=== PATIENT | male | born 1950 | race Caucasian/White ===

== ENCOUNTER → 2017-12-19 00:54 | Outpatient (CLI) | payer MEDICARE, SELFPAY ==
[2017-12-19 12:53] LABS: Anion Gap 7.1 mmol/L (3-11); BUN 22 mg/dL (7-18); CO2 28.9 mmol/L (21.0-32.0); CREATININE 1.04 mg/dL (0.70-1.30); Calcium 8.9 mg/dL (8.5-10.1); Chloride 104 mmol/L (98-107); Glucose 98 mg/dL (70-100); Potassium 3.8 mmol/L (3.5-5.1); Sodium 140 mmol/L (136-145)
== END ==
PROVIDERS: Family Medicine; PCP Family Medicine; Visit Provider Family Medicine
DX: B95.5 Unspecified streptococcus as the cause of diseases classified elsewhere (principal); R78.81 Bacteremia
CPT/HCPCS: 36415; 80048

== ENCOUNTER → 2017-12-23 09:16 | Outpatient (CLI) | payer MEDICARE, SELFPAY ==
[2017-12-23 11:09] LABS: INR 2.5 (1.0-3.5); Prothrombin Time 23.6 sec (9.3-10.8)
== END ==
PROVIDERS: PCP Family Medicine; Visit Provider Family Medicine
DX: I48.91 Unspecified atrial fibrillation (principal); Z79.01 Long term (current) use of anticoagulants
CPT/HCPCS: 36415; 85610

== ENCOUNTER → 2018-01-05 01:53 | Outpatient (CLI) | payer MEDICARE, SELFPAY ==
--- NOTE | 2018-01-05 14:40 | DI.REPORT_ITS ---
SYMPTOM/DIAGNOSIS: BACK PAIN RADIATING DOWN LT LEG, LT LUMBAR RADICULOPATHY, M54.16 LUMBAR SPINE MRI: Comparison is made with plain films dated 01/17/11. T 1, T 2 and STIR sagittal, T 1 and T 2 axial and T 1 coronal sequences were performed. There is a mild levoscoliosis. T 11-12 through L 2-3 are unremarkable. At L 3-4, there are endplate osteophytes and mild disc bulging. There is disc space narrowing greater on the right side. There is no significant central canal stenosis or neural foraminal narrowing. At L 4-5, there is also moderate loss of disc height and concentric disc bulging. There are endplate osteophytes which are slightly more prominent on the right side. There are facet degenerative changes which combine to cause moderate bilateral neural foraminal narrowing. There is minimal central canal stenosis. At L 5-S 1, there are facet degenerative changes with no significant neural foraminal narrowing or central canal stenosis. There are Schmorl's nodes on both sides of the discs and reactive changes in the vertebral endplates. The conus medullaris appears normal. IMPRESSION: Degenerative disc changes and facet degenerative changes greatest at L 4-5 causing moderate bilateral neural foraminal narrowing. There are Schmorl's nodes at L 4 and L 5 with reactive vertebral marrow changes. No disc herniation is seen at any level.
== END ==
PROVIDERS: PCP Family Medicine; Visit Provider Family Medicine
DX: M54.16 Radiculopathy, lumbar region (principal); M51.16 Intervertebral disc disorders with radiculopathy, lumbar region; M47.26 Other spondylosis with radiculopathy, lumbar region
CPT/HCPCS: 72148

== ENCOUNTER → 2018-01-15 02:02 | Outpatient (CLI) | payer MEDICARE, SELFPAY ==
[2018-01-15 11:15] LABS: INR 1.6 (1.0-3.5); Prothrombin Time 15.6 sec (9.3-10.8)
== END ==
PROVIDERS: PCP Family Medicine; Visit Provider Family Medicine
DX: I48.91 Unspecified atrial fibrillation (principal); Z79.01 Long term (current) use of anticoagulants
CPT/HCPCS: 36415; 85610

== ENCOUNTER 2018-01-22 03:09 | Outpatient (CLI) | payer MEDICARE, SELFPAY ==
[2018-01-22 11:24] LABS: INR 3.2 (1.0-3.5); Prothrombin Time 29.9 sec (9.3-10.8)
== END 2018-01-22 03:29 ==
LOC: LBO 03:10 → LOS 10:57
PROVIDERS: PCP Family Medicine; Visit Provider Family Medicine
DX: I48.91 Unspecified atrial fibrillation (principal); Z79.01 Long term (current) use of anticoagulants
CPT/HCPCS: 36415; 85610

== ENCOUNTER 2018-01-29 02:14 | Outpatient (CLI) | payer MEDICARE, SELFPAY ==
[2018-01-29 11:51] LABS: INR 2.6 (1.0-3.5); Prothrombin Time 24.5 sec (9.3-10.8)
== END 2018-01-29 02:34 ==
PROVIDERS: PCP Family Medicine; Visit Provider Family Medicine
DX: I48.91 Unspecified atrial fibrillation (principal); Z79.01 Long term (current) use of anticoagulants
CPT/HCPCS: 36415; 85610

== ENCOUNTER 2018-02-11 02:23 | Outpatient (CLI) | payer MEDICARE, SELFPAY ==
[2018-02-11 11:29] LABS: INR 1.9 (1.0-3.5); Prothrombin Time 17.9 sec (9.3-10.8)
== END 2018-02-11 02:43 ==
PROVIDERS: PCP Family Medicine; Visit Provider Family Medicine
DX: I48.91 Unspecified atrial fibrillation (principal); Z79.01 Long term (current) use of anticoagulants
CPT/HCPCS: 36415; 85610

== ENCOUNTER 2018-02-19 01:48 | Outpatient (CLI) | payer MEDICARE, SELFPAY ==
[2018-02-19 10:57] LABS: INR 1.4 (1.0-3.5); Prothrombin Time 13.6 sec (9.3-10.8)
== END 2018-02-19 02:08 ==
PROVIDERS: PCP Family Medicine; Visit Provider Family Medicine
DX: I48.91 Unspecified atrial fibrillation (principal); Z79.01 Long term (current) use of anticoagulants
CPT/HCPCS: 36415; 85610

== ENCOUNTER 2018-02-26 02:10 | Outpatient (CLI) | payer MEDICARE, SELFPAY ==
[2018-02-26 12:58] LABS: Prothrombin Time 14.9 sec (9.3-10.8)
[2018-02-26 13:04] LABS: INR 1.5 (1.0-3.5)
== END 2018-02-26 02:30 ==
PROVIDERS: PCP Family Medicine; Visit Provider Family Medicine
DX: I48.91 Unspecified atrial fibrillation (principal); Z79.01 Long term (current) use of anticoagulants
CPT/HCPCS: 36415; 85610

== ENCOUNTER 2018-03-05 02:15 | Outpatient (CLI) | payer MEDICARE, SELFPAY ==
[2018-03-05 11:27] LABS: INR 2.5 (1.0-3.5); Prothrombin Time 23.4 sec (9.3-10.8)
== END 2018-03-05 02:35 ==
PROVIDERS: PCP Family Medicine; Visit Provider Family Medicine
DX: I48.91 Unspecified atrial fibrillation (principal); Z79.01 Long term (current) use of anticoagulants
CPT/HCPCS: 36415; 85610

== ENCOUNTER 2018-03-19 01:36 | Outpatient (CLI) | payer MEDICARE, SELFPAY ==
[2018-03-19 13:00] LABS: INR 3.5 (1.0-3.5); Prothrombin Time 32.3 sec (9.3-10.8)
== END 2018-03-19 01:56 ==
PROVIDERS: PCP Family Medicine; Visit Provider Family Medicine
DX: I48.91 Unspecified atrial fibrillation (principal); Z79.01 Long term (current) use of anticoagulants
CPT/HCPCS: 36415; 85610

== ENCOUNTER 2018-03-25 01:41 | Outpatient (CLI) | payer MEDICARE, SELFPAY ==
[2018-03-25 12:59] LABS: Prothrombin Time 29.5 sec (9.3-10.8)
[2018-03-25 13:01] LABS: INR 3.1 (1.0-3.5)
== END 2018-03-25 02:01 ==
PROVIDERS: PCP Family Medicine; Visit Provider Family Medicine
DX: I48.91 Unspecified atrial fibrillation (principal); Z79.01 Long term (current) use of anticoagulants
CPT/HCPCS: 36415; 85610

== ENCOUNTER 2018-04-02 01:44 | Outpatient (CLI) | payer MEDICARE, SELFPAY ==
[2018-04-02 11:39] LABS: INR 3.3 (1.0-3.5); Prothrombin Time 31.1 sec (9.3-10.8)
== END 2018-04-02 02:04 ==
PROVIDERS: PCP Family Medicine; Visit Provider Family Medicine
DX: I48.91 Unspecified atrial fibrillation (principal); Z79.01 Long term (current) use of anticoagulants
CPT/HCPCS: 36415; 85610

== ENCOUNTER 2018-04-08 01:32 | Outpatient (CLI) | payer MEDICARE, SELFPAY ==
[2018-04-08 11:22] LABS: INR 2.7 (1.0-3.5); Prothrombin Time 25.8 sec (9.3-10.8)
== END 2018-04-08 01:52 ==
PROVIDERS: PCP Family Medicine; Visit Provider Family Medicine
DX: I48.91 Unspecified atrial fibrillation (principal); Z79.01 Long term (current) use of anticoagulants
CPT/HCPCS: 36415; 85610

== ENCOUNTER 2018-04-17 01:01 | Outpatient (CLI) | payer MEDICARE, SELFPAY ==
[2018-04-17 13:16] LABS: INR 1.2 (1.0-3.5)
== END 2018-04-17 01:21 ==
PROVIDERS: PCP Family Medicine; Visit Provider Family Medicine
DX: I48.91 Unspecified atrial fibrillation (principal); Z79.01 Long term (current) use of anticoagulants
CPT/HCPCS: 36415; 85610

== ENCOUNTER 2018-04-24 02:30 | Outpatient (CLI) | payer MEDICARE, SELFPAY ==
[2018-04-24 12:09] LABS: Anion Gap 10.5 mmol/L (3-11); BUN 19 mg/dL (7-18); CO2 31.5 mmol/L (21.0-32.0); CREATININE 1.17 mg/dL (0.70-1.30); Calcium 9.4 mg/dL (8.5-10.1); Chloride 99 mmol/L (98-107); Glucose 108 mg/dL (70-100); Potassium 3.3 mmol/L (3.5-5.1); Sodium 141 mmol/L (136-145)
[2018-04-24 12:12] LABS: Prothrombin Time 19.5 sec (9.3-10.8)
== END 2018-04-24 02:50 ==
PROVIDERS: PCP Family Medicine; Visit Provider Family Medicine
DX: I48.91 Unspecified atrial fibrillation (principal); Z79.01 Long term (current) use of anticoagulants; R53.83 Other fatigue
CPT/HCPCS: 36415; 80048; 85610

== ENCOUNTER 2018-05-29 00:54 | Outpatient (CLI) | payer OTHER, SELFPAY ==
[2018-05-29 11:45] LABS: INR 2.9 (0.9-1.1); Prothrombin Time 29.3 sec (9.3-11.0)
== END 2018-05-29 01:14 ==
PROVIDERS: PCP Family Medicine; Visit Provider Family Medicine
DX: I48.91 Unspecified atrial fibrillation (principal); Z79.01 Long term (current) use of anticoagulants
CPT/HCPCS: 36415; 85610

== ENCOUNTER 2018-06-03 10:29 | Outpatient (CLI) | payer OTHER, SELFPAY ==
[2018-06-03 12:59] LABS: INR 2.1 (0.9-1.1); Prothrombin Time 20.8 sec (9.3-11.0)
== END 2018-06-03 10:49 ==
PROVIDERS: PCP Family Medicine; Visit Provider Family Medicine
DX: I48.91 Unspecified atrial fibrillation (principal); Z79.01 Long term (current) use of anticoagulants
CPT/HCPCS: 36415; 85610

== ENCOUNTER 2018-07-02 02:16 | Outpatient (CLI) | payer OTHER, SELFPAY ==
[2018-07-02 13:25] LABS: INR 2.2 (0.9-1.1); Prothrombin Time 22.4 sec (9.3-11.0)
== END 2018-07-02 02:36 ==
PROVIDERS: PCP Family Medicine; Visit Provider Family Medicine
DX: I48.91 Unspecified atrial fibrillation (principal); Z79.01 Long term (current) use of anticoagulants
CPT/HCPCS: 36415; 85610

== ENCOUNTER 2018-08-04 07:00 | Outpatient (CLI) | payer OTHER, SELFPAY ==
[2018-08-04 13:25] LABS: INR 2.4 (0.9-1.1); Prothrombin Time 24.1 sec (9.3-11.0)
== END 2018-08-04 07:20 ==
PROVIDERS: PCP Family Medicine; Visit Provider Family Medicine
DX: I48.91 Unspecified atrial fibrillation (principal); Z79.01 Long term (current) use of anticoagulants
CPT/HCPCS: 36415; 85610

== ENCOUNTER 2018-08-28 01:32 | Outpatient (CLI) | payer OTHER, SELFPAY ==
[2018-08-28 12:37] LABS: INR 1.8 (0.9-1.1); Prothrombin Time 18.4 sec (9.3-11.0)
== END 2018-08-28 01:52 ==
PROVIDERS: PCP Family Medicine; Visit Provider Family Medicine
DX: I48.91 Unspecified atrial fibrillation (principal); Z79.01 Long term (current) use of anticoagulants
CPT/HCPCS: 36415; 85610

== ENCOUNTER 2018-09-30 02:22 | Outpatient (CLI) | payer OTHER, SELFPAY ==
[2018-09-30 14:14] LABS: INR 1.9 (0.9-1.1); Prothrombin Time 18.8 sec (9.3-11.0)
== END 2018-09-30 02:42 ==
PROVIDERS: PCP Family Medicine; Visit Provider Family Medicine
DX: I48.91 Unspecified atrial fibrillation (principal); Z79.01 Long term (current) use of anticoagulants
CPT/HCPCS: 36415; 85610

== ENCOUNTER 2018-10-23 10:21 | Outpatient (CLI) | payer OTHER, SELFPAY ==
[2018-10-23 11:13] LABS: HCT 45.4 % (40.0-50.0); HGB 15.9 g/dL (13.5-17.5); Mean Corpuscular Hemoglobin 34.3 pg (27.0-33.0); Mean Corpuscular Volume 97.8 fL (80-95); Platelet Count 201 x1000/uL (130-400); RBC 4.64 m/cumm (4.50-6.00); RBC Distribution Width 12.6 % (11.8-14.1); White Blood Cell Count 8.39 k/cumm (4.4-10.8)
[2018-10-23 11:32] LABS: INR 1.6 (0.9-1.1); Prothrombin Time 15.6 sec (9.3-11.0)
[2018-10-23 11:59] LABS: Anion Gap 7.3 mmol/L (3-11); BUN 21 mg/dL (7-18); CO2 30.7 mmol/L (21.0-32.0); CREATININE 1.18 mg/dL (0.70-1.30); Calcium 9.3 mg/dL (8.5-10.1); Chloride 102 mmol/L (98-107); Glucose 92 mg/dL (70-100); Sodium 140 mmol/L (136-145); TSH (W/Ref FT4) 0.28 uIU/mL (0.358-3.74)
[2018-10-23 14:04] LABS: FREE T4 1.31 ng/dL (0.76-1.46)
== END 2018-10-23 10:41 ==
PROVIDERS: PCP Family Medicine; Visit Provider Family Medicine
DX: R53.1 Weakness (principal); R51 Headache; I48.91 Unspecified atrial fibrillation; Z79.01 Long term (current) use of anticoagulants
CPT/HCPCS: 36415; 80048; 85027; 84439; 84443; 85610

== ENCOUNTER 2018-10-30 02:40 | Outpatient (CLI) | payer OTHER, SELFPAY ==
[2018-10-30 13:26] LABS: INR 1.6 (0.9-1.1); Prothrombin Time 16.1 sec (9.3-11.0)
== END 2018-10-30 03:00 ==
PROVIDERS: PCP Family Medicine; Visit Provider Family Medicine
DX: I48.91 Unspecified atrial fibrillation (principal); Z79.01 Long term (current) use of anticoagulants
CPT/HCPCS: 36415; 85610

== ENCOUNTER 2018-11-06 02:23 | Outpatient (CLI) | payer OTHER, SELFPAY ==
[2018-11-06 13:00] LABS: INR 2.2 (0.9-1.1); Prothrombin Time 22.1 sec (9.3-11.0)
== END 2018-11-06 02:43 ==
PROVIDERS: PCP Family Medicine; Visit Provider Family Medicine
DX: I48.91 Unspecified atrial fibrillation (principal); Z79.01 Long term (current) use of anticoagulants
CPT/HCPCS: 36415; 85610

== ENCOUNTER 2018-11-20 01:43 | Outpatient (CLI) | payer OTHER, SELFPAY ==
--- NOTE | 2018-11-20 13:51 | DI.MRI_ITS ---
SYMPTOMS/DIAGNOSIS: NEW ONSET HEADACHE, R51 MRI OF THE BRAIN: Comparison is made with a head CT dated June,. T2 sagittal, T1, T2, FLAIR, diffusion and gradient-echo axial, FLAIR sagittal and post gadolinium T1 axial and coronal sequences were performed. There is moderate atrophy. There are multiple prominent perivascular spaces bilaterally. There are scattered foci of high signal in the white matter consistent with small vessel disease. No infarct, hemorrhage or mass is seen. There are a few scattered areas of punctate blooming artifact on the gradient-echo images, suggesting petechial microhemorrhages or amyloid angiopathy. There are no abnormal enhancing lesions. The orbits, sinuses and mastoid air cells appear intact. There is an area of infarction in the right inferior cerebellum and another area of old lacunar infarct in the right cerebellar hemisphere. The vascular flow voids appear intact. IMPRESSION: Atrophy, which appears somewhat disproportionate to the patient's age. Mild white matter changes of small vessel disease. 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
[2018-11-20] MEDS: Normal Saline Flush 10 ML SYR IVP (14:35)
[2018-11-20] MEDS: Gadoterate meglumine 20 ML VIAL 17 ML IVP (14:36)
== END 2018-11-20 02:03 ==
PROVIDERS: PCP Family Medicine; Visit Provider Family Medicine
DX: R51 Headache (principal); R90.82 White matter disease, unspecified; I69.30 Unspecified sequelae of cerebral infarction
CPT/HCPCS: 70553

== ENCOUNTER 2018-12-01 02:42 | Outpatient (CLI) | payer OTHER, SELFPAY ==
[2018-12-01 12:57] LABS: Prothrombin Time 19.6 sec (9.3-11.0)
[2018-12-01 13:01] LABS: INR 1.9 (0.9-1.1)
== END 2018-12-01 03:02 ==
PROVIDERS: PCP Family Medicine; Visit Provider Family Medicine
DX: I48.91 Unspecified atrial fibrillation (principal); Z79.01 Long term (current) use of anticoagulants
CPT/HCPCS: 36415; 85610

== ENCOUNTER 2019-01-08 04:07 | Outpatient (CLI) | payer OTHER, SELFPAY ==
[2019-01-08 13:22] LABS: INR 1.5 (0.9-1.1); Prothrombin Time 15.4 sec (9.3-11.0)
== END 2019-01-08 04:27 ==
PROVIDERS: PCP Family Medicine; Visit Provider Family Medicine
DX: I48.91 Unspecified atrial fibrillation (principal); Z79.01 Long term (current) use of anticoagulants
CPT/HCPCS: 36415; 85610

== ENCOUNTER 2019-01-14 12:15 | Outpatient (CLI) | payer OTHER, SELFPAY ==
[2019-01-14 12:53] LABS: INR 2.1 (0.9-1.1); Prothrombin Time 21.2 sec (9.3-11.0)
== END 2019-01-14 12:35 ==
PROVIDERS: PCP Family Medicine; Visit Provider Family Medicine
DX: I48.91 Unspecified atrial fibrillation (principal); Z79.01 Long term (current) use of anticoagulants
CPT/HCPCS: 36415; 85610

== ENCOUNTER 2019-02-10 01:41 | Outpatient (CLI) | payer OTHER, SELFPAY ==
[2019-02-10 11:48] LABS: Prothrombin Time 19.4 sec (9.3-11.0)
== END 2019-02-10 02:01 ==
PROVIDERS: PCP Family Medicine; Visit Provider Family Medicine
DX: I48.91 Unspecified atrial fibrillation (principal); Z79.01 Long term (current) use of anticoagulants
CPT/HCPCS: 36415; 85610

== ENCOUNTER 2019-03-16 02:45 | Outpatient (CLI) | payer OTHER, SELFPAY ==
[2019-03-16 13:09] LABS: Prothrombin Time 29.3 sec (9.3-11.0)
== END 2019-03-16 03:05 ==
PROVIDERS: PCP Family Medicine; Visit Provider Family Medicine
DX: I48.91 Unspecified atrial fibrillation (principal); Z79.01 Long term (current) use of anticoagulants
CPT/HCPCS: 36415; 85610

== ENCOUNTER → 2019-03-31 10:10 | Outpatient (BNVA) | payer OTHER, SELFPAY | PROVIDERS: PCP Family Medicine; Referring Provider Family Medicine; Visit Provider Nurse Practitioner Adult Health | DX: G56.22 Lesion of ulnar nerve, left upper limb (principal); G56.03 Carpal tunnel syndrome, bilateral upper limbs | CPT/HCPCS: 95911; 99203 ==

== ENCOUNTER → 2019-04-27 10:49 | Outpatient (BNVA) | payer OTHER, SELFPAY | PROVIDERS: PCP Family Medicine; Referring Provider Family Medicine; Visit Provider Orthopaedic Surgery | DX: G56.02 Carpal tunnel syndrome, left upper limb (principal); G56.01 Carpal tunnel syndrome, right upper limb | CPT/HCPCS: 99203; 99213; L3908 ==

== ENCOUNTER 2019-04-29 01:40 | Outpatient (CLI) | payer OTHER, SELFPAY ==
[2019-04-29 12:52] LABS: INR 2.4 (0.9-1.1); Prothrombin Time 23.6 sec (9.3-11.0)
== END 2019-04-29 02:00 ==
PROVIDERS: PCP Family Medicine; Visit Provider Family Medicine
DX: I48.91 Unspecified atrial fibrillation (principal); Z79.01 Long term (current) use of anticoagulants
CPT/HCPCS: 36415; 85610

== ENCOUNTER 2019-06-03 01:43 | Outpatient (CLI) | payer OTHER, SELFPAY ==
[2019-06-03 12:59] LABS: Prothrombin Time 20.1 sec (9.3-11.0)
[2019-06-03 13:25] LABS: ALT 18 U/L (16-63); AST 19 U/L (15-37); Albumin 4.3 g/dL (3.4-5.0); Alkaline Phosphatase 41 U/L (46-116); Anion Gap 8.4 mmol/L (3-11); BUN 22 mg/dL (7-18); Bilirubin, Total 1.6 mg/dL (0.2-1.0); CO2 28.6 mmol/L (21.0-32.0); CREATININE 1.29 mg/dL (0.70-1.30); Calcium 9.4 mg/dL (8.5-10.1); Chloride 108 mmol/L (98-107); Estimated GFR 55.22 (mL/min/1.73m2); Ferritin 128 ng/mL (26-388); Glucose 97 mg/dL (74-106); Potassium 3.8 mmol/L (3.5-5.1); Sodium 145 mmol/L (136-145); TSH 1.68 uIU/mL (0.36-3.74); Total Protein 7.1 g/dL (6.4-8.2)
== END 2019-06-03 02:03 ==
PROVIDERS: Nurse Practitioner; PCP Family Medicine; Visit Provider Family Medicine
DX: I48.91 Unspecified atrial fibrillation (principal); Z79.01 Long term (current) use of anticoagulants; I10 Essential (primary) hypertension; G25.81 Restless legs syndrome; M25.50 Pain in unspecified joint
CPT/HCPCS: 36415; 80053; 82728; 84443; 85610

== ENCOUNTER → 2019-06-22 09:52 | Outpatient (BNVA) | payer OTHER, SELFPAY | PROVIDERS: PCP Family Medicine; Referring Provider Family Medicine; Visit Provider Orthopaedic Surgery | DX: G56.01 Carpal tunnel syndrome, right upper limb (principal); G56.02 Carpal tunnel syndrome, left upper limb | CPT/HCPCS: 99213 ==

== ENCOUNTER 2019-07-23 09:30 | Outpatient (REF) | payer OTHER, SELFPAY ==
[2019-07-23 11:18] LABS: INR 1.6 (0.9-1.1); Prothrombin Time 15.9 sec (9.3-11.0)
== END 2019-07-23 09:50 ==
LOC: LOS 09:30
PROVIDERS: PCP Family Medicine; Visit Provider Family Medicine
DX: I48.91 Unspecified atrial fibrillation (principal); Z79.01 Long term (current) use of anticoagulants
CPT/HCPCS: 36415; 85610

== ENCOUNTER 2019-08-04 02:55 | Outpatient (CLI) | payer OTHER, SELFPAY ==
[2019-08-04 12:39] LABS: INR 1.4 (0.9-1.1); Prothrombin Time 14.3 sec (9.3-11.0)
== END 2019-08-04 03:15 ==
PROVIDERS: PCP Family Medicine; Visit Provider Family Medicine
DX: I48.91 Unspecified atrial fibrillation (principal); Z79.01 Long term (current) use of anticoagulants
CPT/HCPCS: 36415; 85610

== ENCOUNTER 2019-08-09 02:58 | Outpatient (CLI) | payer OTHER, SELFPAY ==
[2019-08-09 13:04] LABS: INR 1.3 (0.9-1.1); Prothrombin Time 13.4 sec (9.3-11.0)
== END 2019-08-09 03:18 ==
PROVIDERS: PCP Family Medicine; Visit Provider Family Medicine
DX: I48.20 Chronic atrial fibrillation, unspecified (principal); Z95.2 Presence of prosthetic heart valve; Z79.01 Long term (current) use of anticoagulants
CPT/HCPCS: 36415; 85610

== ENCOUNTER 2019-08-18 00:26 | Outpatient (CLI) | payer OTHER, SELFPAY ==
[2019-08-18 15:32] LABS: INR 1.6 (0.9-1.1); Prothrombin Time 15.5 sec (9.3-11.0)
== END 2019-08-18 00:46 ==
PROVIDERS: PCP Family Medicine; Visit Provider Family Medicine
DX: I48.91 Unspecified atrial fibrillation (principal); Z79.01 Long term (current) use of anticoagulants
CPT/HCPCS: 36415; 85610

== ENCOUNTER 2019-08-25 01:00 | Outpatient (CLI) | payer OTHER, SELFPAY ==
[2019-08-25 13:56] LABS: Prothrombin Time 19.4 sec (9.3-11.0)
== END 2019-08-25 01:20 ==
PROVIDERS: PCP Family Medicine; Visit Provider Family Medicine
DX: I48.91 Unspecified atrial fibrillation (principal); Z79.01 Long term (current) use of anticoagulants
CPT/HCPCS: 36415; 85610

== ENCOUNTER → 2020-04-11 15:02 | Outpatient (REF) | payer OTHER, SELFPAY ==
[2020-04-11 22:45] LABS: Anion Gap 7.8 mmol/L (3-11); BUN 17 mg/dL (7-18); CO2 27.2 mmol/L (21.0-32.0); CREATININE 1.14 mg/dL (0.70-1.30); Calcium 8.9 mg/dL (8.5-10.1); Chloride 108 mmol/L (98-107); Glucose 97 mg/dL (74-106); Potassium 3.4 mmol/L (3.5-5.1); Sodium 143 mmol/L (136-145)
== END ==
LOC: LBN 15:02
PROVIDERS: PCP Family Medicine; Visit Provider Family Medicine
DX: I10 Essential (primary) hypertension (principal)
CPT/HCPCS: 80048

== ENCOUNTER 2020-04-21 02:23 | Outpatient (CLI) | payer OTHER, SELFPAY ==
[2020-04-22 17:05] LABS: COVID-19 RT-PCR Result NEGATIVE (Negative)
== END 2020-04-21 02:43 ==
PROVIDERS: PCP Family Medicine; Visit Provider Family Medicine
DX: Z20.828 Contact with and (suspected) exposure to other viral communicable diseases (principal)
CPT/HCPCS: U0003

== ENCOUNTER 2020-05-01 03:42 | Outpatient (CLI) | payer OTHER, SELFPAY ==
[2020-05-01 12:36] LABS: Prothrombin Time 13.5 sec (9.3-11.0)
[2020-05-01 12:47] LABS: INR 1.3 (0.9-1.1)
== END 2020-05-01 04:02 ==
PROVIDERS: PCP Family Medicine; Visit Provider Family Medicine
DX: I48.91 Unspecified atrial fibrillation (principal); Z79.01 Long term (current) use of anticoagulants
CPT/HCPCS: 36415; 85610

== ENCOUNTER 2020-05-10 03:11 | Outpatient (CLI) | payer OTHER, SELFPAY ==
[2020-05-10 13:01] LABS: INR 3.1 (0.9-1.1); Prothrombin Time 30.3 sec (9.3-11.0)
== END 2020-05-10 03:31 ==
PROVIDERS: PCP Family Medicine; Visit Provider Family Medicine
DX: I48.91 Unspecified atrial fibrillation (principal); Z79.01 Long term (current) use of anticoagulants
CPT/HCPCS: 36415; 85610

== ENCOUNTER 2020-05-16 03:25 | Outpatient (CLI) | payer OTHER, SELFPAY ==
[2020-05-16 13:26] LABS: INR 3.6 (0.9-1.1); Prothrombin Time 34.9 sec (9.3-11.0)
== END 2020-05-16 03:45 ==
PROVIDERS: PCP Family Medicine; Visit Provider Family Medicine
DX: I48.20 Chronic atrial fibrillation, unspecified (principal); Z79.01 Long term (current) use of anticoagulants
CPT/HCPCS: 36415; 85610

== ENCOUNTER 2020-05-18 10:31 | Outpatient (CLI) | payer OTHER, SELFPAY ==
[2020-05-18 12:15] LABS: INR 3.4 (0.9-1.1)
[2020-05-18 13:03] LABS: Anion Gap 10.1 mmol/L (3-11); BUN 19 mg/dL (7-18); CO2 25.9 mmol/L (21.0-32.0); CREATININE 1.27 mg/dL (0.70-1.30); Calcium 8.9 mg/dL (8.5-10.1); Chloride 107 mmol/L (98-107); Estimated GFR 56.07 (mL/min/1.73m2); Glucose 108 mg/dL (74-106); Potassium 3.6 mmol/L (3.5-5.1); Sodium 143 mmol/L (136-145)
== END 2020-05-18 10:51 ==
PROVIDERS: PCP Family Medicine; Visit Provider Family Medicine
DX: I10 Essential (primary) hypertension (principal); I48.20 Chronic atrial fibrillation, unspecified; Z79.01 Long term (current) use of anticoagulants
CPT/HCPCS: 36415; 80048; 85610

== ENCOUNTER 2020-05-25 02:43 | Outpatient (CLI) | payer OTHER, SELFPAY ==
[2020-05-25 14:50] LABS: INR 3.5 (0.9-1.1); Prothrombin Time 34.1 sec (9.3-11.0)
== END 2020-05-25 03:03 ==
PROVIDERS: PCP Family Medicine; Visit Provider Family Medicine
DX: I48.20 Chronic atrial fibrillation, unspecified (principal); Z79.01 Long term (current) use of anticoagulants
CPT/HCPCS: 36415; 85610

== ENCOUNTER 2020-06-02 01:06 | Outpatient (CLI) | payer OTHER, SELFPAY ==
[2020-06-02 13:19] LABS: INR 1.4 (0.9-1.1); Prothrombin Time 13.6 sec (9.3-11.0)
== END 2020-06-02 01:26 ==
PROVIDERS: PCP Family Medicine; Visit Provider Family Medicine
DX: I48.91 Unspecified atrial fibrillation (principal); Z79.01 Long term (current) use of anticoagulants
CPT/HCPCS: 36415; 85610

== ENCOUNTER 2020-06-09 00:34 | Outpatient (CLI) | payer OTHER, SELFPAY ==
[2020-06-09 13:23] LABS: INR 2.8 (0.9-1.1); Prothrombin Time 27.4 sec (9.3-11.0)
== END 2020-06-09 00:54 ==
PROVIDERS: PCP Family Medicine; Visit Provider Family Medicine
DX: I48.20 Chronic atrial fibrillation, unspecified (principal); Z79.01 Long term (current) use of anticoagulants
CPT/HCPCS: 36415; 85610

== ENCOUNTER 2020-06-19 08:42 | Outpatient (CLI) | payer OTHER, SELFPAY ==
[2020-06-19 14:59] LABS: INR 2.2 (0.9-1.1); Prothrombin Time 22.1 sec (9.3-11.0)
== END 2020-06-19 09:02 ==
PROVIDERS: PCP Family Medicine; Visit Provider Family Medicine
DX: I48.20 Chronic atrial fibrillation, unspecified (principal); Z79.01 Long term (current) use of anticoagulants
CPT/HCPCS: 36415; 85610

== ENCOUNTER 2020-07-10 21:23 | Outpatient (REF) | payer OTHER, SELFPAY ==
[2020-07-10 21:57] LABS: Anion Gap 7.4 mmol/L (3-11); BUN 19 mg/dL (7-18); CO2 28.6 mmol/L (21.0-32.0); CREATININE 1.1 mg/dL (0.70-1.30); Calcium 9.1 mg/dL (8.5-10.1); Chloride 108 mmol/L (98-107); Glucose 115 mg/dL (74-106); Potassium 4.1 mmol/L (3.5-5.1); Sodium 144 mmol/L (136-145)
[2020-07-17 15:24] LABS: 1,25-Dihydroxyvitamin D 20 pg/mL (18-64)
== END 2020-07-10 21:24 | disposition home or self-care (01) ==
LOC: LBN 21:23
PROVIDERS: PCP Family Medicine; Visit Provider Nurse Practitioner Family
DX: I10 Essential (primary) hypertension (principal); F32.9 Major depressive disorder, single episode, unspecified; Z79.899 Other long term (current) drug therapy; Z13.21 Encounter for screening for nutritional disorder
CPT/HCPCS: 80048; 82652

== ENCOUNTER 2020-07-14 01:02 | Outpatient (CLI) | payer OTHER, SELFPAY ==
[2020-07-14 12:40] LABS: INR 2.4 (0.9-1.1); Prothrombin Time 23.3 sec (9.3-11.0)
== END 2020-07-14 01:03 | disposition home or self-care (01) ==
LOC: LOS 01:02
PROVIDERS: PCP Family Medicine; Visit Provider Family Medicine
DX: I48.20 Chronic atrial fibrillation, unspecified (principal); Z79.01 Long term (current) use of anticoagulants
CPT/HCPCS: 36415; 85610

== ENCOUNTER 2020-08-11 01:42 | Outpatient (CLI) | payer OTHER, SELFPAY ==
[2020-08-11 12:40] LABS: INR 2.5 (0.9-1.1); Prothrombin Time 24.9 sec (9.3-11.0)
== END 2020-08-11 01:43 | disposition home or self-care (01) ==
LOC: LOS 01:43
PROVIDERS: PCP Family Medicine; Visit Provider Family Medicine
DX: I48.20 Chronic atrial fibrillation, unspecified (principal); Z79.01 Long term (current) use of anticoagulants
CPT/HCPCS: 36415; 85610

== ENCOUNTER 2020-09-11 04:04 | Outpatient (CLI) | payer OTHER, SELFPAY ==
[2020-09-11 12:54] LABS: INR 2.2 (0.9-1.1); Prothrombin Time 22.1 sec (9.3-11.0)
== END 2020-09-11 04:05 | disposition home or self-care (01) ==
LOC: LOS 04:04
PROVIDERS: PCP Family Medicine; Visit Provider Nurse Practitioner Family
DX: I48.20 Chronic atrial fibrillation, unspecified (principal); Z79.01 Long term (current) use of anticoagulants
CPT/HCPCS: 36415; 85610

== ENCOUNTER 2020-12-18 16:06 | Outpatient (CLI) | payer OTHER, SELFPAY ==
[2020-12-18 09:44] LABS: INR 2.5 (0.9-1.1); Prothrombin Time 24.8 sec (9.3-11.0)
== END 2020-12-18 16:07 | disposition home or self-care (01) ==
LOC: LBO 16:06
PROVIDERS: Visit Provider Internal Medicine
DX: I48.11 Longstanding persistent atrial fibrillation (principal); Z79.01 Long term (current) use of anticoagulants
CPT/HCPCS: 36415; 85610

== ENCOUNTER 2020-12-22 02:40 | Outpatient (CLI) | payer OTHER, SELFPAY ==
[2020-12-22 09:36] LABS: INR 2.5 (0.9-1.1)
== END 2020-12-22 02:41 | disposition home or self-care (01) ==
LOC: LBO 02:40
PROVIDERS: Visit Provider Internal Medicine
DX: I48.11 Longstanding persistent atrial fibrillation (principal); Z79.01 Long term (current) use of anticoagulants
CPT/HCPCS: 36415; 85610

== ENCOUNTER 2021-01-04 02:54 | Outpatient (CLI) | payer OTHER, SELFPAY ==
[2021-01-04 10:03] LABS: INR 2.3 (0.9-1.1); Prothrombin Time 22.9 sec (9.3-11.0)
== END 2021-01-04 02:55 | disposition home or self-care (01) ==
LOC: LBO 02:54
PROVIDERS: Internal Medicine; Visit Provider Internal Medicine
DX: I48.11 Longstanding persistent atrial fibrillation (principal); Z79.01 Long term (current) use of anticoagulants
CPT/HCPCS: 36415; 85610

== ENCOUNTER 2021-02-02 02:29 | Outpatient (CLI) | payer OTHER, SELFPAY ==
[2021-02-02 13:14] LABS: Prothrombin Time 19.9 sec (9.3-11.0)
== END 2021-02-02 02:30 | disposition home or self-care (01) ==
LOC: LBO 02:29
PROVIDERS: Visit Provider Internal Medicine
DX: I48.11 Longstanding persistent atrial fibrillation (principal); Z79.01 Long term (current) use of anticoagulants
CPT/HCPCS: 36415; 85610

== ENCOUNTER 2021-03-01 02:46 | Outpatient (CLI) | payer MEDICARE, SELFPAY ==
[2021-03-01 16:16] LABS: Prothrombin Time 19.7 sec (9.3-11.0)
== END 2021-03-01 02:47 | disposition home or self-care (01) ==
LOC: LBO 02:46
PROVIDERS: Visit Provider Internal Medicine
DX: I48.11 Longstanding persistent atrial fibrillation (principal)
CPT/HCPCS: 36415; 85610

== ENCOUNTER 2021-04-05 02:19 | Outpatient (CLI) | payer MEDICARE, SELFPAY ==
[2021-04-05 12:16] LABS: HCT 46.3 % (40.0-50.0); HGB 15.3 g/dL (13.5-17.5); MCH 33.3 pg (27.0-33.0); MCV 100.9 fL (80-95); MPV 9.3 fL (8.0-11.0); Platelet Count 236 10^3/uL (130-400); RBC 4.59 10^6/uL (4.36-5.78); RDW 12.5 % (11.8-14.1); RDW-SD 46.5 fL; WBC 7.59 10^3/uL (4.4-10.8)
[2021-04-05 12:31] LABS: INR 2.6 (0.9-1.1); Prothrombin Time 25.7 sec (9.3-11.0)
[2021-04-05 13:42] LABS: ALT 28 U/L (16-63); AST 17 U/L (15-37); Alkaline Phosphatase 57 U/L (46-116); Anion Gap 10.1 mmol/L (3-11); BUN 23 mg/dL (7-18); Bilirubin, Total 0.8 mg/dL (0.2-1.0); CO2 27.9 mmol/L (21.0-32.0); CREATININE 1.4 mg/dL (0.70-1.30); Calcium 9.1 mg/dL (8.5-10.1); Chloride 108 mmol/L (98-107); Estimated GFR 49.96 (mL/min/1.73m2); Glucose 125 mg/dL (74-106); Potassium 3.6 mmol/L (3.5-5.1); Sodium 146 mmol/L (136-145); Total Protein 7.1 g/dL (6.4-8.2)
== END 2021-04-05 02:20 | disposition home or self-care (01) ==
LOC: LBO 02:19
PROVIDERS: Visit Provider Internal Medicine
DX: I10 Essential (primary) hypertension (principal); I48.11 Longstanding persistent atrial fibrillation; Z79.01 Long term (current) use of anticoagulants
CPT/HCPCS: 36415; 80053; 85027; 85014; 85018; 85610

== ENCOUNTER 2021-05-08 02:25 | Outpatient (CLI) | payer MEDICARE, SELFPAY ==
[2021-05-08 14:49] LABS: HCT 42.8 % (40.0-50.0); HGB 14.2 g/dL (13.5-17.5); MCH 33.6 pg (27.0-33.0); MCHC 33.2 % (32.0-36.0); MCV 101.2 fL (80-95); MPV 9.3 fL (8.0-11.0); Platelet Count 219 10^3/uL (130-400); RBC 4.23 10^6/uL (4.36-5.78); RDW 12.5 % (11.8-14.1); RDW-SD 46.4 fL; WBC 9.35 10^3/uL (4.4-10.8)
[2021-05-08 15:02] LABS: INR 3.3 (0.9-1.1); Prothrombin Time 32.4 sec (9.3-11.0)
[2021-05-08 16:39] LABS: ALT 23 U/L (16-63); AST 19 U/L (15-37); Albumin 3.6 g/dL (3.4-5.0); Alkaline Phosphatase 49 U/L (46-116); Anion Gap 7.5 mmol/L (3-11); BUN 23 mg/dL (7-18); Bilirubin, Total 0.6 mg/dL (0.2-1.0); CO2 26.5 mmol/L (21.0-32.0); CREATININE 1.2 mg/dL (0.70-1.30); Calcium 8.6 mg/dL (8.5-10.1); Chloride 108 mmol/L (98-107); Estimated GFR 59.68 (mL/min/1.73m2); Glucose 121 mg/dL (74-106); Potassium 3.2 mmol/L (3.5-5.1); Sodium 142 mmol/L (136-145); Total Protein 6.5 g/dL (6.4-8.2)
== END 2021-05-08 02:26 | disposition home or self-care (01) ==
LOC: LBO 02:25
PROVIDERS: Visit Provider Internal Medicine
DX: I48.11 Longstanding persistent atrial fibrillation (principal); I10 Essential (primary) hypertension; Z79.01 Long term (current) use of anticoagulants
CPT/HCPCS: 36415; 80053; 85027; 85610

== ENCOUNTER 2021-05-29 02:18 | Outpatient (CLI) | payer MEDICARE, SELFPAY ==
[2021-05-29 12:27] LABS: INR 2.4 (0.9-1.1); Prothrombin Time 23.3 sec (9.3-11.0)
== END 2021-05-29 02:19 | disposition home or self-care (01) ==
LOC: LBO 02:18
PROVIDERS: Visit Provider Internal Medicine
DX: I48.11 Longstanding persistent atrial fibrillation (principal)
CPT/HCPCS: 36415; 85610

== ENCOUNTER 2021-06-27 01:41 | Outpatient (CLI) | payer MEDICARE, SELFPAY ==
[2021-06-27 14:29] LABS: INR 2.8 (0.9-1.1); Prothrombin Time 27.5 sec (9.3-11.0)
== END 2021-06-27 01:42 | disposition home or self-care (01) ==
PROVIDERS: Visit Provider Internal Medicine
DX: I48.11 Longstanding persistent atrial fibrillation (principal); Z79.01 Long term (current) use of anticoagulants
CPT/HCPCS: 36415; 85610

== ENCOUNTER 2021-07-25 04:29 | Outpatient (CLI) | payer MEDICARE, SELFPAY ==
[2021-07-25 10:39] LABS: INR 2.6 (0.9-1.1); Prothrombin Time 25.3 sec (9.3-11.0)
== END 2021-07-25 04:30 | disposition home or self-care (01) ==
LOC: LBO 04:29
PROVIDERS: Visit Provider Internal Medicine
DX: I48.11 Longstanding persistent atrial fibrillation (principal)
CPT/HCPCS: 36415; 85610

== ENCOUNTER 2021-08-31 02:34 | Outpatient (CLI) | payer MEDICARE, SELFPAY ==
[2021-08-31 11:16] LABS: INR 2.2 (0.9-1.1); Prothrombin Time 21.6 sec (9.3-11.0)
== END 2021-08-31 02:35 | disposition home or self-care (01) ==
PROVIDERS: Visit Provider Internal Medicine
DX: I48.11 Longstanding persistent atrial fibrillation (principal); Z79.01 Long term (current) use of anticoagulants
CPT/HCPCS: 36415; 85610

== ENCOUNTER 2021-10-01 03:23 | Outpatient (CLI) | payer MEDICARE, SELFPAY ==
[2021-10-01 08:21] LABS: INR 2.7 (0.9-1.1); Prothrombin Time 26.3 sec (9.3-11.0)
== END 2021-10-01 03:24 | disposition home or self-care (01) ==
LOC: LBO 03:23
PROVIDERS: Visit Provider Internal Medicine
DX: I48.11 Longstanding persistent atrial fibrillation (principal); Z79.01 Long term (current) use of anticoagulants
CPT/HCPCS: 36415; 85610

== ENCOUNTER 2021-11-05 02:54 | Outpatient (CLI) | payer MEDICARE, SELFPAY ==
[2021-11-05 13:00] LABS: Prothrombin Time 41.7 sec (9.3-11.0)
[2021-11-05 13:10] LABS: INR 4.6 (0.9-1.1)
== END 2021-11-05 02:55 | disposition home or self-care (01) ==
LOC: LOS 02:54
PROVIDERS: Internal Medicine; Visit Provider Internal Medicine
DX: I48.11 Longstanding persistent atrial fibrillation (principal); Z79.01 Long term (current) use of anticoagulants
CPT/HCPCS: 36415; 85610

== ENCOUNTER 2021-11-08 03:16 | Outpatient (CLI) | payer MEDICARE, SELFPAY ==
[2021-11-08 12:52] LABS: INR 2.3 (0.9-1.1); Prothrombin Time 21.6 sec (9.3-11.0)
== END 2021-11-08 03:17 | disposition home or self-care (01) ==
PROVIDERS: Visit Provider Internal Medicine
DX: I48.11 Longstanding persistent atrial fibrillation (principal); Z79.01 Long term (current) use of anticoagulants
CPT/HCPCS: 36415; 85610

== ENCOUNTER 2021-11-15 02:26 | Outpatient (CLI) | payer MEDICARE, SELFPAY ==
[2021-11-15 13:15] LABS: INR 3.1 (0.9-1.1); Prothrombin Time 29.1 sec (9.3-11.0)
== END 2021-11-15 02:27 | disposition home or self-care (01) ==
LOC: LOS 02:26
PROVIDERS: Visit Provider Internal Medicine
DX: I48.11 Longstanding persistent atrial fibrillation (principal); Z79.01 Long term (current) use of anticoagulants
CPT/HCPCS: 36415; 85610

== ENCOUNTER 2021-11-22 04:20 | Outpatient (CLI) | payer MEDICARE, SELFPAY ==
[2021-11-22 11:08] LABS: Prothrombin Time 38.7 sec (9.3-11.0)
[2021-11-22 11:32] LABS: INR 4.2 (0.9-1.1)
== END 2021-11-22 04:21 | disposition home or self-care (01) ==
LOC: LBO 04:20
PROVIDERS: PCP Internal Medicine; Visit Provider Internal Medicine
DX: I48.11 Longstanding persistent atrial fibrillation (principal); Z79.01 Long term (current) use of anticoagulants
CPT/HCPCS: 36415; 85610

== ENCOUNTER 2021-11-26 03:04 | Outpatient (CLI) | payer MEDICARE, SELFPAY ==
[2021-11-26 12:38] LABS: INR 3.3 (0.9-1.1); Prothrombin Time 30.7 sec (9.3-11.0)
== END 2021-11-26 03:05 | disposition home or self-care (01) ==
LOC: LOS 03:04
PROVIDERS: PCP Internal Medicine; Visit Provider Internal Medicine
DX: I48.11 Longstanding persistent atrial fibrillation (principal); Z79.01 Long term (current) use of anticoagulants
CPT/HCPCS: 36415; 85610

== ENCOUNTER 2021-12-13 03:10 | Outpatient (CLI) | payer MEDICARE, SELFPAY ==
[2021-12-13 13:15] LABS: INR 4.1 (0.9-1.1)
== END 2021-12-13 03:11 | disposition home or self-care (01) ==
LOC: LOS 03:11
PROVIDERS: PCP Internal Medicine; Visit Provider Internal Medicine
DX: I48.11 Longstanding persistent atrial fibrillation (principal); Z79.01 Long term (current) use of anticoagulants
CPT/HCPCS: 36415; 85610

== ENCOUNTER 2021-12-20 03:07 | Outpatient (CLI) | payer MEDICARE, SELFPAY ==
[2021-12-20 14:01] LABS: Prothrombin Time 18.9 sec (9.3-11.0)
== END 2021-12-20 03:08 | disposition home or self-care (01) ==
LOC: LBO 03:07
PROVIDERS: PCP Internal Medicine; Visit Provider Internal Medicine
DX: I48.11 Longstanding persistent atrial fibrillation (principal); Z79.01 Long term (current) use of anticoagulants
CPT/HCPCS: 36415; 85610

== ENCOUNTER 2021-12-28 00:58 | Outpatient (CLI) | payer MEDICARE, SELFPAY ==
[2021-12-28 12:26] LABS: Prothrombin Time 19.6 sec (9.3-11.0)
== END 2021-12-28 00:59 | disposition home or self-care (01) ==
LOC: LOS 00:58
PROVIDERS: PCP Internal Medicine; Visit Provider Internal Medicine
DX: I48.11 Longstanding persistent atrial fibrillation (principal); Z79.01 Long term (current) use of anticoagulants
CPT/HCPCS: 36415; 85610

== ENCOUNTER 2022-01-04 01:00 | Outpatient (CLI) | payer MEDICARE, SELFPAY ==
[2022-01-04 13:03] LABS: INR 3.2 (0.9-1.1); Prothrombin Time 30.3 sec (9.3-11.0)
== END 2022-01-04 01:01 | disposition home or self-care (01) ==
LOC: LOS 01:00
PROVIDERS: PCP Internal Medicine; Visit Provider Internal Medicine
DX: I48.11 Longstanding persistent atrial fibrillation (principal)
CPT/HCPCS: 36415; 85610

== ENCOUNTER 2022-01-15 03:27 | Outpatient (CLI) | payer MEDICARE, SELFPAY ==
[2022-01-15 12:54] LABS: INR 2.6 (0.9-1.1); Prothrombin Time 24.6 sec (9.3-11.0)
== END 2022-01-15 03:28 | disposition home or self-care (01) ==
LOC: LOS 03:27
PROVIDERS: PCP Internal Medicine; Visit Provider Internal Medicine
DX: I48.11 Longstanding persistent atrial fibrillation (principal); Z79.01 Long term (current) use of anticoagulants
CPT/HCPCS: 36415; 85610

== ENCOUNTER 2022-01-30 11:20 | Outpatient (CLI) | payer MEDICARE, SELFPAY ==
[2022-01-30 19:07] LABS: INR 1.8 (0.9-1.1); Prothrombin Time 17.6 sec (9.3-11.0)
== END 2022-01-30 11:21 | disposition home or self-care (01) ==
LOC: LBO 11:20
PROVIDERS: PCP Internal Medicine; Visit Provider Internal Medicine
DX: I48.11 Longstanding persistent atrial fibrillation (principal)
CPT/HCPCS: 36415; 85610

== ENCOUNTER 2022-02-21 02:25 | Outpatient (CLI) | payer MEDICARE, SELFPAY ==
[2022-02-21 13:49] LABS: INR 2.8 (0.9-1.1); Prothrombin Time 26.6 sec (9.3-11.0)
== END 2022-02-21 02:26 | disposition home or self-care (01) ==
LOC: LBO 02:25
PROVIDERS: PCP Internal Medicine; Visit Provider Internal Medicine
DX: I48.11 Longstanding persistent atrial fibrillation (principal)
CPT/HCPCS: 36415; 85610

== ENCOUNTER 2022-03-15 13:07 | Outpatient (CLI) | payer MEDICARE, SELFPAY ==
[2022-03-15 15:57] LABS: Prothrombin Time 19.7 sec (9.3-11.0)
== END 2022-03-15 13:08 | disposition home or self-care (01) ==
LOC: LBO 13:08
PROVIDERS: PCP Internal Medicine; Visit Provider Internal Medicine
DX: I48.11 Longstanding persistent atrial fibrillation (principal)
CPT/HCPCS: 36415; 85610

== ENCOUNTER 2022-04-12 01:30 | Outpatient (CLI) | payer MEDICARE, SELFPAY ==
[2022-04-12 12:54] LABS: HCT 48.9 % (40.0-50.0); HGB 16.8 g/dL (13.5-17.5)
[2022-04-12 13:03] LABS: INR 2.9 (0.9-1.1); Prothrombin Time 27.7 sec (9.3-11.0)
[2022-04-12 13:38] LABS: Ferritin 91 ng/mL (26-388)
[2022-04-12 13:51] LABS: Iron 142 ug/dL (65-175); Total Iron Binding Capacity 322 ug/dL (250-450); Transferrin Sat 44 % (20-55)
== END 2022-04-12 01:31 | disposition home or self-care (01) ==
LOC: LBO 01:30
PROVIDERS: PCP Internal Medicine; Visit Provider Internal Medicine
DX: G25.81 Restless legs syndrome (principal); I48.11 Longstanding persistent atrial fibrillation
CPT/HCPCS: 36415; 82728; 83540; 83550; 85014; 85018; 85610

== ENCOUNTER 2022-05-08 02:07 | Outpatient (CLI) | payer MEDICARE, SELFPAY ==
[2022-05-08 14:37] LABS: INR 2.5 (0.9-1.1); Prothrombin Time 24.1 sec (9.3-11.0)
== END 2022-05-08 02:08 | disposition home or self-care (01) ==
LOC: LBO 02:07
PROVIDERS: PCP Internal Medicine; Visit Provider Internal Medicine
DX: I48.11 Longstanding persistent atrial fibrillation (principal); Z79.01 Long term (current) use of anticoagulants
CPT/HCPCS: 36415; 85610

== ENCOUNTER 2022-06-07 01:17 | Outpatient (CLI) | payer MEDICARE, SELFPAY ==
[2022-06-07 12:29] LABS: INR 2.8 (0.9-1.1); Prothrombin Time 26.3 sec (9.3-11.0)
== END 2022-06-07 01:18 | disposition home or self-care (01) ==
LOC: LOS 01:17
PROVIDERS: PCP Internal Medicine; Visit Provider Internal Medicine
DX: I48.11 Longstanding persistent atrial fibrillation (principal)
CPT/HCPCS: 36415; 85610

== ENCOUNTER 2022-07-05 01:01 | Outpatient (CLI) | payer MEDICARE, SELFPAY ==
[2022-07-05 13:28] LABS: INR 2.6 (0.9-1.1); Prothrombin Time 26.6 sec (9.3-11.0)
== END 2022-07-05 01:02 | disposition home or self-care (01) ==
LOC: LBO 01:01
PROVIDERS: PCP Internal Medicine; Visit Provider Internal Medicine
DX: I48.11 Longstanding persistent atrial fibrillation (principal)
CPT/HCPCS: 36415; 85610

== ENCOUNTER 2022-08-16 01:36 | Outpatient (CLI) | payer MEDICARE, SELFPAY ==
[2022-08-16 10:54] LABS: INR 1.9 (0.9-1.1); Prothrombin Time 19.4 sec (9.3-11.0)
== END 2022-08-16 01:37 | disposition home or self-care (01) ==
LOC: LOS 01:36
PROVIDERS: PCP Internal Medicine; Visit Provider Internal Medicine
DX: I48.11 Longstanding persistent atrial fibrillation (principal); Z79.01 Long term (current) use of anticoagulants
CPT/HCPCS: 36415; 85610

== ENCOUNTER 2022-09-06 01:24 | Outpatient (CLI) | payer MEDICARE, SELFPAY ==
[2022-09-06 12:49] LABS: INR 3.2 (0.9-1.1); Prothrombin Time 32.1 sec (9.3-11.0)
== END 2022-09-06 01:25 | disposition home or self-care (01) ==
LOC: LOS 01:24
PROVIDERS: PCP Internal Medicine; Visit Provider Internal Medicine
DX: I48.11 Longstanding persistent atrial fibrillation (principal); Z79.01 Long term (current) use of anticoagulants
CPT/HCPCS: 36415; 85610

== ENCOUNTER 2022-09-27 01:41 | Outpatient (CLI) | payer MEDICARE, SELFPAY ==
[2022-09-27 15:19] LABS: INR 1.8 (0.9-1.1); Prothrombin Time 18.1 sec (9.3-11.0)
== END 2022-09-27 01:42 | disposition home or self-care (01) ==
PROVIDERS: PCP Internal Medicine; Visit Provider Internal Medicine
DX: I48.11 Longstanding persistent atrial fibrillation (principal); Z79.01 Long term (current) use of anticoagulants
CPT/HCPCS: 36415; 85610

== ENCOUNTER 2022-11-15 01:16 | Outpatient (CLI) | payer MEDICARE, SELFPAY ==
[2022-11-15 12:41] LABS: INR 2.4 (0.9-1.1); Prothrombin Time 23.9 sec (9.3-11.0)
== END 2022-11-15 01:17 | disposition home or self-care (01) ==
LOC: LOS 01:16
PROVIDERS: PCP Internal Medicine; Visit Provider Internal Medicine
DX: I48.11 Longstanding persistent atrial fibrillation (principal)
CPT/HCPCS: 36415; 85610

== ENCOUNTER 2022-12-12 04:13 | Outpatient (CLI) | payer MEDICARE, SELFPAY ==
[2022-12-12 16:33] LABS: INR 2.6 (0.9-1.1); Prothrombin Time 26.7 sec (9.3-11.0)
== END 2022-12-12 04:14 | disposition home or self-care (01) ==
LOC: LOS 04:13
PROVIDERS: PCP Internal Medicine; Visit Provider Internal Medicine
DX: I48.11 Longstanding persistent atrial fibrillation (principal)
CPT/HCPCS: 36415; 85610

== ENCOUNTER 2022-12-24 11:52 | Emergency (ER) | payer MEDICARE, SELFPAY ==
--- NOTE | 2022-12-24 11:45 | RT.EKG_ITS ---
APPROVED REPORT Exam: Resting ECG Reason for Exam: afib Patient Location: E HR:91 bpm ECG Measurements Heart Rate 91 AXIS [place] [id number] P [id number] QRSd 93 QRS 2 QT 401 T 50 QTc 493 Conclusion Atrial fibrillation...V-rate 67-107, irreg A-activity Inferior infarct, old...Q >35mS, II III aVF
[2022-12-24 11:54] VITALS: BP 115/72; PULSE 105; RESP 18; O2SAT 99
--- NOTE | 2022-12-24 12:15 | DI.CT_ITS ---
Exam(s) CT THORAX ABDOMEN CTA EXAM: CT THORAX ABDOMEN CTA CLINICAL HISTORY: lightnheaded, hx of Aortic aneurysm repair. TECHNIQUE: Imaging Protocol: Axial CT angiography was performed with multi-slice acquisition and m ulti-planar and/or 3D reconstructions. CONTRAST MATERIAL: Intravenous: Omnipaque 350 contrast volume:125 mL Oral: No COMPARISON: CT scan of the chest dated 10/23/2022 from [facility]. FINDINGS: CHEST: Tracheobronchial tree: Patent where visualized. Pulmonary parenchyma: No consolidation or dominant measurable mass. No architectural distortion. Pulmonary Arteries: Segmental and subsegmental pulmonary arteries are not ideally evaluated due to mo tion artifact. No central embolus is identified. Mediastinum and [place]: No dominant adenopathy or fluid collection. Visualized thyroid: Unremarkable. Pleura: No effusion or pneumothorax. Hear sternal wires are in place. T: Cardiomegaly. Coronary artery calcification. No pericardial effus ion. Aorta: There is again seen a chronic dissection extending from the left subclavian and right innomina te arteries into the thoracic aorta, the abdominal aorta, the right and left common iliac arteries an d the right external iliac artery. The celiac artery, superior mesenteric artery and right renal ester ry are patent and arise from the true lumen. The left renal artery arises from the false lumen and is patent. There is atherosclerosis of the abdominal aorta. Soft Tissues: Unremarkable. Bones: Within normal limits for the patient's age. ABDOMEN AND PELVIS: Abdomen: There is again seen a chronic dissection extending from the left subclavian and right innomi norbert arteries into the thoracic aorta, the abdominal aorta, the right and left common iliac arteries and the right external iliac artery. The celiac artery, superior mesenteric artery and right renal ar andrea are patent and arise from the true lumen. The left renal artery arises from the false lumen and is patent. There is atherosclerosis of the abdominal aorta. ABDOMEN: Liver: Normal density. No measurable mass. Gallbladder and Biliary Tract: Status post cholecystectomy. No significant biliary ductal dilatation. Pancreas: 1 cm cyst in the head of the pancreas. Pancreas is otherwise unremarkable. A follow-up CT s can of the abdomen is recommended in 2 years. (Liz, 2017). Spleen: Normal. Adrenals: No masses seen. Kidneys: Normal size, contour and axis. No radiodense stones or obstructive uropathy. No masses seen. Bowel: Diverticulosis of the colon but no evidence of acute diverticulitis. No bowel wall thickening or obstruction. Appendix is unremarkable. Peritoneal Cavity: No ascites, collection or mesenteric inflammatory response. No free air. Lymph Nodes: Within normal limits. Bones: Within normal limits for the patient's age. Soft Tissues: Unremarkable. PELVIS: Bladder: Symmetric distention, no gross wall thickening. Reproductive Organs: Unremarkable as visualized. Lymph Nodes: Within normal limits. Bones: Within normal limits for the patient's age. IMPRESSION: 1. 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 2. No acute abnormality seen in the chest, abdomen or pelvis. 3. Findings were discussed with the emergency department on the date of the examination. RADIATION DOSE DELIVERED: 894.18mGy.cm Total DLP DATA REPOSITORY: All CT scans at this facility are submitted to the National Radiology Data Registry (NRDR) Dose Index Registry (DIR) with the [employer] (ACR). RADIATION OPTIMIZATION: All CT scans at this facility use at least one of these dose optimization te chniques: automated exposure control; mA and/or kV adjustment per patient size (includes targeted exa ms where dose is matched to clinical indication); or iterative reconstruction.
--- NOTE | 2022-12-24 12:23 | ED.GENADUL_ITS ---
Discharge Plan Disposition Patient Disposition: Home Condition: Stable Discharge Details Clinical Impression: Chronic atrial fibrillation, Dizziness Primary Care Provider: Garfield Montenegro ED Provider: Miley Flores Home Meds and New Rx's Prescriptions: Continued lisinopril 10 mg tablet 20 mg PO DAILY Qty: 90 3RF multivitamin with minerals [Multiple Vitamin-Minerals] 1 EACH tablet 1 tab PO DAILY Patient Comments: 11/05/17 holding. si acetaminophen [Acetaminophen Extra Strength] 500 MG tablet 2 tab PO Q8H PRN tylenol pm 2 tab PO HS amoxicillin 500 mg capsule 2,000 mg PO ONCE Qty: 4 0RF Rx Instructions: Take 1 hour before dental procedures or colonoscopy furosemide 40 mg tablet 40 mg PO DAILY Qty: 90 4RF topiramate 50 mg tablet 50 mg PO BID Qty: 180 4RF warfarin 2.5 mg tablet 2.5 mg PO DAILY Qty: 90 4RF Protocol: Dose Management Condition: Friday Dose/Route: 5 mg Instruction: 2 x 2.5 mg tablets Condition: Friday Dose/Route: 5 mg Instruction: 2 x 2.5 mg tablets Condition: Friday Dose/Route: 5 mg Instruction: 2 x 2.5 mg tablets Condition: Friday Dose/Route: 2.5 mg Instruction: 1 x 2.5 mg tablet Condition: Dose/Route: 5 mg Instruction: 2 x 2.5 mg tablets Condition: Friday Dose/Route: 5 mg Instruction: 2 x 2.5 mg tablets Condition: Friday Dose/Route: 5 mg Instruction: 2 x 2.5 mg tablets Protocol Text: Adjustment Start Date: 11/16/20 INR Value: 2.1 INR Date: 11/16/20 Recheck Date: 12/16/20 metoprolol tartrate 50 mg tablet 50 mg PO BID Qty: 180 4RF sertraline 25 mg tablet 25 mg PO DAILY Qty: 90 4RF simvastatin 10 mg tablet 10 mg PO QPM Qty: 90 3RF methylphenidate HCl 20 mg tablet 20 mg PO BID MDD 40 Qty: 60 0RF zolpidem 10 mg tablet 10 mg PO HS PRN (Reason: insomnia) Qty: 30 3RF aspirin [Aspir-Low] 81 MG tablet,delayed release (DR/EC) 81 mg PO DAILY Discharge Instructions Instructions: A-fib (Atrial Fibrillation) (ED), Dizziness (ED) Additional Instructions: At this time your cardiac work-up is within normal limits. No significant change on the CT of your chest abdomen pelvis. No signs of significant blood loss. Follow up with primary care provider in 3-5 days. Return to ED sooner if any worsening or concerns. Increase oral fluids. Please continue to follow the previous instructions given by your primary care provider. Continue to decrease the furosemide dose. 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 Per report patient saw his PCP Dr. Guzmán in [place] yesterday who reported that he is in atrial fibrillation and his PCP decreased his furosemide dose to 20 mg from 40 mg yesterday.. They report dyspnea on exertion and decreased activity level with ambulation. He denies any chest pain, back pain or abdominal pain at this time. He does note that he had some black stools last week which has since resolved. He is on anticoagulation with warfarin, also takes metoprolol 50 mg twice daily, lisinopril 20 mg daily. EKG was reviewed by Dr. Campbell ER attending, old EKG available for review, please see her official report, atrial fibrillation noted, not in RVR. Cardiac work-up ordered including proBNP due to patient's history of CHF, dizziness lightheadedness shortness of breath, and recent furosemide changes, CT thorax and abdomen with contrast ordered pending labs to eval aneurysm repairs. Orthostatic vital signs ordered. Differential diagnosis includes but not limited to CAD, aneurysm dissection, atrial fibrillation, anemia, dehydration, orthostatic hypotension, CHF 1434: Dr. Kaufman Radiologist here to discuss CT results, questionable aortic aneurysm unknown if this is new or old. Patient reports that he had his aneurysm repaired in 2000. He had revisions to his aortic valve and valve replacement 2016. Orthostatics are being completed at this time. They are negative at this time. Spoke with Dr. Kaufman again he reports nothing new on the CT after comparison with recent CT 2 months ago at [facility] [place]. Patient is not orthostatic here in the department at this time. Hemoglobin is 12.9 hematocrit 38.2 which is at patient's baseline no significant change. Initial troponin within normal limits, proBNP is 1191 which is improved from previous result in 2016. At this time I do feel it is safe for patient to be discharged with close follow-up with PCP. Will give strict return instructions with patient and family. Will encourage patient to continue with the half dose of the Lasix as previously prescribed by PCP. This text was generated using [employer]onde[employer] system, please disregard any oddities of phrase or misspellings. Medical Records Medical records reviewed: Yes I reviewed the patient's medical records. Lab Data Lab results reviewed: Yes I reviewed the patient's lab results. Labs: Laboratory Tests Range/Units 12/24/22 12/24/22 12/24/22 11:58 11:58 11:58 WBC (4.4-10.8) 10^3/uL 7.34 RBC (4.36-5.78) 10^6/uL 3.79 L Hgb (13.5-17.5) g/dL 12.9 L Hct (40.0-50.0) % 38.2 L MCV (80-95) fL 101 H MCH (27.0-33.0) pg 34.0 H MCHC (32.0-36.0) % 33.8 RDW (11.8-14.1) % 13.1 Plt Count (130-400) 10^3/uL 260 MPV (8.0-11.0) fL 9.4 Immature Gran % 0.4 Neutrophils % 74.2 Lymphocytes % 12.4 Monocytes % 9.9 Eosinophils % 2.7 Basophils % 0.4 Nucleated RBC % (0.0-0.3) % 0.0 Absolute Neutrophils (1.2-6.7) 10^3/uL 5.44 Absolute Lymphocytes (1.2-3.4) 10^3/uL 0.91 L Absolute Monocytes (0.1-0.8) 10^3/uL 0.73 Absolute Eosinophils (0.0-0.7) 10^3/uL 0.20 Absolute Basophils (0.0-0.2) 10^3/uL 0.03 PT (9.3-11.0) sec 22.3 H INR (0.9-1.1) 2.2 H APTT (21.5-31.9) sec 31.8 Sodium (136-145) mmol/L 142 Potassium (3.5-5.1) mmol/L 3.5 Chloride (98-107) mmol/L 105 Carbon Dioxide (21.0-32.0) mmol/L 29.3 Anion Gap (3-11) mmol/L 7.7 BUN (7-18) mg/dL 20 H Creatinine (0.70-1.30) mg/dL 1.2 Est GFR (CKD-EPI 2020) (mL/min/1.73m2) 64.25 Glucose (74-106) mg/dL 125 H Calcium (8.5-10.1) mg/dL 8.8 Magnesium (1.8-2.4) mg/dL 1.9 Total Bilirubin (0.2-1.0) mg/dL 1.1 H AST (15-37) U/L 14 L ALT (16-63) U/L 26 Alkaline Phosphatase (46-116) U/L 37 L Troponin I (<or=60) ng/L < 50 NT-Pro-B Natriuret Pep (<300) pg/mL 1191 H Total Protein (6.4-8.2) g/dL 6.8 Albumin (3.4-5.0) g/dL 3.7 HPI General Mode of arrival: ambulatory . Date/Time Provider Initiated Documentation: 12/24/22 11:54 . Limitations to Documentation: no limitations . Information obtained by: patient, family (), RN notes reviewed and old records reviewed . 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 Per report patient saw his PCP Dr. Guzmán in [place] yesterday who reported that he is in atrial fibrillation and his PCP decreased his furosemide dose to 20 mg from 40 mg yesterday.. They report dyspnea on exertion and decreased activity level with ambulation. He denies any chest pain, back pain or abdominal pain at this time. He does note that he had some black stools last week which has since resolved. He is on anticoagulation with warfarin, also takes metoprolol 50 mg twice daily, lisinopril 20 mg daily. Related Data Home Medications Medication Instructions Recorded Confirmed multivitamin with minerals 1 tab PO DAILY 08/27/12 10/16/20 (Multiple Vitamin-Minerals tablet) acetaminophen 500 mg tablet 2 tab PO Q8H PRN 08/15/15 10/16/20 (Acetaminophen Extra Strength) aspirin 81 mg tablet,delayed 81 mg PO DAILY 08/18/15 10/16/20 release (Aspir-Low) Tylenol Pm 2 tab PO HS 11/05/17 10/16/20 amoxicillin 500 mg capsule 2,000 mg PO ONCE #4 caps 09/03/18 07/10/20 furosemide 40 mg tablet 40 mg PO DAILY #90 tabs 02/16/20 10/16/20 lisinopril 10 mg tablet 20 mg PO DAILY #90 tabs 03/29/20 10/16/20 topiramate 50 mg tablet 50 mg PO BID migraine #180 tabs 06/16/20 10/16/20 warfarin 2.5 mg tablet 2.5 mg PO DAILY #90 tabs 06/21/20 10/16/20 metoprolol tartrate 50 mg tablet 50 mg PO BID #180 tabs 07/21/20 10/16/20 sertraline 25 mg tablet 25 mg PO DAILY #90 tabs 08/31/20 10/16/20 simvastatin 10 mg tablet 10 mg PO QPM #90 tabs 08/31/20 10/16/20 methylphenidate HCl 20 mg tablet 20 mg PO BID narcolepsy #60 12/06/20 tab-caps zolpidem 10 mg tablet 10 mg PO HS PRN insomnia #30 tabs 12/06/20 Previous Rx's Medication Instructions Recorded amoxicillin 500 mg capsule 2,000 mg PO ONCE #4 caps 09/03/18 furosemide 40 mg tablet 40 mg PO DAILY #90 tabs 02/16/20 lisinopril 10 mg tablet 20 mg PO DAILY #90 tabs 03/29/20 topiramate 50 mg tablet 50 mg PO BID migraine #180 tabs 06/16/20 warfarin 2.5 mg tablet 2.5 mg PO DAILY #90 tabs 06/21/20 metoprolol tartrate 50 mg tablet 50 mg PO BID #180 tabs 07/21/20 sertraline 25 mg tablet 25 mg PO DAILY #90 tabs 08/31/20 simvastatin 10 mg tablet 10 mg PO QPM #90 tabs 08/31/20 methylphenidate HCl 20 mg tablet 20 mg PO BID narcolepsy #60 12/06/20 tab-caps zolpidem 10 mg tablet 10 mg PO HS PRN insomnia #30 tabs 12/06/20 Allergies Allergy/AdvReac Type Severity Reaction Status Date / Time No Known Allergies Allergy Verified 11/16/20 08:43 General Stated Complaint: Arrhythmia BLANKA: 3 Review of Systems All systems reviewed & are unremarkable except as noted in HPI and below ENT Ears, Nose, Mouth, and Throat: Reports dizziness Cardiovascular Cardiovascular: Reports palpitations and Reports dyspnea on exertion Respiratory Respiratory: Reports dyspnea on exertion Neurologic Neurologic: Reports dizziness Endocrine Endocrine: Reports palpitations PFSH All Active Problems (Updated 12/24/22 @ 15:23 by Miley Flores NP) Dizziness (Acute) Narcolepsy (Acute) Restless leg syndrome (Acute) Obstructive sleep apnea syndrome (Chronic) Carpal tunnel syndrome, right (Acute) Carpal tunnel syndrome of left wrist (Acute) Essential hypertension (Chronic 05/18/13) Depressive disorder (Chronic) Hypercholesterolemia (Chronic) Mitral valve insufficiency (Chronic 06/08/15) Primary insomnia (Chronic 10/20/15) Pulmonary hypertension (Chronic 06/08/15) Aortic aneurysm (Chronic 04/29/01) Dissection of Thoracic Aorta Chronic atrial fibrillation (Chronic 01/01/18) Aortic valve stenosis (Acute) Migraine (Chronic) Headache (Chronic) we discussed imaging with brain MRI--pros and cons He will hold off--see if sertraline wean helps. 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) Bruising (Chronic) Ventricular arrhythmia (Chronic) Tricuspid valve insufficiency (Chronic 06/08/15) Tension headache (Chronic 02/02/15) Obesity (Chronic) Left ventricular enlargement (Chronic 06/08/15) Fatigue (Chronic) Surgical History Cholecystectomy Extraction of cataract History of cataract removal with insertion of prosthetic lens shoulder arthroscopy repair calcium deposit right shoulder Thoracic aortic aneurysm repair Social History Smoking/Tobacco Use Status: Never Smoking risk assessment performed?: Yes Alcohol Intake: never Drug use: Never Housing: house Exam Narrative Exam Narrative: Constitutional: Alert and oriented x3. Appears stated age. Normal body habitus. Head: Normocephalic, no trauma. Eyes: Pupils PERRL, Red reflex noted, EOM's intact. Eyelids symmetrical without lesions, discharge, or swelling. ENT: , External ear normal to inspection, no mastoid TTP, swelling, or erythema, Nasal turbinates WNL, no nasal discharge. Normal dentition, Posterior pharynx WNL, no exudate. Chest: Irregular rate and rhythm at a rate of 90, clicks noted, S1, S2, distal pulses intact. Resp: Lungs clear to auscultation bilaterally, no wheezes, rales, or rhonchi. Abdomen: Soft, non-distended, Normoactive bowel sounds all 4 quads. Nontender to palpation all 4 quadrants, no palpable mass. Musculoskeletal: Normal gait, 5/5 strength to all four extremities. No edema noted to bilateral lower extremities. Skin: No suspicious rashes or lesions. Capillary refill less than 2 sec. Neurologic: Cranial nerves II-XII intact. Alert and oriented x 3. Motor: No deficits noted. Sensory: Intact bilaterally all 4 extremities. Reflexes: DTR's intact bilaterally.. Hematologic/Lymphatic: No ecchymosis, no lymphadenopathy. Cardio Rhythm: abnormal rhythm irregularly irregular Heart Sounds: click, no murmurs and no rubs Pulses: radial pulses present Course Vital Signs Vital signs: Vital Signs Pulse 105 H 12/24/22 11:54 Respiratory Rate 18 12/24/22 11:54 Blood Pressure 115/72 12/24/22 11:54 Pulse Oximetry 99 12/24/22 11:54 Pulse 105 H 12/24/22 11:54 Respiratory Rate 18 12/24/22 11:54 Respiratory Effort Normal, Non-Labored 12/24/22 11:58 Blood Pressure 115/72 12/24/22 11:54 Pulse Oximetry 99 12/24/22 11:54
[2022-12-24 12:32] LABS: Abs Immature Grans 0.03 10^3/uL (0.0-0.06); Absolute Basophil Count 0.03 10^3/uL (0.0-0.2); Absolute Lymphocyte Count 0.91 10^3/uL (1.2-3.4); Absolute Monocyte Count 0.73 10^3/uL (0.1-0.8); Absolute Neutrophil Count 5.44 10^3/uL (1.2-6.7); Basophils % 0.4; Eosinophils % 2.7; HCT 38.2 % (40.0-50.0); HGB 12.9 g/dL (13.5-17.5); Immature Grans % 0.4; Lymphocytes % 12.4; MCHC 33.8 % (32.0-36.0); MCV 101 fL (80-95); MPV 9.4 fL (8.0-11.0); Monocytes % 9.9; Neutrophils % 74.2; Platelet Count 260 10^3/uL (130-400); RBC 3.79 10^6/uL (4.36-5.78); RDW 13.1 % (11.8-14.1); RDW-SD 47.3 fL; WBC 7.34 10^3/uL (4.4-10.8)
[2022-12-24 12:46] LABS: INR 2.2 (0.9-1.1); PTT Activated 31.8 sec (21.5-31.9); Prothrombin Time 22.3 sec (9.3-11.0)
[2022-12-24 12:59] LABS: ALT 26 U/L (16-63); AST 14 U/L (15-37); Albumin 3.7 g/dL (3.4-5.0); Alkaline Phosphatase 37 U/L (46-116); Anion Gap 7.7 mmol/L (3-11); BUN 20 mg/dL (7-18); Bilirubin, Total 1.1 mg/dL (0.2-1.0); CO2 29.3 mmol/L (21.0-32.0); CREATININE 1.2 mg/dL (0.70-1.30); Calcium 8.8 mg/dL (8.5-10.1); Chloride 105 mmol/L (98-107); Estimated GFR 64.25 (mL/min/1.73m2); Glucose 125 mg/dL (74-106); Magnesium 1.9 mg/dL (1.8-2.4); NT-proBNP 1191 pg/mL (<300); Potassium 3.5 mmol/L (3.5-5.1); Sodium 142 mmol/L (136-145); Total Protein 6.8 g/dL (6.4-8.2); Troponin I < 50 ng/L (<or=60)
[2022-12-24] MEDS: Normal Saline - Diluent 50 ML VIAL IJ (14:02)
[2022-12-24] MEDS: Omnipaque 350 MG/ML 100 ML BTL IJ (14:02)
[2022-12-24 14:27] VITALS: BP 103/67; PULSE 93
[2022-12-24 14:29] VITALS: BP 121/71; PULSE 101
[2022-12-24 14:31] VITALS: BP 128/66; PULSE 98
[2022-12-24 16:12] LABS: Troponin I < 50 ng/L (<or=60)
== END 2022-12-24 15:30 | disposition home or self-care (01) ==
PROVIDERS: Emergency Provider Registered Nurse Emergency; PCP Internal Medicine
DX: R42 Dizziness and giddiness (principal); I48.20 Chronic atrial fibrillation, unspecified; I71.019 Dissection of thoracic aorta, unspecified; I71.02 Dissection of abdominal aorta; R06.02 Shortness of breath; I10 Essential (primary) hypertension; Z95.2 Presence of prosthetic heart valve; Z79.82 Long term (current) use of aspirin; Z79.01 Long term (current) use of anticoagulants
CPT/HCPCS: 71275; 74175; 80053; 93005; 99284; 83735; 83880; 84484; 85025; 85610; 85730; 93010; 99283; J3490

== ENCOUNTER 2023-01-13 02:39 | Outpatient (CLI) | payer MEDICARE, SELFPAY ==
[2023-01-13 12:09] LABS: INR 2.3 (0.9-1.1); Prothrombin Time 23.2 sec (9.3-11.0)
== END 2023-01-13 02:40 | disposition home or self-care (01) ==
LOC: LBO 02:39
PROVIDERS: PCP Internal Medicine; Visit Provider Internal Medicine
DX: I48.11 Longstanding persistent atrial fibrillation (principal); Z79.01 Long term (current) use of anticoagulants
CPT/HCPCS: 36415; 85610

== ENCOUNTER 2023-02-10 02:10 | Outpatient (CLI) | payer MEDICARE, SELFPAY ==
[2023-02-10 12:45] LABS: INR 2.8 (0.9-1.1); Prothrombin Time 28.6 sec (9.3-11.0)
== END 2023-02-10 02:11 | disposition home or self-care (01) ==
LOC: LOS 02:10
PROVIDERS: Internal Medicine; PCP Internal Medicine; Visit Provider Internal Medicine
DX: I48.11 Longstanding persistent atrial fibrillation (principal); Z79.01 Long term (current) use of anticoagulants
CPT/HCPCS: 36415; 85610

== ENCOUNTER 2023-03-12 03:45 | Outpatient (CLI) | payer MEDICARE, SELFPAY ==
[2023-03-12 13:28] LABS: Prothrombin Time 36.1 sec (9.1-11.1)
[2023-03-12 13:36] LABS: INR 4.1 (0.9-1.1)
== END 2023-03-12 03:46 | disposition home or self-care (01) ==
PROVIDERS: PCP Internal Medicine; Visit Provider Internal Medicine
DX: I48.11 Longstanding persistent atrial fibrillation (principal)
CPT/HCPCS: 36415; 85610

== ENCOUNTER 2023-05-04 06:58 | Emergency (ER) | payer MEDICARE, SELFPAY ==
[2023-05-04] VITALS (14 sets, daily range): BP systolic 127–159; BP diastolic 83–115; PULSE 81–111; RESP 15–24; TEMP 36.7; O2SAT 95–100
--- NOTE | 2023-05-04 07:00 | RT.EKG_ITS ---
APPROVED REPORT Exam: Resting ECG Reason for Exam: lightheaded Patient Location: E HR:95 bpm ECG Measurements Heart Rate 95 AXIS [place] [id number] P [id number] QRSd 93 QRS -17 QT 402 T 29 QTc 506 Conclusion Atrial fibrillation...? atrial activity Ventricular premature complex...V complex w/ short R-R interval Low voltage, precordial leads...precordial leads <1.0mV Prolonged QT interval...QTc >500mS No ST segment or T wave abnormalities to suggest occlusive MA
--- NOTE | 2023-05-04 07:06 | ED.GENADUL_ITS ---
Discharge Plan Disposition Patient Disposition: Home Condition: Good Discharge Details Clinical Impression: Confusion Primary Care Provider: Garfield Montenegro ED Provider: Bernadine Buckner Home Meds and New Rx's Prescriptions: No Action lisinopril 10 mg tablet 20 mg PO DAILY Qty: 90 3RF Multiple Vitamin-Minerals 1 EACH tablet 1 tab PO DAILY Patient Comments: 11/05/17 holding. si acetaminophen [Acetaminophen Extra Strength] 500 MG tablet 2 tab PO Q8H PRN warfarin 2.5 mg tablet 2.5 mg PO DAILY Qty: 90 4RF Protocol: Dose Management Condition: Friday Dose/Route: 5 mg Instruction: 2 x 2.5 mg tablets Condition: Friday Dose/Route: 5 mg Instruction: 2 x 2.5 mg tablets Condition: Friday Dose/Route: 5 mg Instruction: 2 x 2.5 mg tablets Condition: Friday Dose/Route: 2.5 mg Instruction: 1 x 2.5 mg tablet Condition: Dose/Route: 5 mg Instruction: 2 x 2.5 mg tablets Condition: Friday Dose/Route: 5 mg Instruction: 2 x 2.5 mg tablets Condition: Friday Dose/Route: 5 mg Instruction: 2 x 2.5 mg tablets Protocol Text: Adjustment Start Date: 11/16/20 INR Value: 2.1 INR Date: 11/16/20 Recheck Date: 12/16/20 metoprolol tartrate 50 mg tablet 50 mg PO BID Qty: 180 4RF sertraline 25 mg tablet 25 mg PO DAILY Qty: 90 4RF simvastatin 10 mg tablet 10 mg PO QPM Qty: 90 3RF methylphenidate HCl 20 mg tablet 20 mg PO BID MDD 40 Qty: 60 0RF zolpidem 10 mg tablet 10 mg PO HS PRN (Reason: insomnia) Qty: 30 3RF Patient Comments: 1/2 last night aspirin [Aspir-Low] 81 MG tablet,delayed release (DR/EC) 81 mg PO DAILY Discharge Instructions Instructions: Altered Mental Status (ED) Additional Instructions: Call your primary care doctor tomorrow to schedule an appointment within one week to follow up on your visit here and to discuss your symptoms, labs, CT scan, and EKG. Your INR was high today 3.5. Skip your next dose of warfarin and then resume your regular dose, make sure your primary care doctor is aware and schedules a repeat INR early this week. Mention that you have a minimal right pleural effusion on your CT scan. Also mention that your hemoglobin was a little low and your QT was a little high. Return to the emergency department for new or worsening symptoms including fever, falls, weakness of one part of your body, passing out, blood in your stool, or if you have any other concerns. Referrals: Garfield Montenegro [Primary Care Provider] - Medical Decision Making 73yo M with hx of HTN, HLD, insomnia, afib on warfarin, AVR, chronic aortic dissection, presenting for confusion and abnormal behavior. History from patient and at bedside and [facility] record review. For the past several weeks he has not been acting like his normal self, this week he has felt funny in his head while walking. Unable to characterize this further, unclear if vertigo or lightheadness or something else. has noticed abnormal behavior including flicking lights on and off, wearing only one slipper, and this morning he seemed to be talking to someone who wasn't there. No focal neurologic symptoms. Vital signs reassuring, slightly tachycardiac to 102 on arrival otherwise normal. Normal physical exam with no neurologic deficits. Will initiate broad workup for delerium and given vague symptoms/possible presyncope ACS as well. EKG afib with QT borderline at 503; in 490's on prior EKGS on record review. [place] is normal. Further labs reviewed as below, CBC with no leukocytosis, does have anemia with Hg of 9.8 (12.9 in 12/24/22) with no overt bleeding on history or exam. CMP with slightly elevated Cr of 1.6, normal LFTS lower suspicion for hepatic encephalopathy, no actionable abnormalities. Coags with elevated INR 3.5 (pt instructed to hold next dose of warfarin and then resume and to follow up with PCP). TSH elevated with normal T4. Troponin negative in the setting of days of symptoms, would not further pursue acute coronary syndromes. BNP elevated at 2440. With no respiratory distress and no edema on exam would not further pursue heart failure at this time. UA not infected (does have hematuria after cath, likely traumatic. CT head independently reviewed, no hemmoraghe or mass on my view, agree with radiology read below. CT neck with no significant occlusion. CT chest with no large pulmonary embolus on my view, radiology read below with known chronic dissection, minimal pleural effusion. Orthostatic vital signs normal. Trial ambulation with no lightheadedness, steady independent gait. Overall reassuring workup with no clear provoking factor for his presenting symptoms. Advised to followup with PCP for incidental findings as above. Discharged home; discharge instructions and return precautions were reveiwed with patient and family who verbalized understanding. All questions were answered and they are in full agreement with the plan. Medical Records Medical records reviewed: Yes I reviewed the patient's medical records. Imaging Data Radiologic Study: Imaging: CT Scan Radiologist's impression: IMPRESSION: No significant carotid or vertebral artery stenosis by NASCET criteria. 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 Radiologic Study #2: Imaging: CT Scan Radiologist's impression: IMPRESSION: 1. No pulmonary embolus detected. 2. Stable caliber of thoracic ao rta. Aortic dissection is present but is not well visualized on the current study which was tailored to optimize assessment of pulmonary arteries. 3. Interval development of minimal right pleural effusion that is multiloculated. Subtle multifocal pleural nodularity is also present. Consider pleural carcinomatosis or less likely infection. Further evaluation is recommended to confirm the diagnosis. An obvious primary tumor site is not apparent on this exam. Radiologic Study #3: Imaging: CT Scan Radiologist's impression: IMPRESSION: No acute intracranial abnormality and no large vessel occlusion in the [id number]. Lab Data Lab results reviewed: Yes I reviewed the patient's lab results. Labs: Laboratory Tests Range/Units 05/04/23 05/04/23 07:05 09:29 WBC (4.4-10.8) 10^3/uL 8.08 RBC (4.36-5.78) 10^6/uL 3.98 L Hgb (13.5-17.5) g/dL 9.8 L Hct (40.0-50.0) % 33.0 L MCV (80-95) fL 83 MCH (27.0-33.0) pg 24.6 L MCHC (32.0-36.0) % 29.7 L RDW (11.8-14.1) % 16.6 H Plt Count (130-400) 10^3/uL 396 MPV (8.0-11.0) fL 9.0 Immature Gran % 0.2 Neutrophils % 73.3 Lymphocytes % 14.0 Monocytes % 10.0 Eosinophils % 1.9 Basophils % 0.6 Nucleated RBC % (0.0-0.3) % 0.0 Absolute Neutrophils (1.2-6.7) 10^3/uL 5.92 Absolute Lymphocytes (1.2-3.4) 10^3/uL 1.13 L Absolute Monocytes (0.1-0.8) 10^3/uL 0.81 H Absolute Eosinophils (0.0-0.7) 10^3/uL 0.15 Absolute Basophils (0.0-0.2) 10^3/uL 0.05 PT (9.1-11.1) sec 31.4 H INR (0.9-1.1) 3.5 H APTT (23.6-32.8) sec 37.3 H D-Dimer (<500) ng/mlFEU 1518 H Sodium (136-145) mmol/L 140 Potassium (3.5-5.1) mmol/L 3.5 Chloride (98-107) mmol/L 104 Carbon Dioxide (21.0-32.0) mmol/L 30.2 Anion Gap (3-11) mmol/L 5.8 BUN (7-18) mg/dL 27 H Creatinine (0.70-1.30) mg/dL 1.6 H Est GFR (CKD-EPI 2020) (mL/min/1.73m2) 45.21 Glucose (74-106) mg/dL 111 H Calcium (8.5-10.1) mg/dL 9.1 Magnesium (1.8-2.4) mg/dL 2.0 Total Bilirubin (0.2-1.0) mg/dL 0.6 AST (15-37) U/L 18 ALT (16-63) U/L 18 Alkaline Phosphatase (46-116) U/L 47 Troponin I (<or=60) ng/L < 50 NT-Pro-B Natriuret Pep (<300) pg/mL 2440 H Total Protein (6.4-8.2) g/dL 7.5 Albumin (3.4-5.0) g/dL 3.5 TSH (0.36-3.74) uIU/mL 4.04 H Free T4 (0.76-1.46) ng/dL 1.21 Urine Color (Yellow) Yellow Urine Clarity (Clear) Clear Urine pH (5-8) 7.0 Ur Specific [place] (1.005-1.025) 1.015 Urine Protein (Negative) mg/dL 30 H Urine Ketones (Negative) mg/dL Negative Urine Blood (Negative) Moderate H Urine Nitrite (Negative) Negative Urine Bilirubin (Negative) Negative Urine Urobilinogen (Up to 0.2) mg/dL 0.2 Ur Leukocyte Esterase (Negative) Negative Urine RBC (0-2) HPF 10-20 H Urine WBC (0-5) HPF 0-2 Ur Epithelial Cells (Negative) HPF Rare Urine Crystals (Negative) HPF Negative Urine Bacteria (Negative) HPF Rare Urine Casts (Negative) LPF Negative Urine Mucus (Negative) Trace Ur Culture Indicated? No Urine Glucose (Negative) mg/dL Negative HPI General Mode of arrival: ambulatory . Date/Time Provider Initiated Documentation: 05/04/23 07:00 . Limitations to Documentation: no limitations . Information obtained by: patient and family . HPI Narrative: 73yo M with hx of HTN, HLD, insomnia, afib on warfarin, AVR, chronic aortic dissection, presenting for confusion and abnormal behavior. History from patient and at bedside. For the past several weeks he has not been acting like his normal self. For the past week he has complained of feeling funny while walking. She has noticed abnormal behavior including flicking lights on and off, wearing only one slipper, and this morning he seemed to be talking to someone who wasn't there. She is concerned that he may be have a stroke or a TIA. No focal weakness or numbness. No falls. No vertigo. He is otherwise in his usual state of health with no fevers, chills, rash, shortness of breath, chest pain, abdominal pain, epistaxis, bloody or dark stool, or other concerns. Related Data Home Medications Medication Instructions Recorded Confirmed multivitamin with minerals 1 tab PO DAILY 08/27/12 05/04/23 (Multiple Vitamin-Minerals tablet) acetaminophen 500 mg tablet 2 tab PO Q8H PRN 08/15/15 05/04/23 (Acetaminophen Extra Strength) aspirin 81 mg tablet,delayed 81 mg PO DAILY 08/18/15 05/04/23 release (Aspir-Low) lisinopril 10 mg tablet 20 mg (2 x 10 mg) PO DAILY #90 tabs 03/29/20 05/04/23 warfarin 2.5 mg tablet 2.5 mg PO DAILY #90 tabs 06/21/20 05/04/23 metoprolol tartrate 50 mg tablet 50 mg PO BID #180 tabs 07/21/20 05/04/23 sertraline 25 mg tablet 25 mg PO DAILY #90 tabs 08/31/20 05/04/23 simvastatin 10 mg tablet 10 mg PO QPM #90 tabs 08/31/20 05/04/23 methylphenidate HCl 20 mg tablet 20 mg PO BID narcolepsy #60 12/06/20 05/04/23 tab-caps zolpidem 10 mg tablet 10 mg PO HS PRN insomnia #30 tabs 12/06/20 05/04/23 Previous Rx's Medication Instructions Recorded lisinopril 10 mg tablet 20 mg (2 x 10 mg) PO DAILY #90 tabs 03/29/20 warfarin 2.5 mg tablet 2.5 mg PO DAILY #90 tabs 06/21/20 metoprolol tartrate 50 mg tablet 50 mg PO BID #180 tabs 07/21/20 sertraline 25 mg tablet 25 mg PO DAILY #90 tabs 08/31/20 simvastatin 10 mg tablet 10 mg PO QPM #90 tabs 08/31/20 methylphenidate HCl 20 mg tablet 20 mg PO BID narcolepsy #60 12/06/20 tab-caps zolpidem 10 mg tablet 10 mg PO HS PRN insomnia #30 tabs 12/06/20 Allergies Allergy/AdvReac Type Severity Reaction Status Date / Time No Known Allergies Allergy Verified 05/04/23 07:02 General BLANKA: 3 Review of Systems Narrative: see HPI PFSH All Active Problems (Updated 05/04/23 @ 10:22 by Bernadine Buckner MD) Confusion (Acute) Narcolepsy (Acute) Restless leg syndrome (Acute) Obstructive sleep apnea syndrome (Chronic) Carpal tunnel syndrome, right (Acute) Carpal tunnel syndrome of left wrist (Acute) Essential hypertension (Chronic 05/18/13) Depressive disorder (Chronic) Hypercholesterolemia (Chronic) Mitral valve insufficiency (Chronic 06/08/15) Primary insomnia (Chronic 10/20/15) Pulmonary hypertension (Chronic 06/08/15) Aortic aneurysm (Chronic 04/29/01) Dissection of Thoracic Aorta Chronic atrial fibrillation (Chronic 01/01/18) Aortic valve stenosis (Acute) Migraine (Chronic) Headache (Chronic) we discussed imaging with brain MRI--pros and cons He will hold off--see if sertraline wean helps. 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) Bruising (Chronic) Ventricular arrhythmia (Chronic) Tricuspid valve insufficiency (Chronic 06/08/15) Tension headache (Chronic 02/02/15) Obesity (Chronic) Left ventricular enlargement (Chronic 06/08/15) Fatigue (Chronic) Surgical History History of cataract removal with insertion of prosthetic lens shoulder arthroscopy repair calcium deposit right shoulder Thoracic aortic aneurysm repair Cholecystectomy Extraction of cataract Social History Smoking/Tobacco Use Status: Never Smoking risk assessment performed?: Yes Alcohol Intake: never Drug use: Never Substance use type: does not use Housing: house Do you feel safe at home: Yes Do you feel safe in your relationship?: Yes Exam Narrative Exam Narrative: General: Alert, well appearing, well nourished, in no acute distress. Head: Normocephalic, atraumatic Neck: Trachea midline, ?Neck supple. ENT: ?MMM.? No oropharygeal lesions or exudate. Cardiac: ?Tachycardiac, irregular, no murmurs appreciated Resp: No respiratory distress. CTAB. Abd: ?Soft, non-distended, nontender : ?No suprapubic tenderness. Extremities: ?No deformities.? No peripheral edema. Neuro: ? GCS 15. A&O x 3. ? PERRL.? EOMI.? Fluent speech, no dysarthria. Motor- 5/5 strength symmetric bilateral upper and lower extremities Sensation- ?Intact to light touch and symmetric multiple dermatomes including upper and lower extremities Coordination- No dysmetria on finger to nose Gait/station: ?Normal stance.? No truncal ataxia. Steady gait with equal normal steps CRANIAL NERVES: II: Pupils equal and reactive, III, IV, : EOM intact, no gaze preference or deviation, no nystagmus. V: normal sensation in V1, V2, and V3 segments bilaterally VII: no asymmetry, no nasolabial fold flattening VIII: normal hearing to speech IX, X: normal palatal elevation, no uvular deviation XI: 5/5 head turn and 5/5 shoulder shrug bilaterally XII: midline tongue protrusion
[2023-05-04 07:19] LABS: Abs Immature Grans 0.02 10^3/uL (0.0-0.06); Absolute Basophil Count 0.05 10^3/uL (0.0-0.2); Absolute Eosinophil Count 0.15 10^3/uL (0.0-0.7); Absolute Lymphocyte Count 1.13 10^3/uL (1.2-3.4); Absolute Monocyte Count 0.81 10^3/uL (0.1-0.8); Absolute Neutrophil Count 5.92 10^3/uL (1.2-6.7); Basophils % 0.6; Eosinophils % 1.9; HGB 9.8 g/dL (13.5-17.5); Immature Grans % 0.2; MCH 24.6 pg (27.0-33.0); MCHC 29.7 % (32.0-36.0); MCV 83 fL (80-95); Neutrophils % 73.3; Platelet Count 396 10^3/uL (130-400); RBC 3.98 10^6/uL (4.36-5.78); RDW 16.6 % (11.8-14.1); RDW-SD 50.5 fL; WBC 8.08 10^3/uL (4.4-10.8)
[2023-05-04 07:35] LABS: INR 3.5 (0.9-1.1); PTT Activated 37.3 sec (23.6-32.8); Prothrombin Time 31.4 sec (9.1-11.1)
--- NOTE | 2023-05-04 07:45 | DI.CT_ITS ---
Exam(s) CT CHEST PE CTA EXAM: CT CHEST PE CTA CLINICAL HISTORY: lightheaded, elevated dimer, hx aortic aneurysem. TECHNIQUE: Imaging Protocol: Axial CT angiography was performed with multi-slice acquisition and mu lti-planar and/or 3D reconstructions. CONTRAST MATERIAL: Intravenous: Omnipaque 350 contrast volume:72 mL COMPARISON: CT CHEST WITH CONTRAST from 04/07/[address] ANGIOGRAM CHEST (NON-CORONARY)W CONTRAST from 10/23/[address] THORAX ABDOMEN CTA from 12/24/[address] BRAIN NECK CTA from 05/04/2023 FINDINGS: The examination is limited due to patient motion artifact. Tracheobronchial tree: Patent where visualized. Pulmonary parenchyma: No consolidation or dominant measurable mass. No architectural distortion. Pulmonary Arteries: No evidence of filling defect to suggest pulmonary emboli. Mediastinum and [place]: No dominant adenopathy or fluid collection. The esophagus is unremarkable. Visualized thyroid gland: Unremarkable. Pleura: There is a small right pleural effusion. There does appear to be loculation of the fluid in the upper medial right hemithorax and in the right major fissure. No significant left pleural effusi on is seen no pneumothorax. There is mild nodularity seen associated with the right major and minor fissures. (Series 11, image 257 and 298 through 311). This can be [place] [facility] [place] Heart: Cardiomegaly. Coronary artery calcifications are present. No pericardial effusion. Aorta: The descending thoracic aorta measures 5.2 x 5 cm. Atherosclerosis is present. There is poor opacification of the thoracic aorta due to bolus timing. There also appears to be findings suggesti ve of right heart failure. The patient's known aortic dissection is not well visualized due to the t iming of the contrast bolus. Upper abdomen: Unremarkable. Soft tissues: Unremarkable. Bones: Within normal limits for the patient's age.Sternal wires are in place. IMPRESSION: 1. No evidence of a pulmonary embolism. 2. Interval development of a right pleural effusion which shows some loculation in the upper right he mithorax and in the right major fissure. 3. Pleural nodularity seen which was present on the CT [place]20[place] [facility] [place] Pleural carcino matosis should be considered. Infection should be considered less likely. 4. The patient's known aortic dissection is not well visualized on this examination secondary to the bolus timing which was set for pulmonary artery evaluation. RADIATION DOSE DELIVERED: Total DLP DATA REPOSITORY: All CT scans at this facility are submitted to the National Radiology Data Registry (NRDR) Dose Index Registry (DIR) with the [employer] (ACR). RADIATION OPTIMIZATION: All CT scans at this facility use at least one of these dose optimization te chniques: automated exposure control; mA and/or kV adjustment per patient size (includes targeted exa ms where dose is matched to clinical indication); or iterative reconstruction.
[2023-05-04 07:47] LABS: ALT 18 U/L (16-63); AST 18 U/L (15-37); Albumin 3.5 g/dL (3.4-5.0); Alkaline Phosphatase 47 U/L (46-116); Anion Gap 5.8 mmol/L (3-11); BUN 27 mg/dL (7-18); Bilirubin, Total 0.6 mg/dL (0.2-1.0); CO2 30.2 mmol/L (21.0-32.0); CREATININE 1.6 mg/dL (0.70-1.30); Calcium 9.1 mg/dL (8.5-10.1); Chloride 104 mmol/L (98-107); Estimated GFR 45.21 (mL/min/1.73m2); Glucose 111 mg/dL (74-106); Potassium 3.5 mmol/L (3.5-5.1); Sodium 140 mmol/L (136-145); TSH (W/Ref FT4) 4.04 uIU/mL (0.36-3.74); Total Protein 7.5 g/dL (6.4-8.2); Troponin I < 50 ng/L (<or=60)
[2023-05-04 07:52] LABS: D-Dimer 1518 ng/mlFEU (<500)
--- NOTE | 2023-05-04 07:59 | DI.CT_ITS ---
Exam(s) CT BRAIN NECK CTA EXAM: CT BRAIN NECK CTA CLINICAL HISTORY: lightheaded. TECHNIQUE: Imaging Protocol: Axial CT angiography was performed with multi-slice acquisition and mu lti-planar and/or 3D reconstructions. CONTRAST MATERIAL: Intravenous: Omnipaque 350 contrast volume:75 mL COMPARISON: CT HEAD WITHOUT STROKE PROTOCOL from 06/28/[address] THORAX ABDOMEN CTA from 12/24/[address] CHEST PE CTA from 05/04/2023 FINDINGS: The examination is limited due to patient motion artifact. CT Head W/O and W: Ventricles and Extra axial spaces: Normal in size and morphology for the patient's age. Hemorrhage: None. Cerebral parenchyma: There is an old lacunar infarct in the right cerebellum. There are areas of dec reased attenuation in the white matter consistent with small vessel ischemic disease. Midline shift: None. Brainstem/Cerebellum: Normal. Calvarium: Normal. Visualized Paranasal sinuses/Mastoids: Clear. Soft Tissues: Unremarkable. Enhancement: Unremarkable. CTA Neck W: Common Carotid: Right: No dissection, occlusion or significant stenosis. Left: No dissection, occlusion or significant stenosis. There is mild calcification in the carotid b ulb without significant stenosis. External Carotid: Right: No occlusion or significant stenosis. Left: No occlusion or significant stenosis. Internal Carotid: Right: No dissection, occlusion or significant stenosis. Left: No dissection, occlusion or significant stenosis. Vertebral Artery: Right: No dissection, occlusion or significant stenosis. Left: No dissection, occlusion or significant stenosis. Lung Apices: The patient has a known dissection which is seen in the thoracic aortic arch extending i nto the right innominate artery and left subclavian artery. Bones: Within normal limits for the patient's age. Sternal wires are in place. Soft Tissues: Normal. Thyroid gland: Poorly visualized. No gross abnormality. CTA Brain W: Internal Carotid Arteries: There is atherosclerosis present. There is less than 50 percent stenosis present. No occlusion or aneurysm. Anterior Cerebral Arteries: Right: No aneurysm, occlusion or significant stenosis. Left: No aneurysm, occlusion or significant stenosis. Middle Cerebral Arteries: Right: No aneurysm, occlusion or significant stenosis. Left: No aneurysm, occlusion or significant stenosis. Posterior Cerebral Arteries: Right: No aneurysm, occlusion or significant stenosis. Left: No aneurysm, occlusion or significant stenosis. Vertebral Arteries: Right: No aneurysm, occlusion or significant stenosis. Left: No aneurysm, occlusion or significant stenosis. Basilar Artery: No aneurysm, occlusion or significant stenosis. IMPRESSION: 1. No large vessel occlusion or significant stenosis on the CT angiography of the head. 2. No acute intracranial process. 3. No occlusion or significant stenosis on the CT angiography of the neck. 4. Stable appearance of the dissection involving the thoracic aortic arch, left subclavian vein and r ight innominate vein. RADIATION DOSE DELIVERED: Total DLP DATA REPOSITORY: All CT scans at this facility are submitted to the National Radiology Data Registry (NRDR) Dose Index Registry (DIR) with the [employer] (ACR). RADIATION OPTIMIZATION: All CT scans at this facility use at least one of these dose optimization te chniques: automated exposure control; mA and/or kV adjustment per patient size (includes targeted exa ms where dose is matched to clinical indication); or iterative reconstruction.
[2023-05-04 08:08] LABS: FREE T4 1.21 ng/dL (0.76-1.46); NT-proBNP 2440 pg/mL (<300)
[2023-05-04] MEDS: Normal Saline 1,000 ML 1000 ML IV (08:09)
[2023-05-04] MEDS: Omnipaque 350 MG/ML 100 ML BTL IJ ×2 (08:55→09:15)
[2023-05-04] MEDS: Normal Saline - Diluent 50 ML VIAL 100 ML IJ (09:09)
[2023-05-04 09:42] LABS: Bilirubin Negative (Negative); Blood Moderate (Negative); Clarity Clear (Clear); Glucose Negative (Negative); Ketones Negative (Negative); Leukocyte Esterase Negative (Negative); Nitrite Negative (Negative); Specific Gravity 1.015 (1.005-1.025); Urobilinogen 0.2 mg/dL (Up to 0.2)
[2023-05-04 09:47] LABS: Bacteria Rare HPF (Negative); Casts Negative LPF (Negative); Crystals Negative HPF (Negative); Epithelial Cells Rare HPF (Negative); Mucus Trace (Negative); WBC 0-2 HPF (0-5)
--- NOTE | 2023-05-04 09:47 | DI.VRAD_ITS ---
PROCEDURE INFORMATION: Exam: CTA Chest With Contrast Exam date and time: 05/04/2023 9:06 AM Age: 73 years old Clinical indication: Other: Lightheaded, elevated dimer, HX aortic aneurysm TECHNIQUE: Imaging protocol: Computed tomographic angiography of the chest with contrast. Exam focused on the pulmonary arteries. 3D rendering (Not supervised by radiologist): MIP and/or 3D reconstructed images were created by the technologist. Radiation optimization: All CT scans at this facility use at least one of these dose optimization techniques: automated exposure control; mA and/or kV adjustment per patient size (includes targeted exams where dose is matched to clinical indication); or iterative reconstruction. Contrast material: OMNIPAQUE; Contrast volume: 72 ml; Contrast route: INTRAVENOUS (IV); COMPARISON: CT THORAX ABDOMEN CTA 12/24/2022 1:50 PM FINDINGS: Pulmonary arteries: No pulmonary embolus identified. Aorta: Stable caliber dilated thoracic aorta compared to 12/24/2022 exam. Aortic dissection is again evident but very poorly visualized on this exam that was tailored to assess the pulmonary arteries. Postoperative changes of the ascending aorta are again evident. Lungs: Pulmonary assessment is suboptimal due to respiratory motion artifact on multiple images. No dense consolidation identified. Minimal dependent atelectasis in the posterior lower lung zones. Very subtle nodularity associated with the right interlobar fissures. Pleural spaces: Patient has developed very minimal right pleural effusion since 12/24/2022. Although quite small in volume, it does appear multiloculated and, as stated above, there is very subtle nodularity associated with the right interlobar fissures. Heart: Heart size is stable compared to the prior study. No significant pericardial effusion. Evidence of prior surgery involving aortic valve. Lymph nodes: No new mediastinal adenopathy identified compared to the prior study. Bones/joints: No obvious acute abnormality. Soft tissues: Other than stated elsewhere, no acute abnormality. IMPRESSION: 1. No pulmonary embolus detected. 2. Stable caliber of thoracic aorta. Aortic dissection is present but is not well visualized on the current study which was tailored to optimize assessment of pulmonary arteries. 3. Interval development of minimal right pleural effusion that is multiloculated. Subtle multifocal pleural nodularity is also present. Consider pleural carcinomatosis or less likely infection. Further evaluation is recommended to confirm the diagnosis. An obvious primary tumor site is not apparent on this exam. Dictated and Authenticated by: Urbano Tejeda MD. Ordering:MARS Colindres MD
[2023-05-04 09:48] LABS: C & S Indicated? No
--- NOTE | 2023-05-04 09:55 | DI.VRAD_ITS ---
PROCEDURE INFORMATION: Exam: CTA Head With Contrast, Arteriography Exam date and time: 05/04/2023 8:42 AM Age: 73 years old Clinical indication: Other: Lightheaded TECHNIQUE: Imaging protocol: Computed tomographic angiography of the head with contrast. Exam focused on the arteries. 3D rendering (Not supervised by radiologist): MIP and/or 3D reconstructed images were created by the technologist. Radiation optimization: All CT scans at this facility use at least one of these dose optimization techniques: automated exposure control; mA and/or kV adjustment per patient size (includes targeted exams where dose is matched to clinical indication); or iterative reconstruction. Contrast material: OMNIPAUE; Contrast volume: 75 ml; Contrast route: INTRAVENOUS (IV); COMPARISON: MR HEAD^ROUTINE W WO 11/20/2018 2:08 PM FINDINGS: ANTERIOR CIRCULATION: Right internal carotid artery: Intracranial segment is patent with no significant stenosis. No aneurysm. Right middle cerebral artery: No occlusion or significant stenosis. No aneurysm. Right anterior cerebral artery: No occlusion or significant stenosis. No aneurysm. Left internal carotid artery: Intracranial segment is patent with no significant stenosis. No aneurysm. Left middle cerebral artery: No occlusion or significant stenosis. No aneurysm. Left anterior cerebral artery: No occlusion or significant stenosis. No aneurysm. POSTERIOR CIRCULATION: Right vertebral artery: No occlusion or significant stenosis. No aneurysm. Left vertebral artery: No occlusion or significant stenosis. No aneurysm. Basilar artery: Ectatic basilar artery without significant stenosis. origin of the posterior cerebral artery on the left. Right posterior cerebral artery: No occlusion or significant stenosis. No aneurysm. Left posterior cerebral artery: No occlusion or significant stenosis. No aneurysm. Veins: Venous contamination without venous thrombus. Brain: Diffuse involutional changes and white matter hypodensities consistent with age. These findings are most likely due to atrophy and small vessel disease. No acute hemorrhage or acute terratorial infarct. Vascular calcifications at the upper [place]. Cerebral ventricles: No gross venticulomegaly. Orbital cavities: No acute abnormality. Bilateral lens replacements Mastoid air cells: Mastoids: No significant abnormality. Paranasal sinuses: No significant opacity or air fluid levels. Bones/joints: No acute fracture. Soft tissues: No significant abnormality. Other findings: No enhancing mass in the brain. Mild cavernous carotid vascular calcifications on the right. Mild cavernous carotid vascular calcifications on the left. IMPRESSION: No acute intracranial abnormality and no large vessel occlusion in the [id number]. PROCEDURE INFORMATION: Exam: CTA Neck With Contrast Exam date and time: 05/04/2023 8:42 AM Age: 73 years old Clinical indication: Other: Lightheaded TECHNIQUE: Imaging protocol: Computed tomographic angiography of the neck with contrast. Exam focused on the cervical segments of the vasculature. 3D rendering (Not supervised by radiologist): MIP and/or 3D reconstructed images were created by the technologist. Contrast material: OMNIPAUE; Contrast volume: 75 ml; Contrast route: INTRAVENOUS (IV); COMPARISON: CT THORAX ABDOMEN CTA 12/24/2022 1:50 PM FINDINGS: Right common carotid artery: No stenosis. No dissection or occlusion. Right internal carotid artery: No stenosis of the extracranial segment. No dissection or occlusion. Right external carotid artery: No occlusion or stenosis of the origin. Left common carotid artery: No stenosis. No dissection or occlusion. Left internal carotid artery: Less than 10% narrowing at the origin of the left internal carotid artery. Left external carotid artery: No occlusion or stenosis of the origin. Right vertebral artery: No stenosis. No dissection or occlusion. Left vertebral artery: No stenosis. No dissection or occlusion. Left subclavian artery: Dissection flap of the left subclavian artery is nonocclusive. Aorta: There is a grossly stable appearance to the aneurysm and a section of the thoracic aorta extending into the left subclavian artery and the innominate artery as well as the right subclavian artery. CTA chest is pending. Other arteries: Dissection flap of the innominate artery is nonocclusive. Veins: No venous thrombus. Thyroid: Poorly seen thyroid. Next small neck nodes without confluent lymphadenopathy. Dental: Artifact from dental hardware. Soft tissues: Normal. No significant soft tissue swelling. Bones/joints: Degenerative changes without acute fracture. IMPRESSION: No significant carotid or vertebral artery stenosis by NASCET criteria. 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 REFERENCES: NASCET CRITERIA. The degree of stenosis in the cervical segment of the internal carotid artery is based on NASCET criteria. Normal is no stenosis. Mild is less than 50% stenosis. Moderate is 50-69% stenosis. Severe is 70% to 99% stenosis. Total occlusion is no detectable patent lumen. Dictated and Authenticated by: Chay Castañeda MD. Ordering:MARS Colindres MD
== END 2023-05-04 10:38 | disposition home or self-care (01) ==
PROVIDERS: Emergency Provider Student in an Organized Health Care Education/Training Program; PCP Internal Medicine
DX: R41.0 Disorientation, unspecified (principal)
CPT/HCPCS: 70496; 70498; 71275; 80053; 93005; 96365; 99285; 81003; 81015; 83735; 83880; 84439; 84443; 84484; 85025; 85379; 85610; 85730; 93010; 99284; J3490

== ENCOUNTER 2023-05-05 11:49 | Outpatient (CLI) | payer MEDICARE, SELFPAY ==
[2023-05-05 14:38] LABS: INR 2.8 (0.9-1.1); Prothrombin Time 25.8 sec (9.1-11.1)
== END 2023-05-05 11:50 | disposition home or self-care (01) ==
LOC: LBO 11:49
PROVIDERS: PCP Internal Medicine; Visit Provider Internal Medicine
DX: I48.11 Longstanding persistent atrial fibrillation (principal)
CPT/HCPCS: 36415; 85610

== ENCOUNTER 2023-05-11 10:18 | Emergency (ER) | payer MEDICARE, SELFPAY ==
[2023-05-11] VITALS (69 sets, daily range): BP systolic 114–170; BP diastolic 59–116; PULSE 0–121; RESP 12–29; O2SAT 99
--- NOTE | 2023-05-11 10:15 | RT.EKG_ITS ---
APPROVED REPORT Exam: Resting ECG Reason for Exam: weakness Patient Location: E HR:83 bpm ECG Measurements Heart Rate 83 AXIS NE [id number] P [id number] QRSd 103 QRS 27 QT 480 T 89 QTc 561 Conclusion Atrial flutter with predominant 3:1 AV block...A-rate 245, multiple Ps Ventricular premature complex...V complex w/ short R-R interval Inferior infarct, old...Q >35mS, II III aVF Nonspecific T abnormalities, lateral leads...T <-0.10mV, I aVL V5 V6 Prolonged QT interval...QTc >500mS LAD, afib, Q waves in III and aVF/ No STEMI, no signficant changes from previous.
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
--- NOTE | 2023-05-11 10:30 | DI.CT_ITS ---
Exam(s) CT BRAIN NECK CTA EXAM: CT BRAIN NECK CTA CLINICAL HISTORY: dizziness, weakness. TECHNIQUE: Imaging Protocol: Axial CT angiography was performed with multi-slice acquisition and mu lti-planar and/or 3D reconstructions. CONTRAST MATERIAL: Intravenous: Omnipaque 350 Contrast volume:structured data in ml COMPARISON: CT CT ANGIOGRAM CHEST (NON-CORONARY)W CONTRAST from 10/23/[address] CHEST PE CTA from 05/04/2023 FINDINGS: CTA Neck W: There is sternotomy wires again noted. Aortic arch anatomy: The ascending thoracic aorta is again noted be dilated, with maximum diameter 4. 2 cm on today's study. Diameter of the mid arch is 3.4 cm and diameter of the proximal descending th oracic aorta is again noted be enlarged at 5.4 cm. The previously described dissection of the aortic arch is again noted with intimal flap there again noted to be extending into the left subclavian art ppie and brachiocephalic trunk and origin of the left common carotid artery. Anterior circulation: Both common carotid arteries ascend with normal luminal diameters. At the level the carotid bulbs and proximal internal carotid arteries there is minimal plaque without hemodynamically significant stenosis evident. Both internal carotid arteries are patent in the upper neck. There is a fusiform aneurysm of the lef t internal carotid artery in the upper neck just before it enters the skull base, this exhibiting michael meter of 8 mm. No intimal flap at this level.. Posterior circulation: Both vertebral arteries originate in conventional fashion off of the subclavian arteries and there is no obvious stenosis at the origin of the vertebral arteries. Both vertebral arteries exhibit normal luminal diameters within the foramen transversarium. Both vertebral arteries contribute to the formation of the basilar artery at the skull base. CTA Brain W: Anterior circulation: Both internal carotid arteries are patent in the skull base-carotid canals as well as within the cave rnous sinuses. The supraclinoid aspects of the ICAs are patent. Both A1 segments are patent as are the anterior cer ebral arteries and there is no evidence of aneurysm at the level of the anterior communicating artery . Both middle cerebral arteries are patent with no evidence of significant stenosis nor intraluminal th rombus. There also no aneurysms of these vessels. Posterior circulation: The basilar artery ascends in the midline. Distally it gives off patent bilateral superior cerebella r arteries. Above this level the basilar artery terminates as patent right posterior cerebral artery. The left p osterior cerebral artery is fed by posterior communicating artery on the left side of the [place]. There is no evidence of aneurysm at the tip of the basilar artery nor elsewhere in the [id number]-[id number] is. CT BRAIN: There is no evidence of intracranial hemorrhage, mass effect, or shift of midline structures. There are no extra-axial fluid collections. Ventricles are not enlarged or shifted. There are no ring enh ancing lesions in the brain and no abnormal meningeal enhancement. Area of abnormal hypodensity in the inferior right cerebellar hemispheres consistent with prior infar ct. Another smaller hypodense area is noted higher up in the right cerebellar hemisphere. Left cere bellar hemisphere appears unremarkable. IMPRESSION: 1. Stable appearance of the aortic dissection which extends into the great vessels coming off the aor tic arch but without occlusion 2. No evidence of atherosclerotic plaque/stenosis at the carotid bulbs and proximal internal carotid arteries in the neck. 3. 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 There is no dissection flap at this level. 4. Patent intracranial arteries. 5. 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 Left cerebellar hemisphere unremarkable. RADIATION DOSE DELIVERED: Total DLP DATA REPOSITORY: All CT scans at this facility are submitted to the National Radiology Data Registry (NRDR) Dose Index Registry (DIR) with the [employer] (ACR). RADIATION OPTIMIZATION: All CT scans at this facility use at least one of these dose optimization te chniques: automated exposure control; mA and/or kV adjustment per patient size (includes targeted exa ms where dose is matched to clinical indication); or iterative reconstruction.
[2023-05-11] MEDS: Normal Saline - Diluent 50 ML VIAL IJ ×2 (11:13→11:28)
[2023-05-11] MEDS: Omnipaque 350 MG/ML 100 ML BTL 60 ML IJ (11:15)
[2023-05-11 11:22] LABS: Prothrombin Time 54.7 sec (9.1-11.1)
[2023-05-11 11:23] LABS: INR 6.4 (0.9-1.1)
[2023-05-11 11:26] LABS: Magnesium 2.1 mg/dL (1.8-2.4); Troponin I < 50 ng/L (<or=60)
[2023-05-11] MEDS: Normal Saline Flush 10 ML SYR IVP (11:34)
[2023-05-11] MEDS: Omnipaque 350 MG/ML 50 ML BTL IJ (11:34)
[2023-05-11] MEDS: Normal Saline 500 ML IV (11:40)
[2023-05-11 11:42] LABS: FREE T4 1.34 ng/dL (0.76-1.46)
--- NOTE | 2023-05-11 12:30 | DI.VRAD_ITS ---
PROCEDURE INFORMATION: Exam: CTA Head With Contrast, Arteriography Exam date and time: 05/11/2023 10:57 AM Age: 73 years old Clinical indication: Other: Dizziness, weakness TECHNIQUE: Imaging protocol: Computed tomographic angiography of the head with contrast. Exam focused on the arteries. 3D rendering (Not supervised by radiologist): MIP and/or 3D reconstructed images were created by the technologist. Contrast material: OMNIPAQUE 350; Contrast volume: 60 ml; Contrast route: INTRAVENOUS (IV); COMPARISON: CT BRAIN NECK CTA 05/04/2023 8:42 AM FINDINGS: ANTERIOR CIRCULATION: Right internal carotid artery: Intracranial segment is patent with no significant stenosis. No aneurysm. Right middle cerebral artery: No occlusion or significant stenosis. No aneurysm. Right anterior cerebral artery: No occlusion or significant stenosis. No aneurysm. Left internal carotid artery: Intracranial segment is patent with no significant stenosis. No aneurysm. Left middle cerebral artery: No occlusion or significant stenosis. No aneurysm. Left anterior cerebral artery: No occlusion or significant stenosis. No aneurysm. POSTERIOR CIRCULATION: Right vertebral artery: No occlusion or significant stenosis. No aneurysm. Left vertebral artery: No occlusion or significant stenosis. No aneurysm. Basilar artery: No occlusion or significant stenosis. No aneurysm. Right posterior cerebral artery: No occlusion or significant stenosis. No aneurysm. Left posterior cerebral artery: No occlusion or significant stenosis. No aneurysm. Brain: Peterson-white matter differentiation is within normal limits. No mass effect or midline shift. There are mild nonspecific patchy foci of periventricular white matter hypodensity, probably due to chronic microvascular ischemic changes. Sulci and basilar cisterns are prominent due to mild parenchymal volume loss. No extra-axial fluid collection. There is old infarct in the right cerebellar hemisphere. Cerebral ventricles: No ventriculomegaly. Orbital cavities: Patient is status post cataract extraction bilaterally. Paranasal sinuses: Small retention cyst in the left maxillary sinus. Small retention cyst in the left maxillary sinus. 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 Bones/joints: Unremarkable. No acute fracture. Soft tissues: Unremarkable. IMPRESSION: 1. No large vessel occlusion or significant stenosis in the arteries of the [id number]. 2. No intracranial aneurysm. 3. No acute abnormality on noncontrast CT. PROCEDURE INFORMATION: Exam: CTA Neck With Contrast Exam date and time: 05/11/2023 10:57 AM Age: 73 years old Clinical indication: Other: Dizziness, weakness TECHNIQUE: Imaging protocol: Computed tomographic angiography of the neck with contrast. Exam focused on the cervical segments of the vasculature. 3D rendering (Not supervised by radiologist): MIP and/or 3D reconstructed images were created by the technologist. Contrast material: OMNIPAQUE 350; Contrast volume: 60 ml; Contrast route: INTRAVENOUS (IV); COMPARISON: CT BRAIN NECK CTA 05/04/2023 8:42 AM FINDINGS: Right common carotid artery: No stenosis. No dissection or occlusion. Right internal carotid artery: No stenosis of the extracranial segment. No dissection or occlusion. Right external carotid artery: No occlusion or stenosis of the origin. Left common carotid artery: No stenosis. No dissection or occlusion. Left internal carotid artery: No stenosis of the extracranial segment. No dissection or occlusion. There is a 1.5 cm in length fusiform aneurysm in the internal carotid artery at the base of the skull measuring up to 8 mm in diameter (56 series 18, 75 series 15). Left external carotid artery: No occlusion or stenosis of the origin. Right vertebral artery: No stenosis. No dissection or occlusion. Left vertebral artery: No stenosis. No dissection or occlusion. Aorta: There is a partially visualized 4.7 cm transverse descending thoracic aortic aneurysm with dissection which extends to the left proximal subclavian artery and at the origin of the left internal carotid artery without extending in the proximal segment (124 series 16). There is a flap noted in the brachiocephalic trunk (78 series 18), similar to prior. Arch of aorta is 4.0 cm. Soft tissues: Normal. No significant soft tissue swelling. Bones/joints: There are median sternotomy wires. Pulmonary artery is dilated and may be sequela of pulmonary hypertension. Lungs: There linear bands in the bilateral upper lungs which may represent atelectasis. IMPRESSION: 1. No stenosis or occlusion in the arteries of the neck. 2. Stable aortic dissection which extend to the neck vessels. 3. 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 4. Stable focal fusiform aneurysm or dilatation of the left internal carotid artery at the base of the skull. REFERENCES: NASCET CRITERIA. The degree of stenosis in the cervical segment of the internal carotid artery is based on NASCET criteria. Normal is no stenosis. Mild is less than 50% stenosis. Moderate is 50-69% stenosis. Severe is 70% to 99% stenosis. Total occlusion is no detectable patent lumen. THIS REPORT CONTAINS FINDINGS THAT MAY BE CRITICAL TO PATIENT CARE. The findings were verbally communicated via telephone conference at 12:28 PM EST on 05/11/2023 with Lia Hector. The findings were acknowledged and understood. Dictated and Authenticated by: Jigar Harper MD. Ordering:WYATT Fitzgerald MD
[2023-05-11 12:48] LABS: ALT 31 U/L (16-63); AST 32 U/L (15-37); Albumin 3.6 g/dL (3.4-5.0); Alkaline Phosphatase 44 U/L (46-116); Anion Gap 10.6 mmol/L (3-11); BUN 31 mg/dL (7-18); Bilirubin, Total 1.1 mg/dL (0.2-1.0); CO2 26.4 mmol/L (21.0-32.0); CREATININE 1.7 mg/dL (0.70-1.30); Calcium 9.1 mg/dL (8.5-10.1); Chloride 106 mmol/L (98-107); Estimated GFR 42.04 (mL/min/1.73m2); Glucose 105 mg/dL (74-106); Potassium 4.2 mmol/L (3.5-5.1); Sodium 143 mmol/L (136-145); Total Protein 7.3 g/dL (6.4-8.2)
[2023-05-11 12:50] LABS: Bilirubin Negative (Negative); Blood Small (Negative); Clarity Clear (Clear); Glucose Negative (Negative); Ketones Negative (Negative); Leukocyte Esterase Negative (Negative); Nitrite Negative (Negative); Specific Gravity 1.015 (1.005-1.025); Urobilinogen 0.2 mg/dL (Up to 0.2)
[2023-05-11 12:52] LABS: Bacteria Negative HPF (Negative); C & S Indicated? No; Casts Negative LPF (Negative); Crystals Negative HPF (Negative); Epithelial Cells Rare HPF (Negative); Mucus Negative (Negative); RBC 0-2 HPF (0-2); WBC Negative HPF (0-5)
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
[2023-05-11 14:18] LABS: Troponin I < 50 ng/L (<or=60)
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
[2023-05-11] MEDS: Metoprolol 5 MG/5 ML VIAL 2.5 MG IVP (15:44)
[2023-05-11] MEDS: Normal Saline 1,000 ML 125 ML IV (15:44)
--- NOTE | 2023-05-11 19:08 | W.EDPROG ---
Date of service: 05/11/23 Time of Service: 19:09 Medical Decision Making Saw this patient in sign-out, [place] [facility] [place] No acute events- transferred at 1845. Medical Records Medical records reviewed: Yes I reviewed the patient's medical records. Sign Out Sign Out Data: Sign Out Comment: ams, encephalopathy, r/o cva pending transfer to [facility] [place] Last updated by Lia Hector PA at 05/11/23 15:27 Discharge Plan Disposition Patient Disposition: Transfer-Acute Inpatient Care Discharge Details Clinical Impression: Altered mental status Primary Care Provider: Garfield Montenegro ED Provider: Cam Lamas Home Meds and New Rx's Prescriptions: No Action lisinopril 10 mg tablet 20 mg PO DAILY Qty: 90 3RF Multiple Vitamin-Minerals 1 EACH tablet 1 tab PO DAILY Patient Comments: 11/05/17 holding. si acetaminophen [Acetaminophen Extra Strength] 500 MG tablet 2 tab PO Q8H PRN warfarin 2.5 mg tablet 2.5 mg PO DAILY Qty: 90 4RF Protocol: Dose Management Condition: Friday Dose/Route: 5 mg Instruction: 2 x 2.5 mg tablets Condition: Friday Dose/Route: 5 mg Instruction: 2 x 2.5 mg tablets Condition: Friday Dose/Route: 5 mg Instruction: 2 x 2.5 mg tablets Condition: Friday Dose/Route: 2.5 mg Instruction: 1 x 2.5 mg tablet Condition: Dose/Route: 5 mg Instruction: 2 x 2.5 mg tablets Condition: Friday Dose/Route: 5 mg Instruction: 2 x 2.5 mg tablets Condition: Friday Dose/Route: 5 mg Instruction: 2 x 2.5 mg tablets Protocol Text: Adjustment Start Date: 11/16/20 INR Value: 2.1 INR Date: 11/16/20 Recheck Date: 12/16/20 metoprolol tartrate 50 mg tablet 50 mg PO BID Qty: 180 4RF sertraline 25 mg tablet 25 mg PO DAILY Qty: 90 4RF simvastatin 10 mg tablet 10 mg PO QPM Qty: 90 3RF methylphenidate HCl 20 mg tablet 20 mg PO BID MDD 40 Qty: 60 0RF zolpidem 10 mg tablet 10 mg PO HS PRN (Reason: insomnia) Qty: 30 3RF Patient Comments: 1/2 last night aspirin [Aspir-Low] 81 MG tablet,delayed release (DR/EC) 81 mg PO DAILY amiodarone 200 mg tablet 400 mg PO DAILY Patient Comments: TAKE 2 TABLETS BY MOUTH DAILY
== END 2023-05-11 18:40 | disposition short-term general hospital (02) ==
PROVIDERS: Physician Assistant; Emergency Provider Physician Assistant; PCP Internal Medicine
DX: R41.82 Altered mental status, unspecified (principal); R47.81 Slurred speech; I71.019 Dissection of thoracic aorta, unspecified; I48.20 Chronic atrial fibrillation, unspecified; I10 Essential (primary) hypertension; E78.00 Pure hypercholesterolemia, unspecified; R94.31 Abnormal electrocardiogram [ECG] [EKG]; Z95.2 Presence of prosthetic heart valve; Z79.01 Long term (current) use of anticoagulants; Z79.899 Other long term (current) drug therapy
CPT/HCPCS: 00123; 70496; 70498; 74177; 80053; 80151; 82962; 86850; 86900; 86901; 93005; 96361; 96374; 99285; 71260; 81003; 81015; 83735; 84439; 84443; 84484; 85610; 93010; J3490; Q9967

== ENCOUNTER 2023-05-15 01:01 | Outpatient (CLI) | payer MEDICARE, SELFPAY ==
[2023-05-15 14:49] LABS: INR 1.9 (0.9-1.1); Prothrombin Time 18.2 sec (9.1-11.1)
== END 2023-05-15 01:02 | disposition home or self-care (01) ==
LOC: LBO 01:01
PROVIDERS: PCP Internal Medicine; Visit Provider Internal Medicine
DX: I48.11 Longstanding persistent atrial fibrillation (principal)
CPT/HCPCS: 36415; 85610

== ENCOUNTER 2023-09-19 10:18 | Inpatient (IN) | payer MEDICARE, SELFPAY ==
[2023-09-19] VITALS (34 sets, daily range): BP systolic 128–182; BP diastolic 102–134; PULSE 71–93; RESP 14–35; TEMP 34.8–36.8; O2SAT 91–100
--- NOTE | 2023-09-19 10:00 | RT.EKG_ITS ---
APPROVED REPORT Exam: Resting ECG Reason for Exam: Slurred Speech Patient Location: E HR:82 bpm ECG Measurements Heart Rate 82 AXIS [place] [id number] P [id number] QRSd 100 QRS 54 QT 418 T 73 QTc 488 Conclusion Atrial flutter...A-rate 294 Low voltage, precordial leads...precordial leads <1.0mV Nonspecific T abnormalities, lateral leads...T <-0.10mV, I aVL V5 V6
[2023-09-19 10:43] LABS: Abs Immature Grans 0.02 10^3/uL (0.0-0.06); Absolute Basophil Count 0.07 10^3/uL (0.0-0.2); Absolute Eosinophil Count 0.16 10^3/uL (0.0-0.7); Absolute Lymphocyte Count 1.13 10^3/uL (1.2-3.4); Absolute Monocyte Count 1.06 10^3/uL (0.1-0.8); Absolute Neutrophil Count 6.25 10^3/uL (1.2-6.7); Basophils % 0.8 %; Eosinophils % 1.8 %; HCT 37.1 % (40.0-50.0); HGB 10.8 g/dL (13.5-17.5); Immature Grans % 0.2 %; MCH 22.8 pg (27.0-33.0); MCHC 29.1 % (32.0-36.0); MCV 78 fL (80-95); MPV 9.8 fL (8.0-11.0); Monocytes % 12.2 %; Platelet Count 170 10^3/uL (130-400); RBC 4.74 10^6/uL (4.36-5.78); RDW 20.4 % (11.8-14.1); RDW-SD 57.4 fL; WBC 8.69 10^3/uL (4.4-10.8)
--- NOTE | 2023-09-19 10:48 | ED.GENADUL_ITS ---
Discharge Plan Disposition Patient Disposition: Admit to [facility] Condition: Serious Discharge Details Chief Complaint: AMS/LOC Clinical Impression: Anemia, Ventricular tachyarrhythmia, Acute CVA (cerebrovascular accident), Hypertension Primary Care Provider: Garfield Montenegro ED Provider: Fabiano Wei Home Meds and New Rx's Prescriptions: No Action lisinopril 10 mg tablet 20 mg PO DAILY Qty: 90 3RF acetaminophen [Acetaminophen Extra Strength] 500 MG tablet 2 tab PO Q8H PRN metoprolol tartrate 50 mg tablet 50 mg PO BID Qty: 180 4RF sertraline 25 mg tablet 25 mg PO DAILY Qty: 90 4RF Eliquis 5 mg tablet 5 mg PO BID gabapentin 300 mg capsule 300 mg PO BID trazodone 50 mg tablet 50 mg PO DAILY pravastatin 20 mg tablet 20 mg PO DAILY furosemide 40 mg tablet 40 mg PO QAM Patient Comments: TAKE ONE-HALF TABLET BY MOUTH EVERY DAY ferrous sulfate [FeroSul] 325 mg (65 mg iron) tablet 325 mg PO DAILY HPI General Mode of arrival: EMS . Date/Time Provider Initiated Documentation: 09/19/23 10:30 . Limitations to Documentation: altered mental status . Information obtained by: patient . HPI Narrative: 73-year-old male with multiple medical problems including history of hypertension, pulmonary hypertension, aortic aneurysm, A-fib, aortic valve stenosis, history of aortic valve replacement, carotid artery stenosis, frequent falls, presents with chief complaint of altered mental status. Patient's is here and able to provide some history as history from the patient is limited. Patient is quite slow to respond. Patient apparently was last known normal last night although yesterday he was not feeling well and was fatigued. This morning he called his into his room and she noted that he had abnormal speech and then an episode of diminished responsiveness. EMS was called and a rrived to find the patient with altered mental status, slurred speech, hypoxia and labile blood pressure. Patient has no complaints at this time. He has no pain. Specifically has no headache, abdominal or chest pain. Related Data Home Medications Medication Instructions Recorded Confirmed acetaminophen 500 mg tablet 2 tab PO Q8H PRN 08/15/15 09/19/23 (Acetaminophen Extra Strength) lisinopril 10 mg tablet 20 mg (2 x 10 mg) PO DAILY #90 tabs 03/29/20 09/19/23 metoprolol tartrate 50 mg tablet 50 mg PO BID #180 tabs 07/21/20 09/19/23 sertraline 25 mg tablet 25 mg PO DAILY #90 tabs 08/31/20 09/19/23 apixaban 5 mg tablet (Eliquis) 5 mg PO BID 09/19/23 09/19/23 ferrous sulfate 325 mg (65 mg 325 mg PO DAILY 09/19/23 09/19/23 iron) tablet (FeroSul) furosemide 40 mg tablet 40 mg PO QAM 09/19/23 09/19/23 gabapentin 300 mg capsule 300 mg PO BID 09/19/23 09/19/23 pravastatin 20 mg tablet 20 mg PO DAILY 09/19/23 09/19/23 trazodone 50 mg tablet 50 mg PO DAILY 09/19/23 09/19/23 Previous Rx's Medication Instructions Recorded lisinopril 10 mg tablet 20 mg (2 x 10 mg) PO DAILY #90 tabs 03/29/20 metoprolol tartrate 50 mg tablet 50 mg PO BID #180 tabs 07/21/20 sertraline 25 mg tablet 25 mg PO DAILY #90 tabs 08/31/20 Allergies Allergy/AdvReac Type Severity Reaction Status Date / Time No Known Allergies Allergy Verified 09/19/23 10:17 General Stated Complaint: AMS/LOC BLANKA: 2 Review of Systems All systems reviewed & are unremarkable except as noted in HPI and below Constitutional Constitutional: Denies fever(s) and Denies headache(s) ENT Ears, Nose, Mouth, and Throat: Denies headache(s) Cardiovascular Cardiovascular: Denies chest pain Neurologic Neurologic: Reports as per HPI, Denies headache(s) and Denies convulsions Exam Const General: cooperative Orientation: confused [facility] Head: normocephalic and atraumatic Mouth: oral mucosae normal Eyes Conjunctivae: normal conjunctivae Sclera: normal sclerae Pupils: PERRL EOM: EOM abnormal (Difficulty tracking) Other: Gross visual normal Neck Neck: trachea midline Resp Auscultation: clear to auscultation bilaterally, no rales, no rhonchi and no wheezes Cardio Rate: regular rate and not tachycardic Rhythm: regular rhythm Heart Sounds: murmur GI Palpation: soft, not firm, no guarding, no masses, not rigid and nontender Skin General skin exam: no rashes or lesions noted Neuro General: patient alert, patient awake, oriented Patient Orientation: Person, Place and Confused (September 17) and tone normal Cognition: abnormal cognition Speech: abnormal speech slurred Motor: other (5/5 RT; 4/5 LLE, 4/5 LUE) Sensory Exam: no sensory deficits noted Other: Tongue deviation to the right Extrem General: no edema Psych Affect: blunted Attitude: cooperative Course Vital Signs Vital signs: Vital Signs Temperature 36.8 C 09/19/23 10:12 Pulse 87 09/19/23 10:12 Respiratory Rate 20 09/19/23 10:12 Blood Pressure 172/120 H 09/19/23 10:12 Pulse Oximetry 100 09/19/23 10:12 Temperature 36.8 C 09/19/23 10:12 Temperature Source Tympanic 09/19/23 10:12 Pulse 87 09/19/23 10:12 Respiratory Rate 16 09/19/23 10:39 Respiratory Effort Normal 09/19/23 10:39 Respiratory Depth Normal 09/19/23 10:39 Respiratory Pattern Normal 09/19/23 10:39 Blood Pressure 172/120 H 09/19/23 10:12 Blood Pressure Position Supine 09/19/23 10:12 Pulse Oximetry 100 09/19/23 10:12 Oxygen Delivery Method Nasal Cannula 09/19/23 10:12 Oxygen Flow Rate 4 09/19/23 10:12 Pain Level 0 09/19/23 10:12 Medical Decision Making 1055?- 73-year-old male with multiple medical problems including A[facility] presents with altered mental status, had episode of diminished responsiveness prior to arrival. He has slurred speech, right tongue deviation and subtle weakness of his left upper and lower extremity compared to his right. Last known normal was last night at 7 PM. I am concerned about acute CVA versus intracranial hemorrhage. Plan to obtain stat CT head and CTA of the brain and neck. EKG was reviewed and interpreted by me: No definitive P waves, computer interpreting atrial flutter no STEMI. Heart rate 82 bpm, normal axis. --Labs reviewed: Chronic anemia noted. Improved from prior. Chemistry pending due to hemolysis. Creatinine within normal limits for contrast administration. 1155 --CT of the head with CTA of the head and neck interpreted by radiology: 1. Again noted is aortic dissection which involves the proximal aspects of the brachiocephalic and left common carotid artery and extends into the left subclavian artery to just beyond the origin of the left vertebral artery takeoff. Similar to previous. 2. The carotid arteries are patent in the neck and there is also no significant atherosclerotic stenosis at the carotid bifurcations and proximal ICAs. 3. The bilateral vertebral arteries are also patent, without evidence of significant stenosis at their origins nor extension of intimal flaps into these vessels nor significant stenosis or occlusion of the vertebral arteries. Both vertebral arteries contribute to the formation of the basilar artery at the skull base. 4. Patent intracranial arteries. 5. There is a new small nonhemorrhagic 5 x 4 mm lacunar infarct in the left supra ventricular parietal lobe white matter. There are 2 small areas of infarct in the right cerebellar hemisphere which are unchanged from prior study of 05/11/2023. Blood pressure is currently 165/115. No indication for treatment at this time. Patient is outside therapeutic window for tPA. Plan to hospitalize for continued management of the CVA. -- I spoke with the hospitalist on-call, Dr. Hart, he will admit the patient. 1215 --Per nursing, pt noted to have episode of diminished responsiveness that was brief with associated hypoxia dropping down into the 80s. Nasal cannula oxygen was reapplied. Patient rapidly regained consciousness. supervisor telephone information during the episode shows about a 6-second period of polymorphic ventricular tachycardia. On reassessment patient mentating at baseline. He has no pain. Patient's blood pressure is again elevated now 180/130. I will give his prescribed metoprolol 50mg CR. I called and updated hospitalist. Pacer pads to be placed on the patient. Plan to defer MRI at this time. Quality:SDOH Health Related Social Needs: No Data to Display PFSH All Active Problems (Updated 09/19/23 @ 12:21 by Fabiano Wei MD) Hypertension (Chronic) Acute CVA (cerebrovascular accident) (Acute) Ventricular tachyarrhythmia (Chronic) Anemia (Chronic) Narcolepsy (Acute) Restless leg syndrome (Acute) Obstructive sleep apnea syndrome (Chronic) Carpal tunnel syndrome, right (Acute) Carpal tunnel syndrome of left wrist (Acute) Essential hypertension (Chronic 05/18/13) Depressive disorder (Chronic) Hypercholesterolemia (Chronic) Mitral valve insufficiency (Chronic 06/08/15) Primary insomnia (Chronic 10/20/15) Pulmonary hypertension (Chronic 06/08/15) Aortic aneurysm (Chronic 04/29/01) Dissection of Thoracic Aorta Chronic atrial fibrillation (Chronic 01/01/18) Aortic valve stenosis (Acute) Migraine (Chronic) Headache (Chronic) we discussed imaging with brain MRI--pros and cons He will hold off--see if sertraline wean helps. 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) Bruising (Chronic) Ventricular arrhythmia (Chronic) Tricuspid valve insufficiency (Chronic 06/08/15) Tension headache (Chronic 02/02/15) Obesity (Chronic) Left ventricular enlargement (Chronic 06/08/15) Fatigue (Chronic) Surgical History History of cataract removal with insertion of prosthetic lens shoulder arthroscopy repair calcium deposit right shoulder Thoracic aortic aneurysm repair Cholecystectomy Extraction of cataract Social History Smoking/Tobacco Use Status: Never Smoking risk assessment performed?: Yes Alcohol Intake: never Drug use: Never Substance use type: does not use Housing: house Do you feel safe at home: Yes Do you feel safe in your relationship?: Yes
[2023-09-19 10:55] LABS: Anisocytosis 2+; Diff Comment RBC Morph Reviewed; Hypochromasia 1+; Poikilocytes 1+
[2023-09-19] MEDS: Normal Saline - Diluent 50 ML VIAL IJ (11:12)
[2023-09-19] MEDS: Omnipaque 350 MG/ML 100 ML BTL IJ (11:12)
--- NOTE | 2023-09-19 11:13 | DI.CT_ITS ---
Exam(s) CT BRAIN NECK CTA EXAM: CT BRAIN NECK CTA CLINICAL HISTORY: left sided weakness since yesterday. TECHNIQUE: Imaging Protocol: Axial CT angiography was performed with multi-slice acquisition and mu lti-planar and/or 3D reconstructions. CONTRAST MATERIAL: Intravenous: Omnipaque 350 Contrast volume:structured data in ml COMPARISON: CT CT CHEST/ABD/PEL W from 05/11/[address] BRAIN NECK CTA from 05/11/2023 FINDINGS: CTA Neck W: Aortic arch anatomy: The previously documented aortic dissection is again noted. The dissection is a gain noted to extend into the proximal aspect of great vessels off the aortic arch. There is, howeve r, flow evident in both common carotid arteries and no significant atherosclerotic narrowing of the c ommon carotid arteries nor the carotid bulbs-bifurcations and proximal internal carotid arteries in t he neck.. Both internal carotid arteries appear patent in the upper neck and skull base-carotid lalita ls. Posterior circulation: Both vertebral arteries originate in conventional fashion off of the subclavian arteries and there is no obvious stenosis at the origin of the vertebral arteries. The dissection flap which extends into the left subclavian artery extends to slightly beyond the level of the left vertebral artery takeoff point.. There is no occlusion nor significant stenosis at the origin the left vertebral artery in t he left vertebral artery ascends with normal luminal diameter in the foramen transverse area without dissection flap extending into the left vertebral artery and no evidence of significant focal stenosi s nor intraluminal thrombus. The right vertebral artery originates off of the right subclavian artery, without significant stenosi s at its origin and the right vertebral artery ascends with normal luminal diameter in the foramen tr ansverse area. No evidence of intraluminal thrombus nor dissection flap within the lumen. Both vertebral arteries contribute to the formation of the basilar artery at the skull base. CTA Brain W: Anterior circulation: Both internal carotid arteries are patent in the skull base-carotid canals as well as within the cave rnous sinuses. The supraclinoid aspects of the ICAs are patent. Both A1 segments are patent as are the anterior cer ebral arteries and there is no evidence of aneurysm at the level of the anterior communicating artery . Both middle cerebral arteries are patent with no evidence of significant stenosis nor intraluminal th rombus. There also no aneurysms of these vessels. Posterior circulation: The basilar artery ascends in the midline. Distally it gives off patent bilateral superior cerebella r arteries. Above this level the basilar artery terminates as patent bilateral posterior cerebral arteries. The left P1 segment is thin and there is a posterior communicating artery on the left side of the [place] adding flow to the left posterior cerebral artery. There is no evidence of aneurysm at the tip of the basilar artery nor elsewhere in the [id number] is. CT BRAIN: There is no evidence of intracranial hemorrhage, mass effect, or shift of midline structures. There are no extra-axial fluid collections. Ventricles are not enlarged or shifted. There are no ring enh ancing lesions in the brain and no abnormal meningeal enhancement. Two small areas of infarct in the right cerebellar hemisphere are again noted. Unchanged from 2022. However, on today's study there is a new lacunar infarct (nonhemorrhagic) measuring 5 x 4 mm in the l eft parietal supra ventricular white matter. No new territorial infarct. No ring enhancing lesions in the brain. No abnormal meningeal enhancement. IMPRESSION: 1. Again noted is aortic dissection which involves the proximal aspects of the brachiocephalic and le ft common carotid artery and extends into the left subclavian artery to just beyond the origin of the left vertebral artery takeoff. Similar to previous. 2. The carotid arteries are patent in the neck and there is also no significant atherosclerotic sten osis at the carotid bifurcations and proximal ICAs. 3. The bilateral vertebral arteries are also patent, without evidence of significant stenosis at the ir origins nor extension of intimal flaps into these vessels nor significant stenosis or occlusion of the vertebral arteries. Both vertebral arteries contribute to the formation of the basilar artery a t the skull base. 4. Patent intracranial arteries. 5. There is a new small nonhemorrhagic 5 x 4 mm lacunar infarct in the left supra ventricular parieta l lobe white matter. There are 2 small areas of infarct in the right cerebellar hemisphere which are unchanged from prior study of 05/11/2023. If clinically indicated follow-up MRI with diffusion imaging can be performed. Called by myself to ER physician RADIATION DOSE DELIVERED: 2,851.96mGy.cm Total DLP DATA REPOSITORY: All CT scans at this facility are submitted to the National Radiology Data Registry (NRDR) Dose Index Registry (DIR) with the [employer] (ACR). RADIATION OPTIMIZATION: All CT scans at this facility use at least one of these dose optimization te chniques: automated exposure control; mA and/or kV adjustment per patient size (includes targeted exa ms where dose is matched to clinical indication); or iterative reconstruction.
--- NOTE | 2023-09-19 11:45 | DI.MRI_ITS ---
Exam(s) MR BRAIN WO EXAM: MR BRAIN WO CLINICAL HISTORY: cva, left parietal on CT TECHNIQUE: Multiplanar multisequence MRI of the brain was performed. COMPARISON: CT CT BRAIN NECK CTA from 09/19/2023 FINDINGS: CEREBRAL PARENCHYMA: There is no evidence of intracranial hemorrhage, mass effect, or shift of midline structures. There are no extra-axial fluid collections. Ventricles are not enlarged or shifted. Again noted is evidence of prior infarcts in the right cerebellar hemisphere. There is increased sig nal in both sides of the yovany, not associated hemorrhage nor restricted diffusion. There are multipl e foci of FLAIR bright sub cm signal abnormality in the [place] in supra ventricular white matter consis tent with chronic small vessel disease. These are not associated with hemorrhage nor surrounding ruben ma and no foci of restricted diffusion. The small lacunar infarct described on CT scan earlier today in the left parietal region does not exhibit restricted diffusion. SWI: Are 2 foci of susceptibility artifact in the right frontal lobe on SWI consistent with prior audie rohemorrhages. Another smaller similar findings seen in the left frontal lobe. PITUITARY GLAND: No mass nor parasellar abnormality. No obvious abnormality in the cavernous sinuses. FLOW VOIDS: The expected flow void are noted. No evidence of obvious aneurysm nor obvious vascular ma lformation. PARANASAL SINUSES: Mild mucosal thickening in the left maxillary sinus. No fluid level. Other sinus es are clear. ORBITS: No obvious findings. IMPRESSION: There is abundant periventricular signal abnormality consistent with chronic small vessel disease. N o evidence of restricted diffusion to suggest acute ischemic event. The small nonhemorrhagic lacunar infarct noted on CT scan earlier today in the left parietal lobe does not exhibit restricted diffusi on and is therefore not acute. Susceptibility weighted images reveal 2 possibly 3 small foci of intra-axial microhemorrhages in the right frontal lobe. DATA REPOSITORY:
[2023-09-19 11:51] LABS: Bilirubin Negative (Negative); Blood Trace-lysed (Negative); Clarity Clear (Clear); Glucose Negative (Negative); Ketones Negative (Negative); Leukocyte Esterase Negative (Negative); Nitrite Negative (Negative); pH 6.5 (5-8)
[2023-09-19 11:59] LABS: *AMPHETAMINES SCREEN URINE Negative (Negative); *BARBITURATES SCREEN URINE Negative (Negative); *BENZODIAZEPINES SCREEN URINE Negative (Negative); Cannabinoids THC Negative (Negative); Cocaine Screen,Urine Negative (Negative); METHADONE URINE SCREEN Negative (Negative); OPIATES URINE SCREEN Negative (Negative)
[2023-09-19 12:00] LABS: Tricyclic Antidepressants Negative (Negative)
[2023-09-19 12:02] LABS: Bacteria Negative HPF (Negative); C & S Indicated? No; Casts 3-5 Hyaline LPF (Negative); Crystals Few Calcium Oxalate HPF (Negative); Epithelial Cells Rare HPF (Negative); Mucus Trace (Negative); Other Cells Rare Renal (Negative); RBC 0-2 HPF (0-2); WBC Negative HPF (0-5)
[2023-09-19 12:03] LABS: ALT 48 U/L (16-63); AST 49 U/L (15-37); Albumin 3.4 g/dL (3.4-5.0); Alkaline Phosphatase 57 U/L (46-116); Anion Gap 8.8 mmol/L (3-11); BUN 29 mg/dL (7-18); Bilirubin, Total 2.9 mg/dL (0.2-1.0); CO2 28.2 mmol/L (21.0-32.0); CREATININE 1.3 mg/dL (0.70-1.30); Calcium 8.5 mg/dL (8.5-10.1); Chloride 106 mmol/L (98-107); Estimated GFR 58.01 (mL/min/1.73m2); Glucose 86 mg/dL (74-106); Magnesium 1.8 mg/dL (1.8-2.4); Potassium 3.4 mmol/L (3.5-5.1); Sodium 143 mmol/L (136-145); Total Protein 6.5 g/dL (6.4-8.2); Troponin I < 50 ng/L (< or =60)
[2023-09-19] MEDS: Metoprolol CR 50 MG TABCR (12:15)
--- NOTE | 2023-09-19 12:36 | HPE_ITS ---
Date of service: 09/19/23 Time of Service: 12:36 Assessment and Plan Assessment and plan (1) Stroke: Status: Chronic Assessment and plan: CTA showed infarct as per HPI MRI Echo with bubble high dose statin ASA 81 and already on Eliquis Lipid panel Hgb A1C PT Speech OT (2) Hypertension: Status: Chronic Assessment and plan: Permissive hypertension d/t stroke SBP 160 Holding lasix, lisinopril resume gradually in 48 hours if stable (3) Ventricular tachyarrhythmia: Status: Chronic Assessment and plan: strip labelled as torsade with loss of consciousness by ED provider Oxymetry pleth curve remained regular and constant before, during and after the event, no second lead to correlate Some wide complex QRS observed for about 3 seconds with correlating pleth Patient on tele : A-Fib, HR 79, 5 single PVC's over 2 hours [facility] [place] As per discussion Dr. Teena Garcia [place] [facility] [place] -Read as artifact- - previous study with bio-patch showed in 01/09 that the patient was 100% A-fib and 80% of the time in the 80's and controlled; 1% of PVC's -Recommendations to continue beta-neeraj and focus on stroke treatment protocol -Will confirm with team and call back if other readings differ (4) Essential hypertension: Status: Chronic Assessment and plan: Will do permissive hypertension in the setting of acute CVA Hold lisinopril and lasix for now (5) Contraindication to deep vein thrombosis (DVT) prophylaxis: Status: Acute Assessment and plan: On Eliquis for anticoagulation therapy for atrial fibrillation (6) Discharge planning issues: Status: Acute Assessment and plan: CM to f/u for d/c VS need for rehab PT consult recommendation: Short term SNF rehab VS PT Discussed with Dr. Hart History of Present Illness History of Present Illness Chief Complaint: Altered mental status, abnormal speech Narrative: This 72-year-old male patient with a past medical history of hypertension, pulmonary hypertension, aortic aneurysm, atrial fibrillation, aortic valve stenosis and replacement, carotid artery stenosis, frequent falls, presented to the ED at [facility] via EMS on 09/19/2023 for evaluation of altered mental status, abnormal speech, and an episode of diminished responsiveness. The spouse reported that the patient last well-known date was on 09/18/2023 around 7 PM but the patient had been complaining of malaise and fatigue. Also reported that this morning the patient was displaying altered mental status, slurred speech, hypoxia and labile blood pressure upon arrival of EMS. In the ED the patient had no further complaints; denied pain, headache, abdominal or chest pain. Lab in the ED were unremarkable except for H&H of 10.8 & 37.1 with a MCV of 78 currently on iron supplementation at home, BUN of 29. Head and neck CTA showed a similar to previous aortic dissection involving the proximal aspects of the brachiocephalic and left common carotid artery extending to the left subclavian artery to just beyond the origin of the left vertebral artery takeoff. New small non-hemorrhagic 5 x 4 mm lacunar infarct in the left supra ventricular parietal lobe white matter also noted. There are 2 small areas of infarct in the right cerebellar hemisphere remain unchanged from prior study of 05/11/2023. Report also mentioned patent carotid, intra-cranial and vertebral arteries. The hospitalist was called and the patient was admitted to the medical surgical floor with telemetry for evaluation and management of stroke. MRI was pending. The ED provider indicated that as reported by nursing the patient had an episode of diminished responsiveness associated with oxygen level dropping in the 80s with the application of nasal cannula and then the patient regaining consciousness. The EKG to monitor at the time reportedly showed an episode of 6 seconds of polymorphic ventricular tachycardia with a blood pressure of 180/30; the patient did not receive is morning dose of metoprolol 50 CR . The ED provider later updated the hospitalist regarding episode previously mentioned. On the floor, the patient denied change in vision, headache, paresthesia, dizziness, chest pain, shortness of breath, abdominal pain. The patient also reporting that his mother from brain CA but did not report any history of CVA in his family. Patient denied smoking or drinking and confirmed that he would like CPR and breathing assistance for short time if he was to return to normal thus the patient is a full code. PFSH All Active Problems (Updated 09/19/23 @ 14:52 by Laura Hansen APRN) Discharge planning issues (Acute) Contraindication to deep vein thrombosis (DVT) prophylaxis (Acute) Stroke (Chronic) Hypertension (Chronic) Acute CVA (cerebrovascular accident) (Acute) Ventricular tachyarrhythmia (Chronic) Anemia (Chronic) Narcolepsy (Acute) Restless leg syndrome (Acute) Obstructive sleep apnea syndrome (Chronic) Carpal tunnel syndrome, right (Acute) Carpal tunnel syndrome of left wrist (Acute) Essential hypertension (Chronic 05/18/13) Depressive disorder (Chronic) Hypercholesterolemia (Chronic) Mitral valve insufficiency (Chronic 06/08/15) Primary insomnia (Chronic 10/20/15) Pulmonary hypertension (Chronic 06/08/15) Aortic aneurysm (Chronic 04/29/01) Dissection of Thoracic Aorta Chronic atrial fibrillation (Chronic 01/01/18) Aortic valve stenosis (Acute) Migraine (Chronic) Headache (Chronic) we discussed imaging with brain MRI--pros and cons He will hold off--see if sertraline wean helps. 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) Bruising (Chronic) Ventricular arrhythmia (Chronic) Tricuspid valve insufficiency (Chronic 06/08/15) Tension headache (Chronic 02/02/15) Obesity (Chronic) Left ventricular enlargement (Chronic 06/08/15) Fatigue (Chronic) Surgical History History of cataract removal with insertion of prosthetic lens shoulder arthroscopy repair calcium deposit right shoulder Thoracic aortic aneurysm repair Cholecystectomy Extraction of cataract Family History (Updated 09/19/23 @ 18:04 by Laura Hansen APRN) Mother Cancer Brain CA Father Heart disease Social History Smoking/Tobacco Use Status: Never Smoking risk assessment performed?: Yes Alcohol Intake: never Drug use: Never Substance use type: does not use Housing: house Do you feel safe at home: Yes Do you feel safe in your relationship?: Yes Meds Allergies and Home Medications Allergies Allergy/AdvReac Type Severity Reaction Status Date / Time No Known Allergies Allergy Verified 09/19/23 10:17 Home Medications Medication Instructions Recorded Confirmed Type acetaminophen 500 mg tablet 2 tab PO Q8H PRN 08/15/15 09/19/23 History (Acetaminophen Extra Strength) lisinopril 10 mg tablet 20 mg (2 x 10 mg) PO DAILY #90 tabs 03/29/20 09/19/23 Rx metoprolol tartrate 50 mg tablet 50 mg PO BID #180 tabs 07/21/20 09/19/23 Rx sertraline 25 mg tablet 25 mg PO DAILY #90 tabs 08/31/20 09/19/23 Rx apixaban 5 mg tablet (Eliquis) 5 mg PO BID 09/19/23 09/19/23 History ferrous sulfate 325 mg (65 mg 325 mg PO DAILY 09/19/23 09/19/23 History iron) tablet (FeroSul) furosemide 40 mg tablet 40 mg PO QAM 09/19/23 09/19/23 History gabapentin 300 mg capsule 300 mg PO BID 09/19/23 09/19/23 History pravastatin 20 mg tablet 20 mg PO DAILY 09/19/23 09/19/23 History trazodone 50 mg tablet 50 mg PO QPM 09/19/23 09/19/23 History Exam Narrative Exam Narrative: Constitutional The patient is in bed comfortable and cooperative during the interview, at bedside The patient is without acute distress and has average body habitus/is obese/ is thin. HENMT: Head is atraumatic, normocephalic, no lymphadenopathy. Light right facial droop and minimal tongue deviation, slurred speech resolving better as per spouse Eyes: Well aligned, intact ROM, PEERLA on ambient light Neuro:alert and oriented to self, person, place, time off (by a year but agrees that it was 2023 when reoriented )and situation. right arm drift but minimal weakness on push, pull and baller tender, right lower ext, weakness resoleved on push/ pull Chest:Chest is symmetrical and healed surgical scars noted Resp: Normal respiratory pattern, speaks in full sentences, unlabored breathing, clear lung bilaterally Cardio: irregular rhythm, tele HR 79 atrial fibrillation , S1, S2, pulmonic murmur, positive pulses to all 4 extremities GI: Abdomen is not distended, soft and non tender, bowel sounds are present : Negative Costovertebral angle tenderness, no bladder distension Back/spine/Pelvis: No back tenderness, normal alignment Integumentary: No skin lesions or rash, pale legs with varicose veins Extremities: Psych: RASS 0, congruent mood and normal affect. Results Labs 09/19/23 10:35 09/19/23 11:33 Labs: Laboratory Results - last 24 hr 09/19/23 09/19/23 09/19/23 10:35 11:33 11:39 WBC 8.69 RBC 4.74 Hgb 10.8 L Hct 37.1 L MCV 78 L MCH 22.8 L MCHC 29.1 L RDW 20.4 H Plt Count 170 MPV 9.8 Immature Gran % 0.2 Neutrophils % 72.0 Lymphocytes % 13.0 Monocytes % 12.2 Eosinophils % 1.8 Basophils % 0.8 Nucleated RBC % 0.0 Absolute Neutrophils 6.25 Absolute Lymphocytes 1.13 L Absolute Monocytes 1.06 H Absolute Eosinophils 0.16 Absolute Basophils 0.07 RBC Morphology See Below Hypochromasia 1+ Poikilocytosis 1+ Anisocytosis 2+ Sodium Cancelled 143 Potassium Cancelled 3.4 L Chloride Cancelled 106 Carbon Dioxide Cancelled 28.2 Anion Gap Cancelled 8.8 BUN Cancelled 29 H Creatinine Cancelled 1.3 Est GFR (CKD-EPI 2020) Cancelled 58.01 Glucose Cancelled 86 Calcium Cancelled 8.5 Magnesium Cancelled 1.8 Total Bilirubin Cancelled 2.9 H AST Cancelled 49 H ALT Cancelled 48 Alkaline Phosphatase Cancelled 57 Troponin I Cancelled < 50 Total Protein Cancelled 6.5 Albumin Cancelled 3.4 Urine Color Yellow Urine Clarity Clear Urine pH 6.5 Ur Specific [place] 1.020 Urine Protein 100 H Urine Ketones Negative Urine Blood Trace-lysed H Urine Nitrite Negative Urine Bilirubin Negative Urine Urobilinogen 2.0 H Ur Leukocyte Esterase Negative Urine RBC 0-2 Urine WBC Negative Ur Epithelial Cells Rare Urine Crystals Few Calcium Oxalate Urine Bacteria Negative Urine Casts 3-5 Hyaline Urine Mucus Trace Urine Other Rare Renal Ur Culture Indicated? No Urine Glucose Negative Urine Opiates Screen Negative Urine Methadone Screen Negative Ur Barbiturates Screen Negative Ur Tricyclics Screen Negative Ur Amphetamines Screen Negative U Benzodiazepines Scrn Negative Urine Cocaine Screen Negative Ur THC Screen Negative Last Vital Signs Temp 36.8 C 09/19/23 10:12 Pulse 71 09/19/23 12:16 Resp 16 09/19/23 12:20 BP 161/102 H 09/19/23 12:16 Pulse Ox 100 09/19/23 12:20 Time Spent Time spent with Patient: >75 minutes Time was spent: preparing to see the patient(eg.review tests), obtaining and/or reviewing separately otained hiistory, ordering medications,tests, procedures, referring, communicating with other health child care aide, indepentently interpreting results, counseling the patient and care coordination
[2023-09-19 12:48] LABS: Calculated LDL 48 mg/dL (<100); Cholesterol 96 mg/dL (<200); HDL Cholesterol 39 mg/dL (40-60); Triglyceride 48 mg/dL (<150)
[2023-09-19 12:49] LABS: Hemoglobin A1C 6.2 % (<5.7)
--- NOTE | 2023-09-19 13:30 | DI.US_ITS ---
APPROVED REPORT EXAM: Comprehensive 2D, Doppler, and color-flow Echocardiogram Patient Location: In-Patient Room/Bed: 226 Final Inspector Movement Assembly: Gavin Bautista RDCS (AE) Indications: stroke Echo Enhancing Agent Indication: Rule out Shunt Agent(s) / Amount(s) Used: Agitated Saline 30.0 cc Comments: Contrast study was performed with 3 IV injections of 10ccs of agitated normal saline, at re st, with cough and post valsalva maneuver. Negative contrast study for shunt flow. Conclusion Normal left ventricular wall thickness and chamber size. Ejection fraction is 50 to 55% Right ventricle is dilated. There is diastolic septal flattening consistent with right ventricular p ressure overload. There is paradoxic septal motion suggesting right ventricular volume overload. Both atria are severely enlarged There is a prior bioprosthetic aortic valve replacement. Mean aortic valve gradient is 13 mmHg Mildly thickened mitral leaflets with mild regurgitation Normal tricuspid valve with moderate regurgitation. Estimated right ventricular systolic pressure is 56 mmHg Injection of agitated saline reveals no intracardiac shunt Wall motion Left Ventricle The left ventricle is normal size. The left ventricular systolic function is normal. The left ventric ular ejection fraction is within the normal range. There is normal left ventricular wall thickness. T here is normal LV segmental wall motion. Flattened septum consistent with right ventricular pressure overload. Paradoxic septal motion consistent with right ventricular volume overload. There is no vent ricular septal defect visualized. LVEF is 50-55%. Right Ventricle Right ventricle is moderately dilated. Right ventricle is mildly hypokinetic. Atria Left atrium is severely dilated. Right atrium is severely dilated. Saline bubble contrast intravenous injection does not demonstrate PFO. Aortic Valve Bioprosthetic aortic valve is present. No aortic regurgitation is present. Mitral Valve Mitral valve leaflets are mildly thickened. No evidence of mitral valve stenosis. Mild mitral regurgi tation. Tricuspid Valve The tricuspid valve is normal in structure. There is no tricuspid valve stenosis. Moderate tricuspid regurgitation. The RVSP is 55.6 mmHg. Pulmonic Valve The pulmonary valve is normal in structure. There is no pulmonic valvular stenosis. Trace pulmonic re gurgitation. Great Vessels The aortic root is normal in size. The ascending aorta is normal in size. Aortic arch is normal in ca liber. The IVC collapses <50% with inspiration. Pericardium There is no pericardial effusion. 2D Dimensions IVSD d PLAX 0.77 cm M: 0.6-1.2 Ao Root d 2.43 cm M: 3.1 - 3.7 LVPW d PLAX 0.81 cm M: 0.6 - 1.2 Ao Asc Diam d 2.82 cm M: 2.6 - 3.4 LVID d PLAX 4.65 cm M: 4.2 - 5.8 LVDs 3.37 cm M: 2.5 - 4.0 LV EF Teichholz 53.5 % FS 27.52 % LV EDV (Teich) 99.7 mL LV ESV (Teich) 46.4 mL Stroke Vol Index (Teich) 27.92 M-Mode TAPSE 1.52 cm (M/F) >1.7 Auto EF LV EDV A4C 112.1 mL LV EDV A2C 177.0 mL LV EDV BP 145.9 mL LV ESV A4C 53.4 mL LV ESV A2C 80.1 mL LV ESV BP 65.1 mL LVEF(%) A4C 52.3 % LVEF(%) A2C 54.7 % LVEF(%) BP 55.4 % LV SV A4C 58.7 ml LV SV A2C 96.9 ml LV SV BP 80.8 ml LV CO A4C 4.1 L/min LV CO A2C 8.5 L/min LV CO BP 6.3 L/min HR A4C 69.63 BPM HR A2C 87.81 BPM LV EDV Index (BP) LA Volume LA Length A4C 6.3 cm LA Length A2C 6.0 cm LA Area A4C s 23.26 cm2 LA Area A2C s 24.52 cm2 LA Vol A4C A-L 73.29 mL LA Vol A2C A-L 85.48 mL LA Vol Biplane A-L 81.1 mL LA Vol/BSA A4C A-L LA Vol/BSA A2C A-L LA Vol/BSA BP A-L 42.4 mL/m2 LA Vol A4C MOD 70.4 mL LA Vol A2C MOD 81.5 mL LA Vol BP MOD 76.2 mL LV Diastology MV E' medial 0.073 (>0.07 m/s) MV E' lateral 0.113 (>0.1 m/s) Aortic Valve AoV Vmax 2.29 m/s LVOT Diam s 1.70 cm AoV Peak Grad 20.9 mmHg AoV VTI 0.632 m AoV Mean Alon. 1.68 m/s AoV Mean Grad 12.8 mmHg Tricuspid Valve RA Pressure 15.00 mmHg TR Vmax 3.19 m/s TR Peak Grad 40.6 mmHg RVSP (TR) 55.6 mmHg
[2023-09-19 14:07] LABS: Troponin I < 50 ng/L (< or =60)
[2023-09-19] MEDS: Potassium Chloride 20 MEQ TABCR PO ×2 (15:08→20:03)
[2023-09-19] MEDS: MAGNESIUM SULFATE 2 GM/50 ML BAG IVINF (15:18)
[2023-09-19] MEDS: Normal Saline Flush 10 ML SYR IVP ×2 (15:22→20:03)
--- NOTE | 2023-09-19 16:07 | PT.INIE ---
PT Notes Visit Reasons: Ischemic stroke Physical Therapy Inpatient Initial Evaluation Date: 09/19/2023 Referring Doctor: Laura Hansen NP PT Orders: PT CONSULT: Safety Consult for D/C lives with in a private home with 4 steps to enter with rails on both sides. Precautions: Fall. Standard. Activity as tolerated. Patient Profile/Admitting Diagnosis: Patient is a 73-year-old male who presented to the [facility] 09/19/2023 due to altered mental status, decreased responsiveness, increasing fatigue, and abnormal speech. Patient is admitted for CVA work up, HTN, and ventricular tachyarrythmia. 09/19/2023 Brain MRI IMPRESSION: There is abundant periventricular signal abnormality consistent with chronic small vessel disease. No evidence of restricted diffusion to suggest acute ischemic event. The small nonhemorrhagic lacunar infarct noted on CT scan earlier today in the left parietal lobe does not exhibit restricted diffusion and is therefore not acute. Susceptibility weighted images reveal 2 possibly 3 small foci of intra-axial microhemorrhages in the right frontal lobe. 09/19/[address] IMPRESSION: 1. Again noted is aortic dissection which involves the proximal aspects of the brachiocephalic and left common carotid artery and extends into the left subclavian artery to just beyond the origin of the left vertebral artery takeoff. Similar to previous. 2. The carotid arteries are patent in the neck and there is also no significant atherosclerotic stenosis at the carotid bifurcations and proximal ICAs. 3. The bilateral vertebral arteries are also patent, without evidence of significant stenosis at their origins nor extension of intimal flaps into these vessels nor significant stenosis or occlusion of the vertebral arteries. Both vertebral arteries contribute to the formation of the basilar artery at the skull base. 4. Patent intracranial arteries. 5. There is a new small nonhemorrhagic 5 x 4 mm lacunar infarct in the left supra ventricular parietal lobe white matter. There are 2 small areas of infarct in the right cerebellar hemisphere which are unchanged from prior study of 05/11/2023. PMHX: All Active Problems (Updated 09/19/23 @ 14:52 by Laura Hansen APRN) Discharge planning issues (Acute) Contraindication to deep vein thrombosis (DVT) prophylaxis (Acute) Stroke (Chronic) Hypertension (Chronic) Acute CVA (cerebrovascular accident) (Acute) Ventricular tachyarrhythmia (Chronic) Anemia (Chronic) Narcolepsy (Acute) Restless leg syndrome (Acute) Obstructive sleep apnea syndrome (Chronic) Carpal tunnel syndrome, right (Acute) Carpal tunnel syndrome of left wrist (Acute) Essential hypertension (Chronic 05/18/13) Depressive disorder (Chronic) Hypercholesterolemia (Chronic) Mitral valve insufficiency (Chronic 06/08/15) Primary insomnia (Chronic 10/20/15) Pulmonary hypertension (Chronic 06/08/15) Aortic aneurysm (Chronic 04/29/01) Dissection of Thoracic Aorta Chronic atrial fibrillation (Chronic 01/01/18) Aortic valve stenosis (Acute) Migraine (Chronic) Headache (Chronic) we discussed imaging with brain MRI--pros and cons He will hold off--see if sertraline wean helps. 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) Bruising (Chronic) Ventricular arrhythmia (Chronic) Tricuspid valve insufficiency (Chronic 06/08/15) Tension headache (Chronic 02/02/15) Obesity (Chronic) Left ventricular enlargement (Chronic 06/08/15) Fatigue (Chronic) Surgical History History of cataract removal with insertion of prosthetic lens shoulder arthroscopy repair calcium deposit right shoulder Thoracic aortic aneurysm repair Cholecystectomy Extraction of cataract Social History/Home Situation: Lives with in a private home with 4 steps to enter with rails on both sides. independent with use of front-wheel walker. Equipment Owned/DME: FWW Subjective: Agreeable to getting up and moving out of bed. Denied headache, chest pain, and lightheadedness throughout session. Objective: General Observation: IV through R UE. SCDs in place. present in room throughout session. Mental Status: Alert and oriented as to person and purpose. Able to follow single-step commands. Pain: None reported Vital Signs: Closely monitored by nursing staff ROM: Right Upper Extremity: Shoulder Flexion WFL. Shoulder abduction WFL. Elbow flexion WFL. Wrist flexion WFL. Functional opening and closing of hand WFL. Left Upper Extremity: Shoulder Flexion WFL. Shoulder abduction WFL. Elbow flexion WFL. Wrist flexion WFL. Functional opening and closing of hand WFL. Right Lower Extremity: Hip flexion WFL. Hip abduction WFL. Knee flexion WFL. Ankle dorsiflexion WFL. Ankle plantarflexion WFL. Left Lower Extremity: Hip flexion WFL. Hip abduction WFL. Knee flexion WFL. Ankle dorsiflexion WFL. Ankle plantarflexion WFL. Strength: Right Upper Extremity: Shoulder flexors 4-/5. Shoulder abductors 4-/5. Elbow flexors 4-/5. Elbow extensors 4-/5. Health Companion strong. Left Upper Extremity: Shoulder flexors 4-/5. Shoulder abductors 4-/5. Elbow flexors 4-/5. Elbow extensors 4-/5. Health Companion weaker than R. Right Lower Extremity: Hip flexors 4/5. Hip abductors 4/5. Knee flexors 4/5. Knee extensors 4/5. Ankle dorsiflexors 4/5. Ankle plantarflexors 4/5. Left Lower Extremity: Hip flexors 4-/5. Hip abductors 4-/5. Knee flexors 4-/5. Knee extensors 4-/5. Ankle dorsiflexors 4-/5. Ankle plantarflexors 4-/5. Bed Mobility/Transfers: Minimal cueing provided for use of B hands as needed for support, movement sequence, AD management, and posture to reduce fall risk and minimize pain report Supine to sit minimal assist with HOB at 30 degrees Sit to stand minimal assist using FWW Stand to sit minimal assist using FWW Bed to reclining chair minimal assist using FWW Gait: Guided patient shows safe short distance ambulation 8 steps from bedside forward and backing up onto bedside recliner using front wheel walker with moderate verbal and tactile cueing for safe gait pattern, posture, and AD management. Steps asymmetrical and discontinuous. Balance: Static Sitting: Good Dynamic Sitting: Good Static Standing: Fair Dynamic Standing: Fair Special Tests: Mobility Limitations Standardized Measure [facility] AM-PAC 6 clicks Basic Mobility Inpatient Short Form: Raw Score: 18 CMS Score: 47% deficit Romberg Test: Moderate postural sway side to side, minimal assist to prevent LOB Pronator drift: Mild on L UE Slow alternating movement: Intact Rapid alternating movement: Impaired 4-Stage balance Test: Feet together <10 seconds Semi-tandem <10 seconds Full tandem deferred One-legged stance deferred Informed Consent/Education: Patient was instructed in purpose of PT consult and plan of care. Agreeable to proceed with established PT POC to achieve personal goals. ASSESSMENT: Slight strength difference in UE/LE strength with L side more impaired. Patient able to respond in 1-2 sentences during session. Able to follow simple instructions. At risk for falls. Patient presents with clinical signs and symptoms consistent with current/admitting diagnoses that have resulted to mobility limitations, gait instability, generalized weakness, and overall ADL decline as demonstrated by the following impairment level findings: 1. Decreased strength to B UE/LE major muscle groups with L >>R 2. Impaired standing balance 3. Impaired activity tolerance 4. Shortness of breath 6. Mild swelling in B legs Impairments are contributing to the following functional limitations: 1. Decline in bed mobility skills 2. Decline in transfer skills 3. Difficulty with ambulation without assistive device and physical assistance 4. Increased completion time for mobility ADL performance 5. Increased risk for falls 6. Difficulty with managing steps alone safely Patient is assessed as a 08892 moderate complexity based on the following: History: 73-year-old male with past medical history as indicated above Examination: Demonstrable impairment in strength, balance, and mobility level with underlying impairments and functional limitations as exhibited above as well as deficit score of 47% utilizing the [facility] Mobility Inpatient Short Form Presentation: Evolving Decision Makin moderate complexity Goals: Goals X1 week 1. Supine-Sit independent 2. Sit-Supine independent 3. Sit-Stand independent 4. Stand-Sit independent with FWW 5. Bed-Chair independent with FWW 6. Chair-Bed independent with FWW 7. Independent gait on level surface with use of FWW for at least 300 feet without report of pain nor dyspnea 8. Independent stair negotiation while holding onto B rails for at least 4 steps without report of pain nor dyspnea 9. Independent with home exercise program 10. Good static and dynamic standing balance/tolerance Plan of Care/Treatment Plan: 1-2x/day, 7 days/week x 1 week. Plan of care has been reviewed with the [employer] providing the service under Physical Therapy direction. Initiate Physical Therapy intervention for pain management as needed, strengthening, bed mobility, transfers, gait, stairs, balance training, and use of assistive device. DISCHARGE RECOMMENDATIONS: [] Home with no services [] [] Home with services [specify] [] Home with outpatient PT [] [] SNF for continued rehabilitation [] [] Senior Care Care [] [] SNF versus LTC based on ability to participate and progress [] [X] Short-term rehab stay vs. HH PT base don progress towards goals TREATMENT CODE/TIME: 9716 2 x 20 minutes for 1 unit, 08616 x 27 minutes for 2 units (16:07-16:54). Thank you for the opportunity to participate in the care of this patient. Harini Williamson PT, DPT, CLT [facility] [place], [place]
[2023-09-19] MEDS: Aspirin E.C. 81 MG TABEC PO (17:02)
--- NOTE | 2023-09-19 17:40 | W.SPSTE ---
Date of service: 09/19/23 Time of Service: 17:40 Subjective Clinical (Bedside) Swallow Evaluation - Inpatient Speech Language Pathology Referred by: Laura Hansen Start time: 1700 End time: 173 Total patient contact: 33 min Referral Type: Urgent Swallow Consult Precautions: Standard, Fall, Full Code Reason for Referral/HPI: Mariusz is a 73 y/o M with PMH of HTN, aortic aneurism, afib, ANKIT, aortic valve stenosis and carotic artery stenosis who presented to the ED with slurred speech, AMS, and difficulty ambulating concerning for CVA. Imaging indicated L parietal lacunar infarct. PT/OT/HOTEL OPERATIONS MANAGER and neurology consulted. HOTEL OPERATIONS MANAGER IMPRESSIONS & RECOMMENDATIONS: Cranial nerve exam was significant for mild R lingual deviation and bilateral lingual weakness to resistance. Speech amr/smr's were significant for mild discoordination and imprecision. Mild dysarthria vs baseline speech: Speech was 100% comprehensible but mildly imprecise, likely exacerbated by fatigue. Per patient's , however she feels his speech is back to baseline at time of exam. Regarding swallow function, patient's oral-pharyngeal swallow function appears largely safe at this time, significant primarily for mild diffuse oral residue. Patient tolerated a range of textures including regular solids and thin liquids without s/sx aspiration or pharyngeal residue. In setting of considerable fatigue, recommend soft/bite size solids for energy conservation and to reduce risk of choking during initial recovery period. Anticipate patient will be safe to return to baseline diet upon discharge. HOTEL OPERATIONS MANAGER will re-evaluate patient for consideration of diet texture upgrade and further cognitive/communication assessment on Friday if he is still admitted. If patient is discharged over the weekend, recommend HOTEL OPERATIONS MANAGER evaluation through home health or at SNF to ensure no further cognitive/communication or swallowing concerns. FURTHER INPATIENT HOTEL OPERATIONS MANAGER SERVICES: Re-evaluation by HOTEL OPERATIONS MANAGER as able following initial recovery period. DISCHARGE RECOMMENDATIONS: Pending re-evaluation, if no further inpatient HOTEL OPERATIONS MANAGER services received, recommend HOTEL OPERATIONS MANAGER evaluation either at SNF or Home Health Diet Recommendations: ? SOLIDS: 6-Soft & Bite-Sized Solids LIQUIDS: 0-Thin Liquids MEDICATIONS: Whole 1 at a time With 0-Thin Liquids Alter medications only as advised by MD or Pharmacist RISK MANAGEMENT: Level of Assistance/Supervision: Provide set-up assist with initial verbal reminders for aspiration precautions as below Positioning and environment: PO intake only when awake/alert? Reduce auditory and/or visual distractions when eating Up to chair Oral hygiene Before/after PO intake Using friction with toothbrush on all oral structures as tolerated Strategies/Adaptations/Assistive Equipment: Small sips Small bites Slow rate of intake Alternate intake of liquids and solids Ensure mouth is clear before proceeding Reflux Precautions: Small+frequent meals throughout day Maintain fully upright position at least 30 minutes after meals Avoid meals/snacks 2-3 hours prior to reclining/sleeping Sleep with head of bed elevated to reduce likelihood of nocturnal reflux Education Provided to: Nursing Patient Family Topics Addressed: anatomy/physiology of swallowing mechanism definition and impacts of aspiration impact of current diagnoses on swallow function role of HOTEL OPERATIONS MANAGER in management of swallow disorders overt s/sx to monitor for re: potential aspiration of food / liquids relationship between respiratory function and deglutition rationale and instruction for additional risk management strategies as below SUBJECTIVE: Patient received: alert/awake, lethargic. Agreeable to evaluation. also present and assisting with providing history/subjective. Pain Reported 0 Baseline Swallow Function: Patient denies swallowing difficulty prior to admission and eats a regular diet at baseline. OBJECTIVE Patient positioning: Up to chair/90 degrees Oral care: Reported recently completed Respiratory status: Room air, Tolerates well without s/sx dyspnea Orientation/Mental status: Oriented to self, Oriented to situation, Orented to Day, Oriented to month, Oriented to year, Oriented to location, recall of recent events is impaired (does not remember initial hours after CVA), frequently with delayed but appropriate/accurate verbal responses. Speech: Dysarthric, mildly imprecise Speech AMR/SMR's: Mildly imprecise, regular rate, mildly irregular rhythm. Mild discoordination with SMR. Delayed initiation. Oral Mechanism Examination: Dentition: Natural dentition Oral mucosa: WFL ? Cranial Nerve Assessment: CN V ? Trigeminal Jaw Strength/ROM WNL ?WNL CN VII- Facial Mild reduced resistance to cheek puff mild weakness CN IX ? Glossopharyngeal WNL palatal elevation with phonation. No evidence of nasal emissions WNL CN X ? Vagus WNL Vocal quality and volume. Strong/sharp volitional cough WNL CX XII ? Hypoglossal Deviation to R on lingual protrusion. Weak resistance bilaterally. Weak/asymmetrical PO Intake: Trials Assessed: IDDSI 0 Thin Liquids (Juice via cup edge, water via straw) IDDSI 5 Minced and Moist Solid (cottage cheese) IDDSI 7EC Easy to Chew Solid (saltine) IDDSI 7 Regular Solid (nuts) Medications administered by RN Oral Phase Findings: Mildly prolonged/slow mastication Mild diffuse lingual residue Pharyngeal Phase Findings: WFL ? [place] Swallow Protocol Results: PASS PLAN: Re-evaluate for meal tolerance and considertion of upgrade, re-evaluate speech for residual deficits. Anticipate x1 re-evaluation and no further HOTEL OPERATIONS MANAGER needs. Goals: Associate Financial Analyst Goals: Patient will remain free from aspiration-related illness, malnutrition, and dehydration. Short Term Goals: Patient will participate in ongoing diagnostic treatment addressing areas of communication/cognition. Patient will tolerate Soft/Bite size Diet and Thin liquids without overt s/s aspiration across 2/2 visits. Patient will tolerate PO trials for consideration of diet upgrade without overt s/s aspiration across 2/2 visits.
[2023-09-19] MEDS: Apixaban 5 MG TAB PO (19:59)
[2023-09-19] MEDS: Metoprolol 50 MG TAB PO (19:59)
[2023-09-19] MEDS: Gabapentin 300 MG CAP PO (20:02)
[2023-09-19] MEDS: Atorvastatin 40 MG TAB PO (20:02)
--- NOTE | 2023-09-19 20:17 | RESPIRATORY ---
RT spoke with patient and patient's family member for ANKIT diagnosis. They state pt. had home CPAP but patient has not been using it since 4-3 years due to discomfort and not tolerating with PAP per family member.
[2023-09-20 03:30] VITALS: BP 138/97; PULSE 99; RESP 18; TEMP 36; O2SAT 95
[2023-09-20 07:09] LABS: Abs Immature Grans 0.02 10^3/uL (0.0-0.06); Absolute Basophil Count 0.07 10^3/uL (0.0-0.2); Absolute Eosinophil Count 0.26 10^3/uL (0.0-0.7); Absolute Lymphocyte Count 1.15 10^3/uL (1.2-3.4); Absolute Monocyte Count 1.02 10^3/uL (0.1-0.8); Absolute Neutrophil Count 5.54 10^3/uL (1.2-6.7); Basophils % 0.9 %; Eosinophils % 3.2 %; HCT 35.8 % (40.0-50.0); HGB 10.5 g/dL (13.5-17.5); Immature Grans % 0.2 %; Lymphocytes % 14.3 %; MCH 22.5 pg (27.0-33.0); MCHC 29.3 % (32.0-36.0); MCV 77 fL (80-95); MPV 10.1 fL (8.0-11.0); Monocytes % 12.7 %; Neutrophils % 68.7 %; Platelet Count 170 10^3/uL (130-400); RBC 4.66 10^6/uL (4.36-5.78); RDW-SD 56.9 fL; WBC 8.06 10^3/uL (4.4-10.8)
[2023-09-20 07:16] LABS: RDW 20.6 % (11.8-14.1)
[2023-09-20 07:23] LABS: Anion Gap 9.8 mmol/L (3-11); BUN 28 mg/dL (7-18); CO2 27.2 mmol/L (21.0-32.0); CREATININE 1.3 mg/dL (0.70-1.30); Calcium 8.5 mg/dL (8.5-10.1); Chloride 107 mmol/L (98-107); Estimated GFR 58.01 (mL/min/1.73m2); Glucose 103 mg/dL (74-106); Magnesium 2.1 mg/dL (1.8-2.4); Potassium 3.7 mmol/L (3.5-5.1); Sodium 144 mmol/L (136-145)
[2023-09-20] MEDS: Ferrous Sulfate 325 MG TAB PO (08:28)
[2023-09-20] MEDS: Gabapentin 300 MG CAP PO ×2 (08:28→19:51)
[2023-09-20] MEDS: Metoprolol 50 MG TAB PO ×2 (08:28→19:51)
[2023-09-20] MEDS: Apixaban 5 MG TAB PO ×2 (08:28→19:49)
[2023-09-20] MEDS: Aspirin E.C. 81 MG TABEC PO (08:29)
[2023-09-20] MEDS: Sertraline 25 MG TAB PO (08:29)
[2023-09-20] MEDS: Potassium Chloride 20 MEQ TABCR PO ×3 (08:29→19:52)
[2023-09-20] MEDS: Normal Saline Flush 10 ML SYR IVP ×2 (08:30→20:55)
[2023-09-20 08:40] VITALS: BP 145/98; PULSE 91; RESP 16; TEMP 37.1; O2SAT 97
--- NOTE | 2023-09-20 10:37 | PT.INTREAT ---
PT Notes Visit Reasons: Ischemic stroke Inpatient Physical Therapy Treatment Note [facility] Date: 09/20/23 PRECAUTIONS:Standard SUBJECTIVE: Pt reports weakness in both legs. OBJECTIVE: Therapeutic Activities (38252p[1]): Direct one-on-one instruction in dynamic activities to improve functional performance. ? BED MOBILITY/TRANSFERS? Sit-stand: SBA ? Stand-sit: ARMANI? Provided skilled cues and instruction on performance and technique throughout. ? GAIT? Assistive Device: FWW? Weight bearing: Full Assist: CGA/SBA? Distance:? Small loop ? Therapeutic Exercises (63012t[1]): Direct one-on-one instruction in therapeutic exercises to develop strength, endurance, range of motion and flexibility. ? Exercises ? Seated rowing x 12 Seated shoulder flexion x 12 Seated shoulder circles x 10 LAQ x 12 Seated marching x 15 Hip abd x 12 ASSESSMENT:? Pt was fatigued post session but motivated for PT. PLAN: Cont as per PT POC as per alvin. TREATMENT CODE/TIME: 10:14-10:37 (23) TA TP
[2023-09-20 11:02] VITALS: BP 130/111; PULSE 82; RESP 17; TEMP 36.3; O2SAT 94
--- NOTE | 2023-09-20 12:09 | PDOC.CMIN ---
Date of service: 09/20/23 Time of Service: 12:09 Care Management Initial Assmt Initial Assessment REASON FOR HOSPITALIZATION:: stroke PREVIOUS FUNCTIONAL STATUS/SOCIAL/FAMILY SUPPORTS:: Mariusz lives in [place] in a single family home with his Naa. They have 2 children; their daughter lives in [facility] and their son lives in [place]. They also have 3 grandchildren. 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 He uses a cane for ambulation and does not receive any community services. CURRENT FUNCTIONAL STATUS:: He was sitting up in bed visiting with his Renata when CM met with him. He was alert and oriented and his speech seemed clearer and more focused today. He was able to ambulate with Pt with CGA/SBA using a FWW. Naa informed CM that He's right leg was restless and stated that he takes PRN gabapentin for this at home. CM discussed with the provider and adjustments were made to his Gabapentin order to more closely align with their schedule and practices at home. He and Naa do not have advanced directives completed and requested that they be given copies. CM provided 2 copies of the [employer] AD forms and offered to help with their completion. Naa indicated that she thought they would take them home and complete them after discharge. ADVANCE DIRECTIVES:: none on file Has patient been provided with info about the portal/API?: Yes Did the patient sign up for the portal?: No CODE STATUS:: Full Code INSURANCE COVERAGE / FINANCIAL ISSUES:: [facility] Medicare replacement plan CURRENT HOME/COMMUNITY SERVICES/EQUIPMENT:: cane and walker PRIMARY CARE PHYSICIAN:: Garfield Montenegro POTENTIAL DISCHARGE NEEDS:: follow up with PCP and plan of care PATIENT/FAMILY EDUCATION NEEDS:: Review of discharge instructions, activity, limitations, follow up plan, discuss Ask Me Three TRANSPORTATION:: via private vehicle PLAN:: Anticipate Mariusz will be discharged home with new home health services for nursing, OT and PT. He will follow up with his community providers and plan of care as prescribed and transport with his . CM will follow and continue to assess for discharge needs. PFSH All Active Problems (Updated 09/19/23 @ 14:52 by Laura Hansen APRN) Discharge planning issues (Acute) Contraindication to deep vein thrombosis (DVT) prophylaxis (Acute) Stroke (Chronic) Hypertension (Chronic) Acute CVA (cerebrovascular accident) (Acute) Ventricular tachyarrhythmia (Chronic) Anemia (Chronic) Narcolepsy (Acute) Restless leg syndrome (Acute) Obstructive sleep apnea syndrome (Chronic) Carpal tunnel syndrome, right (Acute) Carpal tunnel syndrome of left wrist (Acute) Essential hypertension (Chronic 05/18/13) Depressive disorder (Chronic) Hypercholesterolemia (Chronic) Mitral valve insufficiency (Chronic 06/08/15) Primary insomnia (Chronic 10/20/15) Pulmonary hypertension (Chronic 06/08/15) Aortic aneurysm (Chronic 04/29/01) Dissection of Thoracic Aorta Chronic atrial fibrillation (Chronic 01/01/18) Aortic valve stenosis (Acute) Migraine (Chronic) Headache (Chronic) we discussed imaging with brain MRI--pros and cons He will hold off--see if sertraline wean helps. 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) Bruising (Chronic) Ventricular arrhythmia (Chronic) Tricuspid valve insufficiency (Chronic 06/08/15) Tension headache (Chronic 02/02/15) Obesity (Chronic) Left ventricular enlargement (Chronic 06/08/15) Fatigue (Chronic) Surgical History History of cataract removal with insertion of prosthetic lens shoulder arthroscopy repair calcium deposit right shoulder Thoracic aortic aneurysm repair Cholecystectomy Extraction of cataract Family History (Updated 09/19/23 @ 18:04 by Laura Hansen APRN) Mother Cancer Brain CA Father Heart disease Social History Smoking/Tobacco Use Status: Never Smoking risk assessment performed?: Yes Alcohol Intake: never Drug use: Never Substance use type: does not use Housing: house Do you feel safe at home: Yes Do you feel safe in your relationship?: Yes SDOH(Care Management) Screening Will the Patient Participate in the Screening?: Declined to provide Do you worry about having a steady place to live?: choose not to answer In the past 12 months, have you had to go without electric, gas, oil or water in your home?: choose not to answer Have you or anyone in your house had to go without enough food to eat?: choose not to answer Has lack of transportation kept you from medical appointments or from doing things needed for daily living?: choose not to answer Has anyone in your support network made you feel unsafe for any reason?: choose not to answer
[2023-09-20 15:24] VITALS: BP 142/109; PULSE 90; RESP 17; TEMP 36.6; O2SAT 98
--- NOTE | 2023-09-20 15:32 | W.PM.PROGNOT ---
Date of Service Date of service: 09/20/23 Time of Service: 15:32 Assessment and Plan Assessment and plan (1) Stroke: Status: Chronic Assessment and plan: CTA showed infarct as per HPI MRI showed events from CTA but with additional findings: -evidence of prior infarcts in the right cerebellar hemisphere. - multiple foci of FLAIR bright sub cm signal abnormality in the Annamarie in supra ventricular white matter consistent with chronic small vessel disease; not associated with hemorrhage nor surrounding edema and no foci of restricted diffusion. -small lacunar infarct described on CT scan earlier today in the left parietal region does not exhibit restricted diffusion. SWI: Are 2 foci of susceptibility artifact in the right frontal lobe on SWI consistent with prior microhemorrhages. Another smaller similar findings seen in the left frontal lobe. Recommendations s/p discussion with Dr Kristopher Burr fro 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 Teena Garcia from [facility] cardiology team and as previously mentioned: -Read as artifact- - previous study with bio-patch showed in 01/09 that the patient was 100% A-fib and 80% of the time in the 80's and controlled; 1% of PVC's -Recommendations to continue beta-neeraj and focus on stroke treatment protocol -Will confirm with team and call back if other readings differ Will continue to monitor Continue metoprolol (4) Essential hypertension: Status: Chronic Assessment and plan: Resume home meds (5) Contraindication to deep vein thrombosis (DVT) prophylaxis: Status: Resolved Assessment and plan: On Eliquis for anticoagulation therapy for atrial fibrillation (6) Discharge planning issues: Status: Resolved Assessment and plan: CM to f/u for d/c VS need for rehab PT consult recommendation: Short term SNF rehab VS PT Tele neuro consult: Please read notes Discussed with Dr. Hart Subjective Subjective Patient reports: no new complaints, feels better, tolerating liquids well and tolerating a regular diet; denies voiding w/o difficulty, diarrhea, blood in stool, nausea, vomiting, shortness of breath or fever Exam Narrative Exam Narrative: Constitutional The patient is in bed comfortable and cooperative during the interview, at bedside The patient is without acute distress and has average body habitus/is obese/ is thin. HENMT: No right facial droop and minimal tongue deviation, no slurred speech Eyes: Well aligned, intact ROM, PEERLA on ambient light Neuro:alert and oriented to self, person, place. No further left arm drift but minimal weakness on push, pull and typing secretary, left lower ext, weakness resolved on push/ pull Chest:Chest is symmetrical and healed surgical scars noted Resp: Normal respiratory pattern, speaks in full sentences, unlabored breathing, clear lung bilaterally Cardio: irregular rhythm, tele HR 96 atrial fibrillation , S1, S2, pulmonic murmur, positive pulses to all 4 extremities GI: Abdomen is not distended, soft and non tender, bowel sounds are present : Negative Costovertebral angle tenderness, no bladder distension Back/spine/Pelvis: No back tenderness, normal alignment Integumentary: No skin lesions or rash, pale legs with varicose veins Extremities: slight edema, right AC reported lipoma by spouse seen Psych: RASS 0, congruent mood and normal affect. Objective Last Vital Signs Temp 36.6 C 09/20/23 15:24 Pulse 90 09/20/23 15:24 Resp 17 09/20/23 15:24 BP 142/109 H 09/20/23 15:24 Pulse Ox 98 09/20/23 15:24 Laboratory Results - last 24 hr 09/20/23 06:35 WBC 8.06 RBC 4.66 Hgb 10.5 L Hct 35.8 L MCV 77 L MCH 22.5 L MCHC 29.3 L RDW 20.6 H Plt Count 170 MPV 10.1 Immature Gran % 0.2 Neutrophils % 68.7 Lymphocytes % 14.3 Monocytes % 12.7 Eosinophils % 3.2 Basophils % 0.9 Nucleated RBC % 0.0 Absolute Neutrophils 5.54 Absolute Lymphocytes 1.15 L Absolute Monocytes 1.02 H Absolute Eosinophils 0.26 Absolute Basophils 0.07 Sodium 144 Potassium 3.7 Chloride 107 Carbon Dioxide 27.2 Anion Gap 9.8 BUN 28 H Creatinine 1.3 Est GFR (CKD-EPI 2020) 58.01 Glucose 103 Calcium 8.5 Magnesium 2.1 Time Spent with Patient Time Spent with Patient: >50 minutes Time was spent: preparing to see the patient(eg.review tests), obtaining and/or reviewing separately otained hiistory, ordering medications,tests, procedures, referring, communicating with other health career technical supervisor, indepentently interpreting results, counseling the patient and care coordination
[2023-09-20] MEDS: Furosemide 40 MG TAB PO (17:02)
[2023-09-20 19:44] VITALS: BP 153/115; PULSE 98; RESP 16; TEMP 36.8; O2SAT 98
[2023-09-20] MEDS: traZODone 50 MG TAB PO (19:48)
[2023-09-20] MEDS: Melatonin 3 MG TAB PO (19:49)
[2023-09-20] MEDS: Pravastatin 20 MG TAB PO (19:49)
[2023-09-20 22:35] VITALS: BP 145/102; PULSE 90; RESP 16; TEMP 35.3; O2SAT 93
[2023-09-21 04:55] VITALS: BP 145/96; PULSE 84; RESP 16; TEMP 35.6; O2SAT 95
[2023-09-21 07:54] VITALS: BP 130/85; PULSE 82; RESP 17; TEMP 36; O2SAT 97
[2023-09-21 08:37] VITALS: BP 130/85; PULSE 82; RESP 17; TEMP 36; O2SAT 97
[2023-09-21] MEDS: Furosemide 40 MG TAB PO (09:01)
[2023-09-21] MEDS: Ferrous Sulfate 325 MG TAB PO (09:01)
[2023-09-21] MEDS: Apixaban 5 MG TAB PO (09:01)
[2023-09-21] MEDS: Potassium Chloride 20 MEQ TABCR PO (09:01)
[2023-09-21] MEDS: Metoprolol 50 MG TAB PO (09:01)
[2023-09-21] MEDS: Lisinopril 10 MG TAB 20 MG PO (09:02)
[2023-09-21] MEDS: Sertraline 25 MG TAB PO (09:02)
[2023-09-21] MEDS: Normal Saline Flush 10 ML SYR IVP (09:03)
--- NOTE | 2023-09-21 10:00 | PT.INTREAT ---
PT Notes Visit Reasons: Ischemic Stroke Inpatient Physical Therapy Treatment Note [facility] Date: 09/21/23 PRECAUTIONS:Standard OBJECTIVE: Therapeutic Activities (87476n[1]): Direct one-on-one instruction in dynamic activities to improve functional performance. ? BED MOBILITY/TRANSFERS? Sit-stand: SBA? Stand-sit: SBA? Provided skilled cues and instruction on performance and technique throughout. ? GAIT? Assistive Device: FWW ? Weight bearing: Full Assist: SBA/CGA ? Distance:? 150ft ? Therapeutic Exercises (44896z[1]): Direct one-on-one instruction in therapeutic exercises to develop strength, endurance, range of motion and flexibility. ? Exercises Seated shoulder flexion x 10 Seated shoulder circles x 10 Seated horz abd x 10 Seated rowing x 10 LAQ x 10 Seated marching x 10 Hip abd x 10 ASSESSMENT:? Pt was willing and motivated for his session today. PLAN: Cont as per PT POC. TREATMENT CODE/TIME: 9:25-10 (35) JULY DORSEY
--- NOTE | 2023-09-21 11:28 | PDOC.HHF2F_ITS ---
Home Health Referral Home Health Orders Clinical synopsis of why skilled professionals are needed: Slight strength difference in UE/LE strength with L side more impaired. Patient presents with clinical signs and symptoms consistent with current/admitting diagnoses that have resulted to mobility limitations, gait instability, generalized weakness, and overall ADL decline as demonstrated by the following impairment level findings: 1. Decreased strength to B UE/LE major muscle groups with L >>R 2. Impaired standing balance 3. Impaired activity tolerance 4. Shortness of breath 6. Mild swelling in B legs Medical diagnosis necessitation home health referral: CVA Physical Therapist: Check all that apply Increase strength & endurance for safe mobility at home: Ordered To design/establish home maintenance program: Ordered Fall reduction therapy program for patient with history of frequent falls: Ordered Home safety evaluation and teaching/gait training including stair management (if applicable): Ordered Occupational Therapist: Evaluate and treat for patient unable to perform ADL/IADL/self-care: Ordered Upper extremity strengthening, range and motion: Ordered Home Bound Status Describe why leaving home would require a considerable and taxing effort: Requires frequent rest periods and Confusion Encounter Date and Reason: I certify that a FTF encounter for this patient was performed on September 21, 2023 and that such encounter was related to the primary reason the patient requires home health services. The encounter was conducted in the following manner: * By me as the certifying physician, CASSANDRA CONSULTANT, PA or * By an inpatient physician, CASSANDRA CONSULTANT or PA during an inpatient stay who communicated findings to me, Certification And Authentication I certify that I composed the above information based on my clinical judgment relating to this patient's medical condition and, if applicable, clinical findings communicated to me by the NPP or inpatient physician who performed the FTF encounter. Name of Provider that will be monitoring home health services: Garfield Montenegro
--- NOTE | 2023-09-21 11:33 | DSE_ITS ---
Date of service: 09/21/23 Time of Service: 11:33 DS: Diagnosis Discharge Diagnosis (1) Stroke: Status: Chronic (2) Hypertension: Status: Chronic (3) Ventricular tachyarrhythmia: Status: Chronic (4) Essential hypertension: Status: Chronic Discharge Plan Disposition Patient Disposition: Home W/Home Health Services Condition: Stable Discharge Details Reason For Visit: Ischemic Stroke Admit Date/Time: 09/19/23 12:15 Admit Provider: Aly Hart Attending Provider: Aly Hart Primary Care Provider: Garfield Montenegro Hospital Course Hospital Course: This is a 72-year-old male patient with a complex past medical history including but not limited to hypertension atrial fibrillation pulmonary hypertension aortic aneurysm aortic valve stenosis status post replacement carotid stenosis f requent falls who presented to the emergency department by EMS for evaluation of altered mental status and abnormal speech. By the time he arrived to the emergency department his symptoms had resolved. His workup in the emergency department included a CTA of the head and neck which did show a new small lacunar infarct. While awaiting transport to the floor for admission he was found to have desatted into the 80s and had a brief alteration in responsiveness. This resolved after applying nasal cannula oxygen. The group sales representative reportedly showed what was thought to be torsades but after cardiology review was thought to be artifact. He was admitted to the medical surgical unit under hospitalist services. He underwent a teleneuro evaluation with recommendation to continue aspirin anticoagulation and statin. He was referred to physical and Occupational Therapy. He remained hemodynamically stable he was eating and drinking and felt at his baseline. He is being discharged to home with home health services. His echocardiogram was completed prior to discharge but final report not available. This should be reviewed by his outpatient team. He will be referred to neurology as an outpatient he also will be scheduled to follow-up with his primary care provider discussed with Dr Hart Home Meds and New Rx's Prescriptions: Continued lisinopril 10 mg tablet 20 mg PO DAILY Qty: 90 3RF acetaminophen [Acetaminophen Extra Strength] 500 MG tablet 2 tab PO Q8H PRN metoprolol tartrate 50 mg tablet 50 mg PO BID Qty: 180 4RF sertraline 25 mg tablet 25 mg PO DAILY Qty: 90 4RF Eliquis 5 mg tablet 5 mg PO BID gabapentin 300 mg capsule 300 mg PO BID trazodone 50 mg tablet 50 mg PO QPM pravastatin 20 mg tablet 20 mg PO DAILY furosemide 40 mg tablet 40 mg PO QAM Patient Comments: TAKE ONE-HALF TABLET BY MOUTH EVERY DAY ferrous sulfate [FeroSul] 325 mg (65 mg iron) tablet 325 mg PO DAILY Discharge Instructions Instructions: Ischemic Stroke (DC) Additional Instructions: continue usual medications. Stand Alone Forms: Nursing Discharge Form Referrals: Garfield Montenegro [Primary Care Provider] - (Please call and make an appointment for 1-2 weeks! ) Activity:: Activity as Tolerated Equipment/Supplies:: No Equipment Needed Diet:: As Tolerated Discharge Orders Discharge Orders: Discharge Order (Routine); Ordered 09/21/23 Ordered By: Gill Balderas Discharge Data Discharge Date/Time-TO BE ENTERED AT DEPARTURE: 09/21/23 12:45 DS: Summary Time Spent with Patient providing and/or coordinating discharge services: Greater than 30 minutes Status at Discharge Functional status at discharge: uses cane/walker Overall status at discharge: patient is progressing back to baseline Mental Status: mental status grossly normal Speech and Movement: speech and movement normal Mood: congruent mood Affect: normal affect Quality:SDOH Health Related Social Needs: No Data to Display Exam Const General: cooperative HENMT Head: normocephalic and atraumatic Mouth: oral mucosae normal Eyes Conjunctivae: normal conjunctivae Sclera: normal sclerae Pupils: PERRL Neck Neck: trachea midline Resp Auscultation: clear to auscultation bilaterally, no rales, no rhonchi and no wheezes Cardio Rate: regular rate Heart Sounds: murmur GI Palpation: soft, not firm, no guarding, no masses, not rigid and nontender Skin General skin exam: no rashes or lesions noted Neuro General: patient alert, patient awake and tone normal Sensory Exam: no sensory deficits noted Extrem General: no edema Psych Mental Status: mental status grossly normal Speech and Movement: speech and movement normal Mood: congruent mood Affect: normal affect Attitude: cooperative DS: Data Vitals/I&O Vitals and I&O: Vital Signs Temperature 36.0 C L 09/21/23 08:37 Temperature Source Tympanic 09/21/23 08:37 Pulse 82 09/21/23 08:37 Pulse Rhythm Irregular 09/21/23 09:05 Pulse 83 09/19/23 12:40 Respiratory Rate 17 09/21/23 08:37 Respiratory Effort Normal 09/21/23 09:05 Respiratory Depth Normal 09/21/23 09:05 Respiratory Pattern Normal 09/21/23 09:05 Blood Pressure 130/85 09/21/23 08:37 Blood Pressure Mean 149 09/19/23 12:31 Blood Pressure Position Supine 09/19/23 10:12 Pulse Oximetry 97 09/21/23 08:37 Oxygen Delivery Method Room Air 09/21/23 08:37 Oxygen Flow Rate 0 09/21/23 08:37 Pain Level 0 09/21/23 08:37 Intake & Output 09/20/23 09/20/23 09/21/23 11:59 23:59 11:59 Intake Total 10 / 140 130 / 140 Output Total 275 / 275 Balance -265 / -135 130 / -135 Intake: IV Oral 120 / 120 Output: Urine 275 / 275 Other: Urine Color Straw Yellow Urine Appearance Cloudy Clear Clear Urine Odor Normal Normal Comment Pt voided in toilet voids independently Stool Size Small Voiding Methods Toilet PFSH All Active Problems (Updated 09/19/23 @ 14:52 by Laura Hansen APRN) Discharge planning issues (Acute) Contraindication to deep vein thrombosis (DVT) prophylaxis (Acute) Stroke (Chronic) Hypertension (Chronic) Acute CVA (cerebrovascular accident) (Acute) Ventricular tachyarrhythmia (Chronic) Anemia (Chronic) Narcolepsy (Acute) Restless leg syndrome (Acute) Obstructive sleep apnea syndrome (Chronic) Carpal tunnel syndrome, right (Acute) Carpal tunnel syndrome of left wrist (Acute) Essential hypertension (Chronic 05/18/13) Depressive disorder (Chronic) Hypercholesterolemia (Chronic) Mitral valve insufficiency (Chronic 06/08/15) Primary insomnia (Chronic 10/20/15) Pulmonary hypertension (Chronic 06/08/15) Aortic aneurysm (Chronic 04/29/01) Dissection of Thoracic Aorta Chronic atrial fibrillation (Chronic 01/01/18) Aortic valve stenosis (Acute) Migraine (Chronic) Headache (Chronic) we discussed imaging with brain MRI--pros and cons He will hold off--see if sertraline wean helps. 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) Bruising (Chronic) Ventricular arrhythmia (Chronic) Tricuspid valve insufficiency (Chronic 06/08/15) Tension headache (Chronic 02/02/15) Obesity (Chronic) Left ventricular enlargement (Chronic 06/08/15) Fatigue (Chronic) Surgical History History of cataract removal with insertion of prosthetic lens shoulder arthroscopy repair calcium deposit right shoulder Thoracic aortic aneurysm repair Cholecystectomy Extraction of cataract Family History (Updated 09/19/23 @ 18:04 by Laura Hansen APRN) Mother Cancer Brain CA Father Heart disease Social History Smoking/Tobacco Use Status: Never Smoking risk assessment performed?: Yes Alcohol Intake: never Drug use: Never Substance use type: does not use Housing: house Do you feel safe at home: Yes Do you feel safe in your relationship?: Yes Time Spent with Patient Time Spent with Patient: 45-69 minutes Time was spent: preparing to see the patient(eg.review tests), obtaining and/or reviewing separately otained hiistory, ordering medications,tests, procedures, referring, communicating with other health weekend caregiver, indepentently interpreting results, counseling the patient and care coordination
[2023-09-21 11:51] VITALS: BP 136/89; PULSE 75; RESP 18; TEMP 37; O2SAT 97
--- NOTE | 2023-09-21 16:14 | PDOC.CMDIS ---
Date of service: 09/21/23 Time of Service: 16:14 LACE Index Scoring Tool Questions: Length of Stay (in days): 2 Was the patient admitted via the E.D.?: Yes Comorbidities: Cerebrovascular Disease and Chronic Pulmonary Disease E.D. Visits: 3 Answers: Total Score: 11 Risk of Readmission: High Risk Care Management Discharge Plan Reason for Hospitalization: stroke Discharge Plan: Mariusz will be discharged home with new home health services for OT and PT. He will follow up with his community providers and plan of care as prescribed and transport with his . Patient/Family Education Needs: Review of discharge instructions, activity, limitations, follow up plan, discuss Ask Me Three Services Needed at Discharge: Home Health Care Services SDOH Health Related Social Needs: No Data to Display
== END 2023-09-21 12:45 | disposition home health service (06) | DRG 64 ==
LOC: ER 12:21 → MS 13:01
PROVIDERS: Nurse Practitioner Acute Care; Admitting Provider Family Medicine; Emergency Provider Student in an Organized Health Care Education/Training Program; PCP Internal Medicine; Visit Provider Family Medicine
DX: I63.81 Other cerebral infarction due to occlusion or stenosis of small artery (principal); I71.011 Dissection of aortic arch; I47.20 Ventricular tachycardia, unspecified; I10 Essential (primary) hypertension; D64.9 Anemia, unspecified; I27.20 Pulmonary hypertension, unspecified; I48.91 Unspecified atrial fibrillation; R29.6 Repeated falls; Z95.4 Presence of other heart-valve replacement; Z79.01 Long term (current) use of anticoagulants; Z79.899 Other long term (current) drug therapy
CPT/HCPCS: 00123; 36415; 36416; 70496; 70498; 80048; 80053; 80061; 80307; 82962; 92610; 93005; 93306; 97110; 97162; 97530; 99285; 70551; 81003; 81015; 83036; 83735; 84484; 85025; 92522; 93010; 99223; 99233; 99239; J3475; J3490

== ENCOUNTER → 2023-09-22 07:35 | Outpatient (BNVA) | payer MEDICARE, SELFPAY | PROVIDERS: PCP Internal Medicine; Referring Provider Internal Medicine; Visit Provider Internal Medicine Cardiovascular Disease ==

== ENCOUNTER 2023-09-24 09:30 | Emergency (ER) | payer MEDICARE, SELFPAY ==
[2023-09-24] VITALS (15 sets, daily range): BP systolic 125–166; BP diastolic 90–123; PULSE 63–154; RESP 14–31; TEMP 36.9; O2SAT 90–99
--- NOTE | 2023-09-24 09:30 | RT.EKG_ITS ---
APPROVED REPORT Exam: Resting ECG Reason for Exam: weakness Patient Location: E HR:96 bpm ECG Measurements Heart Rate 96 AXIS MI [id number] P [id number] QRSd 96 QRS 54 QT 394 T 31 QTc 498 Conclusion Atrial fibrillation...? atrial activity Low voltage, precordial leads...precordial leads <1.0mV Borderline T abnormalities, diffuse leads...T flat/neg
--- NOTE | 2023-09-24 09:45 | DI.CT_ITS ---
Exam(s) CT HEAD CERVICAL SPINE WO EXAM: CT HEAD CERVICAL SPINE WO CLINICAL HISTORY: fall. TECHNIQUE: Imaging Protocol: Axial computed tomography images with coronal and sagittal reformatted images were created and reviewed COMPARISON: CT CT BRAIN NECK CTA from 09/19/2023 FINDINGS: Head CT Ventricles and Extra axial spaces: Normal in size and morphology for the patient's age. Hemorrhage: None. Cerebral parenchyma: No evidence of mass or acute infarct. Mild to moderate atrophy. No change in l acunar infarct left parietal white matter. Midline shift: None. Brainstem/Cerebellum: No change old right cerebellar lacunar infarcts. Calvarium: Normal. Visualized Paranasal sinuses/Mastoids: Clear. Soft tissues: Unremarkable. Cervical Spine CT BONES: Vertebral body heights are maintained. Alignment is normal. There is no evidence of acute frac ture. Degenerative disc changes and facet degenerative changes are seen . SOFT TISSUES: No paraspinal hematoma. The airway appears intact. No pneumothorax is seen at the lung apices. IMPRESSION: Head CT: No acute abnormality. C-spine CT: Degenerative changes, no acute abnormality. RADIATION DOSE DELIVERED: 1,489.9mGy.cm Total DLP DATA REPOSITORY: All CT scans at this facility are submitted to the National Radiology Data Registry (NRDR) Dose Index Registry (DIR) with the [employer] (A[employer]). RADIATION OPTIMIZATION: All CT scans at this facility use at least one of these dose optimization te chniques: automated exposure control; mA and/or kV adjustment per patient size (includes targeted exa ms where dose is matched to clinical indication); or iterative reconstruction.
--- NOTE | 2023-09-24 09:54 | W.ED.GENAD ---
Discharge Plan Disposition Patient Disposition: Home Condition: Stable Discharge Details Clinical Impression: Falls Primary Care Provider: [facility] [place] ED Provider: Kristopher Leos [place] Meds and New Rx's Prescriptions: Continued lisinopril 10 mg tablet 20 mg PO DAILY Qty: 90 3RF acetaminophen [Acetaminophen Extra Strength] 500 MG tablet 2 tab PO Q8H PRN metoprolol tartrate 50 mg tablet 50 mg PO BID Qty: 180 4RF sertraline 25 mg tablet 25 mg PO DAILY Qty: 90 4RF Eliquis 5 mg tablet 5 mg PO BID gabapentin 300 mg capsule 300 mg PO BID trazodone 50 mg tablet 50 mg PO QPM pravastatin 20 mg tablet 20 mg PO DAILY furosemide 40 mg tablet 40 mg PO QAM Patient Comments: TAKE ONE-HALF TABLET BY MOUTH EVERY DAY ferrous sulfate [FeroSul] 325 mg (65 mg iron) tablet 325 mg PO DAILY Discharge Instructions Additional Instructions: Follow-up with his primary care provider as scheduled, he does have findings on his CT of his chest concerning for possible malignancy that will need further outpatient workup with your primary care provider should be made aware of. If you feel more ill, have worsening shortness of breath or new symptoms such as high fevers return to the emergency department for reevaluation HPI General Date/Time Provider Initiated Documentation: 09/24/23 09:38. Related Data Home Medications Medication Instructions Recorded Confirmed acetaminophen 500 mg tablet 2 tab PO Q8H PRN 08/15/15 09/24/23 (Acetaminophen Extra Strength) lisinopril 10 mg tablet 20 mg (2 x 10 mg) PO DAILY #90 tabs 03/29/20 09/24/23 metoprolol tartrate 50 mg tablet 50 mg PO BID #180 tabs 07/21/20 09/24/23 sertraline 25 mg tablet 25 mg PO DAILY #90 tabs 08/31/20 09/24/23 apixaban 5 mg tablet (Eliquis) 5 mg PO BID 09/19/23 09/24/23 ferrous sulfate 325 mg (65 mg 325 mg PO DAILY 09/19/23 09/24/23 iron) tablet (FeroSul) furosemide 40 mg tablet 40 mg PO QAM 09/19/23 09/24/23 gabapentin 300 mg capsule 300 mg PO BID 09/19/23 09/24/23 pravastatin 20 mg tablet 20 mg PO DAILY 09/19/23 09/24/23 trazodone 50 mg tablet 50 mg PO QPM 09/19/23 09/24/23 Previous Rx's Medication Instructions Recorded lisinopril 10 mg tablet 20 mg (2 x 10 mg) PO DAILY #90 tabs 03/29/20 metoprolol tartrate 50 mg tablet 50 mg PO BID #180 tabs 07/21/20 sertraline 25 mg tablet 25 mg PO DAILY #90 tabs 08/31/20 Allergies Allergy/AdvReac Type Severity Reaction Status Date / Time No Known Allergies Allergy Verified 09/24/23 09:40 General Stated Complaint: AMS/LOC BLANKA: 3 Course Vital Signs Vital signs: Vital Signs Temperature 36.9 C 09/24/23 09:32 Pulse 90 09/24/23 09:32 Respiratory Rate 16 09/24/23 09:32 Blood Pressure 149/121 H 09/24/23 09:32 Pulse Oximetry 99 09/24/23 09:32 Temperature 36.9 C 09/24/23 09:32 Pulse 90 09/24/23 09:32 Respiratory Rate 16 09/24/23 09:32 Respiratory Effort Normal 09/24/23 09:39 Blood Pressure 149/121 H 09/24/23 09:32 Pulse Oximetry 99 09/24/23 09:32 Oxygen Delivery Method Room Air 09/24/23 09:32 Oxygen Flow Rate 0 09/24/23 09:32 Pain Level 0 09/24/23 09:32 Medical Decision Making 73 year-old male patient with a past medical history of hypertension, pulmonary hypertension, aortic aneurysm, atrial fibrillation, aortic valve stenosis and replacement, carotid artery stenosis, comes in with EMS after a fall. He was recently admitted for altered mental status and an episode of decreased responsiveness, had labs and an MRI which showed no acute stroke but had evidence of small vessel disease. He was discharged with home health and this morning rolled out of bed and could not get himself up. He denies any headache, chest pain, fevers, difficulty breathing. He is alert and oriented to person place and time, has no focal deficits, NIH of 0. Unclear etiology for his general weakness and fall this morning, will obtain CT head and C-spine, obtain CBC, CMP, UA, and chest x-ray and reassess. Unremarkable, x-ray shows questionable loculated fluid so CT chest ordered. CT head and C-spine negative. Patient stable and feels well currently alert and oriented x [address] chest shows small pleural effusions, had an echo when he was admitted this past week that showed a normal EF. He does have findings suspicious for malignancy, I did discuss this with him and his , they will speak with her primary care provider and decide if they want further workup for this. He is at baseline, feels comfortable bringing him home, he will follow-up with his PCP and return precautions given requested palliative care referral to discuss goals of care and ways to make him comfortable at home. I feel like he would benefit from being seen by palliative care as soon as possible. They will touch base with her primary care as well to help assist with this. Medical Records Medical records reviewed: Yes I reviewed the patient's medical records. Imaging Data Radiologic Study: Attestation: I personally reviewed and interpreted this imaging study as follows: Imaging: X-Ray Radiologist's impression: Questionable loculated fluid collection on chest x-ray Radiologic Study #2: Attestation: I personally reviewed and interpreted this imaging study as follows: Imaging: CT Scan Radiologist's impression: No acute findings on head and C-spine CT Radiologic Study #3: Attestation: I personally reviewed and interpreted this imaging study as follows: Imaging: CT Scan Radiologist's impression: IMPRESSION: Small bilateral pleural effusions. Loculated fluid seen within the right major filled fissure accounting for density on chest x-ray. There is abnormal nodularity seen along the pleura including fissures which is which is more prominent compared with previous exam. There is increased pleural thickening seen along the medial right upper lobe. Findings suspicious for malignancy. Indeterminate right upper lobe densities not well evaluated due to motion. Stable appearance of chronic aortic dissection. No central pulmonary emboli. Lab Data Lab results reviewed: Yes I reviewed the patient's lab results. ECG Data Attestation: I personally reviewed and interpreted this ECG (s) as follows: Prior ECG tracings: available for review Interpretation: A-fib, rate of 96, no STEMI Quality:SDOH Health Related Social Needs: No Data to Display [facility] All Active Problems (Updated 09/24/23 @ 13:08 by Kristopher Leos MD) Falls (Acute) Stroke (Chronic) Hypertension (Chronic) Acute CVA (cerebrovascular accident) (Acute) Ventricular tachyarrhythmia (Chronic) Anemia (Chronic) Narcolepsy (Acute) Restless leg syndrome (Acute) Obstructive sleep apnea syndrome (Chronic) Carpal tunnel syndrome, right (Acute) Carpal tunnel syndrome of left wrist (Acute) Essential hypertension (Chronic 05/18/13) Depressive disorder (Chronic) Hypercholesterolemia (Chronic) Mitral valve insufficiency (Chronic 06/08/15) Primary insomnia (Chronic 10/20/15) Pulmonary hypertension (Chronic 06/08/15) Aortic aneurysm (Chronic 04/29/01) Dissection of Thoracic Aorta Chronic atrial fibrillation (Chronic 01/01/18) Aortic valve stenosis (Acute) Migraine (Chronic) Headache (Chronic) we discussed imaging with brain MRI--pros and cons He will hold off--see if sertraline wean helps. 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) Bruising (Chronic) Ventricular arrhythmia (Chronic) Tricuspid valve insufficiency (Chronic 06/08/15) Tension headache (Chronic 02/02/15) Obesity (Chronic) Left ventricular enlargement (Chronic 06/08/15) Fatigue (Chronic) Surgical History (Updated 09/22/23 @ 00:08 by MILLY RIVAS) History of cataract removal with insertion of prosthetic lens shoulder arthroscopy repair calcium deposit right shoulder Thoracic aortic aneurysm repair Cholecystectomy Extraction of cataract Family History (Updated 09/19/23 @ 18:04 by Laura Hansen APRN) Mother Cancer Brain CA Father Heart disease Social History Smoking/Tobacco Use Status: Never Smoking risk assessment performed?: Yes Alcohol Intake: never Drug use: Never Substance use type: does not use Housing: house Do you feel safe at home: Yes Do you feel safe in your relationship?: Yes
[2023-09-24 10:05] LABS: Source Nasal/Nares
[2023-09-24 10:15] LABS: Abs Immature Grans 0.02 10^3/uL (0.0-0.06); Absolute Basophil Count 0.09 10^3/uL (0.0-0.2); Absolute Eosinophil Count 0.19 10^3/uL (0.0-0.7); Absolute Lymphocyte Count 1.08 10^3/uL (1.2-3.4); Absolute Monocyte Count 1.33 10^3/uL (0.1-0.8); Absolute Neutrophil Count 6.28 10^3/uL (1.2-6.7); Eosinophils % 2.1 %; HCT 37.4 % (40.0-50.0); Immature Grans % 0.2 %; MCH 22.8 pg (27.0-33.0); MCHC 29.4 % (32.0-36.0); MCV 77 fL (80-95); Monocytes % 14.8 %; Neutrophils % 69.9 %; Platelet Count 192 10^3/uL (130-400); RBC 4.83 10^6/uL (4.36-5.78); RDW 20.3 % (11.8-14.1); RDW-SD 56.5 fL; WBC 8.99 10^3/uL (4.4-10.8)
[2023-09-24 10:24] LABS: INR 1.5 (0.9-1.1); PTT Activated 29.6 sec (23.6-32.8); Prothrombin Time 14.6 sec (9.1-11.1)
[2023-09-24 10:30] LABS: ALT 39 U/L (16-63); AST 22 U/L (15-37); Albumin 3.8 g/dL (3.4-5.0); Alkaline Phosphatase 70 U/L (46-116); Anion Gap 9.5 mmol/L (3-11); Anisocytosis 2+; BUN 24 mg/dL (7-18); Bilirubin, Total 2.4 mg/dL (0.2-1.0); CO2 27.5 mmol/L (21.0-32.0); CREATININE 1.4 mg/dL (0.70-1.30); Calcium 8.9 mg/dL (8.5-10.1); Chloride 106 mmol/L (98-107); Creatine Kinase 60 U/L (39-308); Diff Comment RBC Morph Reviewed; Estimated GFR 53.07 (mL/min/1.73m2); Glucose 96 mg/dL (74-106); Hypochromasia 1+; Magnesium 1.9 mg/dL (1.8-2.4); Potassium 4.1 mmol/L (3.5-5.1); Sodium 143 mmol/L (136-145); Total Protein 7.3 g/dL (6.4-8.2); Troponin I < 50 ng/L (< or =60)
[2023-09-24 10:31] LABS: Poikilocytes 2+
--- NOTE | 2023-09-24 10:41 | DI.RAD_ITS ---
Exam(s) XR CHEST 2V PA LATERAL EXAM: XR CHEST 2V PA LATERAL CLINICAL HISTORY: ?pneumonia TECHNIQUE: 2D digital imaging was performed. Two views. COMPARISON: CR PORTABLE CHEST ONE VIEW from 06/29/2015 CR CHEST 2 VIEWS PA,LAT from 08/18/[address] THORAX ABDOMEN CTA from 12/24/[address] CHEST/ABD/PEL W from 05/11/2023 FINDINGS: Exam limited by poor pulmonary inflation on the AP views. HEART: Enlarged.. Aorta: Partially obscured. Mildly dilated. Calcification at arch. Aortic valve prosthesis. PULMONARY VASCULATURE: Prominent LUNGS: Increased densities at the lung bases. Difficult to evaluate due to technique. Somewhat roun ded density seen on lateral view above diaphragm which could represent loculated fluid. PLEURAL SPACE: No pneumothorax. BONE:Sternal wires. Degenerative changes in the spine. Soft tissues: Unremarkable. IMPRESSION: Question loculated fluid collection. DATA REPOSITORY: RADIATION DOSE DELIVERED:
--- NOTE | 2023-09-24 10:45 | DI.CT_ITS ---
Exam(s) CT CHEST W EXAM: CT CHEST W CLINICAL HISTORY: ?loculated fluid collection TECHNIQUE: Imaging Protocol: Axial computed tomography images with coronal and sagittal reformatted images were created and reviewed CONTRAST MATERIAL: Intravenous: Omnipaque 350 Contrast volume:structured data ml. COMPARISON: CT CT ANGIOGRAM CHEST (NON-CORONARY)W CONTRAST from 10/23/[address] CHEST PE CTA from 05/04/[address] CHEST/ABD/PEL W from 05/11/2023 FINDINGS: Exam is limited by respiratory motion. Pulmonary parenchyma: Poorly evaluated due to motion. No consolidation. There is a masslike density in the periphery of the right upper lobe measuring roughly 2.5 x 1.0 cm. Other patchy density seen a t the posterior right upper lobe.. Tracheobronchial tree: No bronchiectasis or mucous plugging. Mediastinum and [place]: There is a right paratracheal lymph node measuring 18 millimeters. A small AP window lymph node is seen. Pleura: Bilateral pleural effusions, left greater than right. Loculated fluid in the major fissure a ccounts for the area of rounded density on plain film. This was present previously but has increased in size. Also multiple abnormal small nodules seen along the pleura within the fissures. There is severe nodularity seen along the in along the pleura of the right upper lobe. No pneumothorax. Heart: The heart is markedly dilated. Coronary artery calcifications are seen. Aorta: Aortic valve prosthesis. No change in chronic aortic dissection. No change in aortic diamete r. Pulmonary arteries: No large pulmonary artery emboli. Small branches obscured by motion. Upper abdomen: Small amount of ascites around the liver. Bones: Degenerative changes in the spine. Sternal wires. Soft tissues: Mild bilateral gynecomastia. IMPRESSION: Small bilateral pleural effusions. Loculated fluid seen within the right major filled fissure accoun ting for density on chest x-ray. There is abnormal nodularity seen along the pleura including fissur es which is which is more prominent compared with previous exam. There is increased pleural thickeni ng seen along the medial right upper lobe. Findings suspicious for malignancy. Indeterminate right upper lobe densities not well evaluated due to motion. Stable appearance of chronic aortic dissection. No central pulmonary emboli. Findings called to Dr. Leos of the emergency department. Unexpected findings RADIATION DOSE DELIVERED: 609.87mGy.cm Total DLP DATA REPOSITORY: All CT scans at this facility are submitted to the National Radiology Data Registry (NRDR) Dose Index Registry (DIR) with the [employer] (A[employer]). RADIATION OPTIMIZATION: All CT scans at this facility use at least one of these dose optimization te chniques: automated exposure control; mA and/or kV adjustment per patient size (includes targeted exa ms where dose is matched to clinical indication); or iterative reconstruction.
[2023-09-24 10:47] LABS: COVID-19 PCR Negative (Negative)
[2023-09-24] MEDS: Normal Saline - Diluent 50 ML VIAL IJ (11:52)
[2023-09-24] MEDS: Omnipaque 350 MG/ML 100 ML BTL 70 ML IJ (11:53)
[2023-09-24] MEDS: Normal Saline Flush 10 ML SYR IVP (11:55)
[2023-09-24 13:25] LABS: Troponin I < 50 ng/L (< or =60)
[2023-09-24 13:30] LABS: Bilirubin Small (Negative); Blood Trace-intact (Negative); Clarity Clear (Clear); Glucose Negative (Negative); Ketones Negative (Negative); Leukocyte Esterase Negative (Negative); Nitrite Negative (Negative)
[2023-09-24 13:37] LABS: Bacteria Negative HPF (Negative); C & S Indicated? No; Casts 0-2 Hyaline LPF (Negative); Crystals Rare Calcium Oxalate HPF (Negative); Epithelial Cells Few HPF (Negative); Mucus Trace (Negative); RBC 0-2 HPF (0-2); WBC Negative HPF (0-5)
== END 2023-09-24 14:40 | disposition home or self-care (01) ==
PROVIDERS: Emergency Provider Emergency Medicine; PCP Internal Medicine
DX: R53.1 Weakness (principal); J90 Pleural effusion, not elsewhere classified; R91.8 Other nonspecific abnormal finding of lung field; I10 Essential (primary) hypertension; I27.20 Pulmonary hypertension, unspecified; Z95.2 Presence of prosthetic heart valve; Z86.73 Personal history of transient ischemic attack (TIA), and cerebral infarction without residual deficits; I48.91 Unspecified atrial fibrillation; Z79.01 Long term (current) use of anticoagulants
CPT/HCPCS: 36415; 80053; 82550; 87635; 93005; 99285; 70450; 71046; 71260; 72125; 81003; 81015; 83735; 84484; 85025; 85610; 85730; 93010; 99284; J3490

== ENCOUNTER 2024-08-26 16:55 | Inpatient (IN) | payer MEDICARE, SELFPAY ==
[2024-08-26] VITALS (172 sets, daily range): BP systolic 153–183; BP diastolic 90–126; PULSE 74–103; RESP 13–28; TEMP 37.1–37.6; O2SAT 89–98
--- NOTE | 2024-08-26 16:30 | RT.EKG_ITS ---
APPROVED REPORT Exam: Resting ECG Reason for Exam: Increase Weakness Patient Location: E HR:87 bpm ECG Measurements Heart Rate 87 AXIS DC [id number] P [id number] QRSd 103 QRS -5 QT 406 T 45 QTc 488 Conclusion Atrial fibrillation...V-rate 64- 91, irreg A-activity Physician: no stemi, unchanged
--- NOTE | 2024-08-26 16:45 | DI.RAD_ITS ---
Exam(s) XR PORTABLE CHEST AP EXAM: XR PORTABLE CHEST AP CLINICAL HISTORY: cough, eval for pneumonia TECHNIQUE: 2D digital imaging was performed of the chest. One image was obtained. An AP view was ob tained. COMPARISON: CR XR CHEST 2V PA LATERAL from 09/24/2023 FINDINGS: MEDIASTINUM: Normal. HEART: Normal. PULMONARY VASCULATURE: Normal. LUNGS: No focal consolidating infiltrates are seen. PLEURAL SPACE: No pleural effusion or pneumothorax. BONE:Within normal limits for the patient's age. Sternal wires are in place. OTHER FINDINGS:Normal. IMPRESSION: No acute pulmonary findings. DATA REPOSITORY: RADIATION DOSE DELIVERED:
--- NOTE | 2024-08-26 16:54 | ED.GENADUL_ITS ---
Discharge Plan Disposition Patient Disposition: Admit to [facility] Condition: Good Discharge Details Chief Complaint: RespSymp Clinical Impression: RSV (respiratory syncytial virus infection), Fever, Weakness Primary Care Provider: Garfield Montenegro ED Provider: Cam Greenwood Home Meds and New Rx's Prescriptions: No Action lisinopril 10 mg tablet 20 mg PO DAILY Qty: 90 3RF acetaminophen [Acetaminophen Extra Strength] 500 MG tablet 2 tab PO Q8H PRN metoprolol tartrate 50 mg tablet 50 mg PO BID Qty: 180 4RF sertraline 25 mg tablet 25 mg PO DAILY Qty: 90 4RF Eliquis 5 mg tablet 5 mg PO BID gabapentin 300 mg capsule 300 mg PO BID trazodone 50 mg tablet 50 mg PO QPM pravastatin 20 mg tablet 20 mg PO DAILY furosemide 40 mg tablet 40 mg PO QAM Patient Comments: TAKE ONE-HALF TABLET BY MOUTH EVERY DAY ferrous sulfate [FeroSul] 325 mg (65 mg iron) tablet 325 mg PO DAILY HPI General Date/Time Provider Initiated Documentation: 08/26/24 17:27 . HPI Narrative: 74-year-old with past medical history of thoracic aortic aneurysm with repair, cholecystectomy, aortic valve stenosis with subsequent repair, high cholesterol, sleep apnea, previous stroke, atrial fibrillation currently on Eliquis, who presents today via EMS for evaluation of illness. Family reports that he has not been feeling well and has been notably weak for the last 2 to 3 days, he had a fever today as well as a cough. He also fell because of his weakness but denies striking his head, and landed on soft carpeted ground. Family was concerned because of these persistent symptoms that EMS was called. Vital signs are stable aside for fever, he was brought in here for further assessment. Currently the patient denies any chest pain headache or neck pain. No other complaints at this time Related Data Home Medications ?Medication ?Instructions ?Recorded ?Confirmed acetaminophen 500 mg tablet 2 tab PO Q8H PRN 08/15/15 08/26/24 (Acetaminophen Extra Strength) lisinopril 10 mg tablet 20 mg (2 x 10 mg) PO DAILY #90 tabs 03/29/20 08/26/24 metoprolol tartrate 50 mg tablet 50 mg PO BID #180 tabs 07/21/20 08/26/24 sertraline 25 mg tablet 25 mg PO DAILY #90 tabs 08/31/20 08/26/24 apixaban 5 mg tablet (Eliquis) 5 mg PO BID 09/19/23 08/26/24 ferrous sulfate 325 mg (65 mg 325 mg PO DAILY 09/19/23 08/26/24 iron) tablet (FeroSul) furosemide 40 mg tablet 40 mg PO QAM 09/19/23 08/26/24 gabapentin 300 mg capsule 300 mg PO BID 09/19/23 08/26/24 pravastatin 20 mg tablet 20 mg PO DAILY 09/19/23 08/26/24 trazodone 50 mg tablet 50 mg PO QPM 09/19/23 08/26/24 Previous Rx's ?Medication ?Instructions ?Recorded lisinopril 10 mg tablet 20 mg (2 x 10 mg) PO DAILY #90 tabs 03/29/20 metoprolol tartrate 50 mg tablet 50 mg PO BID #180 tabs 07/21/20 sertraline 25 mg tablet 25 mg PO DAILY #90 tabs 08/31/20 Allergies Allergy/AdvReac Type Severity Reaction Status Date / Time No Known Allergies Allergy Verified 08/26/24 16:55 General Stated Complaint: RespSymp BLANKA: 3 Exam Narrative Exam Narrative: 1.Const: Well-nourished, Well-developed, appearing stated age 2.Eyes: PERRL, no conjunctival injection, and symmetrical lids. 3.ENT: Atraumatic external nose and ears. Moist MM. Neck: Symmetric, trachea midline, No thyromegaly. No nuchal rigidity or stiffness 4.CVS: +S1/S2, Peripheral pulses 2+ and equal in all extremities. Brisk capillary refill in all extremities. 5.RESP: Rhonchorous breath sounds throughout, with scattered crackles and rales. 6.GI: Soft, Nontender/Nondistended, No hepatosplenomegaly. No guarding or rebound. 7.MSK: Normocephalic/Atraumatic, Extremities w/o deformity or ttp No cyanosis or clubbing, Normal movement of all extremities 8.Skin: Warm, Dry. No rashes or lesions. 9.Neuro: betting clerk II-XII grossly intact. Sensation grossly intact, no focal neurologic deficits. 10.Psych: (AAO) x3. Appropriate mood and affect Course Vital Signs Vital signs: Vital Signs Temperature 37.6 C H 08/26/24 16:48 Pulse 87 08/26/24 16:48 Respiratory Rate 21 08/26/24 16:48 Blood Pressure 180/122 H 08/26/24 16:48 Pulse Oximetry 94 08/26/24 16:48 Temperature 37.6 C H 08/26/24 16:52 Temperature Source Tympanic 08/26/24 16:52 Pulse 87 08/26/24 16:52 Respiratory Rate 21 08/26/24 16:52 Blood Pressure 180/122 H 08/26/24 16:52 Blood Pressure Position Sitting 08/26/24 16:52 Pulse Oximetry 94 08/26/24 16:52 Oxygen Delivery Method Room Air 08/26/24 16:52 Oxygen Flow Rate 0 08/26/24 16:52 Pain Level 0 08/26/24 16:52 Lab/Test Results Lab/Test Results: 08/26/24 16:52 Blood Blood Culture - Pending 08/26/24 16:52 Blood Blood Culture - Pending Medical Decision Making 74-year-old with past medical history of thoracic aortic aneurysm with repair, cholecystectomy, aortic valve stenosis with subsequent repair, high cholesterol, sleep apnea, previous stroke, atrial fibrillation currently on Eliquis, who presents today via EMS for evaluation of illness. Family reports that he has not been feeling well and has been notably weak for the last 2 to 3 days, he had a fever today as well as a cough. He also fell because of his weakness but denies striking his head, and landed on soft carpeted ground. Family was concerned because of these persistent symptoms that EMS was called. Vital signs are stable aside for fever, he was brought in here for further assessment. Currently the patient denies any chest pain headache or neck pain. No other complaints at this time Exam demonstrates rhonchorous breath sounds, scattered crackles and rales, no nuchal rigidity or neck stiffness. No headache or neck pain. No chest or abdominal pain. No signs of significant trauma. Differential includes pneumonia, sepsis, UTI. Low likelihood of intracranial bleed as he did not hit his head with the fall. However because of his risk factors and age we will get CT imaging of the head. Will get a chest x-ray, start with ceftriaxone and doxycycline out of concern for potential pneumonia/community-acquired. Will monitor closely and reassess. 8:52 PM Laboratory workup and imaging has returned. Patient has no white count, however he does have mild lymphopenia. VBG is stable. Electrolytes stable, renal function stable. Bilirubin high at 2.6 however he has been this way for quite some time. Serial troponins are normal. Procalcitonin normal. Still pending UA. Chest x-ray was read as negative, with the rhonchorous breath sounds and his cough there is still high concern for potential pneumonia. CT scan was ordered. CT scan shows a stable appearance of his chronic aortic dissection, no focal consolidation or infiltrates though. There are some interstitial changes in the dependent portions of the lower lobes may represent atelectasis. His pleural effusions have decreased compared to prior imaging. Oxygenation remains borderline and he oscillates between 92 and 94% on room air. COVID flu and RSV testing was performed, and he is positive for respiratory syncytial virus. I suspect this is the cause of his cough and slightly lower than normal oxygenation. Patient remains extremely weak. He is unable to get up or ambulate well. He has fallen multiple times at home over the last 2 days secondary to this weakness. I suspect RSV is the cause of the patient's fever. I suspect this is also component of his weakness. At this stage I do feel that admission is indicated for PT/OT evaluation, pending blood cultures with his fever, and respiratory physiotherapy to help mobilize sputum production. Discussed the case with the hospitalist Dr. Sams, he agrees with the assessment and plan. I have extensively reviewed the treatment plan and discharge instructions with the patient. I have addressed all patient concerns at this time. The patient was made aware of what symptoms to monitor for that would warrant a return to the emergency department. Discussed the plan with the patient, they demonstrate verbal understanding and agreement with our assessment and plan at this time. The documentation in this chart was dictated using [employer] dictation software. Please excuse any dictation errors. FINDINGS: Lungs: Lung volumes are low. No specific consolidation is observed. Pleural spaces: Unremarkable. No pleural effusion. No pneumothorax. Heart/Mediastinum: Moderate cardiomegaly. Bones/joints: Sternotomy wires are noted. IMPRESSION: No acute cardiopulmonary abnormality. Thank you for allowing us to participate in the care of your patient. Dictated and Authenticated by: Kristopher Wade MD 08/26/2024 6:27 PM Eastern Time ([place] & [place]) FINDINGS: Pulmonary Arteries: No evidence of filling defect to suggest pulmonary emboli. Tracheobronchial tree: Patent where visualized. There is no evidence of bronchiectasis. Mediastinum and [place]: No dominant adenopathy or fluid collection. The esophagus is grossly unremarkable. Pulmonary parenchyma: Dependent atelectatic changes are seen in the lung bases. There are interstitial markings seen in the dependent portions of the lower lobes. This may represent atelectasis. The possibility of edema cannot be excluded and interstitial pneumonitis cannot be excluded. No architectural distortion. Pleura: There has been a decrease in the loculated fluid in the right major fissure. There is a tiny residual left pleural effusion. No significant right pleural effusion. No pneumothorax. Heart: Cardiomegaly. Coronary artery calcifications are present. No significant pericardial effusion. Aorta: There is again seen a dissection beginning in the left subclavian artery proximal to the vertebral artery takeoff and extending to involve the aortic arch, descending thoracic aorta and the proximal visualized abdominal aorta. It is unchanged compared to the prior examination. There is unchanged irregularity at the anterior aspect of the ascending thoracic aorta. This is been present dating back to the original CT scan of the chest from [facility] dated 10/23/2022. There is also component of the dissection which involves the right brachiocephalic artery which is also unchanged. There also again appears to be findings of a repair of the ascending thoracic aorta. Reviewing all of the prior examinations dating back to 10/23/2022 the amount of fluid attenuation around the ascending thoracic aorta appears stable.. Upper abdomen: Status post cholecystectomy. Bones: Age-appropriate degenerative changes are seen in the spine. Sternal wires are in place. IMPRESSION: 1. Stable appearance of the patient's chronic aortic dissection. 2. No focal consolidating infiltrates are seen in the lungs. 3. Mild interstitial changes in the dependent portions of the lower lobes which may represent atelectasis. Interstitial edema cannot be entirely excluded nor can pneumonitis. Please correlate clinically. 4. Interval decrease in the pleural effusions since 2023. There is a small loculated collection in the right major fissure. 5. Findings were discussed with Dr. Greenwood at 7:28 p.m. on 08/26/2024. Quality:SDOH Health Related Social Needs: No Data to Display PFSH All Active Problems (Updated 06/08/24 @ 00:01 by MILLY RIVAS) Stroke (Chronic) Hypertension (Chronic) Acute CVA (cerebrovascular accident) (Acute) Ventricular tachyarrhythmia (Chronic) Anemia (Chronic) Narcolepsy (Acute) Restless leg syndrome (Acute) Obstructive sleep apnea syndrome (Chronic) Carpal tunnel syndrome, right (Acute) Carpal tunnel syndrome of left wrist (Acute) Essential hypertension (Chronic 05/18/13) Depressive disorder (Chronic) Hypercholesterolemia (Chronic) Mitral valve insufficiency (Chronic 06/08/15) Primary insomnia (Chronic 10/20/15) Pulmonary hypertension (Chronic 06/08/15) Aortic aneurysm (Chronic 04/29/01) Dissection of Thoracic Aorta Chronic atrial fibrillation (Chronic 01/01/18) Aortic valve stenosis (Acute) Migraine (Chronic) Headache (Chronic) we discussed imaging with brain MRI--pros and cons He will hold off--see if sertraline wean helps. 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) Bruising (Chronic) Ventricular arrhythmia (Chronic) Tricuspid valve insufficiency (Chronic 06/08/15) Tension headache (Chronic 02/02/15) Obesity (Chronic) Left ventricular enlargement (Chronic 06/08/15) Fatigue (Chronic) Surgical History (Updated 09/22/23 @ 00:08 by MILLY RIVAS) History of cataract removal with insertion of prosthetic lens shoulder arthroscopy repair calcium deposit right shoulder Thoracic aortic aneurysm repair Cholecystectomy Extraction of cataract Family History (Updated 09/19/23 @ 18:04 by Laura Hansen APRN) Mother Cancer Brain CA Father Heart disease Social History Smoking/Tobacco Use Status: Never Smoking risk assessment performed?: Yes Alcohol Intake: never Drug use: Never Substance use type: does not use Housing: house Do you feel safe at home: Yes Do you feel safe in your relationship?: Yes
[2024-08-26 17:10] LABS: BE (Venous) 6 mmol/L (-2-3); HCO3 (Venous) 31 mmol/L (23-28); Lactate 1.7 mmol/L (<or=2.0); O2 Sat (Venous) 66 %; TCO2 (Venous) 27 mmol/L (24-29); pCO2 (Venous) 49 mmHg (41-51); pH (Venous) 7.41 (7.31-7.41); pO2 (Venous) 34 mmHg
[2024-08-26 17:15] LABS: Abs Immature Grans 0.03 10^3/uL (0.0-0.06); Absolute Basophil Count 0.04 10^3/uL (0.0-0.2); Absolute Eosinophil Count 0.08 10^3/uL (0.0-0.7); Absolute Lymphocyte Count 0.53 10^3/uL (1.2-3.4); Absolute Monocyte Count 1.06 10^3/uL (0.1-0.8); Absolute Neutrophil Count 6.72 10^3/uL (1.2-6.7); Basophils % 0.5 %; Eosinophils % 0.9 %; HCT 49.7 % (40.0-50.0); HGB 16.4 g/dL (13.5-17.5); Immature Grans % 0.4 %; Lymphocytes % 6.3 %; MCH 33.1 pg (27.0-33.0); MCV 100 fL (80-95); MPV 9.7 fL (8.0-11.0); Monocytes % 12.5 %; Neutrophils % 79.4 %; Platelet Count 151 10^3/uL (130-400); RBC 4.95 10^6/uL (4.36-5.78); RDW 12.1 % (11.8-14.1); RDW-SD 45.1 fL; WBC 8.46 10^3/uL (4.4-10.8)
[2024-08-26] MEDS: Normal Saline 500 ML IV (17:16)
[2024-08-26 17:26] LABS: INR 1.2 (0.9-1.1); PTT Activated 28.3 sec (20.6-30.2); Prothrombin Time 12.2 sec (9.1-11.1)
[2024-08-26] MEDS: cefTRIAXone 2 GM/50 ML BAG IVPB (17:30)
[2024-08-26 17:33] LABS: ALT 18 U/L (16-63); AST 33 U/L (15-37); Albumin 3.5 g/dL (3.4-5.0); Alkaline Phosphatase 56 U/L (46-116); Anion Gap 6.2 mmol/L (3-11); BUN 15 mg/dL (7-18); Bilirubin, Total 2.6 mg/dL (0.2-1.0); CO2 29.8 mmol/L (21.0-32.0); CREATININE 1.1 mg/dL (0.70-1.30); Calcium 9.3 mg/dL (8.5-10.1); Chloride 105 mmol/L (98-107); Estimated GFR 70.44 (mL/min/1.73m2); Glucose 114 mg/dL (74-106); Potassium 3.3 mmol/L (3.5-5.1); Sodium 141 mmol/L (136-145); Total Protein 7.1 g/dL (6.4-8.2); Troponin I 19 ng/L (<or=76)
[2024-08-26 17:41] LABS: Procalcitonin < 0.10 ng/mL
--- NOTE | 2024-08-26 18:12 | DI.CT_ITS ---
Exam(s) CT HEAD WO EXAM: CT HEAD WO CLINICAL HISTORY: fall, hit head, on elequis. TECHNIQUE: Imaging Protocol: Axial computed tomography images with coronal and sagittal reformatted images were created and reviewed COMPARISON: CT CT HEAD CERVICAL SPINE WO from 09/24/2023 FINDINGS: Ventricles and Extra axial spaces: Normal in size and morphology for the patient's age. Hemorrhage: None. Cerebral parenchyma: There are areas of decreased attenuation in the white matter consistent with chr onic microvascular ischemic disease. No evidence of an acute territorial infarct. Midline shift: None. Brainstem/Cerebellum: Normal. Calvarium: Normal. Visualized Paranasal sinuses/Mastoids: There is mild mucosal thickening in the left maxillary sinus. The remaining visualized paranasal sinuses are clear as are the mastoid air cells. Soft Tissues: Unremarkable. IMPRESSION: No acute intracranial process. RADIATION DOSE DELIVERED: 902.13mGy.cm Total DLP DATA REPOSITORY: All CT scans at this facility are submitted to the National Radiology Data Registry (NRDR) Dose Index Registry (DIR) with the [employer] (ACR). RADIATION OPTIMIZATION: All CT scans at this facility use at least one of these dose optimization te chniques: automated exposure control; mA and/or kV adjustment per patient size (includes targeted exa ms where dose is matched to clinical indication); or iterative reconstruction.
[2024-08-26] MEDS: DOXYCYCLINE 100 MG in Normal Saline 100 ML IVPB (18:19)
--- NOTE | 2024-08-26 18:23 | NUR.NOTE ---
Nursing Note: PT had x1wet brief
--- NOTE | 2024-08-26 18:27 | DI.VRAD_ITS ---
PROCEDURE INFORMATION: Exam: XR Chest Exam date and time: 08/26/2024 5:54 PM Age: 74 years old Clinical indication: Other: Cough, eval for pneumonia TECHNIQUE: Imaging protocol: Radiologic exam of the chest. Views: 1 view. COMPARISON: CT CHEST W 09/24/2023 11:58 AM FINDINGS: Lungs: Lung volumes are low. No specific consolidation is observed. Pleural spaces: Unremarkable. No pleural effusion. No pneumothorax. Heart/Mediastinum: Moderate cardiomegaly. Bones/joints: Sternotomy wires are noted. IMPRESSION: No acute cardiopulmonary abnormality. Dictated and Authenticated by: Kristopher Wade MD. Orderin Krystyna Levy MD
--- NOTE | 2024-08-26 18:30 | DI.CT_ITS ---
Exam(s) CT THORAX CTA EXAM: CT THORAX CTA CLINICAL HISTORY: cough, sob, eval for pneumonia, aortic pathology. TECHNIQUE: Imaging Protocol: Axial CT angiography was performed with multi-slice acquisition and mu lti-planar and/or 3D reconstructions. CONTRAST MATERIAL: Intravenous: Omnipaque 350 Contrast volume:structured data in ml COMPARISON: CT CT ANGIOGRAM CHEST (NON-CORONARY)W CONTRAST from 10/23/[address] THORAX ABDOMEN CTA from 12/24/[address] CHEST PE CTA from 05/04/[address] CHEST/ABD/PEL W from 05/11/[address] CHEST W from 09/24/2023 FINDINGS: Pulmonary Arteries: No evidence of filling defect to suggest pulmonary emboli. Tracheobronchial tree: Patent where visualized. There is no evidence of bronchiectasis. Mediastinum and [place]: No dominant adenopathy or fluid collection. The esophagus is grossly unremarkab le. Pulmonary parenchyma: Dependent atelectatic changes are seen in the lung bases. There are interstiti al markings seen in the dependent portions of the lower lobes. This may represent atelectasis. The possibility of edema cannot be excluded and interstitial pneumonitis cannot be excluded. No architec tural distortion. Pleura: There has been a decrease in the loculated fluid in the right major fissure. There is a tiny residual left pleural effusion. No significant right pleural effusion. No pneumothorax. Heart: Cardiomegaly. Coronary artery calcifications are present. No significant pericardial effusio n. Aorta: There is again seen a dissection beginning in the left subclavian artery proximal to the verte bral artery takeoff and extending to involve the aortic arch, descending thoracic aorta and the proxi mal visualized abdominal aorta. It is unchanged compared to the prior examination. There is unchang ed irregularity at the anterior aspect of the ascending thoracic aorta. This is been present dating back to the original CT scan of the chest from [facility] dated 10/23/2022. Th ere is also component of the dissection which involves the right brachiocephalic artery which is also unchanged. There also again appears to be findings of a repair of the ascending thoracic aorta. Re viewing all of the prior examinations dating back to 10/23/2022 the amount of fluid attenuation around the ascending thoracic aorta appears stable.. Upper abdomen: Status post cholecystectomy. Bones: Age-appropriate degenerative changes are seen in the spine. Sternal wires are in place. IMPRESSION: 1. Stable appearance of the patient's chronic aortic dissection. 2. No focal consolidating infiltrates are seen in the lungs. 3. Mild interstitial changes in the dependent portions of the lower lobes which may represent atelect asis. Interstitial edema cannot be entirely excluded nor can pneumonitis. Please correlate clinical ly. 4. Interval decrease in the pleural effusions since 2023. There is a small loculated collection in t he right major fissure. 5. Findings were discussed with Dr. Greenwood at 7:28 p.m. on 08/26/2024. RADIATION DOSE DELIVERED: 380.26mGy.cm Total DLP DATA REPOSITORY: All CT scans at this facility are submitted to the National Radiology Data Registry (NRDR) Dose Index Registry (DIR) with the [employer] (ACR). RADIATION OPTIMIZATION: All CT scans at this facility use at least one of these dose optimization te chniques: automated exposure control; mA and/or kV adjustment per patient size (includes targeted exa ms where dose is matched to clinical indication); or iterative reconstruction.
--- NOTE | 2024-08-26 18:34 | DI.VRAD_ITS ---
PROCEDURE INFORMATION: Exam: CT Head Without Contrast Exam date and time: 08/26/2024 6:01 PM Age: 74 years old Clinical indication: Other: Fall, hit head, on eliquis TECHNIQUE: Imaging protocol: Computed tomography of the head without contrast. COMPARISON: CT HEAD CERVICAL SPINE WO 09/24/2023 10:20 AM FINDINGS: Brain: No intracranial hemorrhage. No subdural collections. No midline shift. Chronic right cerebellar infarct. Moderate cerebral atrophy. Mild white matter hypodense regions. Cerebral ventricles: No ventriculomegaly. Pituitary gland and sella: Mildly flattened pituitary gland. Paranasal sinuses: Negative for layering fluid in the paranasal sinuses. Mastoid air cells: Visualized mastoid air cells are well aerated. Bones: No acute skull fracture. Soft tissues: Unremarkable. Vasculature: Distal carotid and vertebral arterial calcifications noted. IMPRESSION: No intracranial hemorrhage or other acute intracranial abnormality. Dictated and Authenticated by: Kristopher Wade MD. Orderin Krystyna Levy MD
[2024-08-26 18:50] LABS: Troponin I 20 ng/L (<or=76)
[2024-08-26] MEDS: Normal Saline - Diluent 50 ML VIAL IJ (19:04)
[2024-08-26] MEDS: Omnipaque 350 MG/ML 100 ML BTL IJ (19:05)
[2024-08-26 20:39] LABS: COVID-19 PCR Negative (Negative); Influenza A PCR Negative (Negative); Influenza B PCR Negative (Negative)
[2024-08-26 20:41] LABS: RSV PCR Positive (Negative); Source Nasopharynx
[2024-08-26 20:45] LABS: Troponin I 21 ng/L (<or=76)
--- NOTE | 2024-08-26 21:01 | HPE_ITS ---
Date of service: 08/26/24 Time of Service: 21:01 Assessment and Plan Assessment and plan (1) RSV infection: Start date: 08/26/24 Status: Acute Assessment and plan: This is a 74-year-old gentleman with 3-day history of fever presenting with acute RSV respiratory infection mostly bronchitis of bronchiolitic findings on exam and a negative for infiltrates on chest imaging. He was given 1 dose of doxycycline and Rocephin for possible bronchitis or pneumonia with this regimen would not be continued for RSV treatment. He will have supportive care with respiratory nebulizer treatments and O2 if needed. He is hydrating well. He is a full code. (2) Bullous lesion: Start date: 08/26/24 Status: Acute Assessment and plan: Patient had bullous lesion when he was younger and recently with this infection he appeared to have skin lesions that formed liquid build fully and then leaving an erythematous base. Several of these lesions appear erythematous and warm to touch over his extremities with Rocephin to be continued for now. Wound care by nurses. These may be superficial staph infections. Having had similar bullous lesion when he was younger, if these persist he should be seen by dermatology with possible biopsies for possible pemphigus. (3) Chronic atrial fibrillation: Status: Chronic Assessment and plan: Not tachycardic presently and will be continued on these usual dose of metoprolol. (4) Essential hypertension: Status: Chronic Assessment and plan: Monitor on present treatment with metoprolol for rate control with addition furosemide for peripheral edema. (5) Depressive disorder: Status: Chronic Assessment and plan: Continue outpatient medical management. (6) Obstructive sleep apnea syndrome: Status: Chronic Assessment and plan: Patient did try CPAP but is not uses at home finding that it made him worse rather than better. (7) Pulmonary hypertension: Status: Chronic Assessment and plan: Continue furosemide. (8) Hypercholesterolemia: Status: Chronic Assessment and plan: Continue statin therapy. History of Present Illness History of Present Illness Chief Complaint: Week with fever and cough for 3 days. Narrative: This is a 74-year-old male patient who has history of previous stroke with atrial fibrillation on Eliquis, sleep apnea, prosthetic aortic valve replacement about 10 years after thoracic aneurysm with repair in 2000 who presents to the ED with a 3-day history of fever and cough and feeling generally weak. He has not been having some blisters with her large and burst leaving all skin with surrounding redness. He did have a bullous rash as a child but does not carry a diagnosis of pemphigus or chronic rashes. 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 Evaluation in the ED did reveal his chronic problems otherwise stable but he did have positive RSV testing. His urinalysis is pending. He was given a dose of ceftriaxone and doxycycline in the ED prior to discovery of positive RSV and imaging reports.. Imaging did not reveal infiltrate with his RSV and he did not have elevated WBC therefore the patient does not need continued antibiotics for his pulmonary process. Blood cultures were performed and urine culture will be done if appropriate. Patient will be continued on Rocephin because of his bullous rash with erythema and associated fever. The patient will need supportive respiratory care but is not hypoxic on room air. Albuterol and DuoNeb nebulizers will be ordered. He is a full code. Review of Systems Narrative: 13 point review of systems otherwise unrevealing or stable. [facility] All Active Problems (Updated 08/27/24 @ 00:23 by Garfield Sams) Bullous lesion (Acute) RSV infection (Acute) Stroke (Chronic) Hypertension (Chronic) Acute CVA (cerebrovascular accident) (Acute) Ventricular tachyarrhythmia (Chronic) Anemia (Chronic) Narcolepsy (Acute) Restless leg syndrome (Acute) Obstructive sleep apnea syndrome (Chronic) Carpal tunnel syndrome, right (Acute) Carpal tunnel syndrome of left wrist (Acute) Essential hypertension (Chronic 05/18/13) Depressive disorder (Chronic) Hypercholesterolemia (Chronic) Mitral valve insufficiency (Chronic 06/08/15) Primary insomnia (Chronic 10/20/15) Pulmonary hypertension (Chronic 06/08/15) Aortic aneurysm (Chronic 04/29/01) Dissection of Thoracic Aorta Chronic atrial fibrillation (Chronic 01/01/18) Aortic valve stenosis (Acute) Migraine (Chronic) Headache (Chronic) we discussed imaging with brain MRI--pros and cons He will hold off--see if sertraline wean helps. 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) Bruising (Chronic) Ventricular arrhythmia (Chronic) Tricuspid valve insufficiency (Chronic 06/08/15) Tension headache (Chronic 02/02/15) Obesity (Chronic) Left ventricular enlargement (Chronic 06/08/15) Fatigue (Chronic) Surgical History History of cataract removal with insertion of prosthetic lens shoulder arthroscopy repair calcium deposit right shoulder Thoracic aortic aneurysm repair Cholecystectomy Extraction of cataract Family History Mother Cancer Brain CA Father Heart disease Social History Smoking/Tobacco Use Status: Never Smoking risk assessment performed?: Yes Alcohol Intake: never Drug use: Never Substance use type: does not use Housing: house Do you feel safe at home: Yes Do you feel safe in your relationship?: Yes Meds Allergies and Home Medications Allergies Allergy/AdvReac Type Severity Reaction Status Date / Time No Known Allergies Allergy Verified 08/26/24 16:55 Home Medications ?Medication ?Instructions ?Recorded ?Confirmed ?Type acetaminophen 500 mg tablet 2 tab PO Q8H PRN 08/15/15 08/26/24 History (Acetaminophen Extra Strength) lisinopril 10 mg tablet 20 mg (2 x 10 mg) PO DAILY #90 tabs 03/29/20 08/26/24 Rx metoprolol tartrate 50 mg tablet 50 mg PO BID #180 tabs 07/21/20 08/26/24 Rx sertraline 25 mg tablet 25 mg PO DAILY #90 tabs 08/31/20 08/26/24 Rx apixaban 5 mg tablet (Eliquis) 5 mg PO BID 09/19/23 08/26/24 History ferrous sulfate 325 mg (65 mg 325 mg PO DAILY 09/19/23 08/26/24 History iron) tablet (FeroSul) furosemide 40 mg tablet 40 mg PO QAM 09/19/23 08/26/24 History gabapentin 300 mg capsule 300 mg PO BID 09/19/23 08/26/24 History pravastatin 20 mg tablet 20 mg PO DAILY 09/19/23 08/26/24 History trazodone 50 mg tablet 50 mg PO QPM 09/19/23 08/26/24 History Exam Narrative Exam Narrative: General: Patient appears appropriate for age, normal build, flattened affect but good eye contact and slow, monotonous tone to voice during conversation. Is in moderate distress from his weakness and cough. He is alert and oriented to person, place and time. HEENT:, Eyes with pupils equal and reactive light symmetric, extraocular movement intact and sclera anicteric. Oropharynx with dry mucosa and fair dentition. Neck: Supple without JVD. Back: Kyphotic without CVA tenderness. Lungs: Diffuse coarse crackles with rhonchi increased with cough. No focalizing rales. Fair aeration. No expiratory wheeze. No increased expiratory phase. Heart: Irregular irregular rhythm with normal rate. 4/6 systolic murmur over the precordium. No gallop appreciated. Abdomen: Normal contour, soft and nontender to palpation with no palpable hepatosplenomegaly. Bowel sounds audible quadrants. Genitalia/rectal: Exam deferred Extremities: Without clubbing, cyanosis or pitting edema. Patient does have nonpitting edema over both legs. Fair capillary refill. There is swelling over right antecubital area where IV was placed which appears with infiltration. This is nontender and not hot to touch or red. Skin: Areas of recent bulla over both arms with base of slightly moist skin with erythema and increased warmth to touch. Areas are approximately 5 cm diameter. No other lesions noted. Otherwise normal color. Warm and dry. Neuro: Cranial nerves II through XII gross intact, no focalized motor deficits. No tremor. Psych: Flattened affect with depressed mood. No abnormal thought processes. Remote and recent memory grossly intact. Results Imaging Imaging Studies: EXAM: CT THORAX CTA Date of Exam: 08/26/24 CLINICAL HISTORY: cough, sob, eval for pneumonia, aortic pathology. TECHNIQUE: Imaging Protocol: Axial CT angiography was performed with multi- slice acquisition and multi-planar and/or 3D reconstructions. CONTRAST MATERIAL: Intravenous: Omnipaque 350 Contrast volume:structured data in ml COMPARISON: CT CT ANGIOGRAM CHEST (NON-CORONARY)W CONTRAST from 10/23/[address] THORAX ABDOMEN CTA from 12/24/[address] CHEST PE CTA from 05/04/[address] CHEST/ABD/PEL W from 05/11/[address] CHEST W from 09/24/2023 FINDINGS: Pulmonary Arteries: No evidence of filling defect to suggest pulmonary emboli. Tracheobronchial tree: Patent where visualized. There is no evidence of bronchiectasis. Mediastinum and [place]: No dominant adenopathy or fluid collection. The esophagus is grossly unremarkable. Pulmonary parenchyma: Dependent atelectatic changes are seen in the lung bases. There are interstitial markings seen in the dependent portions of the lower lobes. This may represent atelectasis. The possibility of edema cannot be excluded and interstitial pneumonitis cannot be excluded. No architectural distortion. Pleura: There has been a decrease in the loculated fluid in the right major fissure. There is a tiny residual left pleural effusion. No significant right pleural effusion. No pneumothorax. Heart: Cardiomegaly. Coronary artery calcifications are present. No significant pericardial effusion. Aorta: There is again seen a dissection beginning in the left subclavian artery proximal to the vertebral artery takeoff and extending to involve the aortic arch, descending thoracic aorta and the proximal visualized abdominal aorta. It is unchanged compared to the prior examination. There is unchanged irregularity at the anterior aspect of the ascending thoracic aorta. This is been present dating back to the original CT scan of the chest from [facility] dated 10/23/2022. There is also component of the dissection which involves the right brachiocephalic artery which is also unchanged. There also again appears to be findings of a repair of the ascending thoracic aorta. Reviewing all of the prior examinations dating back to 10/23/2022 the amount of fluid attenuation around the ascending thoracic aorta appears stable.. Upper abdomen: Status post cholecystectomy. Bones: Age-appropriate degenerative changes are seen in the spine. Sternal wires are in place. IMPRESSION: 1. Stable appearance of the patient's chronic aortic dissection. 2. No focal consolidating infiltrates are seen in the lungs. 3. Mild interstitial changes in the dependent portions of the lower lobes which may represent atelectasis. Interstitial edema cannot be entirely excluded nor can pneumonitis. Please correlate clinically. 4. Interval decrease in the pleural effusions since 2023. There is a small loculated collection in the right major fissure. Date of Exam: 08/26/24 EXAM: XR PORTABLE CHEST AP CLINICAL HISTORY: cough, eval for pneumonia TECHNIQUE: 2D digital imaging was performed of the chest. One image was obtained. An AP view was obtained. COMPARISON: CR XR CHEST 2V PA LATERAL from 09/24/2023 FINDINGS: MEDIASTINUM: Normal. HEART: Normal. PULMONARY VASCULATURE: Normal. LUNGS: No focal consolidating infiltrates are seen. PLEURAL SPACE: No pleural effusion or pneumothorax. BONE:Within normal limits for the patient's age. Sternal wires are in place. OTHER FINDINGS:Normal. IMPRESSION: No acute pulmonary findings. Date of Exam: 08/26/24 EXAM: CT HEAD WO CLINICAL HISTORY: fall, hit head, on elequis. TECHNIQUE: Imaging Protocol: Axial computed tomography images with coronal and sagittal reformatted images were created and reviewed COMPARISON: CT CT HEAD CERVICAL SPINE WO from 09/24/2023 FINDINGS: Ventricles and Extra axial spaces: Normal in size and morphology for the patient's age. Hemorrhage: None. Cerebral parenchyma: There are areas of decreased attenuation in the white matter consistent with chronic microvascular ischemic disease. No evidence of an acute territorial infarct. Midline shift: None. Brainstem/Cerebellum: Normal. Calvarium: Normal. Visualized Paranasal sinuses/Mastoids: There is mild mucosal thickening in the left maxillary sinus. The remaining visualized paranasal sinuses are clear as are the mastoid air cells. Soft Tissues: Unremarkable. IMPRESSION: No acute intracranial process. Labs 08/26/24 17:03 08/26/24 17:03 Labs: Laboratory Results - last 24 hr 08/26/24 08/26/24 08/26/24 17:03 18:03 20:00 WBC 8.46 RBC 4.95 Hgb 16.4 Hct 49.7 MCV 100 H MCH 33.1 H MCHC 33.0 RDW 12.1 Plt Count 151 MPV 9.7 Immature Gran % 0.4 Neutrophils % 79.4 Lymphocytes % 6.3 Monocytes % 12.5 Eosinophils % 0.9 Basophils % 0.5 Nucleated RBC % 0.0 Absolute Neutrophils 6.72 H Absolute Lymphocytes 0.53 L Absolute Monocytes 1.06 H Absolute Eosinophils 0.08 Absolute Basophils 0.04 PT 12.2 H INR 1.2 H APTT 28.3 VBG pH 7.41 VBG pCO2 49 VBG pO2 34 VBG HCO3 31 H VBG Total CO2 27 VBG O2 Saturation 66 VBG Base Excess 6 H VBG Lactate 1.7 Sodium 141 Potassium 3.3 L Chloride 105 Carbon Dioxide 29.8 Anion Gap 6.2 BUN 15 Creatinine 1.1 Est GFR (CKD-EPI 2020) 70.44 Glucose 114 H Calcium 9.3 Total Bilirubin 2.6 H AST 33 ALT 18 Alkaline Phosphatase 56 Troponin I 19 20 Total Protein 7.1 Albumin 3.5 Procalcitonin < 0.10 COVID-19 Source Nasopharynx SARS-CoV-2 (PCR) Negative Influenza Type A (PCR) Negative Influenza Type B (PCR) Negative RSV (PCR) Positive A* 08/26/24 20:15 WBC RBC Hgb Hct MCV MCH MCHC RDW Plt Count MPV Immature Gran % Neutrophils % Lymphocytes % Monocytes % Eosinophils % Basophils % Nucleated RBC % Absolute Neutrophils Absolute Lymphocytes Absolute Monocytes Absolute Eosinophils Absolute Basophils PT INR APTT VBG pH VBG pCO2 VBG pO2 VBG HCO3 VBG Total CO2 VBG O2 Saturation VBG Base Excess VBG Lactate Sodium Potassium Chloride Carbon Dioxide Anion Gap BUN Creatinine Est GFR (CKD-EPI 2020) Glucose Calcium Total Bilirubin AST ALT Alkaline Phosphatase Troponin I 21 Total Protein Albumin Procalcitonin COVID-19 Source SARS-CoV-2 (PCR) Influenza Type A (PCR) Influenza Type B (PCR) RSV (PCR) Last Vital Signs Temp 37.6 C H 08/26/24 16:52 Pulse 89 08/26/24 20:34 Resp 18 08/26/24 20:34 BP 180/122 H 08/26/24 16:52 Pulse Ox 95 08/26/24 20:34 Time Spent Time spent with Patient: >75 minutes Time was spent: preparing to see the patient(eg.review tests), obtaining and/or reviewing separately otained hiistory, ordering medications,tests, procedures, indepentently interpreting results, counseling the patient and care coordination
--- NOTE | 2024-08-26 22:53 | W.PC.ACHO ---
Registration Status: Primary Language: Preferred Language: ED Information & Data Chief Complaint RespSymp 08/26/24 17:28 Triage Note Family reported to EMS that 08/26/24 16:48 the patient has been sick for 2 days, coughing, increased weakness, had a fall this morning (Last Reviewed 08/26/24 @ 21:01 by Garfield Sams) History of cataract removal with insertion of prosthetic lens shoulder arthroscopy Thoracic aortic aneurysm repair Cholecystectomy Extraction of cataract Most Recent Vital Signs Temperature 37.6 C H 08/26/24 16:52 Temperature Source Tympanic 08/26/24 16:52 Pulse 99 H 08/26/24 22:20 Pulse 92 H 08/26/24 22:12 Respiratory Rate 19 08/26/24 22:20 Respiratory Effort Normal 08/26/24 17:08 Respiratory Depth Normal 08/26/24 17:08 Blood Pressure 153/101 H 08/26/24 22:08 Blood Pressure Mean 114 08/26/24 22:08 Blood Pressure Position Sitting 08/26/24 16:52 Pulse Oximetry 96 08/26/24 22:20 Oxygen Delivery Method Room Air 08/26/24 16:52 Oxygen Flow Rate 0 08/26/24 16:52 Pain Level 0 08/26/24 16:52 Allergies No Known Allergies Allergy (Verified 08/26/24 16:55) Precautions Isolation Standard precaution 08/26/24 16:53 Active Medications Generic Name Dose Route Start Last Admin Trade Name Freq PRN Reason Stop Dose Admin Iohexol 100 ml 08/26/24 19:15 08/26/24 19:05 Omnipaque 350 Mg/Ml 100 Ml Btl IJ 09/25/24 23:59 100 ml DIRECTED CHERI Administration Sodium Chloride 50 ml 08/26/24 19:15 08/26/24 19:04 Normal Saline - Diluent 50 Ml Vial IJ 50 ml .FOR DI USE CHERI Administration IV IV Catheter Type [Right Saline Lock Antecubital] IV Catheter Gauge [Right 20 Antecubital] Diagnostics 08/26/24 08/26/24 08/26/24 Range/Units 20:15 20:00 18:03 WBC (4.4-10.8) 10^3/uL RBC (4.36-5.78) 10^6/uL Hgb (13.5-17.5) g/dL Hct (40.0-50.0) % MCV (80-95) fL MCH (27.0-33.0) pg MCHC (32.0-36.0) % RDW (11.8-14.1) % Plt Count (130-400) 10^3/uL MPV (8.0-11.0) fL Immature Gran % % Neutrophils % % Lymphocytes % % Monocytes % % Eosinophils % % Basophils % % Nucleated RBC % (0.0-0.3) % Absolute Neutrophils (1.2-6.7) 10^3/uL Absolute Lymphocytes (1.2-3.4) 10^3/uL Absolute Monocytes (0.1-0.8) 10^3/uL Absolute Eosinophils (0.0-0.7) 10^3/uL Absolute Basophils (0.0-0.2) 10^3/uL PT (9.1-11.1) sec INR (0.9-1.1) APTT (20.6-30.2) sec VBG pH (7.31-7.41) VBG pCO2 (41-51) mmHg VBG pO2 mmHg VBG HCO3 (23-28) mmol/L VBG Total CO2 (24-29) mmol/L VBG O2 Saturation % VBG Base Excess (-2-3) mmol/L VBG Lactate (<or=2.0) mmol/L Sodium (136-145) mmol/L Potassium (3.5-5.1) mmol/L Chloride (98-107) mmol/L Carbon Dioxide (21.0-32.0) mmol/L Anion Gap (3-11) mmol/L BUN (7-18) mg/dL Creatinine (0.70-1.30) mg/dL Est GFR (CKD-EPI 2020) (mL/min/1.73m2) Glucose (74-106) mg/dL Calcium (8.5-10.1) mg/dL Total Bilirubin (0.2-1.0) mg/dL AST (15-37) U/L ALT (16-63) U/L Alkaline Phosphatase (46-116) U/L Troponin I 21 20 (<or=76) ng/L Total Protein (6.4-8.2) g/dL Albumin (3.4-5.0) g/dL Procalcitonin ng/mL Urine Color Urine Clarity Urine pH Ur Specific [place] Urine Protein Urine Ketones Urine Blood Urine Nitrite Urine Bilirubin Urine Urobilinogen Ur Leukocyte Esterase Urine Glucose COVID-19 Source Nasopharynx SARS-CoV-2 (PCR) Negative (Negative) Influenza Type A (PCR) Negative (Negative) Influenza Type B (PCR) Negative (Negative) RSV (PCR) Positive A* (Negative) 08/26/24 08/26/24 Range/Units 17:35 17:03 WBC 8.46 (4.4-10.8) 10^3/uL RBC 4.95 (4.36-5.78) 10^6/uL Hgb 16.4 (13.5-17.5) g/dL Hct 49.7 (40.0-50.0) % MCV 100 H (80-95) fL MCH 33.1 H (27.0-33.0) pg MCHC 33.0 (32.0-36.0) % RDW 12.1 (11.8-14.1) % Plt Count 151 (130-400) 10^3/uL MPV 9.7 (8.0-11.0) fL Immature Gran % 0.4 % Neutrophils % 79.4 % Lymphocytes % 6.3 % Monocytes % 12.5 % Eosinophils % 0.9 % Basophils % 0.5 % Nucleated RBC % 0.0 (0.0-0.3) % Absolute Neutrophils 6.72 H (1.2-6.7) 10^3/uL Absolute Lymphocytes 0.53 L (1.2-3.4) 10^3/uL Absolute Monocytes 1.06 H (0.1-0.8) 10^3/uL Absolute Eosinophils 0.08 (0.0-0.7) 10^3/uL Absolute Basophils 0.04 (0.0-0.2) 10^3/uL PT 12.2 H (9.1-11.1) sec INR 1.2 H (0.9-1.1) APTT 28.3 (20.6-30.2) sec VBG pH 7.41 (7.31-7.41) VBG pCO2 49 (41-51) mmHg VBG pO2 34 mmHg VBG HCO3 31 H (23-28) mmol/L VBG Total CO2 27 (24-29) mmol/L VBG O2 Saturation 66 % VBG Base Excess 6 H (-2-3) mmol/L VBG Lactate 1.7 (<or=2.0) mmol/L Sodium 141 (136-145) mmol/L Potassium 3.3 L (3.5-5.1) mmol/L Chloride 105 (98-107) mmol/L Carbon Dioxide 29.8 (21.0-32.0) mmol/L Anion Gap 6.2 (3-11) mmol/L BUN 15 (7-18) mg/dL Creatinine 1.1 (0.70-1.30) mg/dL Est GFR (CKD-EPI 2020) 70.44 (mL/min/1.73m2) Glucose 114 H (74-106) mg/dL Calcium 9.3 (8.5-10.1) mg/dL Total Bilirubin 2.6 H (0.2-1.0) mg/dL AST 33 (15-37) U/L ALT 18 (16-63) U/L Alkaline Phosphatase 56 (46-116) U/L Troponin I 19 (<or=76) ng/L Total Protein 7.1 (6.4-8.2) g/dL Albumin 3.5 (3.4-5.0) g/dL Procalcitonin < 0.10 ng/mL Urine Color Pending Urine Clarity Pending Urine pH Pending Ur Specific [place] Pending Urine Protein Pending Urine Ketones Pending Urine Blood Pending Urine Nitrite Pending Urine Bilirubin Pending Urine Urobilinogen Pending Ur Leukocyte Esterase Pending Urine Glucose Pending COVID-19 Source SARS-CoV-2 (PCR) (Negative) Influenza Type A (PCR) (Negative) Influenza Type B (PCR) (Negative) RSV (PCR) (Negative) 08/26/24 17:35 Urine Culture - Pending Urine - Voided 08/26/24 17:29 Blood Culture - Pending Blood 08/26/24 17:03 Blood Culture - Pending Blood Intake and Output - 24 Hour Total 08/26/24 16:33 thru 08/26/24 22:20 Intake Total 660 Output Total 150 Balance 510 Weight 79.6 kg Intake: IV 660 Output: Urine 150 Other: # Voids 1 Falls Risk Assessment History of Falls No History 08/26/24 17:07 Contributing Factors Unstable,Impairments 08/26/24 17:07 Ambulatory Aids Independent 08/26/24 17:07 Tubes/Lines W/no contributing factors 08/26/24 17:07 Gait Evaluation W/no contributing factors 08/26/24 17:07 Cognition No cognitive impairment 08/26/24 17:07 Fall Total Score 26 08/26/24 17:07 Level of Risk Moderate Risk 08/26/24 17:07 Problems (Last Reviewed 08/26/24 @ 21:01 by Garfield Sams) RSV infection (Acute) Obstructive sleep apnea syndrome (Chronic) Essential hypertension (Chronic 05/18/13) Depressive disorder (Chronic) Hypercholesterolemia (Chronic) Pulmonary hypertension (Chronic 06/08/15) Chronic atrial fibrillation (Chronic 01/01/18) Notes 08/26/24 18:23 Nursing Notes by Aneta Vasquez Nursing Note: PT had x1wet brief Initialized on 08/26/24 18:23 - END OF NOTE v v v v v v v v v Sending and/or Receiving Nurses: Please use comment section below to note any information pertinent to the patient hand-off not included above. Information / Comments: A/O x 1. hypertensive in the ER. fell at home, head strike, Head CT negative. patient has multiple areas of concern in regards to skin integrity will address in admission assessment. patient AFIB on tele. anticoagulated on eliquis. condom placed in the ER for patient incontinence. IV site intact. patient bed alarmed for safety. Report received from: received report from Ramona @ [phone] via telephone
[2024-08-26] MEDS: Albuterol/Ipratropium 3 ML UPD VIAL UPD (22:55)
[2024-08-26 23:22] LABS: TSH (W/Ref FT4) 1.12 uIU/mL (0.36-3.74)
[2024-08-26] MEDS: Potassium Chloride 20 MEQ TABCR PO (23:47)
[2024-08-27] VITALS (9 sets, daily range): BP systolic 109–150; BP diastolic 73–99; PULSE 100–125; RESP 2–20; TEMP 36.4–37.1; O2SAT 94–98
[2024-08-27] MEDS: Albuterol/Ipratropium 3 ML UPD VIAL UPD ×3 (05:48→17:43)
[2024-08-27 06:52] LABS: Bilirubin Negative (Negative); Blood Trace-lysed (Negative); Clarity Clear (Clear); Glucose Negative (Negative); Ketones Negative (Negative); Leukocyte Esterase Small (Negative); Nitrite Negative (Negative); Specific Gravity 1.015 (1.005-1.025); Urobilinogen 0.2 mg/dL (Up to 0.2); pH 6.5 (5-8)
[2024-08-27 07:03] LABS: Bacteria Rare HPF (Negative); C & S Indicated? C&S Done As Ordered; Casts Negative LPF (Negative); Crystals Negative HPF (Negative); Epithelial Cells Rare HPF (Negative); Mucus Negative (Negative)
[2024-08-27 07:29] LABS: HCT 48.2 % (40.0-50.0); HGB 16.1 g/dL (13.5-17.5); MCH 33.5 pg (27.0-33.0); MCHC 33.4 % (32.0-36.0); MCV 100 fL (80-95); MPV 9.6 fL (8.0-11.0); Platelet Count 140 10^3/uL (130-400); RBC 4.81 10^6/uL (4.36-5.78); RDW-SD 44.9 fL; WBC 8.94 10^3/uL (4.4-10.8)
[2024-08-27 07:42] LABS: ALT 18 U/L (16-63); AST 30 U/L (15-37); Albumin 3.4 g/dL (3.4-5.0); Alkaline Phosphatase 59 U/L (46-116); Anion Gap 8.7 mmol/L (3-11); BUN 15 mg/dL (7-18); Bilirubin, Total 2.6 mg/dL (0.2-1.0); CO2 27.3 mmol/L (21.0-32.0); Calcium 9.1 mg/dL (8.5-10.1); Chloride 107 mmol/L (98-107); Estimated GFR 78.98 (mL/min/1.73m2); Glucose 98 mg/dL (74-106); Magnesium 1.7 mg/dL (1.8-2.4); Potassium 3.6 mmol/L (3.5-5.1); Sodium 143 mmol/L (136-145); Total Protein 6.9 g/dL (6.4-8.2)
[2024-08-27] MEDS: Lisinopril 10 MG TAB 20 MG PO (07:59)
[2024-08-27] MEDS: Apixaban 5 MG TAB PO ×2 (07:59→19:38)
[2024-08-27] MEDS: Gabapentin 300 MG CAP PO ×2 (07:59→19:37)
[2024-08-27] MEDS: Metoprolol 50 MG TAB PO ×2 (07:59→19:38)
[2024-08-27] MEDS: Ferrous Sulfate 325 MG TAB PO (07:59)
[2024-08-27] MEDS: Furosemide 40 MG TAB PO (07:59)
[2024-08-27] MEDS: Sertraline 25 MG TAB PO (07:59)
[2024-08-27] MEDS: cefTRIAXone 1 GM/50 ML BAG IVPB (08:00)
[2024-08-27] MEDS: Normal Saline Flush 10 ML SYR IVP ×2 (08:00→20:20)
--- NOTE | 2024-08-27 08:50 | W.PM.PROGNOT ---
Date of Service Date of service: 08/27/24 Time of Service: 08:51 Assessment and Plan Assessment and plan (1) RSV infection: Start date: 08/26/24 Status: Acute Assessment and plan: -positive for RSV on admission without signs or symptoms of superimposed PNA -was given doxy in ED but this has been discontinued -RSV also likely cause of worsening weakness and falls -f/u PT recs (2) Bullous lesion: Start date: 08/26/24 Status: Acute Assessment and plan: -history of bullous lesion when he was younger -recent recurrence of lesions, started on CTX and will continue -if lesions continue, will recommend outpatient f/u with Dermatology (3) Chronic atrial fibrillation: Status: Chronic Assessment and plan: -continue home metoprolol and eliquis (4) Essential hypertension: Status: Chronic Assessment and plan: -continue home metoprolol and lasix (5) Depressive disorder: Status: Chronic Assessment and plan: -Continue outpatient medical management. (6) Obstructive sleep apnea syndrome: Status: Chronic Assessment and plan: -Patient did try CPAP but is not uses at home finding that it made him worse rather than better. (7) Pulmonary hypertension: Status: Chronic Assessment and plan: -Continue furosemide. (8) Hypercholesterolemia: Status: Chronic Assessment and plan: -Continue statin therapy. Subjective Subjective Interval history since last seen: Patient states that he feels better today than he has over the last week. He understands he will work with physical therapy and has no complaints or concerns at this time. Exam Narrative Exam Narrative: Well-appearing older gentleman sitting up in the bed in no acute distress, ANO x 4, heart regular rhythm, lungs clear to auscultation bilaterally, abdomen soft, nontender, nondistended, bandage over her supposedly bullous area without surrounding erythema or drainage. Objective Last Vital Signs Temp 97.7 F 08/27/24 07:17 Pulse 120 H 08/27/24 07:17 Resp 16 08/27/24 07:17 BP 133/96 H 08/27/24 07:17 Pulse Ox 98 08/27/24 07:17 Laboratory Results - last 24 hr 08/26/24 08/26/24 08/26/24 17:03 18:03 20:00 WBC 8.46 RBC 4.95 Hgb 16.4 Hct 49.7 MCV 100 H MCH 33.1 H MCHC 33.0 RDW 12.1 Plt Count 151 MPV 9.7 Immature Gran % 0.4 Neutrophils % 79.4 Lymphocytes % 6.3 Monocytes % 12.5 Eosinophils % 0.9 Basophils % 0.5 Nucleated RBC % 0.0 Absolute Neutrophils 6.72 H Absolute Lymphocytes 0.53 L Absolute Monocytes 1.06 H Absolute Eosinophils 0.08 Absolute Basophils 0.04 PT 12.2 H INR 1.2 H APTT 28.3 VBG pH 7.41 VBG pCO2 49 VBG pO2 34 VBG HCO3 31 H VBG Total CO2 27 VBG O2 Saturation 66 VBG Base Excess 6 H VBG Lactate 1.7 Sodium 141 Potassium 3.3 L Chloride 105 Carbon Dioxide 29.8 Anion Gap 6.2 BUN 15 Creatinine 1.1 Est GFR (CKD-EPI 2020) 70.44 Glucose 114 H Calcium 9.3 Magnesium Total Bilirubin 2.6 H AST 33 ALT 18 Alkaline Phosphatase 56 Troponin I 19 20 Total Protein 7.1 Albumin 3.5 Procalcitonin < 0.10 TSH Urine Color Urine Clarity Urine pH Ur Specific [place] Urine Protein Urine Ketones Urine Blood Urine Nitrite Urine Bilirubin Urine Urobilinogen Ur Leukocyte Esterase Urine RBC Urine WBC Ur Epithelial Cells Urine Crystals Urine Bacteria Urine Casts Urine Mucus Ur Culture Indicated? Urine Glucose COVID-19 Source Nasopharynx SARS-CoV-2 (PCR) Negative Influenza Type A (PCR) Negative Influenza Type B (PCR) Negative RSV (PCR) Positive A* 08/26/24 08/27/24 08/27/24 20:15 05:45 07:05 WBC 8.94 RBC 4.81 Hgb 16.1 Hct 48.2 MCV 100 H MCH 33.5 H MCHC 33.4 RDW 12.0 Plt Count 140 MPV 9.6 Immature Gran % Neutrophils % Lymphocytes % Monocytes % Eosinophils % Basophils % Nucleated RBC % Absolute Neutrophils Absolute Lymphocytes Absolute Monocytes Absolute Eosinophils Absolute Basophils PT INR APTT VBG pH VBG pCO2 VBG pO2 VBG HCO3 VBG Total CO2 VBG O2 Saturation VBG Base Excess VBG Lactate Sodium 143 Potassium 3.6 Chloride 107 Carbon Dioxide 27.3 Anion Gap 8.7 BUN 15 Creatinine 1.0 Est GFR (CKD-EPI 2020) 78.98 Glucose 98 Calcium 9.1 Magnesium 1.7 L Total Bilirubin 2.6 H AST 30 ALT 18 Alkaline Phosphatase 59 Troponin I 21 Total Protein 6.9 Albumin 3.4 Procalcitonin TSH 1.12 Urine Color Yellow Urine Clarity Clear Urine pH 6.5 Ur Specific [place] 1.015 Urine Protein Negative Urine Ketones Negative Urine Blood Trace-lysed H Urine Nitrite Negative Urine Bilirubin Negative Urine Urobilinogen 0.2 Ur Leukocyte Esterase Small H Urine RBC 3-5 H Urine WBC 5-10 Ur Epithelial Cells Rare Urine Crystals Negative Urine Bacteria Rare Urine Casts Negative Urine Mucus Negative Ur Culture Indicated? C&S Done As Ordered Urine Glucose Negative COVID-19 Source SARS-CoV-2 (PCR) Influenza Type A (PCR) Influenza Type B (PCR) RSV (PCR) Time Spent with Patient Time Spent with Patient: >50 minutes Time was spent: preparing to see the patient(eg.review tests), obtaining and/or reviewing separately otained hiistory, ordering medications,tests, procedures, referring, communicating with other health insurance healthcare consultant, indepentently interpreting results, counseling the patient and care coordination
--- NOTE | 2024-08-27 08:58 | INITIAL_ITS ---
Date of service: 08/27/24 Time of Service: 08:58 Care Management Initial Assmt Initial Assessment Reason for Hospitalization: RSV Infection Functional Status/Living Situation Patient Presentation: He was sitting up in a chair when CM met with him. He was awake and alert but seemed a bit vague. He was admitted with an RSV infection and is feeling weak. He had a PT evaluation today and SNF vs HH PT was recommended. CM discussed this with He who was not totally opposed to rehab. CM contacted his Naa and discussed the situation with her. She informed CM that she is not supportive of having He go to rehab. She stated she feels she can continue to care for him at home. She did state that he has been declining for about the past year, including his memory, and realizes some changes may need to be made in the near future. She has already gotten a hospital bed for him and an intercom system to monitor him at night. He will likely be discharged home over the weekend with new home health services for PT and OT. Mariusz lives in [place] in a single family home Naa. They have 2 children; their daughter lives in [facility] and their son lives in the [facility]. He is retired from a career as a builder. He uses a walker for ambulation and does not receive any community services. Town of Residence: [place] Resides with: Spouse ( Dedra) Significant Other/Family: [facility] Employment Status: Retired Instrumental Activities of Daily Living (ADLs): Independent Medications Medication Management: No Issues/Barriers identified Physical Functioning/Mobility Assistive Device: cane and walker Advance Directives Advance Directives: Do you have an Advance Directive: N 03/23/19 14:55 AD On File at [facility]: N 03/23/19 14:55 Date Asked 08/26/24 08/26/24 23:14 AD Date Reviewed COLST On File at [facility] COLST Date Scanned Code Status Resuscitation Status Full Code Portal Pt does not currently have a portal and education provided: Yes Insurance Coverage/Financial Issues Insurance: Medicare Self Pay Care Team Visit Care Team Role Provider Type Aly Hart MD MD [facility] STAFF PHYSICIAN Garfield Montenegro Primary Care Provider NON-[facility] STAFF PHYSIC DAVID Chew Other Providers SCHEDULING ADMINISTRATOR Martina Galaviz Other Providers SCHEDULING ADMINISTRATOR Virgie Avalos Other Providers SCHEDULING ADMINISTRATOR InPatient Alejandro Asencio Other Providers OTHER Enedelia Vargas RN Other Providers SCHEDULING ADMINISTRATOR Veronica Sotelo Other Providers SCHEDULING ADMINISTRATOR Cam Greenwood, DO Emergency Provider [facility] STAFF PHYSICIAN Garfield Sams Admit Provider NON-[facility] STAFF PHYSICIAN Attending Provider Discharge Potential Discharge Needs: PCP F/U Appt Anticipated Barriers to Discharge: None Identified Patient/Family Education Needs: Review discharge instructions, discuss Ask Me Three Transportation: Private vehicle Plan: Anticipate Mariusz will be discharged home with new home health services, for PT when medically cleared. He will follow up with his PCP and plan of care and transport with family. CM will follow and continue to assess for discharge needs. Social Determinants of Health Screening Will the Patient Participate in the Screening?: Unable to obtain Do you worry about having a steady place to live?: no In the past 12 months, have you had to go without electric, gas, oil or water in your home?: no Has lack of transportation kept you from medical appointments or from doing things needed for daily living?: no Has anyone in your life made you feel unsafe or unsupported?: no How hard is it for you to pay for the very basics like food, housing, medical care, and heating? Would you say it is:: Not hard at all Do you want help finding or keeping work or a job?: Yes, help finding work If for any reason you need help with day-to-day activities such as bathing, preparing meals, shopping, managing finances, etc., do you get the help you need?: I could use a little more help How often do you feel lonely or isolated from those around you?: Often Do you speak a language other than Pashto at home?: Yes Does the patient want assistance with any of the above?: Yes Health Related Social Needs Health related social needs: problems finding work (Z56.9), problems with daily activities (Z73.9), feeling lonely/isolated (Z60.8) and education (Z55.6) PFSH All Active Problems (Updated 08/27/24 @ 00:23 by Garfield Sams) Bullous lesion (Acute) RSV infection (Acute) Stroke (Chronic) Hypertension (Chronic) Acute CVA (cerebrovascular accident) (Acute) Ventricular tachyarrhythmia (Chronic) Anemia (Chronic) Narcolepsy (Acute) Restless leg syndrome (Acute) Obstructive sleep apnea syndrome (Chronic) Carpal tunnel syndrome, right (Acute) Carpal tunnel syndrome of left wrist (Acute) Essential hypertension (Chronic 05/18/13) Depressive disorder (Chronic) Hypercholesterolemia (Chronic) Mitral valve insufficiency (Chronic 06/08/15) Primary insomnia (Chronic 10/20/15) Pulmonary hypertension (Chronic 06/08/15) Aortic aneurysm (Chronic 04/29/01) Dissection of Thoracic Aorta Chronic atrial fibrillation (Chronic 01/01/18) Aortic valve stenosis (Acute) Migraine (Chronic) Headache (Chronic) we discussed imaging with brain MRI--pros and cons He will hold off--see if sertraline wean helps. 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) Bruising (Chronic) Ventricular arrhythmia (Chronic) Tricuspid valve insufficiency (Chronic 06/08/15) Tension headache (Chronic 02/02/15) Obesity (Chronic) Left ventricular enlargement (Chronic 06/08/15) Fatigue (Chronic) Surgical History History of cataract removal with insertion of prosthetic lens shoulder arthroscopy repair calcium deposit right shoulder Thoracic aortic aneurysm repair Cholecystectomy Extraction of cataract Family History Mother Cancer Brain CA Father Heart disease Social History Smoking/Tobacco Use Status: Never Smoking risk assessment performed?: Yes Alcohol Intake: never Drug use: Never Substance use type: does not use Housing: house Do you feel safe at home: Yes Do you feel safe in your relationship?: Yes
--- NOTE | 2024-08-27 09:37 | RESPIRATORY ---
08/27/2024 Approx 0872 asked pt if he felt he needed a nebulizer at this time; pt states he does not.
--- NOTE | 2024-08-27 10:14 | W.NUTRFU ---
Date of service: 08/27/24 Time of Service: 10:14 Nutrition Note NOTE: 74yo pt being treated for RSV infection with PMH significant for HTN, CVA, anemia, ANKIT. fair intake with 75% of breakfast eaten this morning. Albumin and total protein lab wnl. A1c was 6.2% last year. Weight loss of almost 10kg noted in the last year. No known food allergies, denies concerns with chewing/swallowing. Moving bowels. PT not too conversative today - will continue to check in, monitor intake and labs. Some concern over patient ability to prep healthy meals at home however current protein labs reassuring. Recommend current a1c lab Will monitor for changes and attempt to offer more support via outpatient setting in regards to help coming up meal planning Time Spent in Nutritional Counseling and Treatment: 5 min
--- NOTE | 2024-08-27 10:22 | PT.INIE ---
PT Notes Visit Reasons: RSV Infection Physical Therapy Inpatient Initial Evaluation Date: 08/27/2024 Referring Doctor: Dr Sams PT Orders: PT CONSULT: PT evaluation Precautions: RSV Mask when enter room, Pt must wear a mask to exit room Patient Profile/Admitting Diagnosis: Pt is a 74yo male presented to ED with fever and cough x 3 days, weakness and blisters to his extremities. CxR negative for infiltrate. (+) RSV. Pt started antibiotic for bullous rash. Pt also receiving Nebs. Today pt with Tachy>130 prior to medication. Pt HR reduced after meds taken however remains in chronic Afib. PMHX: Bullous lesion (Acute) RSV infection (Acute) Stroke (Chronic) Hypertension (Chronic) Acute CVA (cerebrovascular accident) (Acute) Ventricular tachyarrhythmia (Chronic) Anemia (Chronic) Narcolepsy (Acute) Restless leg syndrome (Acute) Obstructive sleep apnea syndrome (Chronic) Carpal tunnel syndrome, right (Acute) Carpal tunnel syndrome of left wrist (Acute) Essential hypertension (Chronic 05/18/13) Depressive disorder (Chronic) Hypercholesterolemia (Chronic) Mitral valve insufficiency (Chronic 06/08/15) Primary insomnia (Chronic 10/20/15) Pulmonary hypertension (Chronic 06/08/15) Aortic aneurysm (Chronic 04/29/01) Dissection of Thoracic Aorta Chronic atrial fibrillation (Chronic 01/01/18) Aortic valve stenosis (Acute) Migraine (Chronic) Headache (Chronic) we discussed imaging with brain MRI--pros and cons He will hold off--see if sertraline wean helps.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) Bruising (Chronic) Ventricular arrhythmia (Chronic) Tricuspid valve insufficiency (Chronic 06/08/15) Tension headache (Chronic 02/02/15) Obesity (Chronic) Left ventricular enlargement (Chronic 06/08/15) Fatigue (Chronic) Surgical History History of cataract removal with insertion of prosthetic lens shoulder arthroscopy repair calcium deposit right shoulderThoracic aortic aneurysm repair Cholecystectomy Extraction of cataract Social History/Home Situation: Lives with in a private home with 4 steps to enter with rails on both sides. independent with use of front-wheel walker. Pt independent amb Equipment Owned/DME:FWW, Cane Subjective:Pt reports he is feeling better today as compared to when he was at home Objective: [] General Observation: elderly male semireclined in bed IV infusing RUE. multiple areas of erythema BLE and R elbow. Mental Status:Alert oriented to person and place . He has some repetitive speech telling the same story multiple times. Pain: denies ROM: [] Right Upper Extremity: WFL able to reach behind head Left Upper Extremity: WFL able to reach behind head Right Lower Extremity: WFL except hip extension -5 degrees, DF to neutral hamstring length impaired Left Lower Extremity: hip IR to neutral, hip extension -5 degrees, knee WFL, ankle DF to neutral, Hamstring length impaired Strength: impaired coordination LLE during functional mobility Right Upper Extremity: grossly 3+/5 Left Upper Extremity: shoulder 3-/5 elbow 3/5, wrist 3/5 nuclear officer strong Right Lower Extremity: Hip flexion: 3- /5; hip abduction: 3-/5; hip extension: 3-/5; knee extension: 3+ /5; knee flexion: 3- /5 ankle DF: 3+ /5 ; ankle PF: 3+ /5 Left Lower Extremity: Hip flexion:2+ /5; hip abduction: 2+ /5; hip extension: 3- /5; knee extension: 3- /5; knee flexion: 2+ /5 ankle DF: 3 /5 ; ankle PF:3 /5 Sensation: intact Bed Mobility/Transfers: Supine to sit mod A Sit to stand min A and cues for hand placement Stand to sit min A and cues for hand placement Bed to chair mod A and cues for FWW management as well as safe approach to chair. Pt attempts to sit prior to aligning with the chair. Gait: ambulated 30 feet with FWW mod A for FWW management and stability. to keep FWW closer to pt . Pt demonstrates forward flexed trunk, decreased step length LLE, reduced step height left, toes first at weight acceptance. Stairs : unable Balance: [] Static Sitting: good Dynamic Sitting: Fair Static Standing:Fair with BUE support Dynamic Standing: fair - with BUE support Special Tests: [] Mobility Limitations Standardized Measure [] [facility] 6 clicks Basic Mobility Inpatient Short Form: [] Raw Score: 17 CMS Score: 50.57% Informed Consent/Education: Patient instructed in purpose of PT consult. Treatment: 91733 sit to/from stand x 4 trials various surfaces and heights. Pt Min A and cuesfor hand placement from 19 height CGA and cues for hand placement from 21 Inch height. surface to surface transfers with FWW with min/mod A for FWW management to keep FWW closer to body and cues 100% for safe approach to surfaces. Pt attempts to sit prior to aligning with surface placing him at risk for falls Assessment: Patient presents with clinical signs and symptoms consistent with current/admitting diagnoses that have resulted to mobility limitations, gait instability, generalized weakness, and impairment of motor control as demonstrated by the following impairment level findings: 1. Decreased strength/ motor control to BUE/BLE major muscle groups 2. Impaired sitting/standing balance 3. Limitation of joint range of motion in left knee and left ankle 4. Impaired functional activity tolerance 5. Impaired insight into unsafe situations Impairments are contributing to the following functional limitations: 1. Inability to safely ambulate without assistive device 2. Increase completion time for mobility ADL performance 3. Increased fall risk 4. Increased time to complete ADL/mobility tasks 5. decline in bed mobility 6. decline in transfers 7. Impaired ability to perform stairs safely without assistance Patient is assessed as a moderate complexity based on the following: History: 74-year-old male with impairment level findings, functional limitations, and past medical history as indicated above Examination: Demonstrable impairment in strength, balance, and mobility level with underlying impairments and functional limitations as documented above Presentation: evolving Decision Making: moderate Goals: 1. supervision bed mobility 2. supervision transfers with least restrictive device 3. supervised amb with least restrictive device 150 feet x 2 4. Supervised 4 steps with rail and cane to safely enter exit home Plan of Care/Treatment Plan: 1-2x/day, 7 days/week x 1 week. Plan of care has been reviewed with the EMERGENCY DEPARTMENT AIDE providing the service under Physical Therapy direction. Initiate Physical Therapy intervention for strengthening, bed mobility, transfers, gait, stairs, balance training, use of assistive device. DISCHARGE RECOMMENDATIONS: Short term SNF vs HH PT TREATMENT CODE/TIME: 45189, 35178/ [id number] Thank you for the opportunity to participate in the care of this patient. Kait Mark PT [facility]
--- NOTE | 2024-08-27 11:43 | NUR.NOTE ---
patient AxOx3 this AM with difficulty remembering which hospital he was at. This is baseline per who reports mild confusion intermittently at home. Patient fed self this AM, walked with PT to chair and tolerated well, has walker at home. Bathed and given all AM meds. Denies pain. Assessment fairly benign with exception of afib with HR in 120s and occasional leap into 130s, MD Hart is aware of this. Pt given AM metoprolol with little resolve in HR. Patient resting in chair, pending possible d/c to home depending on PT recs. Updated Naa on the phone. Chair alarm spa concierge parsons in reach. Nursing Note:
--- NOTE | 2024-08-27 15:34 | PT.INTREAT ---
PT Notes Visit Reasons: RSV Infection Physical Therapy Inpatient Treatment Note Date: 08/27/2024 Precautions: Droplet precaution sin place for RSV infection. Fall risk. Activity as tolerated. Subjective: Said that he just called his and told her that he is doing better. Per CM Savannah, patient is planned to go home tomorrow afternoon with HH PT to which patient is agreeable to. Objective: General Observation: Resting on bedside recliner watching TV. Mental Status: Alert oriented to person and place. Pain: None reported Bed Mobility/Transfers: Minimal cueing provided for use of B hands as needed for support, movement sequence, AD management, and posture to reduce fall risk and minimize pain report Sit to stand contact guard assist with FWW Stand to sit stand by assist Gait: Provided verbal and tactile cueing to ensure adequate distance in relation to walker to optimize weight distributiion as patient tends to lag behind the walker. Patient covered a distance of 250 feet with contact guard assist. Directional change slowed and patient with difficulty maneuvering walker along to turn. Step height and length decreased. Balance: Static Sitting: Good Dynamic Sitting: Fair Static Standing: Fair Dynamic Standing: Poor THERA ACT: Facilitated safe execution of seated exercises below in order to promote strengthening to B UE and LE without undue fatigue obeserved: --Chair push ups x 10 --Seated marches x 10 --Seated hip abduction x 10 Plan of Care/Treatment Plan: 1-2x/day, 7 days/week x 1 week. Patient will highly benefit from skilled physical therapy services including functional mobility training, bed mobility/transfer training, gait and balance training, therapeutic exercises, therapeutic activity, caregiver/staff/family education and training 1x/day, 7 days/week x 1 week. Plan of care has been reviewed with the INFANT CAREGIVER providing the service under Physical Therapy direction. Initiate Physical Therapy intervention for strengthening, bed mobility, transfers, gait, stairs, balance training, use of assistive device. DISCHARGE RECOMMENDATIONS: HH PT vs short-term SNF TREATMENT CODE/TIME: 44768 x 34 minutes for 2 units (14:51-15:25).
--- NOTE | 2024-08-27 18:09 | NUR.NOTE ---
patient still Axox3 this shift, pleasantly confused at times. Incontinent of urine throughout the day and unable to use urinal effectively, now connected to condom catheter. Patient resting in bed at this time, worked twice with PT, patient going home with home health PT tomorrow, Naa updated by Savannah JENSEN. Patient denies pain during shift, voiding, no BM today, bed low/locked, call parsons in reach, bed alarm on. Tolerating good PO intake. Nursing Note:
[2024-08-27] MEDS: traZODone 50 MG TAB PO (19:37)
[2024-08-27] MEDS: Pravastatin 20 MG TAB PO (19:38)
[2024-08-28] VITALS (8 sets, daily range): BP systolic 130–134; BP diastolic 58–92; PULSE 87–105; RESP 2–20; TEMP 36.3–36.8; O2SAT 91–96
[2024-08-28] MEDS: Albuterol/Ipratropium 3 ML UPD VIAL UPD ×3 (05:55→13:12)
[2024-08-28 06:39] LABS: HCT 47.3 % (40.0-50.0); HGB 15.9 g/dL (13.5-17.5); MCH 33.3 pg (27.0-33.0); MCHC 33.6 % (32.0-36.0); MCV 99 fL (80-95); MPV 9.8 fL (8.0-11.0); Platelet Count 140 10^3/uL (130-400); RBC 4.77 10^6/uL (4.36-5.78); WBC 8.55 10^3/uL (4.4-10.8)
[2024-08-28 07:00] LABS: ALT 21 U/L (16-63); AST 29 U/L (15-37); Albumin 3.4 g/dL (3.4-5.0); Alkaline Phosphatase 56 U/L (46-116); Anion Gap 7.3 mmol/L (3-11); BUN 17 mg/dL (7-18); Bilirubin, Total 2.2 mg/dL (0.2-1.0); CO2 32.7 mmol/L (21.0-32.0); CREATININE 1.1 mg/dL (0.70-1.30); Chloride 103 mmol/L (98-107); Estimated GFR 70.44 (mL/min/1.73m2); Glucose 94 mg/dL (74-106); Magnesium 1.8 mg/dL (1.8-2.4); Potassium 3.3 mmol/L (3.5-5.1); Sodium 143 mmol/L (136-145)
[2024-08-28] MEDS: Normal Saline Flush 10 ML SYR IVP ×2 (09:05→09:47)
[2024-08-28] MEDS: cefTRIAXone 1 GM/50 ML BAG IVPB (09:05)
[2024-08-28] MEDS: Ferrous Sulfate 325 MG TAB PO (09:12)
[2024-08-28] MEDS: Sertraline 25 MG TAB PO (09:12)
[2024-08-28] MEDS: Gabapentin 300 MG CAP PO (09:12)
[2024-08-28] MEDS: Apixaban 5 MG TAB PO (09:12)
[2024-08-28] MEDS: Lisinopril 10 MG TAB 20 MG PO (09:12)
[2024-08-28] MEDS: Furosemide 40 MG TAB PO (09:12)
[2024-08-28] MEDS: Metoprolol 50 MG TAB PO (09:12)
--- NOTE | 2024-08-28 10:44 | PT.INTREAT ---
PT Notes Visit Reasons: RSV Infection Physical Therapy Inpatient Treatment Note Date: 08/28/2024 Precautions: Droplet precaution sin place for RSV infection. Fall risk. Activity as tolerated. Subjective: Agreeable to working again with PT today. Denied headache, chest pain, and lightheadedness throughout session. Objective: General Observation: FOOD PRODUCTS TESTER student helping out patient get done with morning care. Mental Status: Alert and oriented to person and place. Pain: None reported Bed Mobility/Transfers: Minimal cueing provided for use of B hands as needed for support, movement sequence, AD management, and posture to reduce fall risk and minimize pain report Sit to stand stand by with FWW Stand to sit stand by assist with FWW Gait: Provided verbal and tactile cueing to ensure adequate distance in relation to walker to optimize weight distribution as patient tends to lag behind the walker. Patient covered a distance of 250 feet + 250 feet with stand by assist. Directional change slowed, patient demonstrated with much improved maneuvering skills using the walker. Step height and length decreased. R foot unable to step through L with some mild lean to L that required occasional contact guard but no LOB. Dedra has been updated about this. Stairs: Guided patient with safe negotiation of 9 x 3-inch steps and 6 x 6-inch steps while holding onto B rails for support with moderate cueing needed for safety Balance: Static Sitting: Good Dynamic Sitting: Fair Static Standing: Fair Dynamic Standing: Fair THERA ACT: Facilitated safe execution of seated exercises below in order to promote strengthening to B UE and LE without undue fatigue obeserved: --Chair push ups x 10 --Seated marches x 10 --Seated hip abduction x 10 Plan of Care/Treatment Plan: 1-2x/day, 7 days/week x 1 week. Patient will highly benefit from skilled physical therapy services including functional mobility training, bed mobility/transfer training, gait and balance training, therapeutic exercises, therapeutic activity, caregiver/staff/family education and training 1x/day, 7 days/week x 1 week. Plan of care has been reviewed with the EDGE SANDER providing the service under Physical Therapy direction. Initiate Physical Therapy intervention for strengthening, bed mobility, transfers, gait, stairs, balance training, use of assistive device. DISCHARGE RECOMMENDATIONS: PT for continued balance training TREATMENT CODE/TIME: 23021 x 25 minutes for 2 units, 48656 x 15 minutes for 1 unit (10:44-11:25).
--- NOTE | 2024-08-28 15:02 | PDOC.HHF2F_ITS ---
Home Health Referral Home Health Orders Clinical synopsis of why skilled professionals are needed: RSV infection, generalized weakness, ANKIT, pHTN, chronic a-fib Physical Therapist: Check all that apply Increase strength & endurance for safe mobility at home: Ordered To design/establish home maintenance program: Ordered Fall reduction therapy program for patient with history of frequent falls: Ordered Home safety evaluation and teaching/gait training including stair management (if applicable): Ordered Occupational Therapist: Evaluate and treat for patient unable to perform ADL/IADL/self-care: Ordered Encounter Date and Reason: I certify that a FTF encounter for this patient was performed on August 28, 2024 and that such encounter was related to the primary reason the patient requires home health services. The encounter was conducted in the following manner: * By me as the certifying physician, CARPENTERS SUPERVISOR, PA or * By an inpatient physician, CARPENTERS SUPERVISOR or PA during an inpatient stay who communicated findings to me, Certification And Authentication I certify that I composed the above information based on my clinical judgment relating to this patient's medical condition and, if applicable, clinical findings communicated to me by the NPP or inpatient physician who performed the FTF encounter. Name of Provider that will be monitoring home health services: Garfield Montenegro
--- NOTE | 2024-08-28 15:03 | DSE_ITS ---
Date of service: 08/28/24 Time of Service: 15:03 DS: Diagnosis Discharge Diagnosis (1) RSV infection: Status: Acute (2) Bullous lesion: Status: Acute (3) Chronic atrial fibrillation: Status: Chronic (4) Essential hypertension: Status: Chronic (5) Depressive disorder: Status: Chronic (6) Obstructive sleep apnea syndrome: Status: Chronic (7) Pulmonary hypertension: Status: Chronic (8) Hypercholesterolemia: Status: Chronic Discharge Plan Disposition Patient Disposition: Home W/Home Health Services Condition: Good Discharge Details Reason For Visit: RSV Infection Admit Date/Time: 08/26/24 21:18 Admit Provider: Garfield Sams Attending Provider: Garfield Sams Primary Care Provider: Garfield Montenegro Hospital Course Hospital Course: Patient initially present with generalized weakness that was found to be s econdary to RSV infection. He rapidly improved with supportive care and worked with PT and was determined to be safe for discharge home with home health services. Home Meds and New Rx's Prescriptions: Continued lisinopril 10 mg tablet 20 mg PO DAILY Qty: 90 3RF acetaminophen [Acetaminophen Extra Strength] 500 MG tablet 2 tab PO Q8H PRN metoprolol tartrate 50 mg tablet 50 mg PO BID Qty: 180 4RF sertraline 25 mg tablet 25 mg PO DAILY Qty: 90 4RF Eliquis 5 mg tablet 5 mg PO BID gabapentin 300 mg capsule 300 mg PO BID trazodone 50 mg tablet 50 mg PO QPM pravastatin 20 mg tablet 20 mg PO DAILY furosemide 40 mg tablet 40 mg PO QAM Patient Comments: TAKE ONE-HALF TABLET BY MOUTH EVERY DAY ferrous sulfate [FeroSul] 325 mg (65 mg iron) tablet 325 mg PO DAILY Discharge Instructions Activity:: Activity as Tolerated Equipment/Supplies:: No Equipment Needed Diet:: As Tolerated Discharge Orders Discharge Orders: Discharge Order (Routine); Ordered 08/28/24 Ordered By: Aly Hart DS: Summary Time Spent with Patient providing and/or coordinating discharge services: Greater than 30 minutes Status at Discharge Functional status at discharge: independent ambulation Overall status at discharge: patient is back to baseline Mental Status: mental status grossly normal Speech and Movement: speech and movement normal Mood: congruent mood Affect: normal affect Quality:SDOH Health Related Social Needs: Health related social needs problems finding work (Z56 .9), problems with daily activities (Z73.9), feeling lonely/isolated (Z60.8), education (Z55.6) Exam Narrative Exam Narrative: Well-appearing older gentleman sitting up in the bed in no acute distress, ANO x 4, heart regular rhythm, lungs clear to auscultation bilaterally, abdomen soft, nontender, nondistended, bandage over her supposedly bullous area without surrounding erythema or drainage. Psych Mental Status: mental status grossly normal Speech and Movement: speech and movement normal Mood: congruent mood Affect: normal affect DS: Data Vitals/I&O Vitals and I&O: Vital Signs Temperature 98.2 F 08/28/24 11:49 Temperature Source Temporal Artery Scan 08/28/24 11:49 Pulse 102 H 08/28/24 11:49 Pulse Rhythm Irregular 08/27/24 01:37 Pulse 92 H 08/26/24 22:12 Respiratory Rate 15 08/28/24 11:49 Respiratory Effort Normal, Non-Labored 08/27/24 01:37 Respiratory Depth Normal 08/27/24 01:37 Respiratory Pattern Normal 08/27/24 01:37 Blood Pressure 130/70 08/28/24 11:49 Blood Pressure Mean 114 08/26/24 22:08 Blood Pressure Position Sitting 08/26/24 16:52 Pulse Oximetry 96 08/28/24 13:12 Oxygen Delivery Method Room Air 08/28/24 13:12 Oxygen Flow Rate 0 08/28/24 13:12 Pain Level 0 08/28/24 07:43 Comment RN notified of vitals 08/27/24 07:17 Intake & Output 08/27/24 08/28/24 08/28/24 17:59 05:59 17:59 Intake Total 610 / 610 1190 / 1190 Output Total 700 / 700 900 / 1600 400 / 400 Balance -90 / -90 -900 / -990 790 / 790 Weight 163 lb 2.273 oz Intake: IV 50 / 50 50 / 50 Oral 560 / 560 1140 / 1140 Output: Urine 700 / 700 900 / 1600 400 / 400 Other: Urine Color Yellow Yellow Yellow Urine Appearance Clear Cloudy Clear Urine Odor None Normal None Comment x1 incontinence condom cath fell off and was incontinent in bed, new condom catheter placed Stool Size Large Stool Characteristics Formed Brown Data Completed and Pending Labs on day of discharge: Labs from last 24 hours 08/28/24 05:56 WBC 8.55 RBC 4.77 Hgb 15.9 Hct 47.3 MCV 99 H MCH 33.3 H MCHC 33.6 RDW 12.0 Plt Count 140 MPV 9.8 Sodium 143 Potassium 3.3 L Chloride 103 Carbon Dioxide 32.7 H Anion Gap 7.3 BUN 17 Creatinine 1.1 Est GFR (CKD-EPI 2020) 70.44 Glucose 94 Calcium 9.0 Magnesium 1.8 Total Bilirubin 2.2 H AST 29 ALT 21 Alkaline Phosphatase 56 Total Protein 7.0 Albumin 3.4 Preliminary micro results at discharge 08/27/24 05:45 Urine Culture - Preliminary Urine - Voided Gram positive sue 08/26/24 17:29 Blood Culture - Preliminary Blood NO GROWTH 24 HOURS 08/26/24 17:03 Blood Culture - Preliminary Blood NO GROWTH 24 HOURS PFSH All Active Problems (Updated 08/27/24 @ 00:23 by Garfield Sams) Bullous lesion (Acute) RSV infection (Acute) Stroke (Chronic) Hypertension (Chronic) Acute CVA (cerebrovascular accident) (Acute) Ventricular tachyarrhythmia (Chronic) Anemia (Chronic) Narcolepsy (Acute) Restless leg syndrome (Acute) Obstructive sleep apnea syndrome (Chronic) Carpal tunnel syndrome, right (Acute) Carpal tunnel syndrome of left wrist (Acute) Essential hypertension (Chronic 05/18/13) Depressive disorder (Chronic) Hypercholesterolemia (Chronic) Mitral valve insufficiency (Chronic 06/08/15) Primary insomnia (Chronic 10/20/15) Pulmonary hypertension (Chronic 06/08/15) Aortic aneurysm (Chronic 04/29/01) Dissection of Thoracic Aorta Chronic atrial fibrillation (Chronic 01/01/18) Aortic valve stenosis (Acute) Migraine (Chronic) Headache (Chronic) we discussed imaging with brain MRI--pros and cons He will hold off--see if sertraline wean helps. 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) Bruising (Chronic) Ventricular arrhythmia (Chronic) Tricuspid valve insufficiency (Chronic 06/08/15) Tension headache (Chronic 02/02/15) Obesity (Chronic) Left ventricular enlargement (Chronic 06/08/15) Fatigue (Chronic) Surgical History History of cataract removal with insertion of prosthetic lens shoulder arthroscopy repair calcium deposit right shoulder Thoracic aortic aneurysm repair Cholecystectomy Extraction of cataract Family History Mother Cancer Brain CA Father Heart disease Social History Smoking/Tobacco Use Status: Never Smoking risk assessment performed?: Yes Alcohol Intake: never Drug use: Never Substance use type: does not use Housing: house Do you feel safe at home: Yes Do you feel safe in your relationship?: Yes Time Spent with Patient Time Spent with Patient: <45 minutes Time was spent: preparing to see the patient(eg.review tests), obtaining and/or reviewing separately otained hiistory, ordering medications,tests, procedures, referring, communicating with other health care transition manager, indepentently interpreting results, counseling the patient and care coordination
--- NOTE | 2024-08-28 15:46 | NUR.NOTE ---
charting by Nathaly Coates LPN reivewed and this RN agrees with findings. Patient AxOx3 pleasantly confused, reports baseline confusion and forgetfulness of late. Patient up with FWW and 1 mod assist. Continent at times but has urgency as well and at times goes without using the urinal. Had BM today, tolerating PO and feeds self, did well with PT in the hallway, patient d/cing to home with per her request, she did not want to sent pt to rehab. Patient given d/c instructions, PIV removed, VSS and sats stable on room air, given f/u appointment information, medication and prescription information and had no questions or concerns. Patient is going by wheelchair van [facility] and then getting lift assistance to the house from local fire dept. Nursing Note:
--- NOTE | 2024-08-28 19:28 | PDOC.CMDIS ---
Date of service: 08/28/24 Time of Service: 15:00 LACE Index Scoring Tool Questions: Length of Stay (in days): 2 Was the patient admitted via the E.D.?: Yes Comorbidities: Cerebrovascular Disease E.D. Visits: 1 Answers: Total Score: 7 Risk of Readmission: Low Risk Care Management Discharge Plan Reason for Hospitalization: RSV Discharge Plan: He was discharged home earlier today with new services of HH PT/OT. He will f/u with his PCP and continue per his plan of care. He was transported via [facility] wheelchair van and was met by [employer] lift assist, as coordinated by CM. , Naa, was fully on board with this plan. Patient/Family Education Needs: Review of discharge instructions, activity, limitations, and discuss Ask me 3. Services Needed at Discharge: Home Health Care Services (PT/OT) SDOH Health Related Social Needs: Health related social needs problems finding work (Z56.9), problems with daily activities (Z73.9), feeling lonely/isolated (Z60.8), education (Z55.6)
== END 2024-08-28 15:25 | disposition home health service (06) | DRG 202 ==
LOC: ER 21:09 → MS 23:14
PROVIDERS: Admitting Provider Family Medicine; Emergency Provider Student in an Organized Health Care Education/Training Program; PCP Internal Medicine; Responsible Provider Family Medicine; Visit Provider Family Medicine
DX: J21.0 Acute bronchiolitis due to respiratory syncytial virus (principal); I71.011 Dissection of aortic arch; I48.20 Chronic atrial fibrillation, unspecified; I10 Essential (primary) hypertension; F32.A Depression, unspecified; I27.20 Pulmonary hypertension, unspecified; G47.33 Obstructive sleep apnea (adult) (pediatric); E78.00 Pure hypercholesterolemia, unspecified; Z86.73 Personal history of transient ischemic attack (TIA), and cerebral infarction without residual deficits; Z79.01 Long term (current) use of anticoagulants; Z95.2 Presence of prosthetic heart valve; G25.81 Restless legs syndrome; D64.9 Anemia, unspecified; F51.01 Primary insomnia; G47.419 Narcolepsy without cataplexy; I65.22 Occlusion and stenosis of left carotid artery; I08.1 Rheumatic disorders of both mitral and tricuspid valves; G44.229 Chronic tension-type headache, not intractable; R23.8 Other skin changes; R53.1 Weakness
CPT/HCPCS: 00123; 36415; 71275; 80053; 82805; 84145; 85027; 87040; 87637; 93005; 94761; 96365; 96367; 97110; 97162; 97530; 99285; 70450; 71045; 81003; 81015; 83605; 83735; 84443; 84484; 85025; 85610; 85730; 87086; 93010; 94640; 94760; 99223; 99233; 99239; J0696; J3490; J7620

== ENCOUNTER 2024-11-16 20:08 | Inpatient (IN) | payer MEDICARE, SELFPAY ==
[2024-11-16] VITALS (15 sets, daily range): BP systolic 155–174; BP diastolic 101–134; PULSE 77–119; RESP 14–28; TEMP 37.1; O2SAT 96–99
--- NOTE | 2024-11-16 20:00 | RT.EKG_ITS ---
APPROVED REPORT Exam: Resting ECG Reason for Exam: AMS Patient Location: E HR:100 bpm ECG Measurements Heart Rate 100 AXIS TX [id number] P [id number] QRSd 100 QRS 96 QT 388 T 60 QTc 500 Conclusion Atrial fibrillation 100 Right axis no stemi
--- NOTE | 2024-11-16 20:15 | DI.CT_ITS ---
Exam(s) CT HEAD WO EXAM: CT HEAD WO CLINICAL HISTORY: AMS. TECHNIQUE: Imaging Protocol: Axial computed tomography images with coronal and sagittal reformatted images were created and reviewed COMPARISON: CT CT HEAD WO from 08/26/2024 FINDINGS: Ventricles and Extra axial spaces: Normal in size and morphology for the patient's age. Hemorrhage: None. Cerebral parenchyma: No evidence of acute infarct or mass. Mild atrophy. Moderate white matter changes of small vessel disease. Midline shift: None. Brainstem/Cerebellum: Old right cerebellar infarct. Bones: No skull or facial fractures. Visualized Paranasal sinuses:Clear. Mastoids: Clear. Soft Tissues: Unremarkable. ORBITS: Unremarkable. PITUITARY: Not enlarged. IMPRESSION: No acute intracranial process. The preliminary [facility] report was reviewed. RADIATION DOSE DELIVERED: 861.64mGy.cm Total DLP DATA REPOSITORY: All CT scans at this facility are submitted to the National Radiology Data Registry (NRDR) Dose Index Registry (DIR) with the [employer] (ACR). RADIATION OPTIMIZATION: All CT scans at this facility use at least one of these dose optimization techniques: automated exposure control; mA and/or kV adjustment per patient size (includes targeted exams where dose is matched to clinical indication); or iterative reconstruction.
[2024-11-16 20:27] LABS: Abs Immature Grans 0.03 10^3/uL (0.0-0.06); HCT 48.9 % (40.0-50.0); HGB 16.8 g/dL (13.5-17.5); Immature Grans % 0.3 %; MCH 33.2 pg (27.0-33.0); MCHC 34.4 % (32.0-36.0); MCV 97 fL (80-95); MPV 9.8 fL (8.0-11.0); Platelet Count 162 10^3/uL (130-400); RBC 5.06 10^6/uL (4.36-5.78); RDW 12.7 % (11.8-14.1); RDW-SD 45.0 fL; WBC 9.03 10^3/uL (4.4-10.8)
[2024-11-16 20:38] LABS: INR 1.2 (0.9-1.1); Prothrombin Time 11.9 sec (9.1-11.1)
[2024-11-16 20:41] LABS: Ammonia < 10 umol/L (11-32)
--- NOTE | 2024-11-16 20:45 | DI.CT_ITS ---
Exam(s) CT ABDOMEN PELVIS W EXAM: CT ABDOMEN PELVIS W CLINICAL HISTORY: jaundice, elevated t bili. TECHNIQUE: Imaging Protocol: Axial computed tomography images with coronal and sagittal reformatted images were created and reviewed CONTRAST MATERIAL: Intravenous: Omnipaque 350 Contrast volume:70 ml Oral: yes no COMPARISON: CT CT THORAX ABDOMEN CTA from 12/24/[address] CHEST/ABD/PEL W from 05/11/[address] BRAIN NECK CTA from 09/19/[address] THORAX CTA from 08/26/2024 FINDINGS: ABDOMEN and PELVIS: Exam is limited by motion. There is also streak artifact through the liver and spleen related to patient arm position.. Lung Bases: No acute findings. Liver: Normal density. No suspicious mass. Gallbladder and biliary tract: Cholecystectomy. Stable dilation of the common bile duct.. Pancreas: Normal density. No abnormal calcifications or inflammatory process. Stable 1 centimeter cyst in the head of the pancreas. Spleen: Normal. Kidneys: Normal size, contour and axis. No radiodense stones. No obstructive uropathy. No suspicious masses seen. Adrenal glands: No masses seen. Vasculature: Stable chronic aortic dissection extending to the level of the bifurcation.. Soft tissues: Unremarkable. Bladder: Thickening of the wall of the superior portion of the bladder. This is likely secondary to inflammation from adjacent diverticular abscess. No calculi.No focal mass. Bowel: Descending and sigmoid diverticulosis. There is a localized collection noted between the sigmoid colon and bladder with air-fluid level and enhancing rim, findings are suspicious for a diverticular abscess. It measures 4.2 by 2.7 by 4.0 cm. No obstruction. Appendix normal. Peritoneal cavity: No ascites. No free air. Bones: Unremarkable for age. Reproductive organs: enlarged prostate. Lymph nodes: No pathologically enlarged lymph nodes. IMPRESSION:: Findings consistent with diverticular abscess between the sigmoid colon and urinary bladder. Malignancy is not entirely excluded. Follow-up recommended. There is adjacent wall thickening of the urinary bladder. Stable appearance of chronic aortic dissection. Stable 1 centimeters cyst in the head of the pancreas. The preliminary [facility] report was reviewed. Unexpected findings RADIATION DOSE DELIVERED: 902.08mGy.cm Total DLP DATA REPOSITORY: All CT scans at this facility are submitted to the National Radiology Data Registry (NRDR) Dose Index Registry (DIR) with the [employer] (ACR). RADIATION OPTIMIZATION: All CT scans at this facility use at least one of these dose optimization techniques: automated exposure control; mA and/or kV adjustment per patient size (includes targeted exams where dose is matched to clinical indication); or iterative reconstruction.
[2024-11-16 20:51] LABS: ALT 25 U/L (16-63); AST 24 U/L (15-37); Albumin 4.2 g/dL (3.4-5.0); Alkaline Phosphatase 60 U/L (46-116); Anion Gap 11.4 mmol/L (3-11); BUN 28 mg/dL (7-18); Bilirubin, Total 6.8 mg/dL (0.2-1.0); CO2 27.6 mmol/L (21.0-32.0); Calcium 9.7 mg/dL (8.5-10.1); Chloride 102 mmol/L (98-107); Estimated GFR 78.98 (mL/min/1.73m2); Glucose 96 mg/dL (74-106); Magnesium 1.9 mg/dL (1.8-2.4); Potassium 3.7 mmol/L (3.5-5.1); Sodium 141 mmol/L (136-145); TSH (W/Ref FT4) 2.17 uIU/mL (0.36-3.74); Total Protein 7.9 g/dL (6.4-8.2); Troponin I 16 ng/L (<or=76)
[2024-11-16] MEDS: Normal Saline - Diluent 50 ML VIAL IJ (21:11)
[2024-11-16] MEDS: Omnipaque 350 MG/ML 500 ML BTL-Imaging package IJ (21:12)
[2024-11-16 21:34] LABS: Acetaminophen < 2 ug/mL (10-30)
[2024-11-16] MEDS: dilTIAZem 25 MG/5 ML VIAL 10 MG IVP (21:40)
[2024-11-16 21:52] LABS: Troponin I 15 ng/L (<or=76)
[2024-11-16] MEDS: Lidocaine 2% Jelly 11 ML SYR (22:18)
--- NOTE | 2024-11-16 22:20 | DI.[facility]_ITS ---
PROCEDURE INFORMATION: Exam: CT Abdomen And Pelvis With Contrast Exam date and time: 11/16/2024 9:02 PM Age: 74 years old Clinical indication: Other: Jaundice, elevated t bili; Prior surgery; Surgery date: 6+ months; Surgery type: Cholecystectomy TECHNIQUE: Imaging protocol: Computed tomography of the abdomen and pelvis with contrast. Contrast material: OMNI 350; Contrast volume: 70 ml; Contrast route: INTRAVENOUS (IV); COMPARISON: No relevant prior studies available. FINDINGS: Liver: Faint hypodensities in the liver too small to characterize No mass. Gallbladder and biliary ducts: Prior cholecystectomy. Mild ductal dilation. Pancreas: Normal. No ductal dilation. Spleen: Normal. No splenomegaly. Adrenal glands: Normal. No mass. Kidneys and ureters: Normal. No hydronephrosis. Stomach and bowel: Thickening of the sigmoid colon with mild distension. Narrowing at the rectosigmoid junction image 87. Colonic diverticulosis No obstruction. Appendix: No evidence of appendicitis. Intraperitoneal space: Unremarkable. No free air. No significant fluid collection. Vasculature: Faintly visualized dissection flap image 31 series 12 extending inferiorly to the aortic bifurcation/common iliac arteries No abdominal aortic aneurysm. Lymph nodes: Unremarkable. No enlarged lymph nodes. Urinary bladder: Unremarkable as visualized. Reproductive: Unremarkable as visualized. Bones/joints: Degenerative changes in the spine and pelvis No acute fracture. Soft tissues: Unremarkable. IMPRESSION: Abnormal findings at the distal sigmoid colon. Underlying lesion not excluded. Mild diverticulitis not excluded Mild biliary ductal dilatation in this patient with prior cholecystectomy which may be related to reservoir effect. No calcified stones observed Chronic aortic dissection flap without occlusion as previously noted Dictated and Authenticated by: Leodan Seo MD. Orderin Carmen Ortega MD
--- NOTE | 2024-11-16 22:30 | DI.[facility]_ITS ---
PROCEDURE INFORMATION: Exam: CT Head Without Contrast Exam date and time: 11/16/2024 9:00 PM Age: 74 years old Clinical indication: Altered mental status/memory loss TECHNIQUE: Imaging protocol: Computed tomography of the head without contrast. COMPARISON: CT HEAD WO 08/26/2024 6:01 PM FINDINGS: Brain: There is no acute intracranial hemorrhage, mass effect or midline shift. No large acute territorial infarct identified. There are patchy regions of hypodensity in the periventricular and subcortical white matter, likely on the basis of chronic microvascular ischemic disease. Small regions of hypodensity noted in the right cerebellar hemisphere, likely from remote infarct. There are small hypodensities in the , suggestive of remote lacunar infarcts. Cerebral ventricles: The ventricles and sulci are prominent in size, which is at least in part due to global cerebral volume loss. Paranasal sinuses: Visualized sinuses are unremarkable. No fluid levels. Mastoid air cells: Visualized mastoid air cells are well aerated. Bones: Unremarkable. No acute fracture. Soft tissues: Unremarkable. IMPRESSION: No acute intracranial hemorrhage, mass effect or midline shift. Dictated and Authenticated by: Amber Ward MD. Orderin Carmen Ortega MD
[2024-11-16 22:33] LABS: Glucose Negative (Negative)
[2024-11-16 22:48] LABS: Cannabinoids THC Negative (Negative); METHADONE URINE SCREEN Negative (Negative)
[2024-11-16 22:49] LABS: C & S Indicated? No; WBC Negative HPF (0-5)
--- NOTE | 2024-11-16 23:09 | W.ED.GENAD ---
Discharge Plan Disposition Patient Disposition: Admit to [facility] Condition: Poor Discharge Details Clinical Impression: Altered mental status Primary Care Provider: Anton Gill ED Provider: Sydni Morales Home Meds and New Rx's Prescriptions: No Action lisinopril 10 mg tablet 20 mg PO DAILY Qty: 90 3RF metoprolol tartrate 50 mg tablet 50 mg PO BID Qty: 180 4RF sertraline 25 mg tablet 25 mg PO DAILY Qty: 90 4RF morphine concentrate 100 mg/5 mL (20 mg/mL) solution See Rx Instructions PO Q1H PRN MDD 24 ml Qty: 30 0RF Rx Instructions: 0.25 ml orally every 1 hour, as needed; HOSPICE lorazepam 1 mg tablet 1 mg PO Q4H PRN (Reason: anxiety, dsypnea, nausea) Qty: 20 5RF Rx Instructions: hospice Eliquis 5 mg tablet 5 mg PO BID gabapentin 300 mg capsule 300 mg PO BID trazodone 50 mg tablet 50 mg PO QPM pravastatin 20 mg tablet 20 mg PO DAILY furosemide 40 mg tablet 40 mg PO QAM Patient Comments: TAKE ONE-HALF TABLET BY MOUTH EVERY DAY ferrous sulfate [FeroSul] 325 mg (65 mg iron) tablet 325 mg PO DAILY HPI General Date/Time Provider Initiated Documentation: 11/16/24 20:12. Limitations to Documentation: altered mental status. Information obtained by: patient, EMS and old records reviewed. HPI Narrative: 74-year-old gentleman with multiple medical comorbidities including CVA, hypertension, cardiac disease, valvular disease, A-fib presents for evaluation of altered mental status. Per EMS, the found him on the floor next to his recliner. It was an unwitnessed fall. reports that about 2 hours prior to this fall he had just returned home from the health [facility]hab facility. He had been there for the last 5 days receiving respite care because his , primary programmer analyst consultant, had hurt her back. states that she did not receive any report of any abnormalities or any concerns that they had while he was under the care of help in rehab. The EMS does report that the patient received a dose of either Ativan or alprazolam prior to leaving the health and rehab to facilitate his long car ride home. It is unclear which medication or what dose he may have received. He is not on these medications regularly. reports that he is also under hospice care, but she does not know why he is on hospice, she reports that he does not have any hospice orders and that they have not seen palliative care recently. She states that he does not have comfort measures or any refusal to treatment plan. He is also not DNR. states that normally he is able to ambulate with a walker he holds simple conversations and is able to go to the bathroom by himself. This was prior to health and rehab stay. Related Data Home Medications ?Medication ?Instructions ?Recorded ?Confirmed lisinopril 10 mg tablet 20 mg (2 x 10 mg) PO DAILY #90 tabs 03/29/20 11/16/24 Held on 11/16/24. Instructions: Pt Stopped/Never Started metoprolol tartrate 50 mg tablet 50 mg PO BID #180 tabs 07/21/20 11/16/24 sertraline 25 mg tablet 25 mg PO DAILY #90 tabs 08/31/20 11/16/24 Held on 11/16/24. Instructions: Pt Stopped/Never Started apixaban 5 mg tablet (Eliquis) 5 mg PO BID 09/19/23 11/16/24 Held on 11/16/24. Instructions: Pt Stopped/Never Started ferrous sulfate 325 mg (65 mg 325 mg PO DAILY 09/19/23 11/16/24 iron) tablet (FeroSul) Held on 11/16/24. Instructions: Pt Stopped/Never Started furosemide 40 mg tablet 40 mg PO QAM 09/19/23 11/16/24 gabapentin 300 mg capsule 300 mg PO BID 09/19/23 11/16/24 pravastatin 20 mg tablet 20 mg PO DAILY 09/19/23 11/16/24 trazodone 50 mg tablet 50 mg PO QPM 09/19/23 11/16/24 Held on 11/16/24. Instructions: Pt Stopped/Never Started lorazepam 1 mg tablet 1 mg PO Q4H PRN anxiety, dsypnea, 11/11/24 11/16/24 nausea #20 tabs morphine concentrate 100 mg/5 mL See Rx Instructions PO Q1H PRN 11/11/24 11/16/24 (20 mg/mL) oral solution pain or dyspnea #30 mL Held on 11/16/24. Instructions: Pt Stopped/Never Started Previous Rx's ?Medication ?Instructions ?Recorded lisinopril 10 mg tablet 20 mg (2 x 10 mg) PO DAILY #90 tabs 03/29/20 Held on 11/16/24. Instructions: Pt Stopped/Never Started metoprolol tartrate 50 mg tablet 50 mg PO BID #180 tabs 07/21/20 sertraline 25 mg tablet 25 mg PO DAILY #90 tabs 08/31/20 Held on 11/16/24. Instructions: Pt Stopped/Never Started lorazepam 1 mg tablet 1 mg PO Q4H PRN anxiety, dsypnea, 11/11/24 nausea #20 tabs morphine concentrate 100 mg/5 mL See Rx Instructions PO Q1H PRN 11/11/24 (20 mg/mL) oral solution pain or dyspnea #30 mL Held on 11/16/24. Instructions: Pt Stopped/Never Started Allergies Allergy/AdvReac Type Severity Reaction Status Date / Time No Known Allergies Allergy Verified 11/16/24 21:28 General Stated Complaint: AMS/LOC BLANKA: 3 Exam Narrative Exam Narrative: Review of Systems: All systems reviewed & are unremarkable except as noted in HPI and below Well-developed, no acute distress Afebrile NCAT PERRL, scleral icterus noted, no nystagmus Irregularly irregular, mild increased rate Pacer scar and right upper chest and sternotomy scar noted Unlabored respiratory effort, clear bilaterally no increased work of breathing or hypoxia Nondistended abdomen , soft no tenderness Able to move all 4 extremities equally though with generalized weakness Has difficulty following commands Is able to state his name but on able to say anything else coherently or answer questions No asterixis noted Jaundice up to mid chest noted Course Vital Signs Vital signs: Vital Signs Temperature 37.1 C 11/16/24 20:09 Pulse 108 H 11/16/24 20:09 Respiratory Rate 21 11/16/24 20:09 Blood Pressure 157/118 H 11/16/24 20:09 Pulse Oximetry 97 11/16/24 20:09 Temperature 37.1 C 11/16/24 20:15 Temperature Source Oral 11/16/24 20:15 Pulse 77 11/16/24 21:46 Pulse 91 H 11/16/24 21:50 Respiratory Rate 19 11/16/24 21:50 Respiratory Effort Normal 11/16/24 20:21 Respiratory Depth Normal 11/16/24 20:21 Respiratory Pattern Normal 11/16/24 20:21 Blood Pressure 155/107 H 11/16/24 21:46 Blood Pressure Mean 114 11/16/24 21:46 Blood Pressure Position Sitting 11/16/24 20:15 Pulse Oximetry 97 11/16/24 21:46 Oxygen Delivery Method Room Air 11/16/24 20:15 Oxygen Flow Rate 0 11/16/24 20:09 Lab/Test Results Lab/Test Results: Laboratory Tests Range/Units 11/16/24 11/16/24 11/16/24 20:15 21:27 22:21 WBC (4.4-10.8) 10^3/uL 9.03 RBC (4.36-5.78) 10^6/uL 5.06 Hgb (13.5-17.5) g/dL 16.8 Hct (40.0-50.0) % 48.9 MCV (80-95) fL 97 H MCH (27.0-33.0) pg 33.2 H MCHC (32.0-36.0) % 34.4 RDW (11.8-14.1) % 12.7 Plt Count (130-400) 10^3/uL 162 MPV (8.0-11.0) fL 9.8 Immature Gran % % 0.3 Neutrophils % % 73.3 Lymphocytes % % 12.8 Monocytes % % 11.6 Eosinophils % % 1.4 Basophils % % 0.6 Nucleated RBC % (0.0-0.3) % 0.0 Absolute Neutrophils (1.2-6.7) 10^3/uL 6.61 Absolute Lymphocytes (1.2-3.4) 10^3/uL 1.16 L Absolute Monocytes (0.1-0.8) 10^3/uL 1.05 H Absolute Eosinophils (0.0-0.7) 10^3/uL 0.13 Absolute Basophils (0.0-0.2) 10^3/uL 0.05 PT (9.1-11.1) sec 11.9 H INR (0.9-1.1) 1.2 H Sodium (136-145) mmol/L 141 Potassium (3.5-5.1) mmol/L 3.7 Chloride (98-107) mmol/L 102 Carbon Dioxide (21.0-32.0) mmol/L 27.6 Anion Gap (3-11) mmol/L 11.4 H BUN (7-18) mg/dL 28 H Creatinine (0.70-1.30) mg/dL 1.0 Est GFR (CKD-EPI 2020) (mL/min/1.73m2) 78.98 Glucose (74-106) mg/dL 96 Calcium (8.5-10.1) mg/dL 9.7 Magnesium (1.8-2.4) mg/dL 1.9 Total Bilirubin (0.2-1.0) mg/dL 6.8 H AST (15-37) U/L 24 ALT (16-63) U/L 25 Alkaline Phosphatase (46-116) U/L 60 Ammonia (11-32) umol/L < 10 L Troponin I (<or=76) ng/L 16 15 Total Protein (6.4-8.2) g/dL 7.9 Albumin (3.4-5.0) g/dL 4.2 TSH (0.36-3.74) uIU/mL 2.17 Urine Color (Yellow) Yellow Urine Clarity (Clear) Clear Urine pH (5-8) 6.0 Ur Specific [place] (1.005-1.025) 1.010 Urine Protein (Neg-Trace) mg/dL Negative Urine Ketones (Negative) mg/dL 15 H Urine Blood (Negative) Large H Urine Nitrite (Negative) Negative Urine Bilirubin (Negative) Negative Urine Urobilinogen (Up to 0.2) mg/dL 2.0 H Ur Leukocyte Esterase (Negative) Negative Urine RBC (0-2) HPF 10-20 H Urine WBC (0-5) HPF Negative Ur Epithelial Cells (Negative) HPF Negative Urine Crystals (Negative) HPF Negative Urine Bacteria (Negative) HPF Negative Urine Casts (Negative) LPF Negative Urine Mucus (Negative) Negative Ur Culture Indicated? No Urine Glucose (Negative) mg/dL Negative Urine Opiates Screen (Negative) Negative Urine Methadone Screen (Negative) Negative Acetaminophen (10-30) ug/mL < 2 Ur Barbiturates Screen (Negative) Negative Ur Tricyclics Screen (Negative) Negative Ur Amphetamines Screen (Negative) Negative U Benzodiazepines Scrn (Negative) Negative Urine Cocaine Screen (Negative) Negative Ur THC Screen (Negative) Negative Ethyl Alcohol (<10) mg/dL < 3.0 Medical Decision Making Emergent evaluation of altered mental status. History is very limited from the and EMS. And patient is unable to provide any history. The patient went to health and rehab 5 days ago and at that time was at his reported baseline per the . He returned this afternoon and is not at his baseline. He did have a fall from his recliner chair. And he possibly received a dose of medication that could cause altered mental status and sedation. He is noted to be jaundiced on exam but does not have any signs of trauma or abdominal pain or distention, no hepatomegaly is appreciated. A CT scan of head was obtained due to the altered mental status and reported trauma. This did not reveal any acute etiology. An EKG was reviewed and independently interpreted this demonstrated A-fib with slight RVR. He was rate controlled with a single dose of IV diltiazem the lab work was reviewed, no leukocytosis or anemia is noted, INR is 1.2 he is not currently on any blood thinner. BUN is slightly elevated at 28. his total bilirubin is elevated at 6.98. After review of medical record I have noted that he has had prior elevations in bilirubin without clear etiology this does seem to be his highest value. His LFTs are unremarkable. Hepatitis and Tylenol levels have also been sent. His ammonia is not elevated so I doubt hepatic encephalopathy. The patient had a CT of his abdomen pelvis obtained to evaluate elevated bilirubin as ultrasound is not available at this time. There is mild biliary dilatation, but no signs of obstructive etiology. A lipase was also added to evaluate for possible pancreatitis, urinalysis does not reveal any signs of infection and drug screen is also negative. Thyroid function testing is also normal, so I doubt endocrine emergency causing his symptoms. At the time, patient has not returned to his normal mental status though I do not have a clear etiology. Will admit to the hospital for further management and treatment. Further investigation into the patient's hospice status should also be performed. Quality:SDOH Health Related Social Needs: Health related social needs finding work daily activities lonely/isolated education PFSH All Active Problems (Updated 11/16/24 @ 23:21 by Sydni Morales MD) Altered mental status (Acute) Hyperbilirubinemia (Acute) History of CVA (cerebrovascular accident) (Acute) Encephalopathy (Acute) Stroke (Chronic) Hypertension (Chronic) Acute CVA (cerebrovascular accident) (Acute) Ventricular tachyarrhythmia (Chronic) Anemia (Chronic) Narcolepsy (Acute) Restless leg syndrome (Acute) Obstructive sleep apnea syndrome (Chronic) Carpal tunnel syndrome, right (Acute) Carpal tunnel syndrome of left wrist (Acute) Essential hypertension (Chronic 05/18/13) Depressive disorder (Chronic) Hypercholesterolemia (Chronic) Mitral valve insufficiency (Chronic 06/08/15) Primary insomnia (Chronic 10/20/15) Pulmonary hypertension (Chronic 06/08/15) Aortic aneurysm (Chronic 04/29/01) Dissection of Thoracic Aorta Chronic atrial fibrillation (Chronic 01/01/18) Aortic valve stenosis (Acute) Migraine (Chronic) Headache (Chronic) we discussed imaging with brain MRI--pros and cons He will hold off--see if sertraline wean helps. 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) Bruising (Chronic) Ventricular arrhythmia (Chronic) Tricuspid valve insufficiency (Chronic 06/08/15) Tension headache (Chronic 02/02/15) Obesity (Chronic) Left ventricular enlargement (Chronic 06/08/15) Fatigue (Chronic) Surgical History (Updated 08/29/24 @ 00:02 by MILLY RIVAS) History of cataract removal with insertion of prosthetic lens shoulder arthroscopy repair calcium deposit right shoulder Thoracic aortic aneurysm repair Cholecystectomy Extraction of cataract Family History Mother Cancer Brain CA Father Heart disease Social History Smoking/Tobacco Use Status: Never Smoking risk assessment performed?: Yes Alcohol Intake: never Drug use: Never Substance use type: does not use Housing: house Do you feel safe at home: Yes Do you feel safe in your relationship?: Yes
--- NOTE | 2024-11-16 23:10 | W.PM.HP.N ---
Date of service: 11/16/24 Time of Service: 23:10 Assessment and Plan Assessment and plan (1) Encephalopathy: Status: Resolved Assessment and plan: - Patient presents due to reported acute change in mental status - According to patient's , he was just discharged today from [facility] and rehab for respite, and reportedly was given a benzodiazepine for his car ride home - Patient's found him on the floor, normally patient is verbal but only oriented to name at this time - was also unable to give additional information as to why patient was at [facility] and rehab for respite, whether or not he is on hospice service, and what his CODE STATUS is - Remainder of workup was negative including normal CBC, normal vital signs, negative urine tox screen, negative head CT - At this time, may be secondary to reported benzodiazepine that was given prior to discharge from [facility] and rehab - Continue to monitor patient's mental status (2) Hyperbilirubinemia: Status: Acute Assessment and plan: - Isolated elevation of T. bili 2/6 - AST and ALT within normal limits - CT abdomen pelvis without acute findings - Follow-up a.m. CMP (3) History of CVA (cerebrovascular accident): Assessment and plan: - Continue statin therapy (4) Chronic atrial fibrillation: Assessment and plan: -continue home metoprolol (5) Essential hypertension: Assessment and plan: -continue home metoprolol and lasix (6) Depressive disorder: Assessment and plan: -Continue outpatient medical management. (7) Pulmonary hypertension: Assessment and plan: -Continue furosemide. (8) Hypercholesterolemia: Assessment and plan: -Continue statin therapy. Review of Systems All systems reviewed & are unremarkable except as noted in HPI and below PFSH All Active Problems (Updated 11/18/24 @ 00:03 by MILLY RIVAS) Altered mental status (Acute) Hyperbilirubinemia (Acute) Stroke (Chronic) Hypertension (Chronic) Acute CVA (cerebrovascular accident) (Acute) Ventricular tachyarrhythmia (Chronic) Anemia (Chronic) Narcolepsy (Acute) Restless leg syndrome (Acute) Obstructive sleep apnea syndrome (Chronic) Carpal tunnel syndrome, right (Acute) Carpal tunnel syndrome of left wrist (Acute) Mitral valve insufficiency (Chronic 06/08/15) Primary insomnia (Chronic 10/20/15) Aortic aneurysm (Chronic 04/29/01) Dissection of Thoracic Aorta Aortic valve stenosis (Acute) Migraine (Chronic) Headache (Chronic) we discussed imaging with brain MRI--pros and cons He will hold off--see if sertraline wean helps. 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) Bruising (Chronic) Ventricular arrhythmia (Chronic) Tricuspid valve insufficiency (Chronic 06/08/15) Tension headache (Chronic 02/02/15) Obesity (Chronic) Left ventricular enlargement (Chronic 06/08/15) Fatigue (Chronic) Medical History (Updated 11/18/24 @ 00:03 by MILLY RIVAS) Hospice care patient History of CVA (cerebrovascular accident) Pulmonary hypertension (06/08/15) Hypercholesterolemia Essential hypertension (05/18/13) Depressive disorder Chronic atrial fibrillation (01/01/18) Surgical History (Updated 11/18/24 @ 00:03 by MILLY RIVAS) History of cataract removal with insertion of prosthetic lens shoulder arthroscopy repair calcium deposit right shoulder Thoracic aortic aneurysm repair Cholecystectomy Extraction of cataract Family History Mother Cancer Brain CA Father Heart disease Social History Smoking/Tobacco Use Status: Never Smoking risk assessment performed?: Yes Alcohol Intake: never Drug use: Never Substance use type: does not use Housing: house Do you feel safe at home: Yes Do you feel safe in your relationship?: Yes Meds Allergies and Home Medications Allergies Allergy/AdvReac Type Severity Reaction Status Date / Time No Known Allergies Allergy Verified 11/16/24 21:28 Home Medications ?Medication ?Instructions ?Recorded ?Confirmed ?Type lisinopril 10 mg tablet 20 mg (2 x 10 mg) PO DAILY #90 tabs 03/29/20 11/16/24 Rx metoprolol tartrate 50 mg tablet 50 mg PO BID #180 tabs 07/21/20 11/16/24 Rx sertraline 25 mg tablet 25 mg PO DAILY #90 tabs 08/31/20 11/16/24 Rx ferrous sulfate 325 mg (65 mg 325 mg PO DAILY 09/19/23 11/16/24 History iron) tablet (FeroSul) furosemide 40 mg tablet 40 mg PO QAM 09/19/23 11/16/24 History gabapentin 300 mg capsule 300 mg PO BID 09/19/23 11/16/24 History pravastatin 20 mg tablet 20 mg PO DAILY 09/19/23 11/16/24 History trazodone 50 mg tablet 50 mg PO QPM 09/19/23 11/16/24 History lorazepam 1 mg tablet 1 mg PO Q4H PRN anxiety, dsypnea, 11/11/24 11/16/24 Rx nausea #20 tabs morphine concentrate 100 mg/5 mL See Rx Instructions PO Q1H PRN 11/11/24 11/16/24 Rx (20 mg/mL) oral solution pain or dyspnea #30 mL Exam Narrative Exam Narrative: Fatigued appearing older gentleman laying in bed in no acute distress, oriented to person only, heart regular rhythm, lungs good auscultation bilaterally, abdomen soft, nontender, nondistended Results Labs 11/17/24 06:14 11/17/24 06:14 Labs: Laboratory Results - last 24 hr 11/16/24 11/16/24 11/16/24 20:15 21:27 22:21 WBC 9.03 RBC 5.06 Hgb 16.8 Hct 48.9 MCV 97 H MCH 33.2 H MCHC 34.4 RDW 12.7 Plt Count 162 MPV 9.8 Immature Gran % 0.3 Neutrophils % 73.3 Lymphocytes % 12.8 Monocytes % 11.6 Eosinophils % 1.4 Basophils % 0.6 Nucleated RBC % 0.0 Absolute Neutrophils 6.61 Absolute Lymphocytes 1.16 L Absolute Monocytes 1.05 H Absolute Eosinophils 0.13 Absolute Basophils 0.05 PT 11.9 H INR 1.2 H Sodium 141 Potassium 3.7 Chloride 102 Carbon Dioxide 27.6 Anion Gap 11.4 H BUN 28 H Creatinine 1.0 Est GFR (CKD-EPI 2020) 78.98 Glucose 96 Calcium 9.7 Magnesium 1.9 Total Bilirubin 6.8 H AST 24 ALT 25 Alkaline Phosphatase 60 Ammonia < 10 L Troponin I 16 15 Total Protein 7.9 Albumin 4.2 TSH 2.17 Urine Color Yellow Urine Clarity Clear Urine pH 6.0 Ur Specific [place] 1.010 Urine Protein Negative Urine Ketones 15 H Urine Blood Large H Urine Nitrite Negative Urine Bilirubin Negative Urine Urobilinogen 2.0 H Ur Leukocyte Esterase Negative Urine RBC 10-20 H Urine WBC Negative Ur Epithelial Cells Negative Urine Crystals Negative Urine Bacteria Negative Urine Casts Negative Urine Mucus Negative Ur Culture Indicated? No Urine Glucose Negative Urine Opiates Screen Negative Urine Methadone Screen Negative Acetaminophen < 2 Ur Barbiturates Screen Negative Ur Tricyclics Screen Negative Ur Amphetamines Screen Negative U Benzodiazepines Scrn Negative Urine Cocaine Screen Negative Ur THC Screen Negative Ethyl Alcohol < 3.0 Last Vital Signs Temp 98.8 F 11/16/24 20:15 Pulse 77 11/16/24 21:46 Resp 19 11/16/24 21:50 BP 155/107 H 11/16/24 21:46 Pulse Ox 97 11/16/24 21:46 Time Spent Time spent with Patient: >75 minutes Time was spent: preparing to see the patient(eg.review tests), obtaining and/or reviewing separately otained hiistory, ordering medications,tests, procedures, referring, communicating with other health foster care case manager, indepentently interpreting results, counseling the patient and care coordination
[2024-11-17 00:03] LABS: Lipase 44 U/L (<78)
[2024-11-17 00:11] LABS: Troponin I 16 ng/L (<or=76)
--- NOTE | 2024-11-17 00:46 | W.PC.ACHO ---
Registration Status: REG ER Primary Language: Preferred Language: Yakut ED Information & Data Chief Complaint AMS/LOC 11/16/24 23:21 Triage Note patient presented to the ER 11/16/24 20:09 with history of being found down on the ground by . Patient was discharged today from the [facility] for respite. Upon arrival of EMS pt was found on the floor and only answers to the his name. Pt is know Afib but stopped his Eliquis 2 weeks ago. prior to leaving health and rehab to day patient was given ativan. (Last Reviewed 08/26/24 @ 21:01 by Garfield Sams) History of cataract removal with insertion of prosthetic lens shoulder arthroscopy Thoracic aortic aneurysm repair Cholecystectomy Extraction of cataract Most Recent Vital Signs Temperature 37.1 C 11/16/24 20:15 Temperature Source Oral 11/16/24 20:15 Pulse 77 11/16/24 21:46 Pulse 91 H 11/16/24 21:50 Respiratory Rate 19 11/16/24 21:50 Respiratory Effort Normal 11/16/24 20:21 Respiratory Depth Normal 11/16/24 20:21 Respiratory Pattern Normal 11/16/24 20:21 Blood Pressure 155/107 H 11/16/24 21:46 Blood Pressure Mean 114 11/16/24 21:46 Blood Pressure Position Sitting 11/16/24 20:15 Pulse Oximetry 97 11/16/24 21:46 Oxygen Delivery Method Room Air 11/16/24 20:15 Oxygen Flow Rate 0 11/16/24 20:09 Allergies No Known Allergies Allergy (Verified 11/16/24 21:28) Active Medications Generic Name Dose Route Start Last Admin Trade Name Reshma PRN Reason Stop Dose Admin Iohexol 500 ml 11/16/24 21:15 11/16/24 21:12 Omnipaque 350 Mg/Ml 500 Ml Btl-Imaging Package IJ 12/16/24 23:59 70 ml DIRECTED CHERI Administration Sodium Chloride 50 ml 11/16/24 21:15 11/16/24 21:11 Normal Saline - Diluent 50 Ml Vial IJ 50 ml .FOR DI USE CHERI Administration IV IV Catheter Type [Left Saline Lock Antecubital] IV Catheter Gauge [Left 20 Antecubital] Diagnostics 11/16/24 11/16/24 11/16/24 Range/Units 23:42 22:21 21:27 WBC (4.4-10.8) 10^3/uL RBC (4.36-5.78) 10^6/uL Hgb (13.5-17.5) g/dL Hct (40.0-50.0) % MCV (80-95) fL MCH (27.0-33.0) pg MCHC (32.0-36.0) % RDW (11.8-14.1) % Plt Count (130-400) 10^3/uL MPV (8.0-11.0) fL Immature Gran % % Neutrophils % % Lymphocytes % % Monocytes % % Eosinophils % % Basophils % % Nucleated RBC % (0.0-0.3) % Absolute Neutrophils (1.2-6.7) 10^3/uL Absolute Lymphocytes (1.2-3.4) 10^3/uL Absolute Monocytes (0.1-0.8) 10^3/uL Absolute Eosinophils (0.0-0.7) 10^3/uL Absolute Basophils (0.0-0.2) 10^3/uL PT (9.1-11.1) sec INR (0.9-1.1) Sodium (136-145) mmol/L Potassium (3.5-5.1) mmol/L Chloride (98-107) mmol/L Carbon Dioxide (21.0-32.0) mmol/L Anion Gap (3-11) mmol/L BUN (7-18) mg/dL Creatinine (0.70-1.30) mg/dL Est GFR (CKD-EPI 2020) (mL/min/1.73m2) Glucose (74-106) mg/dL Calcium (8.5-10.1) mg/dL Magnesium (1.8-2.4) mg/dL Total Bilirubin (0.2-1.0) mg/dL AST (15-37) U/L ALT (16-63) U/L Alkaline Phosphatase (46-116) U/L Ammonia (11-32) umol/L Troponin I 16 15 (<or=76) ng/L Total Protein (6.4-8.2) g/dL Albumin (3.4-5.0) g/dL Lipase 44 (<78) U/L TSH (0.36-3.74) uIU/mL Urine Color Yellow (Yellow) Urine Clarity Clear (Clear) Urine pH 6.0 (5-8) Ur Specific [place] 1.010 (1.005-1.025) Urine Protein Negative (Neg-Trace) mg/dL Urine Ketones 15 H (Negative) mg/dL Urine Blood Large H (Negative) Urine Nitrite Negative (Negative) Urine Bilirubin Negative (Negative) Urine Urobilinogen 2.0 H (Up to 0.2) mg/dL Ur Leukocyte Esterase Negative (Negative) Urine RBC 10-20 H (0-2) HPF Urine WBC Negative (0-5) HPF Ur Epithelial Cells Negative (Negative) HPF Urine Crystals Negative (Negative) HPF Urine Bacteria Negative (Negative) HPF Urine Casts Negative (Negative) LPF Urine Mucus Negative (Negative) Ur Culture Indicated? No Urine Glucose Negative (Negative) mg/dL Urine Opiates Screen Negative (Negative) Urine Methadone Screen Negative (Negative) Acetaminophen (10-30) ug/mL Ur Barbiturates Screen Negative (Negative) Ur Tricyclics Screen Negative (Negative) Ur Amphetamines Screen Negative (Negative) U Benzodiazepines Scrn Negative (Negative) Urine Cocaine Screen Negative (Negative) Ur THC Screen Negative (Negative) Ethyl Alcohol (<10) mg/dL Hepatitis A IgM Ab Hep Bs Antigen Hep B Core Total Ab Hepatitis C Antibody 11/16/24 Range/Units 20:15 WBC 9.03 (4.4-10.8) 10^3/uL RBC 5.06 (4.36-5.78) 10^6/uL Hgb 16.8 (13.5-17.5) g/dL Hct 48.9 (40.0-50.0) % MCV 97 H (80-95) fL MCH 33.2 H (27.0-33.0) pg MCHC 34.4 (32.0-36.0) % RDW 12.7 (11.8-14.1) % Plt Count 162 (130-400) 10^3/uL MPV 9.8 (8.0-11.0) fL Immature Gran % 0.3 % Neutrophils % 73.3 % Lymphocytes % 12.8 % Monocytes % 11.6 % Eosinophils % 1.4 % Basophils % 0.6 % Nucleated RBC % 0.0 (0.0-0.3) % Absolute Neutrophils 6.61 (1.2-6.7) 10^3/uL Absolute Lymphocytes 1.16 L (1.2-3.4) 10^3/uL Absolute Monocytes 1.05 H (0.1-0.8) 10^3/uL Absolute Eosinophils 0.13 (0.0-0.7) 10^3/uL Absolute Basophils 0.05 (0.0-0.2) 10^3/uL PT 11.9 H (9.1-11.1) sec INR 1.2 H (0.9-1.1) Sodium 141 (136-145) mmol/L Potassium 3.7 (3.5-5.1) mmol/L Chloride 102 (98-107) mmol/L Carbon Dioxide 27.6 (21.0-32.0) mmol/L Anion Gap 11.4 H (3-11) mmol/L BUN 28 H (7-18) mg/dL Creatinine 1.0 (0.70-1.30) mg/dL Est GFR (CKD-EPI 2020) 78.98 (mL/min/1.73m2) Glucose 96 (74-106) mg/dL Calcium 9.7 (8.5-10.1) mg/dL Magnesium 1.9 (1.8-2.4) mg/dL Total Bilirubin 6.8 H (0.2-1.0) mg/dL AST 24 (15-37) U/L ALT 25 (16-63) U/L Alkaline Phosphatase 60 (46-116) U/L Ammonia < 10 L (11-32) umol/L Troponin I 16 (<or=76) ng/L Total Protein 7.9 (6.4-8.2) g/dL Albumin 4.2 (3.4-5.0) g/dL Lipase (<78) U/L TSH 2.17 (0.36-3.74) uIU/mL Urine Color (Yellow) Urine Clarity (Clear) Urine pH (5-8) Ur Specific [place] (1.005-1.025) Urine Protein (Neg-Trace) mg/dL Urine Ketones (Negative) mg/dL Urine Blood (Negative) Urine Nitrite (Negative) Urine Bilirubin (Negative) Urine Urobilinogen (Up to 0.2) mg/dL Ur Leukocyte Esterase (Negative) Urine RBC (0-2) HPF Urine WBC (0-5) HPF Ur Epithelial Cells (Negative) HPF Urine Crystals (Negative) HPF Urine Bacteria (Negative) HPF Urine Casts (Negative) LPF Urine Mucus (Negative) Ur Culture Indicated? Urine Glucose (Negative) mg/dL Urine Opiates Screen (Negative) Urine Methadone Screen (Negative) Acetaminophen < 2 (10-30) ug/mL Ur Barbiturates Screen (Negative) Ur Tricyclics Screen (Negative) Ur Amphetamines Screen (Negative) U Benzodiazepines Scrn (Negative) Urine Cocaine Screen (Negative) Ur THC Screen (Negative) Ethyl Alcohol < 3.0 (<10) mg/dL Hepatitis A IgM Ab Pending Hep Bs Antigen Pending Hep B Core Total Ab Pending Hepatitis C Antibody Pending Intake and Output - 24 Hour Total 11/16/24 19:52 thru 11/16/24 22:21 Output Total 200 Balance -200 Weight 83 kg Output: Urine 200 Other: Urine Color Yellow Urinary Catheter Urinary Catheter Date of 11/16/24 Insertion [Urethral (Dey)] Time of insertion [Urethral ( 22:21 Dey)] Falls Risk Assessment History of Falls No History 11/16/24 20:21 Contributing Factors No Factors 11/16/24 20:21 Ambulatory Aids Independent 11/16/24 20:21 Tubes/Lines None 11/16/24 20:21 Gait Evaluation No gait disturbance 11/16/24 20:21 Cognition No cognitive impairment 11/16/24 20:21 Fall Total Score 0 11/16/24 20:21 Level of Risk Standard/Low Risk 11/16/24 20:21 Problems (Last Reviewed 08/26/24 @ 21:01 by Garfield Sams) Altered mental status (Acute) Hyperbilirubinemia (Acute) History of CVA (cerebrovascular accident) (Acute) Encephalopathy (Acute) Essential hypertension (Chronic 05/18/13) Depressive disorder (Chronic) Hypercholesterolemia (Chronic) Pulmonary hypertension (Chronic 06/08/15) Chronic atrial fibrillation (Chronic 01/01/18) v v v v v v v v v Sending and/or Receiving Nurses: Please use comment section below to note any information pertinent to the patient hand-off not included above. Information / Comments: Pt fell at home, unwitnessed, found by . He d/c'd from [facility] on 11/16 after a 5 day respite stay. Was given ativan/xanax? ( poor historian) before discharge for the ride home. Pt A&Ox2, minimally responsive to questions. Jaundice, bilirubin 6.98. Recently stopped eliquis x2 weeks ago, arrived to ED with afib RVR, given IVP diltiazem and is now rate controlled ATT. Report received from: Alee Chi RN
[2024-11-17 01:04] VITALS: BP 153/112; PULSE 87; RESP 18; TEMP 36.5; O2SAT 99
[2024-11-17 01:15] VITALS: BP 153/112; PULSE 87; RESP 18; TEMP 36.5; O2SAT 99
[2024-11-17 06:54] LABS: HCT 46.2 % (40.0-50.0); HGB 16.1 g/dL (13.5-17.5); MCH 33.7 pg (27.0-33.0); MCHC 34.8 % (32.0-36.0); MCV 97 fL (80-95); MPV 10.0 fL (8.0-11.0); Platelet Count 158 10^3/uL (130-400); RBC 4.78 10^6/uL (4.36-5.78); RDW 12.6 % (11.8-14.1); RDW-SD 44.9 fL; WBC 8.48 10^3/uL (4.4-10.8)
[2024-11-17 07:15] LABS: ALT 25 U/L (16-63); AST 21 U/L (15-37); Albumin 3.7 g/dL (3.4-5.0); Alkaline Phosphatase 53 U/L (46-116); Anion Gap 9.2 mmol/L (3-11); BUN 23 mg/dL (7-18); Bilirubin, Total 6.4 mg/dL (0.2-1.0); CO2 27.8 mmol/L (21.0-32.0); Calcium 9.0 mg/dL (8.5-10.1); Chloride 103 mmol/L (98-107); Estimated GFR 92.87 (mL/min/1.73m2); Glucose 82 mg/dL (74-106); Sodium 140 mmol/L (136-145); Total Protein 6.9 g/dL (6.4-8.2)
[2024-11-17 07:35] LABS: Potassium 2.9 mmol/L (3.5-5.1)
[2024-11-17 08:00] VITALS: BP 155/107; PULSE 117; RESP 20; TEMP 36.6; O2SAT 95
[2024-11-17] MEDS: Gabapentin 300 MG CAP PO (08:09)
[2024-11-17] MEDS: Metoprolol 50 MG TAB PO (08:26)
[2024-11-17] MEDS: Normal Saline Flush 10 ML SYR IVP (09:34)
--- NOTE | 2024-11-17 10:29 | PGE_ITS ---
Date of Service Date of service: 11/17/24 Time of Service: 09:40 Assessment and Plan Assessment and plan (1) Encephalopathy: Status: Acute Assessment and plan: - Patient presents due to reported acute change in mental status - According to patient's , he was just discharged today from [facility], and reportedly was given a benzodiazepine for his car ride home - Patient's found him on the floor, normally patient is verbal but only oriented to name at this time He was found to have elevated bilirubin. This has been elevated in the past but it appears to be the highest on record at present. CT ABD showed: Findings consistent with diverticular abscess between the sigmoid colon and urinary bladder. Malignancy is not entirely excluded. Follow-up recommended. There is adjacent wall thickening of the urinary bladder. Stable appearance of chronic aortic dissection. Stable 1 centimeters cyst in the head of the pancreas. - Remainder of workup was negative including normal CBC, normal vital signs, negative urine tox screen, negative head CT Discussed GOC with his , Naa. Naa states she wants him back home. She states she panicked and called 911 because he was nonresponsive. She understands she needs to call hospice first in the future. He appears to be at baseline. Naa does not wish to pursue further work-up r/t the elevated bilirubin. He will return home today. (2) Hyperbilirubinemia: Status: Acute Assessment and plan: As above. Bilirubin 6.8 on admission, 6.4 today. - AST and ALT within normal limits - CT abdomen pelvis without acute findings No further work-up per . (3) History of CVA (cerebrovascular accident): Status: Acute (4) Chronic atrial fibrillation: Status: Chronic (5) Essential hypertension: Status: Chronic (6) Depressive disorder: Status: Chronic (7) Pulmonary hypertension: Status: Chronic (8) Hypercholesterolemia: Status: Chronic (9) Advanced care planning/counseling discussion: Status: Acute Assessment and plan: See above. CODE STATUS reviewed. Naa agrees with DNR/DNI and will sign COLST today. Reviewed over phone. Resume hospice services at home. (10) Hospice care patient: Status: Acute Assessment and plan: He is on hospice for neurodegenerative process. He will return home and resume hospice services in the community. PPS: 40% Subjective Subjective Interval history since last seen: He was seen in his hospital room. He was at the rehab for 5 days for hospice respite and returned home yesterday. He went on to have a fall at home. His called EMS and he was transported to the hospital. In the ED, he was noted to have elevated to 6.8. His CT ABD showed: Findings consistent with diverticular abscess between the sigmoid colon and urinary bladder. Malignancy is not entirely excluded. Follow-up recommended. There is adjacent wall thickening of the urinary bladder. Stable appearance of chronic aortic dissection. Stable 1 centimeters cyst in the head of the pancreas. His ED note indicates that he is on hospice but his is not sure why. 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 He was alone in his room at the time of the visit. He thought he was at [facility]. He is unable to state the season or month. He cannot state how he got to the hospital or why he is here. He denies pain, SOB. He states, I feel pretty good. Reviewed CODE STATUS, he states he does not want things drawn out. He states he does not want to be on a breathing machine. He states he is thinking about organ donation. He said, you know, where they part you out and give it to someone else. Phone call to his , Naa. [facility]- To keep him home. She reports she panicked and called 911. She did not think to call Hospice. She does not want to revoke hospice. She will review with caregivers that they need to call Hospice first. He has never been a big alcohol consumer. Reviewed CODE STATUS with Naa on the phone. She agrees that he does not want aggressive care. She is willing to complete a COLST stating DNR/DNI. Will complete with her. Exam Narrative Exam Narrative: General: very pleasant, elderly man, sitting up in the chair in his hospital room. He is alert, oriented to self only. He is talkative, does not always give accurate responses. In NAD. HEENT: atraumatic, EOMI, slight scleral icterus, mmm. Neck: supple Cardiovascular: irregularly irregular, nontachycardic, HR: 88 respiratory: respirations appear even and unlabored at rest. Lungs sound clear bilaterally GI: +BS, abd soft, nondistended, nontender on palpation. : samuels draining medium yellow urine. Ext: moves all 4 extremities freely, no edema. Objective Last Vital Signs Temp 36.6 C 11/17/24 08:00 Pulse 117 H 11/17/24 08:00 Resp 20 11/17/24 08:00 BP 155/107 H 11/17/24 08:00 Pulse Ox 95 11/17/24 08:00 Laboratory Results - last 24 hr 11/16/24 11/16/24 11/16/24 20:15 21:27 22:21 WBC 9.03 RBC 5.06 Hgb 16.8 Hct 48.9 MCV 97 H MCH 33.2 H MCHC 34.4 RDW 12.7 Plt Count 162 MPV 9.8 Immature Gran % 0.3 Neutrophils % 73.3 Lymphocytes % 12.8 Monocytes % 11.6 Eosinophils % 1.4 Basophils % 0.6 Nucleated RBC % 0.0 Absolute Neutrophils 6.61 Absolute Lymphocytes 1.16 L Absolute Monocytes 1.05 H Absolute Eosinophils 0.13 Absolute Basophils 0.05 PT 11.9 H INR 1.2 H Sodium 141 Potassium 3.7 Chloride 102 Carbon Dioxide 27.6 Anion Gap 11.4 H BUN 28 H Creatinine 1.0 Est GFR (CKD-EPI 2020) 78.98 Glucose 96 Calcium 9.7 Magnesium 1.9 Total Bilirubin 6.8 H AST 24 ALT 25 Alkaline Phosphatase 60 Ammonia < 10 L Troponin I 16 15 Total Protein 7.9 Albumin 4.2 Lipase TSH 2.17 Urine Color Yellow Urine Clarity Clear Urine pH 6.0 Ur Specific [place] 1.010 Urine Protein Negative Urine Ketones 15 H Urine Blood Large H Urine Nitrite Negative Urine Bilirubin Negative Urine Urobilinogen 2.0 H Ur Leukocyte Esterase Negative Urine RBC 10-20 H Urine WBC Negative Ur Epithelial Cells Negative Urine Crystals Negative Urine Bacteria Negative Urine Casts Negative Urine Mucus Negative Ur Culture Indicated? No Urine Glucose Negative Urine Opiates Screen Negative Urine Methadone Screen Negative Acetaminophen < 2 Ur Barbiturates Screen Negative Ur Tricyclics Screen Negative Ur Amphetamines Screen Negative U Benzodiazepines Scrn Negative Urine Cocaine Screen Negative Ur THC Screen Negative Ethyl Alcohol < 3.0 11/16/24 11/17/24 23:42 06:14 WBC 8.48 RBC 4.78 Hgb 16.1 Hct 46.2 MCV 97 H MCH 33.7 H MCHC 34.8 RDW 12.6 Plt Count 158 MPV 10.0 Immature Gran % Neutrophils % Lymphocytes % Monocytes % Eosinophils % Basophils % Nucleated RBC % Absolute Neutrophils Absolute Lymphocytes Absolute Monocytes Absolute Eosinophils Absolute Basophils PT INR Sodium 140 Potassium 2.9 L* Chloride 103 Carbon Dioxide 27.8 Anion Gap 9.2 BUN 23 H Creatinine 0.8 Est GFR (CKD-EPI 2020) 92.87 Glucose 82 Calcium 9.0 Magnesium Total Bilirubin 6.4 H AST 21 ALT 25 Alkaline Phosphatase 53 Ammonia Troponin I 16 Total Protein 6.9 Albumin 3.7 Lipase 44 TSH Urine Color Urine Clarity Urine pH Ur Specific [place] Urine Protein Urine Ketones Urine Blood Urine Nitrite Urine Bilirubin Urine Urobilinogen Ur Leukocyte Esterase Urine RBC Urine WBC Ur Epithelial Cells Urine Crystals Urine Bacteria Urine Casts Urine Mucus Ur Culture Indicated? Urine Glucose Urine Opiates Screen Urine Methadone Screen Acetaminophen Ur Barbiturates Screen Ur Tricyclics Screen Ur Amphetamines Screen U Benzodiazepines Scrn Urine Cocaine Screen Ur THC Screen Ethyl Alcohol Time Spent with Patient Time Spent with Patient: >50 minutes (130 min) Time was spent: preparing to see the patient(eg.review tests), obtaining and/or reviewing separately otained hiistory, referring, communicating with other health care connector, counseling the patient and care coordination
[2024-11-17 11:14] VITALS: BP 123/91; PULSE 93; RESP 20; TEMP 36.5; O2SAT 96
[2024-11-17] MEDS: Potassium Chloride Liquid 20 MEQ PKT 40 MEQ PO (12:02)
[2024-11-17] MEDS: Potassium Chloride 20 MEQ TABCR 40 MEQ PO (14:55)
--- NOTE | 2024-11-17 15:07 | W.PM.DS.N ---
Date of service: 11/17/24 Time of Service: 15:07 DS: Diagnosis Discharge Diagnosis (1) Encephalopathy: Status: Acute (2) Hyperbilirubinemia: Status: Acute (3) History of CVA (cerebrovascular accident): Status: Acute (4) Chronic atrial fibrillation: Status: Chronic (5) Essential hypertension: Status: Chronic (6) Depressive disorder: Status: Chronic (7) Pulmonary hypertension: Status: Chronic (8) Hypercholesterolemia: Status: Chronic (9) Advanced care planning/counseling discussion: Status: Acute (10) Hospice care patient: Status: Acute Discharge Plan Disposition Patient Disposition: Home Condition: Fair Discharge Details Reason For Visit: Encephalopathy Admit Date/Time: 11/16/24 23:09 Admit Provider: Aly Hart Attending Provider: Aly Hart Primary Care Provider: Anton Gill Home Meds and New Rx's Prescriptions: Continued lisinopril 10 mg tablet 20 mg PO DAILY Qty: 90 3RF metoprolol tartrate 50 mg tablet 50 mg PO BID Qty: 180 4RF sertraline 25 mg tablet 25 mg PO DAILY Qty: 90 4RF morphine concentrate 100 mg/5 mL (20 mg/mL) solution See Rx Instructions PO Q1H PRN MDD 24 ml Qty: 30 0RF Rx Instructions: 0.25 ml orally every 1 hour, as needed; HOSPICE lorazepam 1 mg tablet 1 mg PO Q4H PRN (Reason: anxiety, dsypnea, nausea) Qty: 20 5RF Rx Instructions: hospice gabapentin 300 mg capsule 300 mg PO BID trazodone 50 mg tablet 50 mg PO QPM pravastatin 20 mg tablet 20 mg PO DAILY furosemide 40 mg tablet 40 mg PO QAM Patient Comments: TAKE ONE-HALF TABLET BY MOUTH EVERY DAY ferrous sulfate [FeroSul] 325 mg (65 mg iron) tablet 325 mg PO DAILY Discontinued Eliquis 5 mg tablet 5 mg PO BID Discharge Instructions Instructions: Jaundice, Adult (DC) Additional Instructions: Follow up with your PCP. Referrals: Anton Gill [Primary Care Provider, Medicine] Referral Note: 1-2 weeks s/p inpatient hospitalization for AMS but was at baseline Activity:: Activity as Tolerated Equipment/Supplies:: No Equipment Needed Diet:: As Tolerated DS: Summary Quality:SDOH Health Related Social Needs: Health related social needs finding work daily activities lonely/isolated education DS: Data Vitals/I&O Vitals and I&O: Vital Signs Temperature 36.5 C 11/17/24 11:14 Temperature Source Tympanic 11/17/24 11:14 Pulse 93 H 11/17/24 11:14 Pulse Rhythm Irregular 11/17/24 01:04 Pulse 91 H 11/16/24 21:50 Respiratory Rate 20 11/17/24 11:14 Respiratory Effort Normal 11/17/24 01:04 Respiratory Depth Normal 11/17/24 01:04 Respiratory Pattern Normal 11/17/24 01:04 Blood Pressure 123/91 H 11/17/24 11:14 Blood Pressure Mean 101 11/17/24 11:14 Blood Pressure Position Sitting 11/16/24 20:15 Pulse Oximetry 96 11/17/24 11:14 Oxygen Delivery Method Room Air 11/17/24 11:14 Oxygen Flow Rate 0 11/17/24 11:14 Intake & Output 11/16/24 11/17/24 11/17/24 23:59 11:59 23:59 Output Total 200 / 200 450 / 450 Balance -200 / -200 -450 / -450 Weight 83 kg 75.206 kg Output: Urine 200 / 200 450 / 450 Other: Urine Color Yellow Light Aneta Urine Appearance Clear Stool Size Small Stool Characteristics Soft Data Completed and Pending Labs on day of discharge: Labs from last 24 hours 11/17/24 11/16/24 11/16/24 06:14 23:42 22:21 WBC 8.48 RBC 4.78 Hgb 16.1 Hct 46.2 MCV 97 H MCH 33.7 H MCHC 34.8 RDW 12.6 Plt Count 158 MPV 10.0 Immature Gran % Neutrophils % Lymphocytes % Monocytes % Eosinophils % Basophils % Nucleated RBC % Absolute Neutrophils Absolute Lymphocytes Absolute Monocytes Absolute Eosinophils Absolute Basophils PT INR Sodium 140 Potassium 2.9 L* Chloride 103 Carbon Dioxide 27.8 Anion Gap 9.2 BUN 23 H Creatinine 0.8 Est GFR (CKD-EPI 2020) 92.87 Glucose 82 Calcium 9.0 Magnesium Total Bilirubin 6.4 H AST 21 ALT 25 Alkaline Phosphatase 53 Ammonia Troponin I 16 Total Protein 6.9 Albumin 3.7 Lipase 44 TSH Urine Color Yellow Urine Clarity Clear Urine pH 6.0 Ur Specific [place] 1.010 Urine Protein Negative Urine Ketones 15 H Urine Blood Large H Urine Nitrite Negative Urine Bilirubin Negative Urine Urobilinogen 2.0 H Ur Leukocyte Esterase Negative Urine RBC 10-20 H Urine WBC Negative Ur Epithelial Cells Negative Urine Crystals Negative Urine Bacteria Negative Urine Casts Negative Urine Mucus Negative Ur Culture Indicated? No Urine Glucose Negative Urine Opiates Screen Negative Urine Methadone Screen Negative Acetaminophen Ur Barbiturates Screen Negative Ur Tricyclics Screen Negative Ur Amphetamines Screen Negative U Benzodiazepines Scrn Negative Urine Cocaine Screen Negative Ur THC Screen Negative Ethyl Alcohol Hepatitis A IgM Ab Hep Bs Antigen Hep B Core Total Ab Hepatitis C Antibody 11/16/24 11/16/24 21:27 20:15 WBC 9.03 RBC 5.06 Hgb 16.8 Hct 48.9 MCV 97 H MCH 33.2 H MCHC 34.4 RDW 12.7 Plt Count 162 MPV 9.8 Immature Gran % 0.3 Neutrophils % 73.3 Lymphocytes % 12.8 Monocytes % 11.6 Eosinophils % 1.4 Basophils % 0.6 Nucleated RBC % 0.0 Absolute Neutrophils 6.61 Absolute Lymphocytes 1.16 L Absolute Monocytes 1.05 H Absolute Eosinophils 0.13 Absolute Basophils 0.05 PT 11.9 H INR 1.2 H Sodium 141 Potassium 3.7 Chloride 102 Carbon Dioxide 27.6 Anion Gap 11.4 H BUN 28 H Creatinine 1.0 Est GFR (CKD-EPI 2020) 78.98 Glucose 96 Calcium 9.7 Magnesium 1.9 Total Bilirubin 6.8 H AST 24 ALT 25 Alkaline Phosphatase 60 Ammonia < 10 L Troponin I 15 16 Total Protein 7.9 Albumin 4.2 Lipase TSH 2.17 Urine Color Urine Clarity Urine pH Ur Specific [place] Urine Protein Urine Ketones Urine Blood Urine Nitrite Urine Bilirubin Urine Urobilinogen Ur Leukocyte Esterase Urine RBC Urine WBC Ur Epithelial Cells Urine Crystals Urine Bacteria Urine Casts Urine Mucus Ur Culture Indicated? Urine Glucose Urine Opiates Screen Urine Methadone Screen Acetaminophen < 2 Ur Barbiturates Screen Ur Tricyclics Screen Ur Amphetamines Screen U Benzodiazepines Scrn Urine Cocaine Screen Ur THC Screen Ethyl Alcohol < 3.0 Hepatitis A IgM Ab Pending Hep Bs Antigen Pending Hep B Core Total Ab Pending Hepatitis C Antibody Pending [facility] All Active Problems (Updated 11/17/24 @ 12:20 by Sarah Bacon NP) Hospice care patient (Acute) Advanced care planning/counseling discussion (Acute) Altered mental status (Acute) Hyperbilirubinemia (Acute) History of CVA (cerebrovascular accident) (Acute) Encephalopathy (Acute) Stroke (Chronic) Hypertension (Chronic) Acute CVA (cerebrovascular accident) (Acute) Ventricular tachyarrhythmia (Chronic) Anemia (Chronic) Narcolepsy (Acute) Restless leg syndrome (Acute) Obstructive sleep apnea syndrome (Chronic) Carpal tunnel syndrome, right (Acute) Carpal tunnel syndrome of left wrist (Acute) Essential hypertension (Chronic 05/18/13) Depressive disorder (Chronic) Hypercholesterolemia (Chronic) Mitral valve insufficiency (Chronic 06/08/15) Primary insomnia (Chronic 10/20/15) Pulmonary hypertension (Chronic 06/08/15) Aortic aneurysm (Chronic 04/29/01) Dissection of Thoracic Aorta Chronic atrial fibrillation (Chronic 01/01/18) Aortic valve stenosis (Acute) Migraine (Chronic) Headache (Chronic) we discussed imaging with brain MRI--pros and cons He will hold off--see if sertraline wean helps. 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) Bruising (Chronic) Ventricular arrhythmia (Chronic) Tricuspid valve insufficiency (Chronic 06/08/15) Tension headache (Chronic 02/02/15) Obesity (Chronic) Left ventricular enlargement (Chronic 06/08/15) Fatigue (Chronic) Surgical History (Updated 08/29/24 @ 00:02 by MILLY RIVAS) History of cataract removal with insertion of prosthetic lens shoulder arthroscopy repair calcium deposit right shoulder Thoracic aortic aneurysm repair Cholecystectomy Extraction of cataract Family History Mother Cancer Brain CA Father Heart disease Social History Smoking/Tobacco Use Status: Never Smoking risk assessment performed?: Yes Alcohol Intake: never Drug use: Never Substance use type: does not use Housing: house Do you feel safe at home: Yes Do you feel safe in your relationship?: Yes
--- NOTE | 2024-11-17 15:18 | DSE_ITS ---
Date of service: 11/17/24 Time of Service: 15:18 DS: Diagnosis Discharge Diagnosis (1) Encephalopathy: Status: Acute (2) Hyperbilirubinemia: Status: Acute (3) History of CVA (cerebrovascular accident): Status: Acute (4) Chronic atrial fibrillation: Status: Chronic (5) Essential hypertension: Status: Chronic (6) Depressive disorder: Status: Chronic (7) Pulmonary hypertension: Status: Chronic (8) Hypercholesterolemia: Status: Chronic (9) Advanced care planning/counseling discussion: Status: Acute (10) Hospice care patient: Status: Acute Discharge Plan Disposition Patient Disposition: Home Condition: Fair Discharge Details Reason For Visit: Encephalopathy Admit Date/Time: 11/16/24 23:09 Admit Provider: Aly Hart Attending Provider: Aly Hart Primary Care Provider: Anton Gill Hospital Course Hospital Course: Patient admitted for acute change in mental status. Patient had recently returned home after 5-day hospice respite stay at [facility]. reports he was given a benzodiazepine for transport home. He was found on the floor later that day, prompting a 911 call. In ED: * Found to have total bilirubin 6.8, highest on record. 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 * reports patient is on hospice but unsure of diagnosis; patient was previously coded as Full Code. * Patient confused, thinks he is still at rehab, unable to state time, place, or reason for admission. Patient denies pain or SOB and states, ?I feel pretty good.? He expressed that he does not want prolonged or aggressive treatment and is considering organ donation. (Naa) agrees to pursue DNR/DNI status and completed a COLST form. [facility]. Patient is being discharged back to home. and caregiver were given instructions to call Hospice first untless patient has suffered a huge trauma. Home Meds and New Rx's Prescriptions: Continued lisinopril 10 mg tablet 20 mg PO DAILY Qty: 90 3RF metoprolol tartrate 50 mg tablet 50 mg PO BID Qty: 180 4RF sertraline 25 mg tablet 25 mg PO DAILY Qty: 90 4RF morphine concentrate 100 mg/5 mL (20 mg/mL) solution See Rx Instructions PO Q1H PRN MDD 24 ml Qty: 30 0RF Rx Instructions: 0.25 ml orally every 1 hour, as needed; HOSPICE lorazepam 1 mg tablet 1 mg PO Q4H PRN (Reason: anxiety, dsypnea, nausea) Qty: 20 5RF Rx Instructions: hospice gabapentin 300 mg capsule 300 mg PO BID trazodone 50 mg tablet 50 mg PO QPM pravastatin 20 mg tablet 20 mg PO DAILY furosemide 40 mg tablet 40 mg PO QAM Patient Comments: TAKE ONE-HALF TABLET BY MOUTH EVERY DAY ferrous sulfate [FeroSul] 325 mg (65 mg iron) tablet 325 mg PO DAILY Discontinued Eliquis 5 mg tablet 5 mg PO BID Discharge Instructions Instructions: Jaundice, Adult (DC) Additional Instructions: Jaundice will probably get worse. You are being discharged home under the care of [facility]. Home Hospice Services Hospice is a type of care that focuses on comfort, dignity, and quality of life for individuals living with a serious or life-limiting illness. Hospice does not attempt to cure the underlying condition, but instead helps manage symptoms and supports both the patient and their loved ones. Services provided may include: * Regular visits from hospice nurses, aides, and senior administrator support * 09/12 phone support for urgent concerns * Help managing pain, shortness of breath, nausea, anxiety, and other symptoms * Delivery of medications, equipment (hospital bed, oxygen, etc.), and supplies * Emotional, spiritual, and grief support for patients and families What to Do at Home * Call Hospice First: For any concerns related to your condition or symptoms (e.g., pain, confusion, shortness of breath, or falls), please call:[facility]: Available 24 hours a day, 7 days a week. * Call 911 only for emergencies that are unrelated to your hospice condition, such as moderate trauma (e.g., a car accident or injury not related to your illness). * Do not go to the emergency room or hospital without first speaking to hospice unless instructed otherwise. * Keep all hospice medications and supplies accessible. Follow the care plan provided by your hospice nurse. Follow-Up * A hospice nurse will contact you and likely visit within 24?48 hours of discharge. * Hospice will coordinate all ongoing care, including any equipment needs, medications, and support services. Care Plan Goals: Comfort Stand Alone Forms: Nursing Discharge Form Referrals: Anton Gill [Primary Care Provider, Medicine] - 11/30/24 1:20 pm Referral Note: 1-2 weeks s/p inpatient hospitalization for AMS but was at baseline Activity:: Activity as Tolerated Equipment/Supplies:: No Equipment Needed Diet:: As Tolerated Discharge Orders Discharge Orders: Discharge Order (Routine); Ordered 11/17/24 Ordered By: Ketty Varghese DS: Summary Time Spent with Patient providing and/or coordinating discharge services: Greater than 30 minutes Status at Discharge Functional status at discharge: uses cane/walker Overall status at discharge: patient is back to baseline Mental Status: other (baseline confused) Speech and Movement: delayed speech Mood: labile mood and other (baseline confused) Affect: indifferent Quality:SDOH Health Related Social Needs: Health related social needs finding work daily activit ies lonely/isolated education Exam Narrative Exam Narrative: General: * Alert and oriented to self only, talkative but occasionally inaccurate in responses. * Appears pleasant and in no acute distress. HEENT: * Eyes: Considerable scleral icterus observed (related to elevated bilirubin). * Mouth: Moist mucous membranes. Cardiovascular: * Heart rate: 88 bpm, irregularly irregular (consistent with chronic atrial fibrillation). * No signs of distress, non-tachycardic. Respiratory: * Lungs: Clear bilaterally on auscultation, even and unlabored breathing. * No signs of respiratory distress. Gastrointestinal: * Bowel sounds present, abdomen soft, non-distended, and non-tender on palpation. Genitourinary: * Dey catheter removed; patient voided pror to DC. Extremities: * All four extremities move freely with no edema. Psych Mental Status: other (baseline confused) Speech and Movement: delayed speech Mood: labile mood and other (baseline confused) Affect: indifferent DS: Data Vitals/I&O Vitals and I&O: Vital Signs Temperature 36.5 C 11/17/24 11:14 Temperature Source Tympanic 11/17/24 11:14 Pulse 93 H 11/17/24 11:14 Pulse Rhythm Irregular 11/17/24 01:04 Pulse 91 H 11/16/24 21:50 Respiratory Rate 20 11/17/24 11:14 Respiratory Effort Normal 11/17/24 01:04 Respiratory Depth Normal 11/17/24 01:04 Respiratory Pattern Normal 11/17/24 01:04 Blood Pressure 123/91 H 11/17/24 11:14 Blood Pressure Mean 101 11/17/24 11:14 Blood Pressure Position Sitting 11/16/24 20:15 Pulse Oximetry 96 11/17/24 11:14 Oxygen Delivery Method Room Air 11/17/24 11:14 Oxygen Flow Rate 0 11/17/24 11:14 Intake & Output 11/16/24 11/17/24 11/17/24 23:59 11:59 23:59 Output Total 200 / 200 450 / 450 Balance -200 / -200 -450 / -450 Weight 83 kg 75.206 kg Output: Urine 200 / 200 450 / 450 Other: Urine Color Yellow Light Aneta Urine Appearance Clear Stool Size Small Stool Characteristics Soft Data Completed and Pending Labs on day of discharge: Labs from last 24 hours 11/17/24 11/16/24 11/16/24 06:14 23:42 22:21 WBC 8.48 RBC 4.78 Hgb 16.1 Hct 46.2 MCV 97 H MCH 33.7 H MCHC 34.8 RDW 12.6 Plt Count 158 MPV 10.0 Immature Gran % Neutrophils % Lymphocytes % Monocytes % Eosinophils % Basophils % Nucleated RBC % Absolute Neutrophils Absolute Lymphocytes Absolute Monocytes Absolute Eosinophils Absolute Basophils PT INR Sodium 140 Potassium 2.9 L* Chloride 103 Carbon Dioxide 27.8 Anion Gap 9.2 BUN 23 H Creatinine 0.8 Est GFR (CKD-EPI 2020) 92.87 Glucose 82 Calcium 9.0 Magnesium Total Bilirubin 6.4 H AST 21 ALT 25 Alkaline Phosphatase 53 Ammonia Troponin I 16 Total Protein 6.9 Albumin 3.7 Lipase 44 TSH Urine Color Yellow Urine Clarity Clear Urine pH 6.0 Ur Specific [place] 1.010 Urine Protein Negative Urine Ketones 15 H Urine Blood Large H Urine Nitrite Negative Urine Bilirubin Negative Urine Urobilinogen 2.0 H Ur Leukocyte Esterase Negative Urine RBC 10-20 H Urine WBC Negative Ur Epithelial Cells Negative Urine Crystals Negative Urine Bacteria Negative Urine Casts Negative Urine Mucus Negative Ur Culture Indicated? No Urine Glucose Negative Urine Opiates Screen Negative Urine Methadone Screen Negative Acetaminophen Ur Barbiturates Screen Negative Ur Tricyclics Screen Negative Ur Amphetamines Screen Negative U Benzodiazepines Scrn Negative Urine Cocaine Screen Negative Ur THC Screen Negative Ethyl Alcohol Hepatitis A IgM Ab Hep Bs Antigen Hep B Core Total Ab Hepatitis C Antibody 11/16/24 11/16/24 21:27 20:15 WBC 9.03 RBC 5.06 Hgb 16.8 Hct 48.9 MCV 97 H MCH 33.2 H MCHC 34.4 RDW 12.7 Plt Count 162 MPV 9.8 Immature Gran % 0.3 Neutrophils % 73.3 Lymphocytes % 12.8 Monocytes % 11.6 Eosinophils % 1.4 Basophils % 0.6 Nucleated RBC % 0.0 Absolute Neutrophils 6.61 Absolute Lymphocytes 1.16 L Absolute Monocytes 1.05 H Absolute Eosinophils 0.13 Absolute Basophils 0.05 PT 11.9 H INR 1.2 H Sodium 141 Potassium 3.7 Chloride 102 Carbon Dioxide 27.6 Anion Gap 11.4 H BUN 28 H Creatinine 1.0 Est GFR (CKD-EPI 2020) 78.98 Glucose 96 Calcium 9.7 Magnesium 1.9 Total Bilirubin 6.8 H AST 24 ALT 25 Alkaline Phosphatase 60 Ammonia < 10 L Troponin I 15 16 Total Protein 7.9 Albumin 4.2 Lipase TSH 2.17 Urine Color Urine Clarity Urine pH Ur Specific [place] Urine Protein Urine Ketones Urine Blood Urine Nitrite Urine Bilirubin Urine Urobilinogen Ur Leukocyte Esterase Urine RBC Urine WBC Ur Epithelial Cells Urine Crystals Urine Bacteria Urine Casts Urine Mucus Ur Culture Indicated? Urine Glucose Urine Opiates Screen Urine Methadone Screen Acetaminophen < 2 Ur Barbiturates Screen Ur Tricyclics Screen Ur Amphetamines Screen U Benzodiazepines Scrn Urine Cocaine Screen Ur THC Screen Ethyl Alcohol < 3.0 Hepatitis A IgM Ab Pending Hep Bs Antigen Pending Hep B Core Total Ab Pending Hepatitis C Antibody Pending PFSH All Active Problems (Updated 11/17/24 @ 12:20 by Sarah Bacon NP) Hospice care patient (Acute) Advanced care planning/counseling discussion (Acute) Altered mental status (Acute) Hyperbilirubinemia (Acute) History of CVA (cerebrovascular accident) (Acute) Encephalopathy (Acute) Stroke (Chronic) Hypertension (Chronic) Acute CVA (cerebrovascular accident) (Acute) Ventricular tachyarrhythmia (Chronic) Anemia (Chronic) Narcolepsy (Acute) Restless leg syndrome (Acute) Obstructive sleep apnea syndrome (Chronic) Carpal tunnel syndrome, right (Acute) Carpal tunnel syndrome of left wrist (Acute) Essential hypertension (Chronic 05/18/13) Depressive disorder (Chronic) Hypercholesterolemia (Chronic) Mitral valve insufficiency (Chronic 06/08/15) Primary insomnia (Chronic 10/20/15) Pulmonary hypertension (Chronic 06/08/15) Aortic aneurysm (Chronic 04/29/01) Dissection of Thoracic Aorta Chronic atrial fibrillation (Chronic 01/01/18) Aortic valve stenosis (Acute) Migraine (Chronic) Headache (Chronic) we discussed imaging with brain MRI--pros and cons He will hold off--see if sertraline wean helps. 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) Bruising (Chronic) Ventricular arrhythmia (Chronic) Tricuspid valve insufficiency (Chronic 06/08/15) Tension headache (Chronic 02/02/15) Obesity (Chronic) Left ventricular enlargement (Chronic 06/08/15) Fatigue (Chronic) Surgical History (Updated 08/29/24 @ 00:02 by MILLY RIVAS) History of cataract removal with insertion of prosthetic lens shoulder arthroscopy repair calcium deposit right shoulder Thoracic aortic aneurysm repair Cholecystectomy Extraction of cataract Family History Mother Cancer Brain CA Father Heart disease Social History Smoking/Tobacco Use Status: Never Smoking risk assessment performed?: Yes Alcohol Intake: never Drug use: Never Substance use type: does not use Housing: house Do you feel safe at home: Yes Do you feel safe in your relationship?: Yes Time Spent with Patient Time Spent with Patient: 45-69 minutes Time was spent: preparing to see the patient(eg.review tests), ordering medications,tests, procedures, referring, communicating with other health health care coordinator, indepentently interpreting results, counseling the patient and care coordination
--- NOTE | 2024-11-17 15:20 | CMDISCH_ITS ---
Date of service: 11/17/24 LACE Index Scoring Tool Questions: Length of Stay (in days): 1 Was the patient admitted via the E.D.?: Yes Comorbidities: Cerebrovascular Disease and Chronic Pulmonary Disease (ANKIT) E.D. Visits: 2 Answers: Total Score: 9 Risk of Readmission: Low Risk Care Management Discharge Plan Reason for Hospitalization: encephalopathy Discharge Plan: Mariusz will be discharged home with a resumption of his hospice care and support. He will follow up with the hospice providers and plan of care and transport with his . Patient/Family Education Needs: review of discharge instructions, follow up plan, limitations and discuss Ask Me Three. Services Needed at Discharge: Home Health Care Services SDOH Health Related Social Needs: Health related social needs finding work daily activit ies lonely/isolated education
[2024-11-17 15:21] VITALS: BP 136/101; PULSE 107; RESP 16; TEMP 36.8; O2SAT 96
--- NOTE | 2024-11-17 15:38 | PDOC.CMIN ---
Date of service: 11/17/24 Time of Service: 15:38 Care Management Initial Assmt Initial Assessment Reason for Hospitalization: encephalopathy Functional Status/Living Situation Patient Presentation: He was sitting up in a chair when CM met with him. He was admitted yesterday after seeming more confused and falling at home. He was in [facility] for a few days and was discharged home yesterday. He had received a dose of Ativan at the facility prior to discharge and may have still been affected by the medication. His came to see him today and informed providers and staff that he is at his baseline. He has no injuries and his blood work and imaging did not reveal any new issues. He had a Palliative consult with Sarah Bacon and a new COLST form was completed. Mariusz lives in [place] in a single family home with Naa. They have 2 children; their daughter lives in [facility] and their son lives in the [facility]. He is retired from a career as a builder. He uses a walker for ambulation and is currently on hospice. Town of Residence: [place] Resides with: Spouse Significant Other/Family: Local Employment Status: Retired Instrumental Activities of Daily Living (ADLs): Requires support Medications Medication Management: No Issues/Barriers identified Physical Functioning/Mobility Assistive Device: cane and walker hospital bed Advance Directives Advance Directives: Do you have an Advance Directive: N 03/23/19, 14:55 AD On File at [facility]: N 03/23/19, 14:55 Date Asked 11/16/24 11/16/24, 20:26 AD Date Reviewed COLST On File at [facility] COLST Date Scanned Code Status Resuscitation Status DNR/DNI Insurance Coverage/Financial Issues Insurance: medicare Care Team Visit Care Team Role Provider Type Ketty Varghese NP MD [facility] STAFF PHYSICIAN Anton Gill Primary Care Provider NON-[facility] STAFF PHYSICIAN Sydni Morales MD Emergency Provider [facility] STAFF PHYSICIAN Aly Hart MD Admit Provider [facility] STAFF PHYSICIAN Attending Provider Discharge Potential Discharge Needs: PCP F/U Appt Anticipated Barriers to Discharge: None Identified Patient/Family Education Needs: Review discharge instructions, discuss Ask Me Three Plan: Mariusz will be discharged home with a resumption of his hospice care and support. He will follow up with the hospice providers and plan of care and transport with his . Social Determinants of Health Screening Will the Patient Participate in the Screening?: Unable to obtain PFSH All Active Problems (Updated 11/17/24 @ 12:20 by Sarah Bacon NP) Hospice care patient (Acute) Advanced care planning/counseling discussion (Acute) Altered mental status (Acute) Hyperbilirubinemia (Acute) History of CVA (cerebrovascular accident) (Acute) Encephalopathy (Acute) Stroke (Chronic) Hypertension (Chronic) Acute CVA (cerebrovascular accident) (Acute) Ventricular tachyarrhythmia (Chronic) Anemia (Chronic) Narcolepsy (Acute) Restless leg syndrome (Acute) Obstructive sleep apnea syndrome (Chronic) Carpal tunnel syndrome, right (Acute) Carpal tunnel syndrome of left wrist (Acute) Essential hypertension (Chronic 05/18/13) Depressive disorder (Chronic) Hypercholesterolemia (Chronic) Mitral valve insufficiency (Chronic 06/08/15) Primary insomnia (Chronic 10/20/15) Pulmonary hypertension (Chronic 06/08/15) Aortic aneurysm (Chronic 04/29/01) Dissection of Thoracic Aorta Chronic atrial fibrillation (Chronic 01/01/18) Aortic valve stenosis (Acute) Migraine (Chronic) Headache (Chronic) we discussed imaging with brain MRI--pros and cons He will hold off--see if sertraline wean helps. 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) Bruising (Chronic) Ventricular arrhythmia (Chronic) Tricuspid valve insufficiency (Chronic 06/08/15) Tension headache (Chronic 02/02/15) Obesity (Chronic) Left ventricular enlargement (Chronic 06/08/15) Fatigue (Chronic) Surgical History (Updated 08/29/24 @ 00:02 by MILLY RIVAS) History of cataract removal with insertion of prosthetic lens shoulder arthroscopy repair calcium deposit right shoulder Thoracic aortic aneurysm repair Cholecystectomy Extraction of cataract Family History Mother Cancer Brain CA Father Heart disease Social History Smoking/Tobacco Use Status: Never Smoking risk assessment performed?: Yes Alcohol Intake: never Drug use: Never Substance use type: does not use Housing: house Do you feel safe at home: Yes Do you feel safe in your relationship?: Yes
[2024-11-17 19:41] LABS: Hepatitis A Antibody IgM Negative (Negative); Hepatitis C Ab w Rflx HCV PCR Negative (Negative)
== END 2024-11-17 16:50 | disposition home or self-care (01) | DRG 70 ==
LOC: ER 11-17 00:09 → MS 11-17 00:57
PROVIDERS: Admitting Provider Family Medicine; Emergency Provider Emergency Medicine; PCP Internal Medicine; Responsible Provider Nurse Practitioner Family; Visit Provider Family Medicine
DX: G93.40 Encephalopathy, unspecified (principal); E80.6 Other disorders of bilirubin metabolism; I48.20 Chronic atrial fibrillation, unspecified; Z86.73 Personal history of transient ischemic attack (TIA), and cerebral infarction without residual deficits; I10 Essential (primary) hypertension; F32.A Depression, unspecified; E78.00 Pure hypercholesterolemia, unspecified; I27.20 Pulmonary hypertension, unspecified; I71.02 Dissection of abdominal aorta; K65.1 Peritoneal abscess; K86.2 Cyst of pancreas; D64.9 Anemia, unspecified; G47.419 Narcolepsy without cataplexy; I34.0 Nonrheumatic mitral (valve) insufficiency; G43.909 Migraine, unspecified, not intractable, without status migrainosus; Z95.2 Presence of prosthetic heart valve; Z79.01 Long term (current) use of anticoagulants; K57.30 Diverticulosis of large intestine without perforation or abscess without bleeding; Z66 Do not resuscitate; Z51.5 Encounter for palliative care
CPT/HCPCS: 00123; 36415; 51702; 80053; 80307; 83690; 85027; 86704; 86709; 86803; 87340; 93005; 96374; 99285; 70450; 74177; 80320; 80329; 81003; 81015; 82140; 83735; 84443; 84484; 85025; 85610; 93010; 99223; 99239

== ENCOUNTER 2025-01-05 15:40 | Inpatient (IN) | payer OTHER, SELFPAY ==
[2025-01-05 16:38] VITALS: BP 132/98; PULSE 92; RESP 16; TEMP 36; O2SAT 95
[2025-01-05 16:40] VITALS: BP 132/98; PULSE 92; RESP 16; TEMP 36; O2SAT 95
[2025-01-05] MEDS: fentaNYL 12 MCG PATCH TD (19:02)
--- NOTE | 2025-01-05 20:14 | W.PM.HP.N ---
Date of service: 01/05/25 Time of Service: 17:00 Assessment and Plan Assessment and plan (1) Hospice care patient: Assessment and plan: Hospice Respite Care ? admit for 5-day respite. [facility]. Continue home meds. (2) Essential hypertension: Assessment and plan: Chronic, continue home meds (3) Chronic atrial fibrillation: Assessment and plan: Chronic, continue home meds History of Present Illness History of Present Illness Chief Complaint: Lewey Body Dementia - Hospice patient: respite for caregiver Narrative: Patient is a 74 year old male on home hospice services through [facility]. He has a complex cardiac and neurologic history, including prior CVA with residual confusion, chronic atrial fibrillation, aortic valve replacement, thoracic aortic aneurysm repair, pulmonary hypertension, and hyperbilirubinemia with jaundice. Recently hospitalized for acute change in mental status. At that time, CT abdomen/pelvis showed diverticular abscess near the bladder vs. possible malignancy; total bilirubin was 6.8 (highest on record). Patient and family elected for continued hospice-level care. Code status was clarified to DNR/DNI and COLST completed. Today he is admitted to the medical floor for hospice respite. He reports no pain or shortness of breath. Baseline confusion persists. Naa remains primary decision-maker. Review of Systems Narrative: (limited by cognition, otherwise per caregiver report) Constitutional: Denies pain, chills, fever. Reports fatigue. HEENT: Jaundice noted, no sore throat or vision change. Cardiac: No chest pain, palpitations at baseline with known Afib. Respiratory: No acute dyspnea or cough. GI: Denies nausea, vomiting, abdominal pain. Reports decreased appetite. : Voiding spontaneously. Neuro: Baseline confusion. No new focal weakness reported. Psych: Mood stable, labile at baseline. Skin: No new rash. PFSH All Active Problems (Updated 11/18/24 @ 00:03 by MILLY RIVAS) Altered mental status (Acute) Hyperbilirubinemia (Acute) Stroke (Chronic) Hypertension (Chronic) Acute CVA (cerebrovascular accident) (Acute) Ventricular tachyarrhythmia (Chronic) Anemia (Chronic) Narcolepsy (Acute) Restless leg syndrome (Acute) Obstructive sleep apnea syndrome (Chronic) Carpal tunnel syndrome, right (Acute) Carpal tunnel syndrome of left wrist (Acute) Mitral valve insufficiency (Chronic 06/08/15) Primary insomnia (Chronic 10/20/15) Aortic aneurysm (Chronic 04/29/01) Dissection of Thoracic Aorta Aortic valve stenosis (Acute) Migraine (Chronic) Headache (Chronic) we discussed imaging with brain MRI--pros and cons He will hold off--see if sertraline wean helps. 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) Bruising (Chronic) Ventricular arrhythmia (Chronic) Tricuspid valve insufficiency (Chronic 06/08/15) Tension headache (Chronic 02/02/15) Obesity (Chronic) Left ventricular enlargement (Chronic 06/08/15) Fatigue (Chronic) Medical History (Updated 11/18/24 @ 00:03 by MILLY RIVAS) Hospice care patient History of CVA (cerebrovascular accident) Pulmonary hypertension (06/08/15) Hypercholesterolemia Essential hypertension (05/18/13) Depressive disorder Chronic atrial fibrillation (01/01/18) Surgical History (Updated 11/18/24 @ 00:03 by MILLY RIVAS) History of cataract removal with insertion of prosthetic lens shoulder arthroscopy repair calcium deposit right shoulder Thoracic aortic aneurysm repair Cholecystectomy Extraction of cataract Family History Mother Cancer Brain CA Father Heart disease Social History Smoking/Tobacco Use Status: Never Smoking risk assessment performed?: Yes Alcohol Intake: never Drug use: Never Substance use type: does not use Housing: house Do you feel safe at home: Yes Do you feel safe in your relationship?: Yes Meds Allergies and Home Medications Allergies Allergy/AdvReac Type Severity Reaction Status Date / Time No Known Allergies Allergy Verified 11/16/24 21:28 Home Medications ?Medication ?Instructions ?Recorded ?Confirmed ?Type lisinopril 10 mg tablet 20 mg (2 x 10 mg) PO DAILY #90 tabs 03/29/20 01/05/25 Rx metoprolol tartrate 50 mg tablet 50 mg PO BID #180 tabs 07/21/20 01/05/25 Rx sertraline 25 mg tablet 25 mg PO DAILY #90 tabs 08/31/20 01/05/25 Rx ferrous sulfate 325 mg (65 mg 325 mg PO DAILY 09/19/23 01/05/25 History iron) tablet (FeroSul) furosemide 40 mg tablet 40 mg PO QAM 09/19/23 01/05/25 History gabapentin 300 mg capsule 300 mg PO BID 09/19/23 01/05/25 History pravastatin 20 mg tablet 20 mg PO DAILY 09/19/23 01/05/25 History trazodone 50 mg tablet 50 mg PO QPM 09/19/23 01/05/25 History lorazepam 1 mg tablet 1 mg PO Q4H PRN anxiety, dsypnea, 11/11/24 01/05/25 Rx nausea #20 tabs morphine concentrate 100 mg/5 mL 5 - 20 mg (0.25 - 1 mL) PO Q1H PRN 12/28/24 01/05/25 Rx (20 mg/mL) oral solution pain or dyspnea #30 mL fentanyl 12 mcg/hr transdermal 1 patch transdermal Q72H #5 ea 01/05/25 01/05/25 Rx patch quetiapine 25 mg tablet (Seroquel) 50 mg (2 x 25 mg) PO QHS #28 tabs 01/05/25 01/05/25 Rx Exam Narrative Exam Narrative: General: Pleasant, elderly male. Alert to self only. No acute distress. HEENT: Marked scleral icterus. Moist mucous membranes. Cardiovascular: Irregularly irregular rhythm, rate controlled. No murmurs appreciated. Respiratory: Lungs clear bilaterally, no increased work of breathing. Abdomen: Soft, non-tender, nondistended. Bowel sounds present. : Voiding, no catheter. Extremities: Moves all extremities, no edema. Neuro: Baseline confused, speech delayed. No acute motor deficit noted. Skin: Warm, intact, jaundiced. Psych: Labile affect, pleasant but confused. Results Last Vital Signs Temp 36 C L 01/05/25 16:40 Pulse 92 H 01/05/25 16:40 Resp 16 01/05/25 16:40 BP 132/98 H 01/05/25 16:40 Pulse Ox 95 01/05/25 16:40 Time Spent Time spent with Patient: 40-54 minutes Time was spent: preparing to see the patient(eg.review tests), obtaining and/or reviewing separately otained hiistory, ordering medications,tests, procedures, referring, communicating with other health career information specialist and care coordination
[2025-01-05] MEDS: Gabapentin 300 MG CAP PO (20:27)
[2025-01-05] MEDS: Metoprolol 50 MG TAB PO (20:27)
[2025-01-05] MEDS: QUEtiapine 50 MG TAB PO (20:27)
[2025-01-05 20:46] VITALS: BP 149/61
[2025-01-06 07:40] VITALS: BP 159/123; PULSE 107; RESP 16; TEMP 36.1; O2SAT 96
[2025-01-06] MEDS: Gabapentin 300 MG CAP PO ×2 (08:26→21:00)
[2025-01-06] MEDS: Pravastatin 20 MG TAB PO (08:26)
[2025-01-06] MEDS: Metoprolol 50 MG TAB PO ×2 (08:26→21:00)
[2025-01-06] MEDS: Lisinopril 20 MG TAB PO (08:27)
[2025-01-06] MEDS: Sertraline 25 MG TAB PO (08:27)
--- NOTE | 2025-01-06 09:11 | PDOC.CMPRO ---
Date of service: 01/06/25 Time of Service: 11:19 Care Management Progress Note Progress Note Text Progress Note Text: Mariusz is a hospice patient is on respite. Mariusz is sitting in his chair and a bit restless at this time. Per DYE AND CHEMICAL COORDINATOR, Mariusz has been jumpy and a bit agitated. Palliative notified. CM will continue to follow. Discharge Potential Discharge Needs: Consult and Other (Hospice) Anticipated Barriers to Discharge: None Identified Patient/Family Education Needs: Review discharge instructions, discuss Ask Me Three Transportation: Private vehicle Plan: Mariusz is a hospice patient. It is anticipated that he will return home with his family and caregivers at the time of discharge. He will continue to be followed by hospice services. CM will continue to follow. Social Determinants of Health Screening Social Determinants of health last assessed in clinic: 01/06/25 Will the Patient Participate in the Screening?: Yes Do you worry about having a steady place to live?: no Problems where you live: no known problems In the past 12 months, have you had to go without electric, gas, oil or water in your home?: no 1. Within the past 12 months, we worried whether our food would run out before we got money to buy more.: Don't know/refused 2. Within the past 12 months, the food we bought just didn't last and we didn't have money to get more.: Don't know/refused Has lack of transportation kept you from medical appointments or from doing things needed for daily living?: no Has anyone in your life made you feel unsafe or unsupported?: no How hard is it for you to pay for the very basics like food, housing, medical care, and heating? Would you say it is:: Not hard at all Do you want help finding or keeping work or a job?: I do not need or want help If for any reason you need help with day-to-day activities such as bathing, preparing meals, shopping, managing finances, etc., do you get the help you need?: I get all the help I need How often do you feel lonely or isolated from those around you?: Never Do you speak a language other than [place] at home?: No
[2025-01-06] MEDS: QUEtiapine 50 MG TAB PO (20:59)
[2025-01-07 06:25] VITALS: BP 110/69; PULSE 74; RESP 18; TEMP 36.5; O2SAT 96
--- NOTE | 2025-01-07 08:24 | CMPROGNOTE_ITS ---
Date of service: 01/07/25 Time of Service: 13:21 Care Management Progress Note Progress Note Text Progress Note Text: Mariusz was sitting in his chair this morning. Per RN, he is comfortable and resting comfortably. Naa was able to visit yesterday. CM contacted Hospice SW regarding RN concerns with home safety, left voice message. CM will continue to follow. Discharge Potential Discharge Needs: PCP F/U Appt Anticipated Barriers to Discharge: None Identified Patient/Family Education Needs: Review discharge instructions, discuss Ask Me Three Transportation: Private vehicle Plan: Mariusz is a hospice patient. It is anticipated that he will return home with his family and caregivers at the time of discharge. He will continue to be followed by hospice services. CM will continue to follow. Social Determinants of Health Screening Social Determinants of health last assessed in clinic: 01/07/25 Will the Patient Participate in the Screening?: Yes Do you worry about having a steady place to live?: no Problems where you live: no known problems In the past 12 months, have you had to go without electric, gas, oil or water in your home?: no 1. Within the past 12 months, we worried whether our food would run out before we got money to buy more.: Don't know/refused 2. Within the past 12 months, the food we bought just didn't last and we didn't have money to get more.: Don't know/refused Has lack of transportation kept you from medical appointments or from doing things needed for daily living?: no Has anyone in your life made you feel unsafe or unsupported?: no How hard is it for you to pay for the very basics like food, housing, medical care, and heating? Would you say it is:: Not hard at all Do you want help finding or keeping work or a job?: I do not need or want help If for any reason you need help with day-to-day activities such as bathing, preparing meals, shopping, managing finances, etc., do you get the help you need?: I get all the help I need How often do you feel lonely or isolated from those around you?: Never Do you speak a language other than Portuguese at home?: No
[2025-01-07] MEDS: Sertraline 25 MG TAB PO (09:40)
[2025-01-07] MEDS: Lisinopril 20 MG TAB PO (09:40)
[2025-01-07] MEDS: Gabapentin 300 MG CAP PO ×2 (09:40→20:02)
[2025-01-07] MEDS: Metoprolol 50 MG TAB PO ×2 (09:40→20:05)
[2025-01-07] MEDS: Pravastatin 20 MG TAB PO (09:40)
[2025-01-07 20:01] VITALS: BP 126/77; PULSE 90; RESP 18; TEMP 36.2; O2SAT 94
[2025-01-07] MEDS: QUEtiapine 50 MG TAB PO (20:02)
[2025-01-08 08:28] VITALS: BP 145/110; PULSE 82; RESP 18; TEMP 36.2; O2SAT 96
[2025-01-08] MEDS: Gabapentin 300 MG CAP PO ×2 (08:32→20:22)
[2025-01-08] MEDS: Sertraline 25 MG TAB PO (08:32)
[2025-01-08] MEDS: Pravastatin 20 MG TAB PO (08:32)
[2025-01-08] MEDS: Metoprolol 50 MG TAB PO ×2 (08:32→20:22)
[2025-01-08] MEDS: Lisinopril 20 MG TAB PO (08:32)
[2025-01-08 19:32] VITALS: BP 154/87; PULSE 90; RESP 22; TEMP 36.9; O2SAT 94
[2025-01-08] MEDS: Acetaminophen 325 MG TAB 650 MG PO (20:22)
[2025-01-08] MEDS: QUEtiapine 50 MG TAB PO (20:22)
[2025-01-09 08:49] VITALS: BP 136/111; PULSE 91; RESP 18; TEMP 36.1; O2SAT 96
[2025-01-09] MEDS: Pravastatin 20 MG TAB PO (08:51)
[2025-01-09] MEDS: Metoprolol 50 MG TAB PO ×2 (08:51→19:58)
[2025-01-09] MEDS: Sertraline 25 MG TAB PO (08:51)
[2025-01-09] MEDS: Lisinopril 20 MG TAB PO (08:51)
[2025-01-09] MEDS: Gabapentin 300 MG CAP PO ×2 (08:51→19:58)
[2025-01-09 19:58] VITALS: BP 132/102; PULSE 99; RESP 20; TEMP 36.9; O2SAT 96
[2025-01-09] MEDS: QUEtiapine 50 MG TAB PO (19:58)
[2025-01-10 08:13] VITALS: BP 152/103; PULSE 96; RESP 17; TEMP 36.5; O2SAT 98
[2025-01-10] MEDS: Gabapentin 300 MG CAP PO (08:15)
[2025-01-10] MEDS: Pravastatin 20 MG TAB PO (08:16)
[2025-01-10] MEDS: Metoprolol 50 MG TAB PO (08:16)
[2025-01-10] MEDS: Lisinopril 20 MG TAB PO (08:16)
[2025-01-10] MEDS: Sertraline 25 MG TAB PO (08:16)
--- NOTE | 2025-01-10 08:58 | PDOC.CMPRO ---
Date of service: 01/10/25 Time of Service: 11:14 Care Management Progress Note Progress Note Text Progress Note Text: Mariusz was admitted for 5 days of hospice respite. Per provider, he will be discharged home today with a continuation of his hospice services. Discharge Potential Discharge Needs: Other (Hospice services) Anticipated Barriers to Discharge: None Identified Patient/Family Education Needs: Review discharge instructions, discuss Ask Me Three Transportation: Private vehicle Plan: Mariusz is a hospice patient. He will return home with his family and caregivers at the time of discharge. He will continue to be followed by hospice services. CM will continue to follow. Social Determinants of Health Screening Social Determinants of health last assessed in clinic: 01/10/25 Will the Patient Participate in the Screening?: Yes Do you worry about having a steady place to live?: no Problems where you live: no known problems In the past 12 months, have you had to go without electric, gas, oil or water in your home?: no 1. Within the past 12 months, we worried whether our food would run out before we got money to buy more.: Don't know/refused 2. Within the past 12 months, the food we bought just didn't last and we didn't have money to get more.: Don't know/refused Has lack of transportation kept you from medical appointments or from doing things needed for daily living?: no Has anyone in your life made you feel unsafe or unsupported?: no How hard is it for you to pay for the very basics like food, housing, medical care, and heating? Would you say it is:: Not hard at all Do you want help finding or keeping work or a job?: I do not need or want help If for any reason you need help with day-to-day activities such as bathing, preparing meals, shopping, managing finances, etc., do you get the help you need?: I get all the help I need How often do you feel lonely or isolated from those around you?: Never Do you speak a language other than Hebrew at home?: No
--- NOTE | 2025-01-10 14:36 | W.PM.DS.N ---
Date of service: 01/10/25 Time of Service: 14:15 DS: Diagnosis Discharge Diagnosis (1) Hospice care patient: Asessment and Plan: Mariusz will return home today at 4pm via ambulance after a 5 day respite stay at [facility] resuming home health hospice (2) Essential hypertension: (3) Chronic atrial fibrillation: Discharge Plan Disposition Patient Disposition: Home W/Hospice Services Condition: Fair Discharge Details Reason For Visit: Lewey Body Dementia Admit Date/Time: 01/05/25 15:40 Admit Provider: Aleyda Charles Attending Provider: Aleyda Charles Primary Care Provider: Anton Gill Hospital Course Hospital Course: Mr. Vee was admitted on 01/05/25 for hospice respite His 5 days were largely uneventful. He settled in nicely over his 5 day stay He denied pain or discomfort. He was mostly continent w/urine w/use of bedside urinal He was mixed continence w/bowels He was a 1 person transfer assist, getting up out of bed daily. He was not agitated per report today; he has been great, pleasently confused. he is ready to return home today. Home Meds and New Rx's Prescriptions: No Action lisinopril 10 mg tablet 20 mg PO DAILY Qty: 90 3RF metoprolol tartrate 50 mg tablet 50 mg PO BID Qty: 180 4RF sertraline 25 mg tablet 25 mg PO DAILY Qty: 90 4RF lorazepam 1 mg tablet 1 mg PO Q4H PRN (Reason: anxiety, dsypnea, nausea) Qty: 20 5RF Rx Instructions: hospice morphine concentrate 100 mg/5 mL (20 mg/mL) solution 5 - 20 mg PO Q1H PRN MDD 24 ml Qty: 30 0RF Rx Instructions: hospice quetiapine [Seroquel] 25 mg tablet 50 mg PO QHS Qty: 28 4RF Rx Instructions: hospice fentanyl 12 mcg/hr patch 72 hour 1 patch transdermal Q72H MDD 1 patch Qty: 5 0RF Patient Comments: starting today gabapentin 300 mg capsule 300 mg PO BID trazodone 50 mg tablet 50 mg PO QPM pravastatin 20 mg tablet 20 mg PO DAILY furosemide 40 mg tablet 40 mg PO QAM Patient Comments: TAKE ONE-HALF TABLET BY MOUTH EVERY DAY ferrous sulfate [FeroSul] 325 mg (65 mg iron) tablet 325 mg PO DAILY Discharge Instructions Activity:: Activity as Tolerated Equipment/Supplies:: No Equipment Needed Diet:: As Tolerated Discharge Orders Discharge Orders: Discharge Order (Routine); Ordered 01/10/25 Ordered By: Carolyn Burleson DS: Summary Time Spent with Patient providing and/or coordinating discharge services: Less than 30 minutes Status at Discharge Functional status at discharge: uses cane/walker Overall status at discharge: patient is back to baseline Mental Status: No mental status grossly normal Speech and Movement: speech and movement normal Mood: congruent mood Affect: normal affect Quality:SDOH Health Related Social Needs: Health related social needs finding work daily activities lonely/isolated education Exam Narrative Exam Narrative: General: older adult male, sitting in recliner throughout visit; hospital gown on HEENT: MMM, normocephalic, atraumatic, hearing grossly WNL Resp: even and unlabored, speaks full sentences w/o SOB; CTA in all lung owusu, diminished slightly at bases w/normal resp effort; no cough, no audible wheeze Cardiac: HR regularly irregular, tachycardic around 90-110 range no murmurs; radial pulse 2+ bilat GI: BS active all 4 quadrants. non-tender to palpation, no guarding Skin: scattered hematomas, predominately in L inner thigh, non painful to palpation, appears healing; skin atrophy; did not conduct full skin exam Ext: no pedal edema; DP pulses 2+ bilat neuro: awake and alert, CNII-IV WNL; speech/movement WNL Psych: cooperative, pleasant, confused/impoverished thought process, no distress; insight/judgment limited Psych Mental Status: mental status grossly abnormal Speech and Movement: speech and movement normal Mood: congruent mood Affect: normal affect DS: Data Vitals/I&O Vitals and I&O: Vital Signs Temperature 97.7 F 01/10/25 08:13 Temperature Source Temporal Artery Scan 01/10/25 08:13 Pulse 96 H 01/10/25 08:13 Pulse Rhythm Irregular 01/05/25 16:40 Respiratory Rate 17 01/10/25 08:13 Respiratory Effort Normal, Non-Labored 01/05/25 16:40 Respiratory Depth Normal 01/05/25 16:40 Blood Pressure 152/103 H 01/10/25 08:13 Blood Pressure Mean 119 01/10/25 08:13 Pulse Oximetry 98 08/25/25 08:13 Oxygen Delivery Method Room Air 01/10/25 08:13 Oxygen Flow Rate 0 01/10/25 08:13 Pain Level 0 01/10/25 08:13 Intake & Output 01/09/25 01/10/25 01/10/25 23:59 11:59 23:59 Intake Total 240 / 240 Balance 240 / 240 Intake: Oral 240 / 240 Other: Urine Color Straw Urine Odor Strong Comment unmeasured Stool Size Large Moderate Stool Characteristics Formed Liquid Brown PFSH All Active Problems Altered mental status (Acute) Hyperbilirubinemia (Acute) Stroke (Chronic) Hypertension (Chronic) Acute CVA (cerebrovascular accident) (Acute) Ventricular tachyarrhythmia (Chronic) Anemia (Chronic) Narcolepsy (Acute) Restless leg syndrome (Acute) Obstructive sleep apnea syndrome (Chronic) Carpal tunnel syndrome, right (Acute) Carpal tunnel syndrome of left wrist (Acute) Mitral valve insufficiency (Chronic 06/08/15) Primary insomnia (Chronic 10/20/15) Aortic aneurysm (Chronic 04/29/01) Dissection of Thoracic Aorta Aortic valve stenosis (Acute) Migraine (Chronic) Headache (Chronic) we discussed imaging with brain MRI--pros and cons He will hold off--see if sertraline wean helps. 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) Bruising (Chronic) Ventricular arrhythmia (Chronic) Tricuspid valve insufficiency (Chronic 06/08/15) Tension headache (Chronic 02/02/15) Obesity (Chronic) Left ventricular enlargement (Chronic 06/08/15) Fatigue (Chronic) Medical History Hospice care patient History of CVA (cerebrovascular accident) Pulmonary hypertension (06/08/15) Hypercholesterolemia Essential hypertension (05/18/13) Depressive disorder Chronic atrial fibrillation (01/01/18) Surgical History History of cataract removal with insertion of prosthetic lens shoulder arthroscopy repair calcium deposit right shoulder Thoracic aortic aneurysm repair Cholecystectomy Extraction of cataract Family History Mother Cancer Brain CA Father Heart disease Social History Smoking/Tobacco Use Status: Never Smoking risk assessment performed?: Yes Alcohol Intake: never Drug use: Never Substance use type: does not use Housing: house Do you feel safe at home: Yes Do you feel safe in your relationship?: Yes Time Spent with Patient Time Spent with Patient: <45 minutes Time was spent: preparing to see the patient(eg.review tests), obtaining and/or reviewing separately otained hiistory, referring, communicating with other health pharmacy customer care specialist, counseling the patient and care coordination
== END 2025-01-10 17:37 | disposition hospice, home (50) | DRG 57 ==
PROVIDERS: Admitting Provider Family Medicine; PCP Internal Medicine; Responsible Provider Nurse Practitioner Family; Visit Provider Family Medicine
DX: G31.83 Neurocognitive disorder with Lewy bodies (principal); I48.20 Chronic atrial fibrillation, unspecified; R17 Unspecified jaundice; Z51.5 Encounter for palliative care; Z75.5 Holiday relief care; I10 Essential (primary) hypertension; Z95.4 Presence of other heart-valve replacement; Z66 Do not resuscitate; I69.318 Other symptoms and signs involving cognitive functions following cerebral infarction; I27.20 Pulmonary hypertension, unspecified; D64.9 Anemia, unspecified; G47.419 Narcolepsy without cataplexy; G25.81 Restless legs syndrome; G47.33 Obstructive sleep apnea (adult) (pediatric); G43.909 Migraine, unspecified, not intractable, without status migrainosus; Z79.01 Long term (current) use of anticoagulants; I08.1 Rheumatic disorders of both mitral and tricuspid valves; F32.A Depression, unspecified; I65.22 Occlusion and stenosis of left carotid artery; R15.9 Full incontinence of feces; Z79.899 Other long term (current) drug therapy
CPT/HCPCS: 00123

== ENCOUNTER 2025-03-17 13:30 | Outpatient (REF) | payer OTHER, SELFPAY ==
[2025-03-18 13:28] LABS: Glucose Negative (Negative)
[2025-03-18 13:36] LABS: C & S Indicated? Yes; WBC >50 HPF (0-5)
== END 2025-03-17 13:31 | disposition home or self-care (01) ==
LOC: LBN 13:30
PROVIDERS: PCP Internal Medicine; Visit Provider Nurse Practitioner
DX: N39.0 Urinary tract infection, site not specified (principal)
CPT/HCPCS: 87077; 81003; 81015; 87086; 87186